=== PATIENT | female | born 1965 | race Caucasian/White ===

== ENCOUNTER 2018-04-03 10:16 | Inpatient (IN) ==
[2018-04-03] MEDS ORDERED: Ketorolac Inj 30 MG/ML (IVP) Vial IV.PUSH ONE (10:38)
[2018-04-03] MEDS ORDERED: Sod Chloride 0.9% Inj 1,000 ML IV.SIG ONE (10:38)
[2018-04-03] MEDS ORDERED: Acetaminophen 500 MG Tablet PO ONE (10:41)
[2018-04-03 11:19] LABS: Bilirubin,Urine Negative (Negative); Clarity,Urine Cloudy (Clear); Color,Urine Yellow (Yellw/Straw); Glucose,Urine (UA) Negative (Negative); Leukocyte Esterase,Urine Moderate (Negative); Nitrite,Urine Positive (Negative)
[2018-04-03 11:21] LABS: Collection Time,Urine 1030 hours
[2018-04-03 11:21] LABS: Baso # (Auto) 0.2 th/mm3 (0.0-0.2); Baso % (Auto) 1.6 % (0.0-2.0); Hematocrit 39.1 % (35.0-46.0); Hemoglobin 13.9 gm/dL (11.6-15.3); Lymph # (Auto) 0.5 th/mm3 (1.0-4.8); Lymph % (Auto) 4.4 % (9.0-44.0); Mean Corpuscular HGB Conc 35.6 % (32.0-36.0); Mean Corpuscular Volume 98.4 fL (80.0-100.0); Mean Platelet Volume 7.3 fL (7.0-11.0); Mono # (Auto) 0.8 th/mm3 (0.0-0.9); Mono % (Auto) 8.1 % (0.0-8.0); Neut # (Auto) 8.9 th/mm3 (1.8-7.7); Neut % (Auto) 85.9 % (16.0-70.0); Platelet Count 168 th/mm3 (150-450); Red Blood Count 3.98 mil/mm3 (4.00-5.30); Red Cell Distribution Width 13.1 % (11.6-17.2); White Blood Count 10.4 th/mm3 (4.0-11.0)
[2018-04-03 11:27] LABS: RBC,Urine 0-3 /hpf (0-3)
[2018-04-03 11:28] LABS: Squamous Epithelial Cell,Urine 0-5 /hpf (0-5); WBC,Urine 21-50 /hpf (0-5)
--- NOTE | 2018-04-03 11:28 | ED ---
HPI General Chief complaint: Urogenital-Female Stated complaint: sent by Dr Justin/Spring UTI Time Seen by Provider: 04/03/18 10:38 History of Present Illness HPI Narrative: This is a 53-year-old female with no past medical history, presents here at the request of her primary care doctor for evaluation and IV antibiotics. Patient presents with 5-day history of dysuria and flank pain. She has had fever and chills. She is also had bilateral flank pain. She was seen and evaluated by her primary care physician who sent her here. Primary care physician noted that she was a little unsteady on her gait. Patient appears to be very tremulous and is having chills when I entered the room. There is nausea with no vomiting diarrhea. Related Data Home Medications Medication Instructions Recorded Confirmed No Known Home Medications 04/03/18 04/03/18 Allergies Allergy/AdvReac Type Severity Reaction Status Date / Time No Known Allergies Allergy Verified 04/03/18 10:22 Review of Systems ROS: all other systems reviewed are negative Constitutional Reports chills and Reports fever(s) Eyes Reports system reviewed and no additional complaints, except as docu ENT Reports system reviewed and no additional complaints, except as docu Cardiovascular Denies chest pain and Reports palpitations Respiratory Denies chest congestion and Denies dyspnea Gastrointestinal Denies abdominal pain, Reports nausea and Denies vomiting Genitourinary Denies hematuria, Reports dysuria and Reports urinary urgency Musculoskeletal Reports back pain, Denies numbness and Denies tingling Integumentary/Breasts Reports system reviewed and no additional complaints, except as docu Neurologic Denies confusion, Reports dizziness, Denies headache(s) and Reports other ( Steady with gait.) PMFSH Social History Social History Substance History: No History of Abuse Smoking Status: Never smoker How Often Do You Have a Drink Containing Alcohol: 4 or more times a week Recent Travel in [facility] within the Last 8 Weeks: No Recent Out of Country Travel within the Last 8 Weeks: No Immunization History Tetanus Immunization: Unsure Exam Narrative Exam Narrative: GENERAL: Well-developed well-nourished female who is in obvious distress with chills. SKIN: Focused skin assessment warm/dry. HEAD: Atraumatic. Normocephalic. EYES: No scleral icterus. No injection or drainage. ENT: No nasal bleeding or discharge. Mucous membranes pink and moist. NECK: Trachea midline. Supple. CARDIOVASCULAR: Tachycardic with a rate in the 120s.. No murmur appreciated. RESPIRATORY: No accessory muscle use. Clear to auscultation. Breath sounds equal bilaterally. GASTROINTESTINAL: Abdomen soft, nondistended. Suprapubic discomfort to deep palpation. No rebound or guarding. MUSCULOSKELETAL: No obvious deformities. No clubbing. No cyanosis. No edema. BACK: Subjective flank pain bilaterally to percussion. NEUROLOGICAL: Awake and alert. No obvious cranial nerve deficits. Motor grossly within normal limits. Normal speech. Course Initial Documented Vital Signs Temperature 100.7 F H 04/03/18 10:22 Pulse Rate 125 H 04/03/18 10:22 Respiratory Rate 16 04/03/18 10:22 Blood Pressure 155/79 H 04/03/18 10:22 Pulse Oximetry 94 L 04/03/18 10:22 Last Documented Vital Signs Temperature 100.7 F H 04/03/18 10:22 Pulse Rate 125 H 04/03/18 10:22 Respiratory Rate 16 04/03/18 10:22 Blood Pressure 155/79 H 04/03/18 10:22 Pulse Oximetry 94 L 04/03/18 10:22 Medical Decision Making [facility] Narrative Medical decision making narrative: 53-year-old female presents today with complaints of fever, dysuria, flank pain, tachycardia. Patient has pyelonephritis and sepsis. She is been started on Rocephin, 1 g IV x1 dose. Patient's sodium was also noted to be 128. She will be given IV hydration overnight. She will be observed in the hospital. Case was discussed with Dr. Dereck Blunt, covering for [facility] admissions, who is come down to see and evaluate the patient. He will write admission orders. At the time of her being interviewed, the nurse came back and stated that she had had a more in-depth talk with her and she gives history that she drinks daily. The patient does appear to be tremulous and there is a possibility that she could be going through early alcohol withdrawal. This information was passed on to the admitting physician who placed her on [facility] protocol. Medical Screen Exam Complete: Yes Emergency Medical Condition: Yes Differential Diagnosis Differential Diagnosis: Pyelonephritis versus sepsis versus UTI Lab Data Result diagrams: 04/03/18 11:05 04/03/18 11:05 Lab Results 04/03/18 04/03/1818 Range/Units 10:30 11:05 11:05 CBC w Diff Auto diff final WBC 10.4 (4.0-11.0) th/mm3 RBC 3.98 L (4.00-5.30) mil/mm3 Hgb 13.9 (11.6-15.3) gm/dL Hct 39.1 (35.0-46.0) % MCV 98.4 (80.0-100.0) fL MCH 35.0 H (27.0-34.0) pg MCHC 35.6 (32.0-36.0) % RDW 13.1 (11.6-17.2) % Plt Count 168 (150-450) th/mm3 MPV 7.3 (7.0-11.0) fL Neut % (Auto) 85.9 H (16.0-70.0) % Lymph % (Auto) 4.4 L (9.0-44.0) % [place] % (Auto) 8.1 H (0.0-8.0) % Eos % (Auto) 0.0 (0.0-4.0) % Baso % (Auto) 1.6 (0.0-2.0) % Neut # (Auto) 8.9 H (1.8-7.7) th/mm3 Lymph # (Auto) 0.5 L (1.0-4.8) th/mm3 [place] # (Auto) 0.8 (0.0-0.9) th/mm3 Eos # (Auto) 0.0 (0.0-0.4) th/mm3 Baso # (Auto) 0.2 (0.0-0.2) th/mm3 WBC Differential . Differential Comment . Sodium 128 L (136-145) meq/L Potassium 4.0 (3.5-5.1) meq/L Chloride 90 L (98-107) meq/L Carbon Dioxide 24.9 (21.0-32.0) meq/L Anion Gap 13 (5-15) meq/L BUN 10 (7-18) mg/dL Creatinine 0.99 (0.50-1.00) mg/dL Estimated GFR 58 L (>89) mL/min Random Glucose 123 H (74-106) mg/dL Calcium 8.5 (8.5-10.1) mg/dL Magnesium 1.4 L (1.5-2.5) mg/dL Total Bilirubin 1.9 H (0.2-1.0) mg/dL AST 74 H (15-37) U/L ALT 62 H (10-53) U/L Alkaline Phosphatase 102 (45-117) U/L Total Protein 8.5 H (6.4-8.2) g/dL Albumin 3.6 (3.4-5.0) g/dL Ur Collection Type Clean catch Urine Color Yellow (Yellw/Straw) Urine Clarity Cloudy H (Clear) Urine pH 6.0 (5.0-8.5) Ur Specific [place] 1.020 (1.002-1.035) Urine Protein 100 H (Neg-Trace) mg/dL Urine Glucose (UA) Negative (Negative) mg/dL Urine Ketones 80 or greater H (Negative) mg/dL Urine Occult Blood Large H (Negative) Urine Nitrate Positive H (Negative) Urine Bilirubin Negative (Negative) Urine Urobilinogen 1.0 (Less than 2) mg/dL Ur Leukocyte Esterase Moderate H (Negative) Urine RBC 0-3 (0-3) /hpf Urine WBC 21-50 H (0-5) /hpf Urine WBC Clumps Moderate H (None) Ur Squamous Epith Cells 0-5 (0-5) /hpf Amorphous Sediment Occasional H (None) /hpf Urine Bacteria Occasional H (None) /hpf Micro UA Comment Culture indicated Ur Microscopic Review Microscopic reviewed Urine Culture Comments Culture indicated Urine Collection Time 1030 hours Discharge Plan Discharge Disposition Patient Disposition: 30 Still Patient Discharge Details Diagnosis: Pyelonephritis, Sepsis, Hyponatremia, Dehydration Physicians Team ED Provider: Julian Cordoba Primary Care Provider: Bertha Justin Attending Provider: Dereck Blunt Status ED Status: Admitted Patient
[2018-04-03 11:29] LABS: Chloride 90 meq/L (98-107); Sodium 128 meq/L (136-145)
[2018-04-03 11:29] LABS: Amorphous Sediment,Urine Occasional /hpf; Bacteria,Urine Occasional /hpf
[2018-04-03 11:33] LABS: Albumin 3.6 g/dL (3.4-5.0); Anion Gap 13 meq/L (5-15); Calcium 8.5 mg/dL (8.5-10.1); Carbon Dioxide 24.9 meq/L (21.0-32.0)
[2018-04-03 11:34] LABS: Blood Urea Nitrogen 10 mg/dL (7-18); Glucose,Random 123 mg/dL (74-106); Magnesium 1.4 mg/dL (1.5-2.5)
[2018-04-03 11:36] LABS: Alanine Aminotransferase 62 U/L (10-53); Aspartate Aminotransferase 74 U/L (15-37)
[2018-04-03 11:37] LABS: Glomerular Filtration Rate 58 mL/min (>89)
[2018-04-03 11:38] LABS: Total Protein 8.5 g/dL (6.4-8.2)
[2018-04-03 11:39] LABS: Alkaline Phosphatase 102 U/L (45-117)
[2018-04-03] MEDS ORDERED: Haloperidol Inj 5 MG/ML Ampul IV.PUSH PRN (12:28)
--- NOTE | 2018-04-03 12:41 | P.HP ---
History of Present Illness [facility] Physician: Bertha Justin MD Chief Complaint: Sent via primary care physician for fever chills abdominal pain dysuria History of Present Illness: This is a 53-year-old female with no past medical history, presents here at the request of her primary care doctor for evaluation and IV antibiotics. Patient presents with 5-day history of dysuria and flank pain abdominal pain. She has had fever and chills. She is also had bilateral flank pain. She was seen and evaluated by her primary care physician who sent her here. Primary care physician noted that she was a little unsteady on her gait. Patient appears to be very tremulous and is having chills some tremors but does claim to drink wine daily. There is nausea with no vomiting diarrhea. In ER was found to have a low sodium here and urine shows infection also had some elevation of liver function test , will start Rocephin IV fluid. Place on CIWA protocol as patient does drink wine daily. - Diagnosis (1) Pyelonephritis (2) Hyponatremia (3) Sepsis (4) Dehydration (5) LFT elevation Inpatient Certification: I certify that the inpatient services were ordered in accordance with Medicare regulations governing the order. This includes certification that hospital inpatient services are reasonable and necessary and in the case of services not specified as inpatient-only under 42 CFR 419.22(n), that they are appropriately provided as inpatient services in accordance to with the 2-midnight benchmark under 43 CFR 412.3(e) Estimated Total Length of Stay (Days): 2 Plans for Post Hospital Care: Home Review of Systems All other systems reviewed negative except as stated in HPI [facility] - History History Provided By: Patient - Medical History Medical History: Medical History (Last Reviewed 04/03/18 @ 12:37 by Dereck Blunt MD) No significant past medical history - Surgical History Surgical History: Surgical History (Last Reviewed 04/03/18 @ 12:37 by Dereck Blunt MD) History of breast augmentation Hx of tonsillectomy - Tobacco History Smoking Status: Never smoker - Alcohol History How Often Do You Have a Drink Containing Alcohol: 4 or more times a week - Substance Use History Substance History: No History of Abuse - Travel History Recent Travel in the [place] Within the Last 8 Weeks: No Recent Travel Out of the Country Within the Last 8 Weeks: No - Immunization History Tetanus Immunization: Unsure Medications and Allergies Active Medications: Active Medications Acetaminophen (Tylenol) 650 mg PO Q4H PRN PRN Reason: Temp > 100.4 Flumazenil (Romazecon Inj) 0.2 mg IV.PUSH Q1M PRN PRN Reason: OVERSEDATION Haloperidol Lactate (Haldol Inj) 1 mg IV.PUSH Q15M PRN PRN Reason: for severe agitation Ceftriaxone Sodium 1,000 mg/ (Sodium Chloride) 100 mls @ 200 mls/hr IV.SIG Q24H MARIE Sodium Chloride (Ns Inj) 1,000 mls @ 84 mls/hr IV.CONT .[id number] MARIE Lorazepam (Ativan) 1 mg PO Q4H PRN PRN Reason: for CIWA 8-10 Lorazepam (Ativan) 2 mg PO Q2H PRN PRN Reason: for CIWA 11-14 Lorazepam (Ativan Inj) 2 mg IV.PUSH Q1H PRN PRN Reason: for CIWA 15-20 Lorazepam (Ativan Inj) 2 mg IV.PUSH Q15M PRN PRN Reason: for CIWA > 20 Lorazepam (Ativan Inj) 1 mg IV.PUSH Q4H PRN PRN Reason: for CIWA 8-10 Lorazepam (Ativan Inj) 2 mg IV.PUSH Q2H PRN PRN Reason: for CIWA 11-14 Ondansetron HCl (Zofran Inj) 4 mg IV.PUSH Q6H PRN PRN Reason: NAUSEA OR VOMITING Senna/Docusate Sodium (Romana-Colace) 1 tab PO BID MARIE Sodium Chloride (Ns Flush) 2 ml IV.FLUSH PRN PRN PRN Reason: FLUSH AFTER USING IV ACCESS Allergies Allergy/AdvReac Type Severity Reaction Status Date / Time No Known Allergies Allergy Verified 04/03/18 10:22 Home Medications Medication Instructions Recorded Confirmed Type No Known Home Medications 04/03/18 04/03/18 History Exam Vital signs: Vital Signs 04/03/18 10:22 Temperature 100.7 F H Pulse Rate 125 H Respiratory Rate 16 Blood Pressure 155/79 H Pulse Oximetry 94 L Intake & Output 04/02/18 04/03/18 04/03/18 18:59 06:59 18:59 Intake Total 100 / 100 Balance 100 / 100 Weight 51.7 kg Intake: IV 100 / 100 Rocephin Inj 1,000 MG In NS Inj 100 / 100 100 ML @ 200 mls/hr IV.SIG ONCE ONE Rx#:[id number] Narrative: GENERAL: SKIN: Warm and dry. HEAD: Normocephalic. EYES: No scleral icterus. No injection or drainage. NECK: Supple, trachea midline. No JVD or lymphadenopathy. CARDIOVASCULAR: Regular rate and rhythm without murmurs, gallops, or rubs. RESPIRATORY: Breath sounds equal bilaterally. No accessory muscle use. GASTROINTESTINAL: Abdomen tender lower abdomen with radiation to flank. MUSCULOSKELETAL: No cyanosis, or edema. BACK: Nontender without obvious deformity. No CVA tenderness. Results - Labs CBC & Chem 7: 04/03/18 11:05 04/03/18 11:05 Labs: Laboratory Results - last 24 hr 04/03/18 04/03/18 04/03/18 10:30 11:05 11:05 CBC w Diff Auto diff final WBC 10.4 RBC 3.98 L Hgb 13.9 Hct 39.1 MCV 98.4 MCH 35.0 H MCHC 35.6 RDW 13.1 Plt Count 168 MPV 7.3 Neut % (Auto) 85.9 H Lymph % (Auto) 4.4 L [place] % (Auto) 8.1 H Eos % (Auto) 0.0 Baso % (Auto) 1.6 Neut # (Auto) 8.9 H Lymph # (Auto) 0.5 L [place] # (Auto) 0.8 Eos # (Auto) 0.0 Baso # (Auto) 0.2 WBC Differential . Differential Comment . Sodium 128 L Potassium 4.0 Chloride 90 L Carbon Dioxide 24.9 Anion Gap 13 BUN 10 Creatinine 0.99 Estimated GFR 58 L Random Glucose 123 H Calcium 8.5 Magnesium 1.4 L Total Bilirubin 1.9 H AST 74 H ALT 62 H Alkaline Phosphatase 102 Total Protein 8.5 H Albumin 3.6 Ur Collection Type Clean catch Urine Color Yellow Urine Clarity Cloudy H Urine pH 6.0 Ur Specific [place] 1.020 Urine Protein 100 H Urine Glucose (UA) Negative Urine Ketones 80 or greater H Urine Occult Blood Large H Urine Nitrate Positive H Urine Bilirubin Negative Urine Urobilinogen 1.0 Ur Leukocyte Esterase Moderate H Urine RBC 0-3 Urine WBC 21-50 H Urine WBC Clumps Moderate H Ur Squamous Epith Cells 0-5 Amorphous Sediment Occasional H Urine Bacteria Occasional H Micro UA Comment Culture indicated Ur Microscopic Review Microscopic reviewed Urine Culture Comments Culture indicated Urine Collection Time 1030 Caprini VTE Risk Assessment Caprini VTE Risk Assessment: No/Low Risk (score <= 1) Caprini Risk Assessment Model: Point Value = 1 Point Value = 2 Point Value = 3 Point Value = 5 Age 41-60 Minor surgery BMI > 25 kg/m2 Swollen legs Varicose veins or History of unexplained or recurrent spontaneous Oral contraceptives or hormone replacement Sepsis (< 1 month) Serious lung disease, including pneumonia (< 1 month) Abnormal pulmonary function Acute myocardial infarction Congestive heart failure (< 1 month) History of inflammatory bowel disease Medical patient at bed rest Age 61-74 Arthroscopic surgery Major open surgery (> 45 min) Laparoscopic surgery (> 45 min) Malignancy Confined to bed (> 72 hours) Immobilizing plaster cast Central venous access Age >= 75 History of VTE Family history of VTE Factor V Leiden Prothrombin [id number] Lupus anticoagulant Anticardiolipin antibodies Elevated serum homocysteine Heparin-induced thrombocytopenia Other congenital or acquired thrombophilia Stroke (< 1 month) Elective arthroplasty Hip, pelvis, or leg fracture Acute spinal cord injury (< 1 month) Prophylaxis Regimen: Total Risk Factor Score Risk Level Prophylaxis Regimen 0-1 Low Early ambulation 2 Moderate Order ONE of the following: *Sequential Compression Device (SCD) *Heparin 5000 units SQ BID 3-4 Higher Order ONE of the following medications: *Heparin 5000 units SQ TID *Enoxaparin/Lovenox 40 mg SQ daily (WT < 150 kg, CrCl > 30 mL/min) *Enoxaparin/Lovenox 30 mg SQ daily (WT < 150 kg, CrCl > 10-29 mL/min) *Enoxaparin/Lovenox 30 mg SQ BID (WT < 150 kg, CrCl > 30 mL/min) AND/OR *Sequential Compression Device (SCD) 5 or more Highest Order ONE of the following medications: *Heparin 5000 units SQ TID (Preferred with Epidurals) *Enoxaparin/Lovenox 40 mg SQ daily (WT < 150 kg, CrCl > 30 mL/min) *Enoxaparin/Lovenox 30 mg SQ daily (WT < 150 kg, CrCl > 10-29 mL/min) *Enoxaparin/Lovenox 30 mg SQ BID (WT < 150 kg, CrCl > 30 mL/min) AND *Sequential Compression Device (SCD) Assessment and Plan - Assessment (1) Pyelonephritis Code(s): N12 - Tubulo-interstitial nephritis, not specified as acute or chronic Status: Acute Plan: IV fluid,rocephin follow up labs (2) Hyponatremia Code(s): E87.1 - Hypo-osmolality and hyponatremia Status: Acute Plan: Follow levels IV fluids will be given (3) Sepsis Code(s): A41.9 - Sepsis, unspecified organism Status: Acute Plan: Fever retractions and follow (4) Dehydration Code(s): E86.0 - Dehydration Status: Acute Plan: Normal saline (5) LFT elevation Code(s): R94.5 - Abnormal results of liver function studies Status: Acute Plan: We will get a noncontrast CT as patient had elevated LFT and abdominal pain - Plan Further plan as case develops Code Status: Full Discussed Condition With: Patient and (3) Sepsis Qualifiers: Sepsis type: sepsis due to unspecified organism Qualified Code(s): A41.9 - Sepsis, unspecified organism
[2018-04-03] MEDS: Sod Chloride 0.9% Inj 1,000 ML IV.CONT SCH (13:46)
[2018-04-03] MEDS: LORazepam 1 MG Tablet PO PRN (17:00)
[2018-04-03] MEDS: Acetaminophen 325 MG Tablet PO PRN (17:36)
[2018-04-03] MEDS: Senna/Docusate Sodium 8.6/50 MG Tablet PO SCH (20:26)
--- NOTE | 2018-04-03 20:46 | CT ---
EXAM DATE: 04/03/2018 8:30 PM EST AGE/SEX: 53 years / Female INDICATIONS: Dysuria and bilateral flank pain. Nausea. CLINICAL DATA: This is the patient's initial encounter. Patient reports that signs and symptoms have been present for 4 - 6 days and indicates a pain score of 7/10. MEDICAL/SURGICAL HISTORY: None. None. RADIATION DOSE: 6.65 CTDI (mGy) COMPARISON: No prior exams available for comparison. TECHNIQUE: Multiple contiguous axial images were obtained through the abdomen. Images were obtained using multiple row detector helical technique. Using automated exposure control and adjustment of the mA and/or kV according to patient size, radiation dose was kept as low as reasonably achievable to o btain optimal diagnostic quality images. DICOM format image data is available electronically for rev iew and comparison. FINDINGS: Lower Lungs: The visualized lower lungs are clear. Liver: The liver has a homogeneous density without space-occupying lesion for noncontrast technique. There is no dilation of the biliary tree. No calcified gallstones. Spleen: Homogeneous density without enlargement. Pancreas: Unremarkable without mass or calcification. Kidneys: Normal in size and shape. No evidence of mass or hydronephrosis. No calcified stones in the collecting system or ureters. There is mild induration of the fat in the perinephric space bilateral ly. Adrenal Glands: Unremarkable. Aorta: The aorta and proximal iliac vessels are grossly unremarkable without aneurysmal dilation. Bowel/Mesentery: No dilated loops of small or large bowel. Abdominal Wall: Intact. Retroperitoneum: No evidence of adenopathy in the retrocrural, para-aortic, or deep pelvic regions. Bladder: Contours are smooth. No calcifications within the lumen. Reproductive Organs: No abnormal masses or calcifications seen. Inguinal: The inguinal region is unremarkable without evidence of adenopathy. Bony Structures: Moderate curvature of the spine convex to the left with associated degenerative lucy nges along the inner side of the curvature. CONCLUSION: 1. No evidence of hydronephrosis or calcified stones. 2. No dilated loops of small or large bowel. Electronically signed by: Luis Humphrey MD 04/03/2018 8:45 PM EST
[2018-04-03] MEDS: Morphine Sulfate Inj 2 MG/ML Vial IV.PUSH PRN (21:04)
[2018-04-04] MEDS: Sod Chloride 0.9% Inj 1,000 ML IV.CONT SCH ×2 (02:30→14:35)
[2018-04-04] MEDS: Acetaminophen 325 MG Tablet PO PRN ×2 (04:27→20:21)
[2018-04-04] MEDS: Morphine Sulfate Inj 2 MG/ML Vial IV.PUSH PRN ×3 (06:18→22:51)
[2018-04-04 07:10] LABS: Baso % (Auto) 0.1 % (0.0-2.0); Eos % (Auto) 0.2 % (0.0-4.0); Hematocrit 32.5 % (35.0-46.0); Hemoglobin 11.7 gm/dL (11.6-15.3); Lymph # (Auto) 0.6 th/mm3 (1.0-4.8); Mean Corpuscular HGB Conc 35.9 % (32.0-36.0); Mean Corpuscular Hemoglobin 35.5 pg (27.0-34.0); Mean Corpuscular Volume 98.7 fL (80.0-100.0); Mean Platelet Volume 8.4 fL (7.0-11.0); Mono # (Auto) 0.7 th/mm3 (0.0-0.9); Mono % (Auto) 8.7 % (0.0-8.0); Neut # (Auto) 6.8 th/mm3 (1.8-7.7); Platelet Count 123 th/mm3 (150-450); Red Blood Count 3.29 mil/mm3 (4.00-5.30); Red Cell Distribution Width 13.1 % (11.6-17.2); White Blood Count 8.1 th/mm3 (4.0-11.0)
[2018-04-04 07:32] LABS: Alanine Aminotransferase 38 U/L (10-53); Albumin 2.7 g/dL (3.4-5.0); Alkaline Phosphatase 67 U/L (45-117); Anion Gap 11 meq/L (5-15); Aspartate Aminotransferase 45 U/L (15-37); Blood Urea Nitrogen 9 mg/dL (7-18); Calcium 7.9 mg/dL (8.5-10.1); Carbon Dioxide 24.5 meq/L (21.0-32.0); Chloride 98 meq/L (98-107); Glomerular Filtration Rate 78 mL/min (>89); Glucose,Random 108 mg/dL (74-106); Sodium 133 meq/L (136-145); Total Protein 6.7 g/dL (6.4-8.2)
[2018-04-04 07:37] LABS: Potassium 2.9 meq/L (3.5-5.1)
[2018-04-04] MEDS: Senna/Docusate Sodium 8.6/50 MG Tablet PO SCH ×2 (09:23→20:22)
--- NOTE | 2018-04-04 10:59 | P.DS ---
Date of admission: 04/03/18 12:12 Primary care physician: Bertha Justin MD Attending physician on discharge: Dereck Blunt Anticipated date of discharge: 04/04/18 Brief History from admission: This is a 53-year-old female with no past medical history, presents here at the request of her primary care doctor for evaluation and IV antibiotics. Patient presents with 5-day history of dysuria and flank pain abdominal pain. She has had fever and chills. She is also had bilateral flank pain. She was seen and evaluated by her primary care physician who sent her here. Primary care physician noted that she was a little unsteady on her gait. Patient appears to be very tremulous and is having chills some tremors but does claim to drink wine daily. There is nausea with no vomiting diarrhea. In ER was found to have a low sodium here and urine shows infection also had some elevation of liver function test , will start Rocephin IV fluid. Place on CIWA protocol as patient does drink wine daily. Patient update on day of discharge: stable for discharge will need cipro 500 bid for 1 week pending U/S,low dose lorazepam for 1 week ,unsteady will get walker to help to bathroom,pyridium and potassium daily DS: Diagnosis - Discharge Diagnosis (1) Pyelonephritis Status: Acute (2) Hyponatremia Status: Acute (3) Sepsis Status: Acute (4) Dehydration Status: Acute (5) LFT elevation Status: Acute DS: Medications - Discharge Medications Prescriptions: lorazepam 1 mg PO DAILY PRN 10 Days #10 tab PRN Reason: Anxiety DS: Summary Hospital Course: 53-year-old white female who was admitted to the emergency room with pyelonephritis, fever, dehydration, slight elevation liver function tests with a history of daily drinking of wine. Patient was admitted started on Rocephin IV given IV fluids and a full liquid diet, did fairly well the only problem she had was some tremors from her being off alcohol and she was put on CIWA protocol. Lorazepam did help her with her tremors and she felt much better with that still had some difficulty ambulating to the bathroom due to little bit of unsteadiness we will arrange for walker for her discharge. Laboratory work CBC CMP was significant for a slight elevation of liver function which did improve on follow-up lab tests and a low potassium she will give be given potassium p.o. supplementation her urine culture is still pending we will follow that up as an outpatient will empirically start her on Cipro 500 twice daily for a week and Pyridium as she said this did help her with burning on urination. I did discuss her alcohol abuse with her and her and they will decide whether they want [facility] to help regarding we will place her on lorazepam very low dose as needed and will arrange follow-up with her primary care. Physician Dr. Justin. Of note she did have a CT of the abdomen which was unremarkable. Patient discharged home in stable condition. - Time Spent with Patient Total time spent providing and/or coordinating discharge services: Greater than 30 minutes - Quality: VTE Deep Vein Thrombosis/Pulmonary Embolism Present on Admission: No Exam Vital signs: Vital Signs 04/03/18 12:25 04/03/18 13:15 04/03/18 14:00 Temperature 99.6 F 98.3 F 97.5 F L Pulse Rate 87 80 Respiratory Rate 16 20 Blood Pressure 141/86 H 143/72 H Pulse Oximetry 96 95 04/03/18 16:00 04/03/18 17:35 04/03/18 18:28 Temperature 98 F 100.3 F H 101.5 F H Pulse Rate 83 118 H Respiratory Rate 20 18 Blood Pressure 138/70 158/92 H Pulse Oximetry 96 95 04/03/18 19:34 04/03/18 20:00 04/04/18 00:00 Temperature 99.7 F H 99.3 F 98 F Pulse Rate 99 H 124 H Respiratory Rate 20 20 Blood Pressure 134/73 161/91 H Pulse Oximetry 95 95 04/04/18 04:00 04/04/18 06:07 04/04/18 08:00 Temperature 101.4 F H 99.2 F 96.3 F L Pulse Rate 108 H 86 Respiratory Rate 20 16 Blood Pressure 131/77 129/84 Pulse Oximetry 93 L Intake & Output 04/03/18 04/04/18 04/04/18 18:59 06:59 18:59 Intake Total 1160 / 1160 1883 Balance 1160 / 1160 1883 Weight 51.7 kg 52.8 kg Intake: IV 1100 / 1100 1284 / 1284 NS Inj 1,000 ML @ 84 mls/hr IV. 1284 / 1284 CONT .[id number] [facility] Rx#: [id number] NS Inj 1,000 ML @ Wide Open IV. 1000 / 1000 SIG BOLUS ONE Rx#:[id number] Rocephin Inj 1,000 MG In NS Inj 100 / 100 100 ML @ 200 mls/hr IV.SIG ONCE ONE Rx#:[id number] Oral 60 / 60 600 / 600 Other: # Voids 2 4 Date of Last Bowel Movement 04/03/18 04/03/18 # Bowel Movements 1 Narrative: GENERAL: mild tremors SKIN: Warm and dry. HEAD: Normocephalic. EYES: No scleral icterus. No injection or drainage. NECK: Supple, trachea midline. No JVD or lymphadenopathy. CARDIOVASCULAR: Regular rate and rhythm without murmurs, gallops, or rubs. RESPIRATORY: Breath sounds equal bilaterally. No accessory muscle use. GASTROINTESTINAL: Abdomen tender lower abdomen with radiation to flank. MUSCULOSKELETAL: No cyanosis, or edema. BACK: Nontender without obvious deformity. No CVA tenderness. Results Procedures completed during hospitalization: CT ABD/PELVIS Pending studies at discharge: u/c/s Labs on day of discharge: Labs from last 24 hours 04/04/18 04/04/18 04/03/18 06:15 06:15 11:05 CBC w Diff Auto diff final WBC 8.1 RBC 3.29 L Hgb 11.7 D Hct 32.5 L MCV 98.7 MCH 35.5 H MCHC 35.9 RDW 13.1 Plt Count 123 L MPV 8.4 Neut % (Auto) 83.0 H Lymph % (Auto) 8.0 L [place] % (Auto) 8.7 H Eos % (Auto) 0.2 Baso % (Auto) 0.1 Neut # (Auto) 6.8 Lymph # (Auto) 0.6 L [place] # (Auto) 0.7 Eos # (Auto) 0.0 Baso # (Auto) 0.0 WBC Differential . Differential Comment . Sodium 133 L 128 L Potassium 2.9 L* D 4.0 Chloride 98 D 90 L Carbon Dioxide 24.5 24.9 Anion Gap 11 13 BUN 9 10 Creatinine 0.77 0.99 Estimated GFR 78 L 58 L Random Glucose 108 H 123 H Calcium 7.9 L 8.5 Magnesium 1.4 L Total Bilirubin 1.3 H 1.9 H AST 45 H 74 H ALT 38 62 H Alkaline Phosphatase 67 102 Total Protein 6.7 D 8.5 H Albumin 2.7 L D 3.6 Ur Collection Type Urine Color Urine Clarity Urine pH Ur Specific [place] Urine Protein Urine Glucose (UA) Urine Ketones Urine Occult Blood Urine Nitrate Urine Bilirubin Urine Urobilinogen Ur Leukocyte Esterase Urine RBC Urine WBC Urine WBC Clumps Ur Squamous Epith Cells Amorphous Sediment Urine Bacteria Micro UA Comment Ur Microscopic Review Urine Culture Comments Urine Collection Time 04/03/18 04/03/18 11:05 10:30 CBC w Diff Auto diff final WBC 10.4 RBC 3.98 L Hgb 13.9 Hct 39.1 MCV 98.4 MCH 35.0 H MCHC 35.6 RDW 13.1 Plt Count 168 MPV 7.3 Neut % (Auto) 85.9 H Lymph % (Auto) 4.4 L [place] % (Auto) 8.1 H Eos % (Auto) 0.0 Baso % (Auto) 1.6 Neut # (Auto) 8.9 H Lymph # (Auto) 0.5 L [place] # (Auto) 0.8 Eos # (Auto) 0.0 Baso # (Auto) 0.2 WBC Differential . Differential Comment . Sodium Potassium Chloride Carbon Dioxide Anion Gap BUN Creatinine Estimated GFR Random Glucose Calcium Magnesium Total Bilirubin AST ALT Alkaline Phosphatase Total Protein Albumin Ur Collection Type Clean catch Urine Color Yellow Urine Clarity Cloudy H Urine pH 6.0 Ur Specific [place] 1.020 Urine Protein 100 H Urine Glucose (UA) Negative Urine Ketones 80 or greater H Urine Occult Blood Large H Urine Nitrate Positive H Urine Bilirubin Negative Urine Urobilinogen 1.0 Ur Leukocyte Esterase Moderate H Urine RBC 0-3 Urine WBC 21-50 H Urine WBC Clumps Moderate H Ur Squamous Epith Cells 0-5 Amorphous Sediment Occasional H Urine Bacteria Occasional H Micro UA Comment Culture indicated Ur Microscopic Review Microscopic reviewed Urine Culture Comments Culture indicated Urine Collection Time 1030 Preliminary micro results at discharge 04/03/18 11:15 Aerobic Blood Culture - Preliminary Blood - Peripheral gram negative rods Anaerobic Blood Culture - Preliminary gram negative rods 04/03/18 11:05 Aerobic Blood Culture - Preliminary Blood - Peripheral gram negative rods Anaerobic Blood Culture - Preliminary gram negative rods - Impressions ITS Impressions Abdomen/Pelvis CT 04/03/18 00:00 CONCLUSION: 1. No evidence of hydronephrosis or calcified stones. 2. No dilated loops of small or large bowel. - Additional Comments Patient has been given prescription for 1 week lorazepqam e forced thru my CP system and called in to [facility] pharmacy Discharge Plan - Discharge Disposition Patient Disposition: 01 Discharge Home - Discharge Condition Condition: Good - Discharge Order Discharge Orders: Discharge Order (Routine); Ordered 04/04/18 Ordered By: Dereck Blunt - Discharge Details Anticipated Discharge Date: 04/04/18 Discharge Comment: patient has tremors possibly from alcohol withdrawal will get walker - Physicians Team Primary Care Provider: Bertha Justin Attending Provider: Dereck Blunt
[2018-04-04] MEDS: LORazepam 1 MG Tablet PO PRN (11:18)
--- NOTE | 2018-04-04 11:55 | P.PN ---
Subjective Interval history: Patient was to be discharged today but received from microbiology she now growing gram negatives in 2 blood cultures will hold discharge continue her medications and have asked ID to evaluate as well . Patient does have tremors which she says happens whenever she is sick,does drink wine and could be alcohol related on [facility] protocol. Physical Exam Vital signs: Vital Signs 04/03/18 12:25 04/03/18 13:15 04/03/18 14:00 Temperature 99.6 F 98.3 F 97.5 F L Pulse Rate 87 80 Respiratory Rate 16 20 Blood Pressure 141/86 H 143/72 H Pulse Oximetry 96 95 04/03/18 16:00 04/03/18 17:35 04/03/18 18:28 Temperature 98 F 100.3 F H 101.5 F H Pulse Rate 83 118 H Respiratory Rate 20 18 Blood Pressure 138/70 158/92 H Pulse Oximetry 96 95 04/03/18 19:34 04/03/18 20:00 04/04/18 00:00 Temperature 99.7 F H 99.3 F 98 F Pulse Rate 99 H 124 H Respiratory Rate 20 20 Blood Pressure 134/73 161/91 H Pulse Oximetry 95 95 04/04/18 04:00 04/04/18 06:07 04/04/18 08:00 Temperature 101.4 F H 99.2 F 96.3 F L Pulse Rate 108 H 86 Respiratory Rate 20 16 Blood Pressure 131/77 129/84 Pulse Oximetry 93 L 04/04/18 11:14 Temperature 99.2 F Pulse Rate 110 H Respiratory Rate 18 Blood Pressure 161/97 H Pulse Oximetry 96 Intake & Output 04/03/18 04/04/18 04/04/18 18:59 06:59 18:59 Intake Total 1160 / 1160 1884 / 1884 Balance 1160 / 1160 1884 / 1884 Weight 51.7 kg 52.8 kg Intake: IV 1100 / 1100 1284 / 1284 NS Inj 1,000 ML @ 84 mls/hr IV. 1284 / 1284 CONT .[id number] [facility] Rx#: [id number] NS Inj 1,000 ML @ Wide Open IV. 1000 / 1000 SIG BOLUS ONE Rx#:[id number] Rocephin Inj 1,000 MG In NS Inj 100 / 100 100 ML @ 200 mls/hr IV.SIG ONCE ONE Rx#:[id number] Oral 60 / 60 600 / 600 Other: # Voids 2 4 Date of Last Bowel Movement 04/03/18 04/03/18 # Bowel Movements 1 Narrative: GENERAL: tremors SKIN: Warm and dry. HEAD: Normocephalic. EYES: No scleral icterus. No injection or drainage. NECK: Supple, trachea midline. No JVD or lymphadenopathy. CARDIOVASCULAR: Regular rate and rhythm without murmurs, gallops, or rubs. RESPIRATORY: Breath sounds equal bilaterally. No accessory muscle use. GASTROINTESTINAL: Abdomen tender lower abdomen with radiation to flank. MUSCULOSKELETAL: No cyanosis, or edema. BACK: Nontender without obvious deformity. No CVA tenderness. Results - Labs CBC & Chem 7: 04/04/18 06:15 04/04/18 06:15 Laboratory Results - last 24 hr 04/04/18 04/04/18 06:15 06:15 CBC w Diff Auto diff final WBC 8.1 RBC 3.29 L Hgb 11.7 D Hct 32.5 L MCV 98.7 MCH 35.5 H MCHC 35.9 RDW 13.1 Plt Count 123 L MPV 8.4 Neut % (Auto) 83.0 H Lymph % (Auto) 8.0 L [place] % (Auto) 8.7 H Eos % (Auto) 0.2 Baso % (Auto) 0.1 Neut # (Auto) 6.8 Lymph # (Auto) 0.6 L [place] # (Auto) 0.7 Eos # (Auto) 0.0 Baso # (Auto) 0.0 WBC Differential . Differential Comment . Sodium 133 L Potassium 2.9 L* D Chloride 98 D Carbon Dioxide 24.5 Anion Gap 11 BUN 9 Creatinine 0.77 Estimated GFR 78 L Random Glucose 108 H Calcium 7.9 L Total Bilirubin 1.3 H AST 45 H ALT 38 Alkaline Phosphatase 67 Total Protein 6.7 D Albumin 2.7 L D Microbiology 04/03/18 11:05 Blood - Peripheral Aerobic Blood Culture - Preliminary Escherichia coli 04/03/18 11:05 Blood - Peripheral Anaerobic Blood Culture - Preliminary gram negative rods 04/03/18 11:15 Blood - Peripheral Aerobic Blood Culture - Preliminary gram negative rods 04/03/18 11:15 Blood - Peripheral Anaerobic Blood Culture - Preliminary gram negative rods - Imaging Impressions Abdomen/Pelvis CT 04/03/18 00:00 CONCLUSION: 1. No evidence of hydronephrosis or calcified stones. 2. No dilated loops of small or large bowel. - Procedures CT ABD/PELVIS Assessment and Plan - Assessment (1) Pyelonephritis Code(s): N12 - Tubulo-interstitial nephritis, not specified as acute or chronic Status: Acute Plan: IV fluid,rocephin follow up labs (2) Hyponatremia Code(s): E87.1 - Hypo-osmolality and hyponatremia Status: Acute Plan: sodium improved follow labs (3) Sepsis Code(s): A41.9 - Sepsis, unspecified organism Status: Acute Plan: patient growing gram negatives in blood cultures,probably e coli continue rocephin for now have consulted ID (4) Dehydration Code(s): E86.0 - Dehydration Status: Acute Plan: Normal saline (5) LFT elevation Code(s): R94.5 - Abnormal results of liver function studies Status: Acute Plan: LFT improved CT unremarkable - Plan Further plan as case develops,patient with hx etoh use discussed possible seeing CP PSY she will think about it (3) Sepsis Qualifiers: Sepsis type: Escherichia coli Qualified Code(s): A41.51 - Sepsis due to Escherichia coli [E. coli]
--- NOTE | 2018-04-04 12:49 | P.CONID ---
History of Present Illness Service: Infectious disease Consult date: 04/04/18 Requesting Physician: Dereck Blunt Reason for Consult: Evaluate patient with gram-negative jax in the blood culture Primary Care Provider: Bertha Justin MD Chief Complaint: Sent via primary care physician for fever chills abdominal pain dysuria History of Present Illness: Patient seen and examined. Records reviewed. Patient is a 53-year-old female, presented to the hospital after she was seen by her primary care physician for further evaluation. She apparently has been having problem with dysuria, flank pain, and abdominal pain for the last 5 days. She has had some chills, but has not really documented her temperature. She complains of bilateral flank pain. She also has had some dysuria. She denies any hematuria, or any history of kidney stone. She has had prior history of UTI but this was 2 years ago. Currently patient is so weak and she is having hard time going to the bathroom so she has been urinating in her bed. She denies any respiratory complaint. Patient when I saw her is very tremulous, and according to her she gets like this when she gets sick. Her WBC on admission is normal. Her urinalysis showed evidence of UTI. Her LFTs are mildly elevated. There is history of drinking wine on a daily basis. CT of the abdomen and pelvis did not show any hydronephrosis or any abnormality in the gallbladder. She denies any diarrhea. She has had some nausea but no vomiting. Patient currently still having fevers. Her blood cultures are now reported as growing gram-negative jax. Verigene testing is showing E. coli, and no resistant markers noted. Urine culture is still pending. Infectious disease consultation has been requested to assist with evaluation and treatment. Review of Systems Constitutional: Reports chills, Reports fever(s), Reports lack of energy, Reports malaise Eyes: Denies discharge, Denies dry eyes Ears, Nose, Mouth, and Throat: Denies difficulty swallowing, Denies facial pain , Denies headache(s), Denies nasal discharge, Denies neck pain, Denies pain with swallowing, Denies sore throat Cardiovascular: Denies chest pain, Denies shortness of breath Respiratory: Denies chest congestion, Denies cough, Denies shortness of breath Gastrointestinal: Reports abdominal pain, Reports nausea, Denies difficulty swallowing, Denies loose stools, Denies pain with swallowing, Denies vomiting Genitourinary: Reports painful urination, Reports urinary incontinence, Denies blood in urine Musculoskeletal: Reports back pain, Denies joint pain, Denies joint swelling, Denies neck pain Skin/Breast: Denies rash, Denies sores Neurologic: Reports tremor(s), Reports unsteadiness PMFSH - History History Provided By: Patient - Medical History Medical History: Medical History (Last Reviewed 04/04/18 @ 12:44 by Orly Cruz MD) No significant past medical history - Surgical History Surgical History: Surgical History (Last Reviewed 04/04/18 @ 12:44 by Orly Cruz MD) History of breast augmentation Hx of tonsillectomy - Tobacco History Second Hand Smoke Exposure: No Smoking Status: Never smoker - Alcohol History How Often Do You Have a Drink Containing Alcohol: 4 or more times a week - Substance Use History Substance History: No History of Abuse - Travel History Recent Travel in the [facility] Within the Last 8 Weeks: No Recent Travel Out of the Country Within the Last 8 Weeks: No - Immunization History Tetanus Immunization: Unsure Hx Influenza Vaccine This Season: No Medications and Allergies Active Medications: Active Medications Acetaminophen (Tylenol) 650 mg PO Q4H PRN PRN Reason: Temp > 100.4 Last Admin: 04/04/18 04:27 Dose: 650 mg Flumazenil (Romazecon Inj) 0.2 mg IV.PUSH Q1M PRN PRN Reason: OVERSEDATION Haloperidol Lactate (Haldol Inj) 1 mg IV.PUSH Q15M PRN PRN Reason: for severe agitation Sodium Chloride (Ns Inj) 1,000 mls @ 84 mls/hr IV.CONT .[id number] MARIE Last Infusion: 04/04/18 06:21 Dose: 84 mls/hr Cefepime HCl 2,000 mg/ Sodium (Chloride) 100 mls @ 200 mls/hr IV.SIG Q12H [facility]IE Lorazepam (Ativan) 1 mg PO Q4H PRN PRN Reason: for CIWA 8-10 Last Admin: 04/04/18 11:18 Dose: 1 mg Lorazepam (Ativan) 2 mg PO Q2H PRN PRN Reason: for CIWA 11-14 Lorazepam (Ativan Inj) 2 mg IV.PUSH Q1H PRN PRN Reason: for CIWA 15-20 Lorazepam (Ativan Inj) 2 mg IV.PUSH Q15M PRN PRN Reason: for CIWA > 20 Lorazepam (Ativan Inj) 1 mg IV.PUSH Q4H PRN PRN Reason: for CIWA 8-10 Last Admin: 04/04/18 00:13 Dose: 1 mg Lorazepam (Ativan Inj) 2 mg IV.PUSH Q2H PRN PRN Reason: for CIWA 11-14 Morphine Sulfate (Morphine Inj) 2 mg IV.PUSH Q8H PRN PRN Reason: PAIN SCALE 6 TO 10 Last Admin: 04/04/18 06:18 Dose: 2 mg Ondansetron HCl (Zofran Inj) 4 mg IV.PUSH Q6H PRN PRN Reason: NAUSEA OR VOMITING Senna/Docusate Sodium (Romana-Colace) 1 tab PO BID MARIE Last Admin: 04/04/18 09:23 Dose: Not Given Sodium Chloride (Ns Flush) 2 ml IV.FLUSH PRN PRN PRN Reason: FLUSH AFTER USING IV ACCESS Allergies Allergy/AdvReac Type Severity Reaction Status Date / Time No Known Allergies Allergy Verified 04/03/18 10:22 Exam Vital signs: Vital Signs 04/03/18 13:15 04/03/18 14:00 04/03/18 16:00 Temperature 98.3 F 97.5 F L 98 F Pulse Rate 87 80 83 Respiratory Rate 16 20 20 Blood Pressure 141/86 H 143/72 H 138/70 Pulse Oximetry 96 95 96 04/03/18 17:35 04/03/18 18:28 04/03/18 19:34 Temperature 100.3 F H 101.5 F H 99.7 F H Pulse Rate 118 H Respiratory Rate 18 Blood Pressure 158/92 H Pulse Oximetry 95 04/03/18 20:00 04/04/18 00:00 04/04/18 04:00 Temperature 99.3 F 98 F 101.4 F H Pulse Rate 99 H 124 H 108 H Respiratory Rate 20 20 20 Blood Pressure 134/73 161/91 H 131/77 Pulse Oximetry 95 95 93 L 04/04/18 06:07 04/04/18 08:00 04/04/18 11:14 Temperature 99.2 F 96.3 F L 99.2 F Pulse Rate 86 110 H Respiratory Rate 16 18 Blood Pressure 129/84 161/97 H Pulse Oximetry 96 Intake & Output 04/03/18 04/04/18 04/04/18 18:59 06:59 18:59 Intake Total 1160 / 1160 1884 / 1884 100 / 100 Balance 1160 / 1160 1884 / 1884 100 / 100 Weight 51.7 kg 52.8 kg Intake: IV 1100 / 1100 1284 / 1284 100 / 100 NS Inj 1,000 ML @ 84 mls/hr IV. 1284 / 1284 CONT .[id number] [facility] Rx#: [id number] NS Inj 1,000 ML @ Wide Open IV. 1000 / 1000 SIG BOLUS ONE Rx#:[id number] Rocephin Inj 1,000 MG In NS Inj 100 / 100 100 / 100 100 ML @ 200 mls/hr IV.SIG Q24H [facility] Rx#:[id number] Oral 60 / 60 600 / 600 Other: # Voids 2 4 Date of Last Bowel Movement 04/03/18 04/03/18 # Bowel Movements 1 Narrative: Physical Examination GENERAL: Patient is a well-nourished, well-developed female, awake and alert , somewhat anxious, tremulous, not in respiratory distress. SKIN: Warm and dry. No generalized rash, no ecchymoses and no evidence of embolic lesions. HEAD: Atraumatic. Normocephalic. No temporal wasting, or tenderness. EYES: [place] conjunctiva. No petechia or hemorrhage. Pupils equal, round and reactive to light. Extraocular movements full and intact. No scleral icterus. No injection or drainage. EARS, NOSE AND THROAT: Nose without bleeding or purulent nasal discharge. No sinus tenderness. Mucous membranes pink and moist. No oral lesions noted. No exudate. No oral thrush. NECK: Trachea midline. Supple and not tender, no meningeal signs CARDIOVASCULAR: Regular rate and rhythm. No murmurs, rubs or gallops heard RESPIRATORY: Clear to auscultation. Breath sounds equal bilaterally. No rales , wheezing or rhonchi ABDOMEN: Soft, nondistended, has mild tenderness diffusely, no guarding, no rebound. Bowel sounds present and normoactiv No organomegaly. EXTREMITIES: No clubbing, cyanosis, or edema. No joint effusion, has good ROM. No calf tenderness. Well perfused and warm. NEUROLOGICAL: Awake and alert. Cranial nerves grossly intact. Motor grossly within normal limits. PSYCHIATRIC: Normal affect, calm and cooperative. LINE: No evidence of infection Results - Labs CBC & Chem 7: 04/04/18 06:15 04/04/18 06:15 Labs: Laboratory Results - last 24 hr 04/04/18 04/04/18 06:15 06:15 CBC w Diff Auto diff final WBC 8.1 RBC 3.29 L Hgb 11.7 D Hct 32.5 L MCV 98.7 MCH 35.5 H MCHC 35.9 RDW 13.1 Plt Count 123 L MPV 8.4 Neut % (Auto) 83.0 H Lymph % (Auto) 8.0 L [place] % (Auto) 8.7 H Eos % (Auto) 0.2 Baso % (Auto) 0.1 Neut # (Auto) 6.8 Lymph # (Auto) 0.6 L [place] # (Auto) 0.7 Eos # (Auto) 0.0 Baso # (Auto) 0.0 WBC Differential . Differential Comment . Sodium 133 L Potassium 2.9 L* D Chloride 98 D Carbon Dioxide 24.5 Anion Gap 11 BUN 9 Creatinine 0.77 Estimated GFR 78 L Random Glucose 108 H Calcium 7.9 L Total Bilirubin 1.3 H AST 45 H ALT 38 Alkaline Phosphatase 67 Total Protein 6.7 D Albumin 2.7 L D - Imaging Impressions Abdomen/Pelvis CT 04/03/18 00:00 CONCLUSION: 1. No evidence of hydronephrosis or calcified stones. 2. No dilated loops of small or large bowel. Assessment and Plan - Plan Impression GNR sepsis, likely source - CT no hydro - has mildly elevated LFT, prob due to ETOH use, no significant PE finding to point to GB/biliary tree - still with fevers UTI ?DT ETOH intake on daily basis Mild thrombocytopenia, likely due to sepsis Recommendation Repeat BC to document clearing IV cefepime Follow C/S Follow temps Monitor progress I will determine course of Abx once work-up completed - hopefully find an oral Abx to complete her Rx on D/C I will follow along with you Thank you for this consultation D/W Dr Blunt
[2018-04-05] MEDS: Sod Chloride 0.9% Inj 1,000 ML IV.CONT SCH (01:42)
[2018-04-05] MEDS: LORazepam 1 MG Tablet PO PRN ×4 (02:59→21:36)
--- NOTE | 2018-04-05 06:34 | P.PN ---
Subjective Interval history: Patient reports she is 60-70% better. Still has a little flank pain as well as pelvic pain. Also notes some urinary urgency. Last alcohol drink was approximately 1 week ago per her report. Her shakes are improving. Physical Exam Vital signs: Vital Signs 04/04/18 08:00 04/04/18 11:14 04/04/18 15:44 Temperature 96.3 F L 99.2 F 99.7 F H Pulse Rate 86 110 H 102 H Respiratory Rate 18 18 Blood Pressure 129/84 161/97 H 139/63 Pulse Oximetry 96 95 04/04/18 20:00 04/04/18 21:56 04/04/18 23:54 Temperature 101.3 F H 99.9 F H 98.3 F Pulse Rate 109 H 92 H 98 H Respiratory Rate 18 Blood Pressure 138/78 132/72 Pulse Oximetry 94 L 96 96 Intake & Output 04/04/18 04/04/18 04/05/18 06:59 18:59 06:59 Intake Total 1884 / 1884 916 / 916 100 / 100 Balance 1884 / 1884 916 / 916 100 / 100 Weight 52.8 kg 54.5 kg Intake: IV 1284 / 1284 916 / 916 100 / 100 NS Inj 1,000 ML @ 84 mls/hr IV. 1284 / 1284 716 / 716 0 / 0 CONT .[id number] MARIE Rx#: [id number] Maxipime Inj 2,000 MG In NS Inj 100 / 100 100 / 100 100 ML @ 200 mls/hr IV.SIG Q12H MARIE Rx#:[id number] Rocephin Inj 1,000 MG In NS Inj 100 / 100 100 ML @ 200 mls/hr IV.SIG Q24H MARIE Rx#:[id number] Oral 600 / 600 Other: # Voids 4 4 5 Date of Last Bowel Movement 04/03/18 # Bowel Movements 1 1 Narrative: Physical Examination GENERAL: Patient is a well-nourished, well-developed female, awake and alert , slight tremor noted. SKIN: Warm and dry. No generalized rash, no ecchymoses and no evidence of embolic lesions. HEAD: Atraumatic. Normocephalic. No temporal wasting, or tenderness. EYES: [place] conjunctiva. No petechia or hemorrhage. Extraocular movements full and intact. No scleral icterus. No injection or drainage. EARS, NOSE AND THROAT: Nose without bleeding or purulent nasal discharge. No sinus tenderness. NECK: Trachea midline. Supple and not tender, no meningeal signs CARDIOVASCULAR: Regular rate and rhythm. Rate a little tachycardic around 100. No murmurs, rubs or gallops heard RESPIRATORY: Clear to auscultation. Breath sounds equal bilaterally. No rales , wheezing or rhonchi ABDOMEN: Soft, nondistended, has mild tenderness in suprapubic region, no guarding, no rebound. Bowel sounds present and normal. No organomegaly. EXTREMITIES: No clubbing, cyanosis, or edema. No joint effusion, has good ROM. No calf tenderness. Well perfused and warm. NEUROLOGICAL: Awake and alert. Cranial nerves grossly intact. Motor grossly within normal limits. PSYCHIATRIC: Normal affect, calm and cooperative. Results - Labs CBC & Chem 7: 04/04/18 06:15 04/04/18 06:15 Laboratory Results - last 24 hr 04/03/18 04/04/18 04/04/18 10:30 06:15 06:15 CBC w Diff Auto diff final WBC 8.1 RBC 3.29 L Hgb 11.7 D Hct 32.5 L MCV 98.7 MCH 35.5 H MCHC 35.9 RDW 13.1 Plt Count 123 L MPV 8.4 Neut % (Auto) 83.0 H Lymph % (Auto) 8.0 L [place] % (Auto) 8.7 H Eos % (Auto) 0.2 Baso % (Auto) 0.1 Neut # (Auto) 6.8 Lymph # (Auto) 0.6 L [place] # (Auto) 0.7 Eos # (Auto) 0.0 Baso # (Auto) 0.0 WBC Differential . Differential Comment . Sodium 133 L Potassium 2.9 L* D Chloride 98 D Carbon Dioxide 24.5 Anion Gap 11 BUN 9 Creatinine 0.77 Estimated GFR 78 L Random Glucose 108 H Calcium 7.9 L Total Bilirubin 1.3 H AST 45 H ALT 38 Alkaline Phosphatase 67 Total Protein 6.7 D Albumin 2.7 L D Ur Collection Type Clean catch Urine Color Yellow Urine Clarity Cloudy H Urine pH 6.0 Ur Specific [place] 1.020 Urine Protein 100 H Urine Glucose (UA) Negative Urine Ketones 80 or greater H Urine Occult Blood Large H Urine Nitrate Positive H Urine Bilirubin Negative Urine Urobilinogen 1.0 Ur Leukocyte Esterase Moderate H Urine RBC 0-3 Urine WBC 21-50 H Urine WBC Clumps Moderate H Ur Squamous Epith Cells 0-5 Amorphous Sediment Occasional H Urine Bacteria Occasional H Micro UA Comment Culture indicated Ur Microscopic Review Microscopic reviewed Urine Culture Comments Culture indicated Urine Collection Time 1030 Microbiology 04/03/18 10:30 Clean Catch Urine Urine Culture - Preliminary gram negative rods 04/03/18 11:05 Blood - Peripheral Aerobic Blood Culture - Preliminary Escherichia coli 04/03/18 11:05 Blood - Peripheral Anaerobic Blood Culture - Preliminary gram negative rods 04/03/18 11:15 Blood - Peripheral Aerobic Blood Culture - Preliminary gram negative rods 04/03/18 11:15 Blood - Peripheral Anaerobic Blood Culture - Preliminary gram negative rods - Procedures CT ABD/PELVIS Assessment and Plan - Assessment (1) Sepsis Code(s): A41.9 - Sepsis, unspecified organism Status: Acute Plan: Gram-negative rods noted in blood cultures and urine; probably e coli continue cefepime. Fever curve slowly improving. Patient reports clinical improvement of about 60-70%. (2) Pyelonephritis Code(s): N12 - Tubulo-interstitial nephritis, not specified as acute or chronic Status: Acute Plan: IV fluid, cefepime. Appears to have gram-negative jax sepsis. Appreciate infectious disease consult. (3) Hyponatremia Code(s): E87.1 - Hypo-osmolality and hyponatremia Status: Acute Plan: sodium improved with IV fluids. Recheck labs. (4) Dehydration Code(s): E86.0 - Dehydration Status: Acute Plan: Continue normal saline (5) LFT elevation Code(s): R94.5 - Abnormal results of liver function studies Status: Acute Plan: LFT improved CT unremarkable. She does consume alcohol regularly as an outpatient. (6) Alcohol use Code(s): Z78.9 - Other specified health status Status: Chronic Plan: Patient reports that she drinks at least one glass of wine a day typically. She has gone periods of time before with no withdrawal per her report. Her last alcoholic beverage was just over a week ago per her report. We will continue to monitor. - Plan Code Status: Full Discussed Condition With: Patient. Dr. Blunt yesterday. Discharge Planning: Hopefully discharge home in 1-2 days. (1) Sepsis Qualifiers: Sepsis type: Escherichia coli Qualified Code(s): A41.51 - Sepsis due to Escherichia coli [E. coli]
[2018-04-05] MEDS: Morphine Sulfate Inj 2 MG/ML Vial IV.PUSH PRN ×2 (06:39→14:32)
[2018-04-05 07:12] LABS: Baso % (Auto) 0.5 % (0.0-2.0); Hematocrit 38.1 % (35.0-46.0); Hemoglobin 12.9 gm/dL (11.6-15.3); Lymph # (Auto) 0.5 th/mm3 (1.0-4.8); Mean Corpuscular HGB Conc 33.8 % (32.0-36.0); Mean Corpuscular Hemoglobin 33.8 pg (27.0-34.0); Mean Corpuscular Volume 99.8 fL (80.0-100.0); Mean Platelet Volume 8.3 fL (7.0-11.0); Mono # (Auto) 0.6 th/mm3 (0.0-0.9); Mono % (Auto) 6.8 % (0.0-8.0); Neut # (Auto) 7.3 th/mm3 (1.8-7.7); Neut % (Auto) 86.7 % (16.0-70.0); Platelet Count 142 th/mm3 (150-450); Red Blood Count 3.82 mil/mm3 (4.00-5.30); Red Cell Distribution Width 12.7 % (11.6-17.2); White Blood Count 8.4 th/mm3 (4.0-11.0)
[2018-04-05 07:31] LABS: Alanine Aminotransferase 36 U/L (10-53); Albumin 2.9 g/dL (3.4-5.0); Alkaline Phosphatase 72 U/L (45-117); Anion Gap 13 meq/L (5-15); Aspartate Aminotransferase 49 U/L (15-37); Blood Urea Nitrogen 6 mg/dL (7-18); Calcium 8.2 mg/dL (8.5-10.1); Carbon Dioxide 24.4 meq/L (21.0-32.0); Chloride 94 meq/L (98-107); Glomerular Filtration Rate 79 mL/min (>89); Glucose,Random 112 mg/dL (74-106); Sodium 131 meq/L (136-145); Total Protein 7.4 g/dL (6.4-8.2)
[2018-04-05 07:36] LABS: Potassium 2.6 meq/L (3.5-5.1)
[2018-04-05] MEDS: Potassium Chloride Inj 10 MEQ in Sod Chloride 0.9% Inj 1,000 ML IV.SIG SCH ×2 (09:36→21:36)
[2018-04-05] MEDS: Senna/Docusate Sodium 8.6/50 MG Tablet PO SCH ×2 (10:05→21:38)
[2018-04-05 12:32] LABS: Bilirubin,Urine Negative (Negative); Clarity,Urine Clear (Clear); Color,Urine Yellow (Yellw/Straw); Glucose,Urine (UA) Negative (Negative); Leukocyte Esterase,Urine Negative (Negative); Nitrite,Urine Negative (Negative); Urobilinogen,Urine 0.2 mg/dL (Less than 2)
[2018-04-05 12:40] LABS: Collection Time,Urine 1110 hours
[2018-04-05] MEDS: Acetaminophen 325 MG Tablet PO PRN (21:36)
[2018-04-06] MEDS: Morphine Sulfate Inj 2 MG/ML Vial IV.PUSH PRN (00:02)
[2018-04-06 04:43] LABS: ABG Base Excess -6.2 mmol/L (-2-2); ABG PCO2 28 mmHg (38-42); ABG PO2 52 mmHg (61-120)
--- NOTE | 2018-04-06 05:16 | XR ---
EXAM DATE: 04/06/2018 4:35 AM EST AGE/SEX: 53 years / Female INDICATIONS: Short of breath. CLINICAL DATA: This is the patient's initial encounter. Patient reports that signs and symptoms have been present for 1 day and indicates a pain score of 0/10. MEDICAL/SURGICAL HISTORY: None. None. COMPARISON: No prior exams available for comparison. FINDINGS: Single view the chest demonstrates dense patchy infiltrates seen in both lung bases. Upper lungs are clear. No visible pneumothorax. Heart and mediastinum are unremarkable. CONCLUSION: Bilateral lower lobe consolidation . 2. Rightward thoracic scoliosis Electronically signed by: Farshad Navas MD 04/06/2018 5:15 AM EST
--- NOTE | 2018-04-06 05:46 | P.PN ---
Subjective Interval history: I was paged regarding patient's status approximately 1 hour ago. She had more anxiety and tremors and desaturating with oxygen levels into the upper 70s. I transferred her to the intensive care unit, had chest x-ray and ABG done as well. She is on nonrebreather now satting in the low 90. She appears anxious but is alert and oriented and cooperative with exam. She denies any chest pain. Physical Exam Vital signs: Vital Signs 04/05/18 08:00 04/05/18 12:00 04/05/18 16:00 Temperature 98.0 F 100.0 F H 98.4 F Pulse Rate 111 H 132 H 122 H Respiratory Rate 19 20 16 Blood Pressure 133/77 156/95 H 158/86 H Pulse Oximetry 90 L 92 L 90 L 04/05/18 20:00 04/05/18 21:00 04/06/18 00:00 Temperature 100.9 F H 97.6 F Pulse Rate 121 H 124 H Respiratory Rate 18 18 Blood Pressure 136/90 132/87 Pulse Oximetry 93 L 85 L 91 L 04/06/18 00:30 04/06/18 00:45 04/06/18 04:00 Temperature 99.0 F Pulse Rate 136 H Respiratory Rate 22 Blood Pressure 165/94 H Pulse Oximetry 88 L 91 L 75 L 04/06/18 04:58 Temperature Pulse Rate Respiratory Rate Blood Pressure Pulse Oximetry 94 L Intake & Output 04/05/18 04/05/18 04/06/18 06:59 18:59 06:59 Intake Total 100 / 100 1225 / 1225 1005 / 1005 Output Total 285 / 285 Balance 100 / 100 940 / 940 1005 / 1005 Weight 54.5 kg Intake: IV 100 / 100 800 / 800 1005 / 1005 NS Inj 1,000 ML @ 84 mls/hr IV. 0 / 0 700 / 700 CONT .[id number] MARIE Rx#: [id number] Maxipime Inj 2,000 MG In NS Inj 100 / 100 100 / 100 100 / 100 100 ML @ 200 mls/hr IV.SIG Q12H MARIE Rx#:[id number] KCl Inj 10 MEQ In NS Inj 1,000 905 / 905 ML @ 84 mls/hr IV.SIG .[id number] MARIE Rx#:[id number] Oral 425 / 425 Output: Urine 285 / 285 Other: # Voids 5 1 Date of Last Bowel Movement 04/05/18 Narrative: Physical Examination GENERAL: Patient is a well-nourished, well-developed female, awake and alert , mild to moderate tremor noted in upper extremities. No apparent rigors. Anxious. SKIN: Warm and dry. No generalized rash, no ecchymoses and no evidence of embolic lesions. She appears to have some skin mottling in extremities. HEAD: Atraumatic. Normocephalic. No temporal wasting, or tenderness. EYES: [place] conjunctiva. No petechia or hemorrhage. Extraocular movements full and intact. No scleral icterus. No injection or drainage. EARS, NOSE AND THROAT: Nose without bleeding or purulent nasal discharge. No sinus tenderness. NECK: Trachea midline. Supple and not tender, no meningeal signs CARDIOVASCULAR: Regular rate and rhythm. Tachycardic in the 130s. No murmurs, rubs or gallops heard RESPIRATORY: Few crackles with diminished lung sounds in the bases. Breath sounds equal bilaterally. No wheeze. ABDOMEN: Soft, nondistended, has mild tenderness in suprapubic region and left lower quadrant, no guarding, no rebound. Bowel sounds present and normal. No organomegaly. EXTREMITIES: No clubbing or edema. No joint effusion, has good ROM. No calf tenderness. Palpable pulses x4 extremities NEUROLOGICAL: Awake and alert. Cranial nerves grossly intact. Motor grossly within normal limits. PSYCHIATRIC: Anxious. Cooperative. Alert and oriented. Results - Labs CBC & Chem 7: 04/05/18 06:30 04/05/18 14:20 Laboratory Results - last 24 hr 04/05/18 04/05/18 04/05/18 06:30 06:30 11:10 CBC w Diff Auto diff final WBC 8.4 RBC 3.82 L Hgb 12.9 Hct 38.1 MCV 99.8 MCH 33.8 MCHC 33.8 RDW 12.7 Plt Count 142 L MPV 8.3 Neut % (Auto) 86.7 H Lymph % (Auto) 6.0 L [place] % (Auto) 6.8 Eos % (Auto) 0.0 Baso % (Auto) 0.5 Neut # (Auto) 7.3 Lymph # (Auto) 0.5 L [place] # (Auto) 0.6 Eos # (Auto) 0.0 Baso # (Auto) 0.0 WBC Differential . Differential Comment . Puncture Site Patient Temperature O2 Saturation ABG pH ABG pCO2 ABG pO2 ABG HCO3 ABG O2 Content ABG Base Excess ABG Methemoglobin Reginaldo Test Hemoglobin Carboxyhemoglobin O2 Delivery Device Liter Flow Critical Value Sodium 131 L Potassium 2.6 L* Chloride 94 L Carbon Dioxide 24.4 Anion Gap 13 BUN 6 L Creatinine 0.76 Estimated GFR 79 L Random Glucose 112 H Calcium 8.2 L Total Bilirubin 1.3 H AST 49 H ALT 36 Alkaline Phosphatase 72 Total Protein 7.4 D Albumin 2.9 L Ur Collection Type Clean catch Urine Color Yellow Urine Clarity Clear Urine pH 7.0 Ur Specific [place] 1.010 Urine Protein Trace Urine Glucose (UA) Negative Urine Ketones 40 H Urine Occult Blood Small H Urine Nitrate Negative Urine Bilirubin Negative Urine Urobilinogen 0.2 Ur Leukocyte Esterase Negative Urine RBC 15-50 H Urine WBC 9-20 H Urine WBC Clumps Few H Ur Squamous Epith Cells 6-10 H Micro UA Comment Culture indicated Ur Microscopic Review Microscopic reviewed Urine Culture Comments Culture indicated Urine Collection Time 1110 04/05/18 04/06/18 14:20 04:34 CBC w Diff WBC RBC Hgb Hct MCV MCH MCHC RDW Plt Count MPV Neut % (Auto) Lymph % (Auto) [place] % (Auto) Eos % (Auto) Baso % (Auto) Neut # (Auto) Lymph # (Auto) [place] # (Auto) Eos # (Auto) Baso # (Auto) WBC Differential Differential Comment Puncture Site Left radial Patient Temperature 98.6 O2 Saturation 84 L* ABG pH 7.42 ABG pCO2 28 L ABG pO2 52 L* ABG HCO3 18 L ABG O2 Content 17.0 ABG Base Excess -6.2 L ABG Methemoglobin 0.6 Reginaldo Test Present Hemoglobin 14.4 Carboxyhemoglobin 1.1 O2 Delivery Device Nasal cannula Liter Flow 6.00 Critical Value Yes Sodium Potassium 3.1 L Chloride Carbon Dioxide Anion Gap BUN Creatinine Estimated GFR Random Glucose Calcium Total Bilirubin AST ALT Alkaline Phosphatase Total Protein Albumin Ur Collection Type Urine Color Urine Clarity Urine pH Ur Specific [place] Urine Protein Urine Glucose (UA) Urine Ketones Urine Occult Blood Urine Nitrate Urine Bilirubin Urine Urobilinogen Ur Leukocyte Esterase Urine RBC Urine WBC Urine WBC Clumps Ur Squamous Epith Cells Micro UA Comment Ur Microscopic Review Urine Culture Comments Urine Collection Time Microbiology 04/04/18 13:22 Blood - Peripheral Aerobic Blood Culture - Preliminary No growth in 1 day 04/04/18 13:22 Blood - Peripheral Anaerobic Blood Culture - Preliminary No growth in 1 day 04/04/18 13:29 Blood - Peripheral Aerobic Blood Culture - Preliminary No growth in 1 day 04/04/18 13:29 Blood - Peripheral Anaerobic Blood Culture - Preliminary No growth in 1 day 04/03/18 10:30 Clean Catch Urine Urine Culture - Final Escherichia coli 04/03/18 11:15 Blood - Peripheral Aerobic Blood Culture - Preliminary Escherichia coli 04/03/18 11:15 Blood - Peripheral Anaerobic Blood Culture - Preliminary Escherichia coli 04/03/18 11:05 Blood - Peripheral Aerobic Blood Culture - Preliminary Escherichia coli 04/03/18 11:05 Blood - Peripheral Anaerobic Blood Culture - Preliminary Escherichia coli - Imaging Impressions Chest X-Ray 04/06/18 00:00 CONCLUSION: Bilateral lower lobe consolidation . 2. Rightward thoracic scoliosis - Procedures CT ABD/PELVIS Assessment and Plan - Assessment (1) Respiratory failure Code(s): J96.90 - Respiratory failure, unspecified, unspecified whether with hypoxia or hypercapnia Status: Acute Plan: Possibly associated with her hyperventilation as she has noted respiratory alkalosis on ABG. Underlying PE is considered however patient has had SCD prophylaxis and had been walking in her room to use the restroom several times yesterday. No appreciated calf edema or upper extremity edema on exam. Will continue current supplemental oxygen support. Chest x-ray noted. Will give one -time dose of furosemide given that she has been on IV fluids since admission. Patient denies chest pain. (2) Sepsis Code(s): A41.9 - Sepsis, unspecified organism Status: Acute Plan: Gram-negative rods noted in blood cultures and urine; pansensitive E. coli noted. Continue cefepime. Add one-time dose of vancomycin given infiltrates on x-ray although this may be from IV fluid. Fever curve improving. (3) Pyelonephritis Code(s): N12 - Tubulo-interstitial nephritis, not specified as acute or chronic Status: Acute Plan: IV fluid, cefepime. Appears to have gram-negative jax sepsis. Appreciate infectious disease consult. (4) Hyponatremia Code(s): E87.1 - Hypo-osmolality and hyponatremia Status: Acute Plan: sodium improved with IV fluids. Monitor labs. (5) Dehydration Code(s): E86.0 - Dehydration Status: Acute Plan: Continue normal saline (6) LFT elevation Code(s): R94.5 - Abnormal results of liver function studies Status: Acute Plan: LFT improved CT unremarkable. She does consume alcohol regularly as an outpatient. I spoke with her this morning regarding her change in status. He reports that she drinks at least 6 glasses of wine daily per (7) Alcohol use Code(s): Z78.9 - Other specified health status Status: Chronic Plan: Patient reports that she drinks at least one glass of wine a day typically. She has gone periods of time before with no withdrawal per her report. Patient reported that her last alcoholic drink was approximately 1 week ago when I asked her yesterday. However this morning she said it may have been a couple of days prior. I spoke with her and he who states that she definitely drank alcohol 2 days prior to arrival and that she drinks at least 6 glasses of wine daily. He reports that he does become tremulous at times if she does not have an alcoholic drink by noon. Continue [place] protocol. Likely source of current symptoms associated with alcohol withdrawal. I will have pharmacist aide see the patient as well given her respiratory status. Ativan administered. - Plan Discussed Condition With: Patient's nurse and her . Also with pharmacist aide Dr. Petersen. Discharge Planning: Hopefully discharge home in 2 days depending on her clinical progress. (1) Respiratory failure Qualifiers: Chronicity: acute Respiratory failure complication: hypoxia Qualified Code(s ): J96.01 - Acute respiratory failure with hypoxia (2) Sepsis Qualifiers: Sepsis type: Escherichia coli Qualified Code(s): A41.51 - Sepsis due to Escherichia coli [E. coli]
[2018-04-06] MEDS ORDERED: Vancomycin Inj 1,000 MG in Sodium Chlor 0.9% Inj 250 ML IV.SIG ONE (05:47)
[2018-04-06 06:20] LABS: Baso # (Auto) 0.1 th/mm3 (0.0-0.2); Baso % (Auto) 0.7 % (0.0-2.0); Eos % (Auto) 0.1 % (0.0-4.0); Hematocrit 44.7 % (35.0-46.0); Lymph # (Auto) 0.7 th/mm3 (1.0-4.8); Lymph % (Auto) 5.1 % (9.0-44.0); Mean Corpuscular HGB Conc 34.1 % (32.0-36.0); Mean Corpuscular Hemoglobin 34.1 pg (27.0-34.0); Mean Corpuscular Volume 100.1 fL (80.0-100.0); Mean Platelet Volume 8.5 fL (7.0-11.0); Mono # (Auto) 0.9 th/mm3 (0.0-0.9); Mono % (Auto) 6.8 % (0.0-8.0); Neut # (Auto) 11.2 th/mm3 (1.8-7.7); Neut % (Auto) 87.3 % (16.0-70.0); Platelet Count 175 th/mm3 (150-450); Red Blood Count 4.46 mil/mm3 (4.00-5.30); Red Cell Distribution Width 12.5 % (11.6-17.2); White Blood Count 12.9 th/mm3 (4.0-11.0)
[2018-04-06 06:23] LABS: Hemoglobin 15.2 gm/dL (11.6-15.3)
[2018-04-06] MEDS ORDERED: Midazolam Inj 5 MG/ML 1 ML Vial ONE (06:42)
[2018-04-06] MEDS ORDERED: fentaNYL 10 mcg/mL Premix Drip 2,500 MCG/250 ML BAG IV.SIG PRN (06:44)
[2018-04-06 06:45] LABS: Alanine Aminotransferase 35 U/L (10-53); Albumin 3.2 g/dL (3.4-5.0); Alkaline Phosphatase 94 U/L (45-117); Anion Gap 17 meq/L (5-15); Aspartate Aminotransferase 53 U/L (15-37); Blood Urea Nitrogen 8 mg/dL (7-18); Calcium 8.8 mg/dL (8.5-10.1); Carbon Dioxide 20.1 meq/L (21.0-32.0); Chloride 92 meq/L (98-107); Glomerular Filtration Rate 79 mL/min (>89); Glucose,Random 137 mg/dL (74-106); Sodium 129 meq/L (136-145); Total Protein 8.8 g/dL (6.4-8.2)
[2018-04-06 06:47] LABS: Potassium 2.9 meq/L (3.5-5.1)
[2018-04-06] MEDS ORDERED: Propofol 1000 mg/100 ml Inj 1,000 MG/100 ML BOTTLE IV.CONT PRN (06:47)
[2018-04-06] MEDS ORDERED: Sodium Phosphate Inj 30 MMOL in Sodium Chlor 0.9% Inj 250 ML IV.SIG PRN (06:48)
[2018-04-06] MEDS ORDERED: Potassium Chlor 40 mEq Premix 40 MEQ/100 ML PIGGYBACK IV.SIG PRN (06:48)
[2018-04-06] MEDS ORDERED: Magnesium Oxide 400 MG Tablet PO PRN (06:48)
[2018-04-06] MEDS ORDERED: Potassium Chloride 25 MEQ Effervescent Tablet PO PRN (06:48)
[2018-04-06] MEDS ORDERED: Magnesium Sulfate Inj 4 GM in Sodium Chlor 0.9% Inj 92 ML IV.SIG PRN (06:48)
[2018-04-06] MEDS ORDERED: Potassium Phosphate 500 MG Soluble Tablet PO PRN ×2 (06:48)
[2018-04-06] MEDS ORDERED: Etomidate Inj 40 MG/20 ML Vial IV.PUSH ONE (06:49)
[2018-04-06] MEDS ORDERED: Dextrose 50% in Water 50 ML Vial IV.PUSH PRN (06:49)
[2018-04-06] MEDS ORDERED: Phenylephrine Inj 160 MG in Sodium Chlor 0.9% Inj 484 ML IV.CONT PRN (07:30)
--- NOTE | 2018-04-06 07:48 | P.PCN ---
Date of procedure: 04/06/18 Pre-op diagnosis: Acute respiratory failure Post-op diagnosis: same Procedure: DATE: 04/06/2018 PROCEDURE: Orotracheal intubation INDICATION: Acute respiratory failure DETAILS OF PROCEDURE The patient was placed in optimal position and preoxygenated with 100% FiO2 via bag valve mask. At the start oxygen saturation was 95%. The patient was administered 40 mg etomidate IV and 50 mg rocuronium IV. I entered the oropharynx with a size D laryngoscope blade and obtained a grade 2 view of the airway. On single attempt a size 7.5 cuffed endotracheal tube was passed through the vocal cords. Correct tube location was confirmed with end tidal CO2 detector and by auscultating over bilateral lung hammer. The endotracheal tube was secured with adhesive tape at a depth of 23 cm at the lips. The patient was connected to the ventilator. The patient tolerated the procedure well without any apparent complications. Oxygen saturations were maintained greater than 95% all times. STAT chest x-ray pending at time of dictation.
--- NOTE | 2018-04-06 07:50 | P.PCN ---
Date of procedure: 04/06/18 Pre-op diagnosis: Acute respiratory failure Post-op diagnosis: same Procedure: DATE: 04/06/2018 PROCEDURE: Left femoral arterial catheter placement INDICATION: Acute respiratory failure DETAILS OF PROCEDURE The patient was placed in supine position. The skin was cleansed with Chloraprep. Additional barrier precautions included large sterile drape, sterile gloves, sterile gown, face mask, and hat. 1% lidocaine was used for local anesthesia. Under direct ultrasound guidance and on the initial attempt, the artery was accessed with an introducer needle. The guide wire was advanced. Using Seldinger technique 20 gauge arterial catheter was placed. The guide wire was removed. The catheter was connected to a transducer line and flushed with saline. The video monitor displayed normal arterial wave forms. The catheter was secured with 2-0 silk. A sterile dressing with antibiotic disc was applied. ESTIMATED BLOOD LOSS: minimal COMPLICATIONS: None
--- NOTE | 2018-04-06 07:50 | P.PCN ---
Date of procedure: 04/06/18 Pre-op diagnosis: Acute respiratory failure/hemodynamic instability Post-op diagnosis: same Procedure: DATE: 04/06/2018 CENTRAL LINE PLACEMENT: Right internal jugular vein. Ultrasound-guided INDICATION: Central venous access CONSENT Informed consent for procedure was obtained from . DESCRIPTION OF THE PROCEDURE The patient was placed in supine position. The skin was cleansed with Chloraprep. Additional barrier precautions included large sterile drape, sterile gloves, sterile gown, face mask, and hat. 1 % lidocaine was used for local anesthesia. Under direct ultrasound guidance and on initial attempt, the vein was accessed with an introducer needle. The guide wire was advanced and the tract was dilated. Using Seldinger technique a 7 [place] 20 cm antimicrobial coated triple-lumen catheter was advanced to a depth of 16 centimeters. The guide wire was removed. All ports had good return of dark venous blood and flushed easily with saline. The central line was secured with 2.0 silk. A sterile dressing with antibiotic disc was applied. StatLock was attempted to be applied/do not adhere to skin ESTIMATED BLOOD LOSS: Minimal COMPLICATIONS: No apparent complications. STAT chest x-ray pending at time of dictation
[2018-04-06 07:51] LABS: ABG Base Excess -7.5 mmol/L (-2-2); ABG PCO2 29 mmHg (38-42); ABG PO2 94 mmHg (61-120)
--- NOTE | 2018-04-06 07:52 | P.CONCC ---
History of Present Illness Service: Critical care medicine Consult date: 04/06/18 Requesting Physician: Russ Kan Reason for Consult: Acute respiratory failure/hemodynamic instability EtOH Primary Care Provider: Bertha Justin MD Chief Complaint: Sent via primary care physician for fever chills abdominal pain dysuria History of Present Illness: This is a 53-year-old female. Admission 04/03/2018.. Consultation . Past medical history of's of alcohol use. Patient presents to [facility] 04/03 as a direct admit from her physician's office with clinically of bilateral flank/abdominal pain, chills, dysuria for 5 days duration per medical records. She was so weak she was urinating in the bed. CT abdomen/pelvis with pelvis revealed no acute abdominal findings. Specifically no signs of stone or obstructive process. No gallstones were identified. Patient eventually did grow E. coli out of her urine and blood. She is currently on cefepime along with vancomycin. Infectious disease has been consulted and are currently following actively. This morning 04/06, patient became acutely short of breath and hypoxic. She received 4 mg IV furosemide per hospitalist. Was transported and placed on a nonrebreather mask. She is currently breathing in the 40s with retractions and is on a nonrebreather mask satting at 90%. She was emergently intubated with central line and arterial line placed. Review of Systems unobtainable due to endotracheal tube PMFSH - History History Provided By: Patient - Medical History Medical History: Medical History (Last Reviewed 04/06/18 @ 07:51 by Robbin Reddy MD) No significant past medical history - Surgical History Surgical History: Surgical History (Last Reviewed 04/06/18 @ 07:51 by Robbin Reddy MD) History of breast augmentation Hx of tonsillectomy - Family History Family History: Family History (Last Updated 04/06/18 @ 07:51 by Robbin Reddy MD) Other No pertinent family history - Social History I have reviewed the patient's Social History: Yes - Tobacco History Second Hand Smoke Exposure: No Smoking Status: Never smoker - Alcohol History How Often Do You Have a Drink Containing Alcohol: 4 or more times a week - Substance Use History Substance History: No History of Abuse - Travel History Recent Travel in the [facility] Within the Last 8 Weeks: No Recent Travel Out of the Country Within the Last 8 Weeks: No - Immunization History Tetanus Immunization: Unsure Hx Influenza Vaccine This Season: No Medications and Allergies Active Medications: Active Medications Acetaminophen (Tylenol Liq) 650 mg PO Q6H PRN PRN Reason: FEVER Albuterol (Duoneb Neb (Onelia)) 1 ampul NEB Q4HR NEB ONELIA Albuterol (Albuterol Neb (Prn)) 2.5 mg NEB Q2HR NEB PRN PRN Reason: DYSPNEA Artificial Tears (Tears Naturale Opth Drops) 1 drop EACH EYE Q8HR [facility] Chlordiazepoxide (Librium) 10 mg PO Q8H [facility] Chlorhexidine Gluconate (Peridex 0.12% Oral Kit) 15 ml OROPHARYNG BID@0800, 2000 [facility] Dextrose (D50w Vial) 50 ml IV.PUSH UNSCH PRN PRN Reason: PER HYPOGLYCEMIA PROTOCOL Flumazenil (Romazecon Inj) 0.2 mg IV.PUSH Q1M PRN PRN Reason: OVERSEDATION Glucagon (Glucagon Inj) 1 mg OTHER PRN PRN PRN Reason: for Hypoglycemia Protocol Cefepime HCl 2,000 mg/ Sodium (Chloride) 100 mls @ 200 mls/hr IV.SIG Q12H [facility] Last Infusion: 04/06/18 00:48 Dose: Infused Potassium Chloride 10 meq/ (Sodium Chloride) 1,005 mls @ 84 mls/hr IV.SIG .[id number] [facility] Last Admin: 04/05/18 21:36 Dose: 84 mls/hr Fentanyl (Fentanyl 10 Mcg/Ml Premix Drip) 2,500 mcg in 250 mls @ 5 mls/hr IV.SIG TITRATE PRN; Protocol PRN Reason: Per Protocol Midazolam HCl (Versed Inj) 50 mg in 50 mls @ 2 mls/hr IV.CONT TITRATE PRN; Protocol PRN Reason: Per Protocol Multivitamins 10 ml/ Thiamine HCl 100 mg/ Folic Acid 1 mg/Sodium Chloride 511.2 mls @ 125 mls/hr IV.SIG Q24H [facility] Stop: 04/08/18 12:06 Phenylephrine HCl 160 mg/ (Sodium Chloride) 500 mls @ 7.5 mls/hr IV.CONT TITRATE PRN; Protocol PRN Reason: See protol Propofol (Diprivan 1000 Mg/100 Ml Inj) 1,000 mg in 100 mls @ 1.635 mls/hr IV.CONT TITRATE PRN; Protocol PRN Reason: Per Protocol Potassium Chloride (Kcl 40 Meq Premix Inj) 40 meq in 100 mls @ 25 mls/hr IV.SIG Q2H PRN PRN Reason: For Potassium 2.8 - 3.2 mEq/L Potassium Chloride (Kcl 20 Meq Premix Inj) 20 meq in 100 mls @ 50 mls/hr IV.SIG Q2H PRN PRN Reason: For Potassium 3.3 - 3.5 mEq/L Potassium Chloride (Kcl 40 Meq Premix Inj) 40 meq in 100 mls @ 25 mls/hr IV.SIG UNSCH PRN PRN Reason: For Potassium 3.3 - 3.5 mEq/L Potassium Phosphate 30 mmol/ (Sodium Chloride) 260 mls @ 42 mls/hr IV.SIG UNSCH PRN PRN Reason: SEE LABEL COMMENTS Sodium Phosphate 30 mmol/ (Sodium Chloride) 260 mls @ 42 mls/hr IV.SIG UNSCH PRN PRN Reason: For Phosphorus < 2.5 mg/dL Potassium Chloride (Kcl 20 Meq Premix Inj) 20 meq in 100 mls @ 50 mls/hr IV.SIG Q2H PRN PRN Reason: For Potassium 2.8 - 3.2 mEq/L Magnesium Sulfate 4 gm/ Sodium (Chloride) 100 mls @ 50 mls/hr IV.SIG UNSCH PRN PRN Reason: For Magnesium 0.9 - 1.1 mg/dL Magnesium Sulfate 2 gm/ Sodium (Chloride) 100 mls @ 50 mls/hr IV.SIG UNSCH PRN PRN Reason: For Magnesium 1.2 - 1.6 mg/dL Insulin Aspart (Novolog Insulin Correctional Sugar Inj) 0 unit SQ Q6HR ONELIA; Protocol Magnesium Oxide (Mag-Ox) 800 mg PO UNSCH PRN PRN Reason: For Magnesium 1.2 - 1.6 mg/dL Miscellaneous Medication () 1 each OROPHARYNG 0000,0400,1200,1600 ON[facility] Ondansetron HCl (Zofran Inj) 4 mg IV.PUSH Q6H PRN PRN Reason: NAUSEA OR VOMITING Pantoprazole Sodium (Protonix Inj) 40 mg IV.PUSH Q24H ONEL[facility] Potassium Bicarb/Potassium Chloride (K-Lyte Cl Eff) 50 meq PO UNSCH PRN PRN Reason: For Potassium 3.3 - 3.5 mEq/L Potassium Phosphate (K-Phos Original) 2,000 mg PO Q4H PRN PRN Reason: Phosphorus Less Than 2.5 mg/dL Potassium Phosphate (K-Phos Original) 2,000 mg PO UNSCH PRN PRN Reason: SEE LABEL COMMENTS Senna/Docusate Sodium (Romana-Colace) 1 tab PO BID [facility] Last Admin: 04/05/18 21:38 Dose: Not Given Sodium Chloride (Ns Flush) 2 ml IV.FLUSH PRN PRN PRN Reason: FLUSH AFTER USING IV ACCESS Sodium Chloride (Ns Flush) 2 ml IV.FLUSH BID [facility] Last Admin: 04/05/18 21:39 Dose: 2 ml Sodium Chloride (Ns Flush) 0 ml IV.FLUSH DAILY [facility] Sterile Water (Free Water) 100 ml G-TUBE Q8HR [facility] Terbutaline Sulfate (Brethine Inj) 1 mg SQ UNSCH PRN PRN Reason: For Extravasation Allergies Allergy/AdvReac Type Severity Reaction Status Date / Time No Known Allergies Allergy Verified 04/03/18 10:22 Physical Exam Vital signs: Vital Signs 04/05/18 08:00 04/05/18 12:00 04/05/18 16:00 Temperature 98.0 F 100.0 F H 98.4 F Pulse Rate 111 H 132 H 122 H Respiratory Rate 19 20 16 Blood Pressure 133/77 156/95 H 158/86 H Pulse Oximetry 90 L 92 L 90 L 04/05/18 20:00 04/05/18 21:00 04/06/18 00:00 Temperature 100.9 F H 97.6 F Pulse Rate 121 H 124 H Respiratory Rate 18 18 Blood Pressure 136/90 132/87 Pulse Oximetry 93 L 85 L 91 L 04/06/18 00:30 04/06/18 00:45 04/06/18 04:00 Temperature 99.0 F Pulse Rate 136 H Respiratory Rate 22 Blood Pressure 165/94 H Pulse Oximetry 88 L 91 L 75 L 04/06/18 04:58 Temperature Pulse Rate Respiratory Rate Blood Pressure Pulse Oximetry 94 L Intake & Output 04/05/18 04/06/18 04/06/18 18:59 06:59 18:59 Intake Total 1225 / 1225 1005 / 1005 Output Total 285 / 285 Balance 940 / 940 1005 / 1005 Weight 53.1 kg Intake: IV 800 / 800 1005 / 1005 NS Inj 1,000 ML @ 84 mls/hr IV. 700 / 700 CONT .[id number] ONELIA Rx#: [id number] Maxipime Inj 2,000 MG In NS Inj 100 / 100 100 / 100 100 ML @ 200 mls/hr IV.SIG Q12H ONELIA Rx#:[id number] KCl Inj 10 MEQ In NS Inj 1,000 905 / 905 ML @ 84 mls/hr IV.SIG .[id number] ONELIA Rx#:[id number] Oral 425 / 425 Output: Urine 285 / 285 Other: # Voids 1 Date of Last Bowel Movement 04/05/18 - Constitutional moderate distress - Routine HEENT Exam Head: Present: normocephalic, atraumatic Eye: Present: EOMI, PERRL ENT: Present: mucous membranes moist - Routine Neck Exam Present: supple, full ROM. Absent: JVD - Routine Respiratory Exam Present: accessory muscle use, respiratory distress, crackles, distant breath sounds. Absent: wheezes - Routine Cardiovascular Exam Present: S1, S2, tachycardia. Absent: murmur - Routine Abdominal Exam Present: soft, normoactive bowel sounds - Routine Exam Patient deferred: external exam, groin exam, perineal exam - Routine Extremities Exam Absent: cyanosis, clubbing, edema - Routine Skin Exam Present: intact. Absent: cyanosis - Routine Neurological Exam Present: alert, oriented X3, CN II-XII intact. Absent: sensory deficit - Detailed Neurological Exam: Coma Scale Eye Opening: Spontaneous Verbal Response: Confused Motor Response: Obey commands Anel Coma Scale Total: 14 - Routine Psychiatric Exam Present: unable to assess Septic Shock Reassessment Septic shock perfusion: reassessment completed Assessment and Plan - Assessment and Plan Plan: Neuro/Psych: Acute toxic metabolic encephalopathy History of EtOH abuse Currently on propofol/fentanyl/midazolam drips as needed for sedation/analgesia while intubated Goal of RA SS -2 Daily sedation vacation Start on chlordiazepoxide 10 mg 3 times daily Monitor for DTs Vitamin bag daily times 3 days then switch to thiamine daily CV: Sinus tachycardia Received 1 L normal saline bolus. Check echocardiogram/troponin We will start on normal saline 84 cc an hour. As needed phenylephrine drip to maintain mean artery pressure critical 65 Resp: Acute hypoxemic hypercapnic respiratory failure PRVC ventilation 18/ 80/1.2/7/100% Head of bed at 30 degrees Ventilator bundle Albuterol/ipratropium aerosols every 4 hours with albuterol aerosols every 2 hours as needed dyspnea Spontaneous breathing trials and clinically GI: Elevated total bilirubin Elevated AST Hypoalbuminemia Will start tube feedings with Jevity 1.5 goal 40 cc an hour Pantoprazole for GI prophylaxis Docusate sodium/senna 1 tablet twice daily for bowel regimen CT abdomen/pelvis this admission revealed no acute abdominal findings. Specifically no signs of gallstones/liver enlargement or renal stones : Rdz catheter has been placed for accurate I's and O's in a critically ill patient Endo: Sliding scale insulin Accu-Cheks to maintain euglycemia aspart insulin every 6 hours medium protocol\ Check TSH Renal: Creatinine currently within normal limits Monitor urine output Accurate I's and O's Heme: Macrocytosis Leukocytosis Monitor CBC daily. Follow trends No indication for transfusion of blood products at this time. ID: E. coli bacteremia/sepsis Blood cultures x204/03 and UA did reveal E. coli. Repeat blood cultures 04/04-. 04/05 UA results pending Currently on cefepime/vancomycin. Infectious disease following. MSK: PT evaluate and treat bedrest FEN: Acute hypopotassemia Hyponatremia Currently on normal saline at 84 cc an hour. Cortisol, uric acid, TSH, urine sodium, urine and serum Jordin pending Recheck potassium 1800 hrs. Replace electrolytes as clinically indicated per ICU electrolyte protocol 2 g mag sulfate IV x1 now. Access -Utilize right IJ CVL day #1 -Utilize left femoral arterial line day #1 Prophylaxis -GI -pantoprazole -DVT -SCD/heparin subcu Critical care time 35 minutes Code Status: Full code Discussed Condition With: . Care plan discussed and all questions answered.
[2018-04-06] MEDS: Potassium Chlor 40 mEq Premix 40 MEQ/100 ML PIGGYBACK IV.SIG PRN ×2 (08:00→11:45)
[2018-04-06] MEDS ORDERED: Magnesium Sulfate Inj 2 GM in Sodium Chlor 0.9% Inj 96 ML IV.SIG ONE (08:03)
--- NOTE | 2018-04-06 08:16 | XR ---
EXAM DATE: 04/06/2018 8:10 AM EST AGE/SEX: 53 years / Female INDICATIONS: Central line placement CLINICAL DATA: This is the patient's subsequent encounter. Patient reports that signs and symptoms h ave been present for 3 days and indicates a pain score of Nonresponsive. MEDICAL/SURGICAL HISTORY: Non-responsive. Non-responsive. COMPARISON: HPO, CHEST 1V SINGLE AP, 04/06/2018. . FINDINGS: AP semiupright view of the chest demonstrates interval intubation with the endotracheal tube directed into the right main bronchus. Recommend retraction approximately 4 cm. There is persistent bilateral basilar airspace consolidation. Heart size appears normal. Pulmonary va sculature appears grossly normal in caliber. CONCLUSION: Interval placement of an endotracheal tube is positioned within the right main bronchus. Recommend re traction 4 cm. Otherwise stable airspace exam with by basilar airspace consolidation. Electronically signed by: Erin Davis MD 04/06/2018 8:15 AM EST
[2018-04-06] MEDS ORDERED: Dexmedetomidine Inj 200 MCG in Sodium Chlor 0.9% Inj 48 ML IV.CONT PRN (08:28)
[2018-04-06 08:55] LABS: Baso # (Auto) 0.1 th/mm3 (0.0-0.2); Baso % (Auto) 0.4 % (0.0-2.0); Eos % (Auto) 0.1 % (0.0-4.0); Hematocrit 37.9 % (35.0-46.0); Hemoglobin 13.1 gm/dL (11.6-15.3); Lymph # (Auto) 0.5 th/mm3 (1.0-4.8); Lymph % (Auto) 3.4 % (9.0-44.0); Mean Corpuscular HGB Conc 34.7 % (32.0-36.0); Mean Corpuscular Hemoglobin 35.2 pg (27.0-34.0); Mean Corpuscular Volume 101.3 fL (80.0-100.0); Mean Platelet Volume 8.6 fL (7.0-11.0); Mono # (Auto) 0.6 th/mm3 (0.0-0.9); Mono % (Auto) 4.7 % (0.0-8.0); Neut # (Auto) 12.2 th/mm3 (1.8-7.7); Neut % (Auto) 91.4 % (16.0-70.0); Platelet Count 139 th/mm3 (150-450); Red Blood Count 3.74 mil/mm3 (4.00-5.30); Red Cell Distribution Width 12.8 % (11.6-17.2); White Blood Count 13.4 th/mm3 (4.0-11.0)
[2018-04-06 09:16] LABS: Albumin 2.4 g/dL (3.4-5.0); Calcium 7.1 mg/dL (8.5-10.1); Carbon Dioxide 17.5 meq/L (21.0-32.0); Magnesium 1.2 mg/dL (1.5-2.5); Phosphorus 3.3 mg/dL (2.5-4.9); Total Protein 6.6 g/dL (6.4-8.2)
[2018-04-06 09:18] LABS: Potassium 2.7 meq/L (3.5-5.1)
[2018-04-06 09:19] LABS: Activated Partial Thrombo Time 22.8 sec (23.4-31.7); INR 1.2 Ratio; Prothrombin Time 11.8 sec (9.8-11.6); Thyroid Stimulating Hormone 1.3 uIU/mL (0.358-3.740); Troponin I 1.46 ng/mL (0.02-0.05)
[2018-04-06] MEDS: Midazolam 50 MG/50 ML Inj 50 MG/50 ML BAG IV.CONT PRN ×3 (09:19→15:52)
[2018-04-06] MEDS ORDERED: Calcium Chloride Inj 1 GM in Sodium Chlor 0.9% Inj 100 ML IV.SIG ONE (10:03)
[2018-04-06 10:05] LABS: ABG PCO2 27 mmHg (38-42); ABG PO2 89 mmHg (61-120)
[2018-04-06] MEDS: Senna/Docusate Sodium 8.6/50 MG Tablet PO SCH ×2 (10:54→20:54)
[2018-04-06] MEDS: Chlorhexidine 0.12% Oral Kit 15 ML UDC OROPHARYNG SCH ×2 (10:59→19:43)
[2018-04-06] MEDS: Multivitamin Inj 10 ML, Thiamine Inj 100 MG, Folic Acid Inj 1 MG in Sodium Chlor 0.9% I... IV.SIG SCH (11:45)
[2018-04-06] MEDS: Magnesium Sulfate Inj 2 GM in Sodium Chlor 0.9% Inj 96 ML IV.SIG PRN (11:45)
[2018-04-06] MEDS: Insulin NovoLOG Aspart Correctional Sugar Inj SQ SCH ×2 (12:03→19:25)
--- NOTE | 2018-04-06 12:24 | P.DIET ---
Nutritional Evaluation Type of nutrition evaluation: initial Nutrition consult regarding: Tube Feeding Screening comments: TF review Objective - Diagnosis pyelonephritis, dehydration, hyponatremia - Objective Body Mass Index: 21.4 % IBW: 106 (IBW = 110lb) Body Weight Used for Calculations: Actual Energy Needs - Lower Range (kCal/kg): 25 Energy Needs - Upper Range (kCal/kg): 30 Lower Limit kCal/kg (kCals): 1,328 Upper Limit kCal/kg (kCals): 1,593 Lower Limit Protein Factor (Grams per Kg): 1.2 Upper Limit Protein Factor (Grams per Kg): 1.5 Lower Protein Needs (Protein): 64 Upper Protein Needs (Protein): 80 Dietitian Reviewed in Medical Record: Current diet, Curent medications, Intake & Output, Labs, Medical history, Tube feeding Diet Order: TF Objective Comments: Labs: K+ 2.7, POc glucose 133, Ca+ 7.1, Mg 1.2 Assessment Assessment: Pt currently intubated and sedated on fentanyl, versed. Pt receiving Jevity 1.5 @ 40mL/hr per MD. RD to recommend Jevity 1.5 @ 45mL/hr to provide 1620 kcal, 69 g of protein, and 821mL of free water to best meet pts nutritional needs. Per MD note, pt to d/c hopefully in two days depending on clinical progress. Monitor for TF tolerance. Labs reviewed, dietitian following. Recommendations: 1. RD to recommend Jevity 1.5 @ 45mL/hr to best meet pts nutritional needs 2. Monitor for TF tolerance 3. Dietitian following Dietitian to Monitor: Lab values, Intake & Output, Tube feeding tolerance, Medical course
[2018-04-06] MEDS: Pantoprazole Inj 40 MG Vial IV.PUSH SCH (12:26)
[2018-04-06] MEDS: Artificial Tears Opth Drops 15 ML Bottle EACH EYE SCH ×3 (13:07→23:19)
[2018-04-06] MEDS: Oral Hygiene Kit OROPHARYNG SCH ×2 (13:13→17:27)
--- NOTE | 2018-04-06 15:34 | ECG ---
Date Performed: 04/06/2018 Time Performed: 05:35:44 PTAGE: 53 years EKG: SINUS TACHYCARDIA WITH SHORT [place] INTERVAL Vertical QRS POOR INITIAL ANTERIOR FORCES, CANNOT EXCLUDE ANTEROSEPTAL mYOCARDIAL INFARCTION, undetermined age NONSPECIFIC ST WAVE CHANGE NO PREVIOUS TRACING DOCTOR: Daniele Hill Interpretating Date/Time 04/06/2018 15:33:44
[2018-04-06] MEDS ORDERED: Norepinephrine Inj 16 MG in Sodium Chlor 0.9% Inj 234 ML IV.CONT PRN (16:00)
--- NOTE | 2018-04-06 17:26 | P.PNID ---
Subjective Remarks: Patient is a 53-year-old female, presented to the hospital after she was seen by her primary care physician for further evaluation. She apparently has been having problem with dysuria, flank pain, and abdominal pain for the last 5 days. She has had some chills, but has not really documented her temperature. She complains of bilateral flank pain. She also has had some dysuria. She denies any hematuria, or any history of kidney stone. She has had prior history of UTI but this was 2 years ago. Currently patient is so weak and she is having hard time going to the bathroom so she has been urinating in her bed. She denies any respiratory complaint. Patient when I saw her is very tremulous, and according to her she gets like this when she gets sick. Her WBC on admission is normal. Her urinalysis showed evidence of UTI. Her LFTs are mildly elevated. There is history of drinking wine on a daily basis. CT of the abdomen and pelvis did not show any hydronephrosis or any abnormality in the gallbladder. She denies any diarrhea. She has had some nausea but no vomiting. Patient currently still having fevers. Her blood cultures are now reported as growing gram-negative jax. Verigene testing is showing E. coli, and no resistant markers noted. Urine culture is still pending. Infectious disease consultation has been requested to assist with evaluation and treatment. Notes reviewed Required intubation this morning On the vent On levophed Low grade temps On fentanyl and versed - but still awake CXR with regine infiltrates BC with E coli UC with E coli WBC up to 13.4 Antibiotics: Cefepime Lines: [facility] TLC A line Past Medical History: Breast augmentation Tonsillectomy Drinks ETOH regularly Allergies/Adverse Reactions: Allergies No Known Allergies Allergy (Verified 04/03/18 10:22) Objective Vital Signs 04/05/18 20:00 04/05/18 21:00 04/06/18 00:00 Temperature 100.9 F H 97.6 F Pulse Rate 121 H 124 H Respiratory Rate 18 18 Blood Pressure 136/90 132/87 Pulse Oximetry 93 L 85 L 91 L 04/06/18 00:30 04/06/18 00:45 04/06/18 04:00 Temperature 99.0 F Pulse Rate 136 H Respiratory Rate 22 Blood Pressure 165/94 H Pulse Oximetry 88 L 91 L 75 L 04/06/18 04:58 04/06/18 06:45 04/06/18 07:00 Temperature Pulse Rate Respiratory Rate 16 Blood Pressure Pulse Oximetry 94 L 87 L 99 04/06/18 07:11 04/06/18 07:13 04/06/18 07:17 Temperature Pulse Rate 134 H 132 H Respiratory Rate 18 16 Blood Pressure 112/65 108/72 Pulse Oximetry 95 96 04/06/18 07:19 04/06/18 07:21 04/06/18 07:23 Temperature Pulse Rate Respiratory Rate Blood Pressure 111/68 166/96 H 183/108 H Pulse Oximetry 04/06/18 07:27 04/06/18 07:29 04/06/18 07:43 Temperature Pulse Rate Respiratory Rate Blood Pressure 177/88 H 169/102 H 128/70 Pulse Oximetry 04/06/18 07:45 04/06/18 07:47 04/06/18 07:49 Temperature Pulse Rate 132 H 130 H Respiratory Rate 35 H 35 H Blood Pressure 119/82 135/81 133/73 Pulse Oximetry 95 97 04/06/18 07:51 04/06/18 07:59 04/06/18 08:00 Temperature Pulse Rate 136 H 136 H Respiratory Rate 24 25 H Blood Pressure 119/73 123/93 H Pulse Oximetry 96 97 04/06/18 09:05 04/06/18 09:11 04/06/18 09:15 Temperature Pulse Rate 124 H 123 H 128 H Respiratory Rate 21 21 20 Blood Pressure Pulse Oximetry 98 97 04/06/18 09:31 04/06/18 09:35 04/06/18 11:00 Temperature Pulse Rate 132 H 102 H Respiratory Rate 24 26 H 16 Blood Pressure 119/69 96/72 L Pulse Oximetry 97 97 04/06/18 11:26 04/06/18 11:45 04/06/18 12:00 Temperature Pulse Rate 103 H 104 H 106 H Respiratory Rate 16 16 15 Blood Pressure 102/75 Pulse Oximetry 98 99 99 04/06/18 13:00 04/06/18 14:00 04/06/18 14:13 Temperature Pulse Rate 98 H 92 H Respiratory Rate 16 16 16 Blood Pressure 98/66 L 111/70 Pulse Oximetry 99 99 98 04/06/18 14:15 04/06/18 14:59 04/06/18 15:14 Temperature Pulse Rate 92 H 86 84 Respiratory Rate 16 16 16 Blood Pressure 112/61 110/69 108/71 Pulse Oximetry 99 98 98 04/06/18 15:29 04/06/18 15:44 04/06/18 15:47 Temperature Pulse Rate 82 88 104 H Respiratory Rate 16 16 16 Blood Pressure 111/66 60/47 L 90/53 L Pulse Oximetry 98 97 99 04/06/18 15:50 04/06/18 15:55 04/06/18 16:00 Temperature Pulse Rate 100 H 94 H 94 H Respiratory Rate 16 16 16 Blood Pressure 93/65 L 78/56 L 81/54 L Pulse Oximetry 99 98 98 04/06/18 16:15 04/06/18 16:24 04/06/18 16:30 Temperature Pulse Rate 110 H 95 H 96 H Respiratory Rate 26 H 16 16 Blood Pressure 99/67 L 99/66 L Pulse Oximetry 95 96 04/06/18 16:45 Temperature Pulse Rate 92 H Respiratory Rate 16 Blood Pressure 89/59 L Pulse Oximetry 97 Intake & Output 04/05/18 04/06/18 04/06/18 18:59 06:59 18:59 Intake Total 1225 / 1225 1005 / 1005 1205 / 1205 Output Total 285 / 285 Balance 940 / 940 1005 / 1005 1205 / 1205 Weight 53.1 kg 51.7 kg Intake: IV 800 / 800 1005 / 1005 1205 / 1205 Versed Inj 50 mg In 50 ml @ 2 100 / 100 MG/HR 2 mls/hr IV.CONT TITRATE PRN Rx#:[id number] NS Inj 1,000 ML @ 84 mls/hr IV. 700 / 700 CONT .[id number] MARIE Rx#: [id number] Maxipime Inj 2,000 MG In NS Inj 100 / 100 100 / 100 100 ML @ 200 mls/hr IV.SIG Q12H MARIE Rx#:[id number] KCl 40 mEq Premix Inj 40 meq In 100 / 100 100 ml @ 25 mls/hr IV.SIG Q2H PRN Rx#:[id number] KCl Inj 10 MEQ In NS Inj 1,000 905 / 905 1005 / 1005 ML @ 84 mls/hr IV.SIG .[id number] MARIE Rx#:[id number] Oral 425 / 425 Output: Urine 285 / 285 Other: # Voids 1 Date of Last Bowel Movement 04/05/18 Weight On Admission 53.1 kg 04/05/18 11:10 Clean Catch Urine Urine Culture - Preliminary Group D Enterococcus 04/05/18 06:30 Blood - Peripheral Aerobic Blood Culture - Preliminary No growth in 1 day 04/05/18 06:30 Blood - Peripheral Anaerobic Blood Culture - Preliminary No growth in 1 day 04/04/18 13:22 Blood - Peripheral Aerobic Blood Culture - Preliminary No growth in 2 days 04/04/18 13:22 Blood - Peripheral Anaerobic Blood Culture - Preliminary No growth in 2 days 04/04/18 13:29 Blood - Peripheral Aerobic Blood Culture - Preliminary No growth in 2 days 04/04/18 13:29 Blood - Peripheral Anaerobic Blood Culture - Preliminary No growth in 2 days 04/06/18 08:00 Sputum - Endotracheal Gram Stain - Pending 04/06/18 08:00 Sputum - Endotracheal Sputum Culture - Pending 04/03/18 11:15 Blood - Peripheral Aerobic Blood Culture - Final Escherichia coli 04/03/18 11:15 Blood - Peripheral Anaerobic Blood Culture - Final Escherichia coli 04/03/18 11:05 Blood - Peripheral Aerobic Blood Culture - Final Escherichia coli 04/03/18 11:05 Blood - Peripheral Anaerobic Blood Culture - Final Escherichia coli 04/03/18 10:30 Clean Catch Urine Urine Culture - Final Escherichia coli Lab - Hematology Results 04/05/18 04/06/18 04/06/18 06:30 05:35 08:35 CBC w Diff Auto diff final Auto diff final Auto diff final WBC 8.4 12.9 H D 13.4 H RBC 3.82 L 4.46 3.74 L Hgb 12.9 15.2 D 13.1 D Hct 38.1 44.7 37.9 MCV 99.8 100.1 H 101.3 H MCH 33.8 34.1 H 35.2 H MCHC 33.8 34.1 34.7 RDW 12.7 12.5 12.8 Plt Count 142 L 175 139 L MPV 8.3 8.5 8.6 Neut % (Auto) 86.7 H 87.3 H 91.4 H Lymph % (Auto) 6.0 L 5.1 L 3.4 L [place] % (Auto) 6.8 6.8 4.7 Eos % (Auto) 0.0 0.1 0.1 Baso % (Auto) 0.5 0.7 0.4 Neut # (Auto) 7.3 11.2 H 12.2 H Lymph # (Auto) 0.5 L 0.7 L 0.5 L [place] # (Auto) 0.6 0.9 0.6 Eos # (Auto) 0.0 0.0 0.0 Baso # (Auto) 0.0 0.1 0.1 WBC Differential . . . Differential Comment . . . Lab - Chemistry Results 04/05/18 04/05/18 04/06/18 06:30 14:20 05:35 Sodium 131 L 129 L Potassium 2.6 L* 3.1 L 2.9 L* Chloride 94 L 92 L Carbon Dioxide 24.4 20.1 L Anion Gap 13 17 H BUN 6 L 8 Creatinine 0.76 0.76 Estimated GFR 79 L 79 L POC Glucose Random Glucose 112 H 137 H Lactic Acid Calcium 8.2 L 8.8 Prot Corrected Calcium Phosphorus Magnesium Total Bilirubin 1.3 H 1.6 H AST 49 H 53 H ALT 36 35 Alkaline Phosphatase 72 94 Ammonia Total Creatine Kinase Troponin I Total Protein 7.4 D 8.8 H D Albumin 2.9 L 3.2 L TSH Cortisol 04/06/18 04/06/18 04/06/18 05:35 08:35 08:35 Sodium 133 L Potassium 2.7 L* Chloride 97 L Carbon Dioxide 17.5 L Anion Gap 19 H BUN 9 Creatinine 0.74 Estimated GFR 81 L POC Glucose Random Glucose 157 H Lactic Acid 2.1 H Calcium 7.1 L* D Prot Corrected Calcium 7.4 L* Phosphorus 3.3 Magnesium 1.7 1.2 L Total Bilirubin 1.7 H AST 45 H ALT 28 Alkaline Phosphatase 66 Ammonia Total Creatine Kinase 136 Troponin I 1.46 H* Total Protein 6.6 D Albumin 2.4 L D TSH 1.300 Cortisol 04/06/18 04/06/18 04/06/18 08:35 08:35 11:09 Sodium Potassium Chloride Carbon Dioxide Anion Gap BUN Creatinine Estimated GFR POC Glucose 133 H Random Glucose Lactic Acid Calcium Prot Corrected Calcium Phosphorus Magnesium Total Bilirubin AST ALT Alkaline Phosphatase Ammonia 58 H Total Creatine Kinase Troponin I Total Protein Albumin TSH Cortisol 46.1 Imaging: ITS Impressions Abdomen/Pelvis CT 04/03/18 00:00 CONCLUSION: 1. No evidence of hydronephrosis or calcified stones. 2. No dilated loops of small or large bowel. Chest X-Ray 04/06/18 07:41 CONCLUSION: Interval placement of an endotracheal tube is positioned within the right main bronchus. Recommend retraction 4 cm. Otherwise stable airspace exam with by basilar airspace consolidation. Physical Exam: GENERAL: awake, on the vent, looks comfortable SKIN: Warm and dry. No generalized rash HEAD: Atraumatic. Normocephalic. No temporal wasting, or tenderness. EYES: [place] conjunctiva. No petechia or hemorrhage. Pupils equal, round and reactive to light. Extraocular movements full and intact. No scleral icterus. No injection or drainage. EARS, NOSE AND THROAT: Orally intubated. NECK: Trachea midline. Supple and not tender, no meningeal signs CARDIOVASCULAR: Regular rate and rhythm. No murmurs, rubs or gallops heard RESPIRATORY: Coarse breath sounds bilaterally ABDOMEN: Soft, nondistended, not tender. Bowel sounds present and normoactive. No organomegaly. EXTREMITIES: No clubbing, cyanosis, or edema. No calf tenderness. Well perfused and warm. NEUROLOGICAL: Awake, responding PSYCHIATRIC: calm LINE: No evidence of infection : Rdz in place Assessment and Plan - Plan Impression E coli sepsis, likely source - CT no hydro - has mildly elevated LFT, prob due to ETOH use, no significant PE finding to point to GB/biliary tree - still with fevers UTI Acute respiratory failure, with development of bilateral infiltrates, ?ARDS, fluid ?DT ETOH intake on daily basis Mild thrombocytopenia, likely due to sepsis Recommendation Follow C/S AGree with checking sputum Continue IV cefepime Follow temps Monitor progress
[2018-04-06] MEDS: Potassium Chloride Inj 10 MEQ in Sod Chloride 0.9% Inj 1,000 ML IV.SIG SCH ×3 (17:27→23:18)
[2018-04-06 18:34] LABS: Magnesium 2.3 mg/dL (1.5-2.5); Potassium 4.1 meq/L (3.5-5.1)
[2018-04-06 18:36] LABS: Troponin I 1.02 ng/mL (0.02-0.05)
[2018-04-06] MEDS: Heparin - SQ 10,000 UNITS/ML Vial SQ SCH (20:54)
[2018-04-06 21:24] LABS: Uric Acid 3.6 mg/dl (2.6-6.0)
[2018-04-06 23:48] LABS: Baso % (Auto) 0.5 % (0.0-2.0); Eos % (Auto) 0.1 % (0.0-4.0); Hematocrit 33.5 % (35.0-46.0); Hemoglobin 11.6 gm/dL (11.6-15.3); Lymph # (Auto) 1.5 th/mm3 (1.0-4.8); Lymph % (Auto) 16.2 % (9.0-44.0); Mean Corpuscular HGB Conc 34.6 % (32.0-36.0); Mean Corpuscular Hemoglobin 34.8 pg (27.0-34.0); Mean Corpuscular Volume 100.5 fL (80.0-100.0); Mean Platelet Volume 8.4 fL (7.0-11.0); Mono % (Auto) 10.8 % (0.0-8.0); Neut # (Auto) 6.5 th/mm3 (1.8-7.7); Neut % (Auto) 72.4 % (16.0-70.0); Platelet Count 159 th/mm3 (150-450); Red Blood Count 3.33 mil/mm3 (4.00-5.30); Red Cell Distribution Width 12.9 % (11.6-17.2)
[2018-04-07 00:03] LABS: Alanine Aminotransferase 24 U/L (10-53); Albumin 2.2 g/dL (3.4-5.0); Anion Gap 10 meq/L (5-15); Aspartate Aminotransferase 34 U/L (15-37); Blood Urea Nitrogen 14 mg/dL (7-18); Calcium 8.2 mg/dL (8.5-10.1); Carbon Dioxide 21.7 meq/L (21.0-32.0); Chloride 108 meq/L (98-107); Glomerular Filtration Rate 59 mL/min (>89); Glucose,Random 143 mg/dL (74-106); Phosphorus 1.8 mg/dL (2.5-4.9); Potassium 3.6 meq/L (3.5-5.1); Sodium 140 meq/L (136-145)
[2018-04-07 00:06] LABS: Alkaline Phosphatase 62 U/L (45-117); Total Protein 6.2 g/dL (6.4-8.2)
[2018-04-07 00:15] LABS: Troponin I 0.67 ng/mL (0.02-0.05)
[2018-04-07] MEDS: Insulin NovoLOG Aspart Correctional Sugar Inj SQ SCH ×4 (01:19→18:14)
[2018-04-07] MEDS: Oral Hygiene Kit OROPHARYNG SCH ×4 (01:23→16:22)
[2018-04-07] MEDS: Chlorhexidine Gluconate 2% 1 Pack (2 Cloths) TOPICAL SCH (04:00)
[2018-04-07] MEDS ORDERED: Chlorhexidine Gluconate 2% 1 Pack (2 Cloths) TOPICAL PRN (04:00)
[2018-04-07 04:37] LABS: Hemoglobin 11.5 gm/dL (11.6-15.3); Mean Corpuscular HGB Conc 33.7 % (32.0-36.0); Mean Corpuscular Hemoglobin 34.2 pg (27.0-34.0); Mean Corpuscular Volume 101.3 fL (80.0-100.0); Mean Platelet Volume 8.3 fL (7.0-11.0); Platelet Count 164 th/mm3 (150-450); Red Blood Count 3.36 mil/mm3 (4.00-5.30); Red Cell Distribution Width 12.9 % (11.6-17.2); White Blood Count 8.9 th/mm3 (4.0-11.0)
[2018-04-07 04:38] LABS: Baso % (Auto) 1.5 % (0.0-2.0); Eos % (Auto) 0.1 % (0.0-4.0); Lymph % (Auto) 13.5 % (9.0-44.0); Mono % (Auto) 8.3 % (0.0-8.0); Neut # (Auto) 6.9 th/mm3 (1.8-7.7); Neut % (Auto) 76.6 % (16.0-70.0)
[2018-04-07 04:39] LABS: Baso # (Auto) 0.1 th/mm3 (0.0-0.2); Lymph # (Auto) 1.2 th/mm3 (1.0-4.8); Mono # (Auto) 0.7 th/mm3 (0.0-0.9)
[2018-04-07 04:53] LABS: Lymphocytes 9 % (9-44); Metamyelocytes 1 % (0-1); Monocytes 6 % (0-8); Platelet Estimate Normal (Normal); Platelet Morphology Normal (Normal)
[2018-04-07] MEDS: Artificial Tears Opth Drops 15 ML Bottle EACH EYE SCH ×3 (05:27→23:13)
[2018-04-07 05:45] LABS: ABG Base Excess -4.4 mmol/L (-2-2); ABG PCO2 30 mmHg (38-42); ABG PO2 91 mmHg (61-120)
[2018-04-07 05:54] LABS: Chloride 110 meq/L (98-107); Potassium 3.5 meq/L (3.5-5.1); Sodium 141 meq/L (136-145)
[2018-04-07 05:57] LABS: Calcium 8.1 mg/dL (8.5-10.1)
[2018-04-07 05:58] LABS: Albumin 2.2 g/dL (3.4-5.0); Anion Gap 10 meq/L (5-15); Blood Urea Nitrogen 14 mg/dL (7-18); Carbon Dioxide 21.3 meq/L (21.0-32.0); Glucose,Random 137 mg/dL (74-106)
[2018-04-07 06:01] LABS: Alanine Aminotransferase 21 U/L (10-53); Aspartate Aminotransferase 35 U/L (15-37); Glomerular Filtration Rate 60 mL/min (>89)
[2018-04-07 06:02] LABS: Total Protein 6.1 g/dL (6.4-8.2)
[2018-04-07 06:04] LABS: Alkaline Phosphatase 62 U/L (45-117)
--- NOTE | 2018-04-07 06:12 | XR ---
EXAM DATE: 04/07/2018 6:03 AM EST AGE/SEX: 53 years / Female INDICATIONS: Shortness of breath. CLINICAL DATA: This is the patient's subsequent encounter. Patient reports that signs and symptoms h ave been present for 4 - 6 days and indicates a pain score of Nonresponsive. MEDICAL/SURGICAL HISTORY: Non-responsive. Non-responsive. COMPARISON: [facility], CHEST 1V SINGLE AP, 04/06/2018. . FINDINGS: Single AP view the chest. Endotracheal tube, nasogastric tube, right IJ central venous catheter remai n in place. Endotracheal tube tip is now 7 mm above the albert. This could be retracted several centi meters. Persistent bilateral lower lung zone predominant pulmonary opacity. No evidence of pneumothor ax. Cardiomediastinal silhouette unchanged. CONCLUSION: 1. No significant interval change with persistent bilateral lower lung zone predominant pulmonary op acity likely representing pulmonary edema. 2. Endotracheal tube tip 7 mm above the albert. Could be retracted several centimeters. Electronically signed by: Jean-Pierre Leslie MD 04/07/2018 6:11 AM EST
--- NOTE | 2018-04-07 07:49 | P.CONCA ---
History of Present Illness Primary Care Provider: Bertha Justin MD Chief Complaint: Sent via primary care physician for fever chills abdominal pain dysuria History of Present Illness: 53-year-old female with a past medical history of anxiety and daily alcohol use who was initially sent from PCPs office on 04/03 for fever, chills, flank pain. The patient was found to have gram-negative bacteremia secondary to suspected pyelonephritis. ID on board and she has been on IV antibiotics. The patient had septic shock/respiratory failure on 04/06 and has been intubated, sedated, mechanically ventilated since yesterday morning. She has required pressor support with norepinephrine. During episode of respiratory distress she had regular narrow complex tachycardia, rate around 150; telemetry currently sinus mechanism with rate around 100. Her EKG from 04/06 shows sinus tachycardia with anterolateral ST depression, no prior EKG available for comparison. Troponin x3 drawn 04/06, 1.4->0.6. Chest x-rays 04/06 and 04/07 showed some bibasilar edema. She had been receiving IVF her first 3 days of admission, received IV Lasix 40 mg 04/06, reported ~2000ml and out since then. Echocardiogram 04/06 showed EF 25-30% with global hypokinesis. Review of Systems unobtainable due to endotracheal tube PMFSH - History History Provided By: Medical Record - Medical History Medical History: Medical History (Last Reviewed 04/06/18 @ 09:07 by Jermain Love) No significant past medical history - Surgical History Surgical History: Surgical History (Last Reviewed 04/06/18 @ 09:07 by Jermain Love) History of breast augmentation Hx of tonsillectomy - Family History Family History: Family History (Last Updated 04/06/18 @ 07:51 by Robbin Reddy MD) Other No pertinent family history - Tobacco History Second Hand Smoke Exposure: No Smoking Status: Never smoker - Alcohol History How Often Do You Have a Drink Containing Alcohol: 4 or more times a week - Substance Use History Substance History: No History of Abuse - Travel History Recent Travel in the [facility] Within the Last 8 Weeks: No Recent Travel Out of the Country Within the Last 8 Weeks: No - Immunization History Tetanus Immunization: Unsure Hx Influenza Vaccine This Season: No Medications and Allergies Allergies Allergy/AdvReac Type Severity Reaction Status Date / Time No Known Allergies Allergy Verified 04/03/18 10:22 Active Medications: Active Medications Acetaminophen (Tylenol Liq) 650 mg PO Q6H PRN PRN Reason: FEVER Albuterol (Duoneb Neb (Onelia)) 1 ampul NEB Q4HR NEB [facility] Last Admin: 04/07/18 07:33 Dose: 1 ampul Albuterol (Albuterol Neb (Prn)) 2.5 mg NEB Q2HR NEB PRN PRN Reason: DYSPNEA Artificial Tears (Tears Naturale Opth Drops) 1 drop EACH EYE Q8HR [facility] Last Admin: 04/07/18 05:27 Dose: 1 drop Chlordiazepoxide (Librium) 10 mg PO Q8H [facility] Last Admin: 04/06/18 23:22 Dose: 10 mg Chlorhexidine Gluconate (Peridex 0.12% Oral Kit) 15 ml OROPHARYNG BID@0800, 2000 [facility] Last Admin: 04/06/18 19:43 Dose: 15 ml Chlorhexidine Gluconate (Chlorhexidine 2% Cloth) 3 pack TOPICAL DAILY@0400 [facility] Stop: 04/12/18 03:59 Last Admin: 04/07/18 04:00 Dose: 3 pack Chlorhexidine Gluconate (Chlorhexidine 2% Cloth) 3 pack TOPICAL DAILY@0400 PRN PRN Reason: Extra cloth needed Stop: 04/12/18 03:59 Dextrose (D50w Vial) 50 ml IV.PUSH UNSCH PRN PRN Reason: PER HYPOGLYCEMIA PROTOCOL Flumazenil (Romazecon Inj) 0.2 mg IV.PUSH Q1M PRN PRN Reason: OVERSEDATION Glucagon (Glucagon Inj) 1 mg OTHER PRN PRN PRN Reason: for Hypoglycemia Protocol Heparin Sodium (Porcine) (Heparin Inj) 5,000 units SQ Q12HR [facility] Last Admin: 04/06/18 20:54 Dose: 5,000 units Cefepime HCl 2,000 mg/ Sodium (Chloride) 100 mls @ 200 mls/hr IV.SIG Q12H [facility] Last Admin: 04/07/18 01:23 Dose: 200 mls/hr Potassium Chloride 10 meq/ (Sodium Chloride) 1,005 mls @ 84 mls/hr IV.SIG .[id number] [facility] Last Admin: 04/06/18 23:18 Dose: 84 mls/hr Fentanyl (Fentanyl 10 Mcg/Ml Premix Drip) 2,500 mcg in 250 mls @ 5 mls/hr IV.SIG TITRATE PRN; Protocol PRN Reason: Per Protocol Last Titration: 04/07/18 03:35 Dose: 100 mcg/hr, 10 mls/hr Midazolam HCl (Versed Inj) 50 mg in 50 mls @ 2 mls/hr IV.CONT TITRATE PRN; Protocol PRN Reason: Per Protocol Last Admin: 04/06/18 15:52 Dose: 3 mg/hr, 3 mls/hr Multivitamins 10 ml/ Thiamine HCl 100 mg/ Folic Acid 1 mg/Sodium Chloride 511.2 mls @ 125 mls/hr IV.SIG Q24H ONELIA Stop: 04/08/18 12:06 Last Infusion: 04/06/18 18:20 Dose: Infused Potassium Chloride (Kcl 40 Meq Premix Inj) 40 meq in 100 mls @ 25 mls/hr IV.SIG Q2H PRN PRN Reason: For Potassium 2.8 - 3.2 mEq/L Last Infusion: 04/06/18 16:00 Dose: Infused Potassium Chloride (Kcl 20 Meq Premix Inj) 20 meq in 100 mls @ 50 mls/hr IV.SIG Q2H PRN PRN Reason: For Potassium 3.3 - 3.5 mEq/L Potassium Chloride (Kcl 40 Meq Premix Inj) 40 meq in 100 mls @ 25 mls/hr IV.SIG UNSCH PRN PRN Reason: For Potassium 3.3 - 3.5 mEq/L Potassium Phosphate 30 mmol/ (Sodium Chloride) 260 mls @ 42 mls/hr IV.SIG UNSCH PRN PRN Reason: SEE LABEL COMMENTS Sodium Phosphate 30 mmol/ (Sodium Chloride) 260 mls @ 42 mls/hr IV.SIG UNSCH PRN PRN Reason: For Phosphorus < 2.5 mg/dL Potassium Chloride (Kcl 20 Meq Premix Inj) 20 meq in 100 mls @ 50 mls/hr IV.SIG Q2H PRN PRN Reason: For Potassium 2.8 - 3.2 mEq/L Magnesium Sulfate 4 gm/ Sodium (Chloride) 100 mls @ 50 mls/hr IV.SIG UNSCH PRN PRN Reason: For Magnesium 0.9 - 1.1 mg/dL Magnesium Sulfate 2 gm/ Sodium (Chloride) 100 mls @ 50 mls/hr IV.SIG UNSCH PRN PRN Reason: For Magnesium 1.2 - 1.6 mg/dL Last Infusion: 04/06/18 13:45 Dose: Infused Dexmedetomidine HCl 200 mcg/ (Sodium Chloride) 50 mls @ 2.65 mls/hr IV.CONT TITRATE PRN; Protocol PRN Reason: Per Protocol Norepinephrine Bitartrate 16 (mg/ Sodium Chloride) 250 mls @ 1.87 mls/hr IV.CONT TITRATE PRN; Protocol PRN Reason: See Protocol Last Titration: 04/06/18 17:18 Dose: 7 mcg/min, 6.56 mls/hr Insulin Aspart (Novolog Insulin Correctional Sugar Inj) 0 unit SQ Q6HR [facility]; Protocol Last Admin: 04/07/18 06:27 Dose: Not Given Lactulose (Lactulose Liq) 30 ml PO BID [facility] Last Admin: 04/06/18 20:54 Dose: 30 ml Magnesium Oxide (Mag-Ox) 800 mg PO UNSCH PRN PRN Reason: For Magnesium 1.2 - 1.6 mg/dL Miscellaneous Medication () 1 each OROPHARYNG 0000,0400,1200,1600 [facility] Last Admin: 04/07/18 05:27 Dose: 1 each Ondansetron HCl (Zofran Inj) 4 mg IV.PUSH Q6H PRN PRN Reason: NAUSEA OR VOMITING Pantoprazole Sodium (Protonix Inj) 40 mg IV.PUSH Q24H [facility] Last Admin: 04/06/18 12:26 Dose: 40 mg Potassium Bicarb/Potassium Chloride (K-Lyte Cl Eff) 50 meq PO UNSCH PRN PRN Reason: For Potassium 3.3 - 3.5 mEq/L Potassium Phosphate (K-Phos Original) 2,000 mg PO Q4H PRN PRN Reason: Phosphorus Less Than 2.5 mg/dL Potassium Phosphate (K-Phos Original) 2,000 mg PO UNSCH PRN PRN Reason: SEE LABEL COMMENTS Senna/Docusate Sodium (Romana-Colace) 1 tab PO BID [facility] Last Admin: 04/06/18 20:54 Dose: 1 tab Sodium Chloride (Ns Flush) 2 ml IV.FLUSH PRN PRN PRN Reason: FLUSH AFTER USING IV ACCESS Sodium Chloride (Ns Flush) 2 ml IV.FLUSH BID [facility] Last Admin: 04/06/18 23:19 Dose: 2 ml Sodium Chloride (Ns Flush) 0 ml IV.FLUSH DAILY [facility] Last Admin: 04/06/18 13:08 Dose: 10 ml Sterile Water (Free Water) 100 ml G-TUBE Q8HR [facility] Last Admin: 04/07/18 05:36 Dose: 100 ml Terbutaline Sulfate (Brethine Inj) 1 mg SQ UNSCH PRN PRN Reason: For Extravasation Exam Vital signs: Vital Signs 04/06/18 07:45 04/06/18 07:47 04/06/18 07:49 Temperature Pulse Rate 132 H 130 H Respiratory Rate 35 H 35 H Blood Pressure 119/82 135/81 133/73 Pulse Oximetry 95 97 04/06/18 07:51 04/06/18 07:59 04/06/18 08:00 Temperature Pulse Rate 136 H 136 H Respiratory Rate 24 25 H Blood Pressure 119/73 123/93 H Pulse Oximetry 96 97 04/06/18 09:05 04/06/18 09:11 04/06/18 09:15 Temperature Pulse Rate 124 H 123 H 128 H Respiratory Rate 21 21 20 Blood Pressure Pulse Oximetry 98 97 04/06/18 09:31 04/06/18 09:35 04/06/18 11:00 Temperature Pulse Rate 132 H 102 H Respiratory Rate 24 26 H 16 Blood Pressure 119/69 96/72 L Pulse Oximetry 97 97 04/06/18 11:26 04/06/18 11:45 04/06/18 12:00 Temperature Pulse Rate 103 H 104 H 106 H Respiratory Rate 16 16 15 Blood Pressure 102/75 Pulse Oximetry 98 99 99 04/06/18 13:00 04/06/18 14:00 04/06/18 14:13 Temperature Pulse Rate 98 H 92 H Respiratory Rate 16 16 16 Blood Pressure 98/66 L 111/70 Pulse Oximetry 99 99 98 04/06/18 14:15 04/06/18 14:59 04/06/18 15:14 Temperature Pulse Rate 92 H 86 84 Respiratory Rate 16 16 16 Blood Pressure 112/61 110/69 108/71 Pulse Oximetry 99 98 98 04/06/18 15:29 04/06/18 15:44 04/06/18 15:47 Temperature Pulse Rate 82 88 104 H Respiratory Rate 16 16 16 Blood Pressure 111/66 60/47 L 90/53 L Pulse Oximetry 98 97 99 04/06/18 15:50 04/06/18 15:55 04/06/18 16:00 Temperature Pulse Rate 100 H 94 H 94 H Respiratory Rate 16 16 16 Blood Pressure 93/65 L 78/56 L 81/54 L Pulse Oximetry 99 98 98 04/06/18 16:15 04/06/18 16:24 04/06/18 16:30 Temperature Pulse Rate 110 H 95 H 96 H Respiratory Rate 26 H 16 16 Blood Pressure 99/67 L 99/66 L Pulse Oximetry 95 96 04/06/18 16:45 04/06/18 17:00 04/06/18 17:15 Temperature Pulse Rate 92 H 90 92 H Respiratory Rate 16 16 16 Blood Pressure 89/59 L 89/60 L 82/57 L Pulse Oximetry 97 98 98 04/06/18 17:24 04/06/18 17:30 04/06/18 17:45 Temperature Pulse Rate 90 88 Respiratory Rate 16 15 16 Blood Pressure 97/62 L 85/58 L Pulse Oximetry 98 98 98 04/06/18 18:00 04/06/18 18:15 04/06/18 18:30 Temperature Pulse Rate 90 84 84 Respiratory Rate 16 16 16 Blood Pressure 89/61 L 92/66 L 92/64 L Pulse Oximetry 98 98 98 04/06/18 18:45 04/06/18 19:00 04/06/18 19:15 Temperature 99.9 F H Pulse Rate 82 82 82 Respiratory Rate 16 15 16 Blood Pressure 90/64 L 91/61 L Pulse Oximetry 98 94 L 04/06/18 19:16 04/06/18 20:00 04/06/18 21:00 Temperature Pulse Rate 95 H 93 H Respiratory Rate 16 16 16 Blood Pressure 92/68 L 89/62 L Pulse Oximetry 98 94 L 92 L 04/06/18 21:38 04/06/18 22:00 04/06/18 23:00 Temperature Pulse Rate 93 H 95 H Respiratory Rate 16 16 16 Blood Pressure 106/79 95/59 L Pulse Oximetry 99 92 L 04/06/18 23:32 04/07/18 00:00 04/07/18 01:00 Temperature 101.9 F H 100.1 F H Pulse Rate 97 H 94 H 96 H Respiratory Rate 16 16 16 Blood Pressure 95/59 L 92/63 L Pulse Oximetry 94 L 97 04/07/18 01:17 04/07/18 02:00 04/07/18 03:00 Temperature Pulse Rate 90 90 Respiratory Rate 16 16 15 Blood Pressure 100/63 99/58 L Pulse Oximetry 97 96 98 04/07/18 04:00 04/07/18 04:54 04/07/18 05:00 Temperature 99.6 F Pulse Rate 110 H 96 H Respiratory Rate 16 16 16 Blood Pressure 109/72 106/62 Pulse Oximetry 98 95 04/07/18 06:00 04/07/18 07:00 Temperature Pulse Rate 98 H 96 H Respiratory Rate 16 16 Blood Pressure 104/58 L 113/63 Pulse Oximetry 95 96 Intake & Output 04/06/18 04/07/18 04/07/18 18:59 06:59 18:59 Intake Total 2618.81 / 2618.81 1458 / 1458 Output Total 1450 / 1450 500 / 500 Balance 1168.81 / 1168.81 958 / 958 Weight 113 lb 15.664 oz 117 lb 15.157 oz Intake: IV 2296.81 / 2296.81 1100 / 1100 Versed Inj 50 mg In 50 ml @ 2 100 / 100 MG/HR 2 mls/hr IV.CONT TITRATE PRN Rx#:[id number] Neosynephrine Inj 160 MG In NS 20.61 / 20.61 Inj 484 ML @ 40 MCG/MIN 7.5 mls /hr IV.CONT TITRATE PRN Rx#: [id number] Diprivan 1000 mg/100 ml Inj 1, 50 / 50 000 mg In 100 ml @ 5 MCG/KG/MIN 1.635 mls/hr IV.CONT TITRATE PRN Rx#:[id number] Calcium Chloride Inj 1 GM In NS 110 / 110 Inj 100 ML @ 110 mls/hr IV.SIG ONCE ONE Rx#:[id number] Maxipime Inj 2,000 MG In NS Inj 100 / 100 100 ML @ 200 mls/hr IV.SIG Q12H ONELIA Rx#:[id number] Magnesium Sulfate Inj 2 GM In 200 / 200 NS Inj 96 ML @ 50 mls/hr IV.SIG UNSCH PRN Rx#:[id number] MVI-12 Inj 10 ML Thiamine Inj 511.2 / 511.2 100 MG Folvite Inj 1 MG In NS Inj 500 ML @ 125 mls/hr IV.SIG Q24H ONELIA Rx#:[id number] KCl 40 mEq Premix Inj 40 meq In 200 / 200 100 ml @ 25 mls/hr IV.SIG Q2H PRN Rx#:[id number] KCl Inj 10 MEQ In NS Inj 1,000 1005 / 1005 1000 / 1000 ML @ 84 mls/hr IV.SIG .[id number] ONELIA Rx#:[id number] fentaNYL 10 mcg/mL Premix Drip 100 / 100 2,500 mcg In 250 ml @ 50 MCG/HR 5 mls/hr IV.SIG TITRATE PRN Rx #:[id number] Oral 0 / 0 Tube Feeding 92 / 92 158 / 158 Tube Irrigant 30 / 30 Water Bolus Amount 200 / 200 200 / 200 Output: Urine Amount (Catheter) 1450 / 1450 500 / 500 Indwelling Urethral Catheter 1450 / 1450 500 / 500 Other: # Bowel Movements 0 Weight On Admission 117 lb 1.047 oz Narrative: GENERAL: Well-developed well-nourished. Currently stable. NECK: No carotid bruits. No JVD. CARDIOVASCULAR: Regular rate and rhythm. No murmur appreciated. RESPIRATORY: Intubated, mechanically ventilated. Bibasilar crackles. MUSCULOSKELETAL: No clubbing or cyanosis. No edema. NEUROLOGICAL: Awake and alert. Normal speech. Results 04/07/18 04:15 04/07/18 05:40 Cardiac Enzymes 04/06/18 04/06/18 04/06/18 Range/Units 05:35 08:35 17:52 AST 53 H 45 H (15-37) U/L Troponin I 1.46 H* 1.02 H* D (0.02-0.05) ng/mL 04/06/18 04/07/18 Range/Units 23:35 05:40 AST 34 35 (15-37) U/L Troponin I 0.67 H* D (0.02-0.05) ng/mL Coagulation 04/06/18 Range/Units 08:35 PT 11.8 H (9.8-11.6) sec APTT 22.8 L (23.4-31.7) sec CBC 04/06/18 04/06/18 04/06/18 Range/Units 05:35 08:35 23:35 WBC 12.9 H D 13.4 H 9.0 (4.0-11.0) th/mm3 RBC 4.46 3.74 L 3.33 L (4.00-5.30) mil/mm3 Hgb 15.2 D 13.1 D 11.6 (11.6-15.3) gm/dL Hct 44.7 37.9 33.5 L (35.0-46.0) % Plt Count 175 139 L 159 (150-450) th/mm3 Neut # (Auto) 11.2 H 12.2 H 6.5 (1.8-7.7) th/mm3 Lymph # (Auto) 0.7 L 0.5 L 1.5 (1.0-4.8) th/mm3 [place] # (Auto) 0.9 0.6 1.0 H (0.0-0.9) th/mm3 Eos # (Auto) 0.0 0.0 0.0 (0.0-0.4) th/mm3 Baso # (Auto) 0.1 0.1 0.0 (0.0-0.2) th/mm3 04/07/18 Range/Units 04:15 WBC 8.9 (4.0-11.0) th/mm3 RBC 3.36 L (4.00-5.30) mil/mm3 Hgb 11.5 L (11.6-15.3) gm/dL Hct 34.0 L (35.0-46.0) % Plt Count 164 (150-450) th/mm3 Neut # (Auto) 6.9 (1.8-7.7) th/mm3 Lymph # (Auto) 1.2 (1.0-4.8) th/mm3 [place] # (Auto) 0.7 (0.0-0.9) th/mm3 Eos # (Auto) 0.0 (0.0-0.4) th/mm3 Baso # (Auto) 0.1 (0.0-0.2) th/mm3 Comprehensive Metabolic Panel 04/05/18 04/06/18 04/06/18 Range/Units 14:20 05:35 08:35 Sodium 129 L 133 L (136-145) meq/L Potassium 3.1 L 2.9 L* 2.7 L* (3.5-5.1) meq/L Chloride 92 L 97 L (98-107) meq/L Carbon Dioxide 20.1 L 17.5 L (21.0-32.0) meq/L BUN 8 9 (7-18) mg/dL Creatinine 0.76 0.74 (0.50-1.00) mg/dL Calcium 8.8 7.1 L* D (8.5-10.1) mg/dL AST 53 H 45 H (15-37) U/L ALT 35 28 (10-53) U/L Alkaline Phosphatase 94 66 (45-117) U/L Total Protein 8.8 H D 6.6 D (6.4-8.2) g/dL Albumin 3.2 L 2.4 L D (3.4-5.0) g/dL 04/06/18 04/06/18 04/07/18 Range/Units 17:52 23:35 05:40 Sodium 140 141 (136-145) meq/L Potassium 4.1 D 3.6 3.5 (3.5-5.1) meq/L Chloride 108 H D 110 H (98-107) meq/L Carbon Dioxide 21.7 21.3 (21.0-32.0) meq/L BUN 14 14 (7-18) mg/dL Creatinine 0.98 0.97 (0.50-1.00) mg/dL Calcium 8.2 L D 8.1 L (8.5-10.1) mg/dL AST 34 35 (15-37) U/L ALT 24 21 (10-53) U/L Alkaline Phosphatase 62 62 (45-117) U/L Total Protein 6.2 L 6.1 L (6.4-8.2) g/dL Albumin 2.2 L 2.2 L (3.4-5.0) g/dL Intake and Output 04/06/18 04/07/18 04/07/18 22:59 06:59 14:59 Intake Total 1003.81 / 1003.81 1458 / 1458 Output Total 1450 / 1450 500 / 500 Balance -446.19 / -446.19 958 / 958 Intake: IV 681.81 / 681.81 1100 / 1100 Versed Inj 50 mg In 50 ml @ 2 50 / 50 MG/HR 2 mls/hr IV.CONT TITRATE PRN Rx#:[id number] Neosynephrine Inj 160 MG In NS 20.61 / 20.61 Inj 484 ML @ 40 MCG/MIN 7.5 mls /hr IV.CONT TITRATE PRN Rx#: [id number] MVI-12 Inj 10 ML Thiamine Inj 511.2 / 511.2 100 MG Folvite Inj 1 MG In NS Inj 500 ML @ 125 mls/hr IV.SIG Q24H ONELIA Rx#:[id number] KCl 40 mEq Premix Inj 40 meq In 100 / 100 100 ml @ 25 mls/hr IV.SIG Q2H PRN Rx#:[id number] KCl Inj 10 MEQ In NS Inj 1,000 1000 / 1000 ML @ 84 mls/hr IV.SIG .[id number] ONELIA Rx#:[id number] 10 mcg/mL Premix Drip 100 / 100 2,500 mcg In 250 ml @ 50 MCG/HR 5 mls/hr IV.SIG TITRATE PRN Rx #:[id number] Oral 0 / 0 0 / 0 Tube Feeding 92 / 92 158 / 158 Tube Irrigant 30 / 30 Water Bolus Amount 200 / 200 200 / 200 Output: Urine Amount (Catheter) 1450 / 1450 500 / 500 Indwelling Urethral Catheter 1450 / 1450 500 / 500 Other: # Bowel Movements 0 Weight 117 lb 15.157 oz - Imaging and Cardiology Imaging: Impressions Chest X-Ray 04/06/18 00:00 CONCLUSION: Bilateral lower lobe consolidation . 2. Rightward thoracic scoliosis Chest X-Ray 04/06/18 07:41 CONCLUSION: Interval placement of an endotracheal tube is positioned within the right main bronchus. Recommend retraction 4 cm. Otherwise stable airspace exam with by basilar airspace consolidation. Chest X-Ray 04/07/18 06:00 CONCLUSION: 1. No significant interval change with persistent bilateral lower lung zone predominant pulmonary opacity likely representing pulmonary edema. 2. Endotracheal tube tip 7 mm above the albert. Could be retracted several centimeters. Assessment and Plan - Plan 53-year-old female with a past medical history of anxiety and daily alcohol use who presented with pyelonephritis, found to have gram-negative bacteremia, subsequent septic shock on 04/06. Assessment: Non-STEMI, type I versus type II - demand mediated due to gram-negative bacteremia and septic shock-troponin downtrending Septic shock Gram-negative bacteremia - This is typically associated with lower risk of endocarditis. Abnormal EKG - in the setting of hypokalemia Sinus tachycardia Cardiomyopathy-EF 25-30% Pulmonary edema Plan: Will need to evaluate for obstructive coronary artery disease, would benefit from undergoing LHC vs nuclear stress test prior to discharge. Septic shock with pressor support precludes use of beta-blockers or REGAN inhibitors. Start aspirin 81 mg daily Check lipid profile and start atorvastatin 40 mg nightly IV Lasix 40 mg x1 Discussed Condition With: RN, Dr. Marie - Attending Attestation Agree with above.
--- NOTE | 2018-04-07 07:51 | ECHRPT ---
Indication: SHORT OF BREATH CONCLUSIONS Normal left ventricular size. Wall thickness is normal. The left ventricular systolic function is severely reduced with an estimated ejection fraction in th e range of 25-30%. [id number] mitral valve regurgitation. The estimated pulmonary arterial pressure is 27there is mild tricuspid valve regurgitation. mmHg. There is a small pericardial effusion present. A moderate left sided pleural effusion is noted. BP: / HR: Rhythm: MEASUREMENTS (Male / Female) Normal Values Technical Quality:Very technically difficult study 2D ECHO LV Diastolic Diameter PLAX 4.1 cm 4.2 - 5.9 / 3.9 - 5.3 cm LV Systolic Diameter PLAX 3.7 cm IVS Diastolic Thickness 0.9 cm 0.6 - 1.0 / 0.6 - 0.9 cm LVPW Diastolic Thickness 0.9 cm 0.6 - 1.0 / 0.6 - 0.9 cm LV Relative Wall Thickness 0.5 RV Internal Dim ED PLAX 2.1 cm LVOT Diameter 1.4 cm Aortic Root Diameter 2.0 cm LA Systolic Diameter LX 2.8 cm 3.0 - 4.0 / 2.7 - 3.8 cm LV Ejection Fraction MOD 4C 33.3 % LV Ejection Fraction 4C AL 37.1 % M-MODE Aortic Root Diameter MM 2.8 cm LA Systolic Diameter MM 2.7 cm LA Ao Ratio MM 1.0 AV Cusp Separation MM 1.2 cm DOPPLER AV Peak Velocity 63.1 cm/s AV Peak Gradient 1.6 mmHg LVOT Peak Velocity 56.8 cm/s LVOT Peak Gradient 1.3 mmHg AV Area Cont Eq pk 1.4 cm Mitral E Point Velocity 40.5 cm/s Mitral A Point Velocity 42.4 cm/s Mitral E to A Ratio 1.0 LV E' Lateral Velocity 4.1 cm/s Mitral E to LV E' Lateral Ratio 9.9 LV E' Septal Velocity 3.9 cm/s Mitral E to LV E' Septal Ratio 10.4 TR Peak Velocity 205.0 cm/s TR Peak Gradient 16.8 mmHg Right Atrial Pressure 10.0 mmHg Pulmonary Artery Systolic Pressu 26.8 mmHg Right Ventricular Systolic Press 26.8 mmHg PV Peak Velocity 55.9 cm/s PV Peak Gradient 1.2 mmHg FINDINGS LEFT VENTRICLE Normal left ventricular size. Wall thickness is normal. The left ventricular systolic function is severely reduced with an estimated ejection fraction in th e range of 25-30%. There was limited left ventricular wall motion assessment due to poor endocardial visualization. RIGHT VENTRICLE Normal right ventricular size and systolic function. LEFT ATRIUM The left atrial size is normal. RIGHT ATRIUM The right atrial size is normal. ATRIAL SEPTUM Normal atrial septal thickness without atrial level shunting by limited color doppler interrogation. AORTA The aortic root and proximal ascending aorta are normal in size on limited imaging. MITRAL VALVE [id number]-[id number] mitral valve regurgitation. AORTIC VALVE Trileaflet aortic valve. No aortic valve stenosis or regurgitation. TRICUSPID VALVE The estimated pulmonary arterial pressure is 27there is mild tricuspid valve regurgitation. mmHg. PULMONARY VALVE The pulmonary valve is not well visualized. VESSELS The inferior vena cava is normal in size. PERICARDIUM There is a small pericardial effusion present. A moderate left sided pleural effusion is noted. Chance Whiting MD (Electronically Signed) Final Date:07 April 2018 07:50
[2018-04-07] MEDS: Heparin - SQ 10,000 UNITS/ML Vial SQ SCH ×2 (08:53→21:50)
[2018-04-07] MEDS: Pantoprazole Inj 40 MG Vial IV.PUSH SCH (08:53)
[2018-04-07] MEDS: Senna/Docusate Sodium 8.6/50 MG Tablet PO SCH ×2 (08:54→21:50)
[2018-04-07] MEDS: Chlorhexidine 0.12% Oral Kit 15 ML UDC OROPHARYNG SCH ×2 (08:56→21:49)
[2018-04-07] MEDS: Multivitamin Inj 10 ML, Thiamine Inj 100 MG, Folic Acid Inj 1 MG in Sodium Chlor 0.9% I... IV.SIG SCH (09:01)
[2018-04-07] MEDS: Midazolam 50 MG/50 ML Inj 50 MG/50 ML BAG IV.CONT PRN (10:20)
[2018-04-07 10:28] LABS: Chol/HDL Ratio 7.34 Ratio; HDL Cholesterol 16.2 mg/dL (40.0-60.0)
[2018-04-07] MEDS: Potassium Chloride Inj 10 MEQ in Sod Chloride 0.9% Inj 1,000 ML IV.SIG SCH ×2 (12:22→23:27)
--- NOTE | 2018-04-07 13:34 | P.PN ---
Subjective Interval history: required emergent intubation and pressure support in the early hours of yesterday morning due to septic shock. Currently in ICU managed by intensivists Physical Exam Vital signs: Vital Signs 04/06/18 14:00 04/06/18 14:13 04/06/18 14:15 Temperature Pulse Rate 92 H 92 H Respiratory Rate 16 16 16 Blood Pressure 111/70 112/61 Pulse Oximetry 99 98 99 04/06/18 14:59 04/06/18 15:14 04/06/18 15:29 Temperature Pulse Rate 86 84 82 Respiratory Rate 16 16 16 Blood Pressure 110/69 108/71 111/66 Pulse Oximetry 98 98 98 04/06/18 15:44 04/06/18 15:47 04/06/18 15:50 Temperature Pulse Rate 88 104 H 100 H Respiratory Rate 16 16 16 Blood Pressure 60/47 L 90/53 L 93/65 L Pulse Oximetry 97 99 99 04/06/18 15:55 04/06/18 16:00 04/06/18 16:15 Temperature Pulse Rate 94 H 94 H 110 H Respiratory Rate 16 16 26 H Blood Pressure 78/56 L 81/54 L 99/67 L Pulse Oximetry 98 98 95 04/06/18 16:24 04/06/18 16:30 04/06/18 16:45 Temperature Pulse Rate 95 H 96 H 92 H Respiratory Rate 16 16 16 Blood Pressure 99/66 L 89/59 L Pulse Oximetry 96 97 04/06/18 17:00 04/06/18 17:15 04/06/18 17:24 Temperature Pulse Rate 90 92 H Respiratory Rate 16 16 16 Blood Pressure 89/60 L 82/57 L Pulse Oximetry 98 98 98 04/06/18 17:30 04/06/18 17:45 04/06/18 18:00 Temperature Pulse Rate 90 88 90 Respiratory Rate 15 16 16 Blood Pressure 97/62 L 85/58 L 89/61 L Pulse Oximetry 98 98 98 04/06/18 18:15 04/06/18 18:30 04/06/18 18:45 Temperature Pulse Rate 84 84 82 Respiratory Rate 16 16 16 Blood Pressure 92/66 L 92/64 L 90/64 L Pulse Oximetry 98 98 98 04/06/18 19:00 04/06/18 19:15 04/06/18 19:16 Temperature 99.9 F H Pulse Rate 82 82 Respiratory Rate 15 16 16 Blood Pressure 91/61 L Pulse Oximetry 94 L 98 04/06/18 20:00 04/06/18 21:00 04/06/18 21:38 Temperature Pulse Rate 95 H 93 H Respiratory Rate 16 16 16 Blood Pressure 92/68 L 89/62 L Pulse Oximetry 94 L 92 L 99 04/06/18 22:00 04/06/18 23:00 04/06/18 23:32 Temperature Pulse Rate 93 H 95 H 97 H Respiratory Rate 16 16 16 Blood Pressure 106/79 95/59 L Pulse Oximetry 92 L 04/07/18 00:00 04/07/18 01:00 04/07/18 01:17 Temperature 101.9 F H 100.1 F H Pulse Rate 94 H 96 H Respiratory Rate 16 16 16 Blood Pressure 95/59 L 92/63 L Pulse Oximetry 94 L 97 97 04/07/18 02:00 04/07/18 03:00 04/07/18 04:00 Temperature 99.6 F Pulse Rate 90 90 110 H Respiratory Rate 16 15 16 Blood Pressure 100/63 99/58 L 109/72 Pulse Oximetry 96 98 04/07/18 04:54 04/07/18 05:00 04/07/18 06:00 Temperature Pulse Rate 96 H 98 H Respiratory Rate 16 16 16 Blood Pressure 106/62 104/58 L Pulse Oximetry 98 95 95 04/07/18 07:00 04/07/18 08:00 04/07/18 09:00 Temperature 100.7 F H Pulse Rate 96 H 106 H 102 H Respiratory Rate 16 16 16 Blood Pressure 113/63 104/62 106/60 Pulse Oximetry 96 96 97 04/07/18 10:00 04/07/18 10:45 04/07/18 11:13 Temperature Pulse Rate 98 H 96 H Respiratory Rate 16 12 12 Blood Pressure 84/59 L Pulse Oximetry 97 96 04/07/18 12:35 Temperature Pulse Rate Respiratory Rate 19 Blood Pressure Pulse Oximetry 96 Intake & Output 04/06/18 04/07/18 04/07/18 18:59 06:59 18:59 Intake Total 2618.81 / 2618.81 1558 / 1558 50 / 50 Output Total 1450 / 1450 500 / 500 Balance 1168.81 / 1168.81 1058 / 1058 50 / 50 Weight 51.7 kg 53.5 kg Intake: IV 2296.81 / 2296.81 1200 / 1200 50 / 50 Versed Inj 50 mg In 50 ml @ 2 100 / 100 50 / 50 MG/HR 2 mls/hr IV.CONT TITRATE PRN Rx#:[id number] Neosynephrine Inj 160 MG In NS 20.61 / 20.61 Inj 484 ML @ 40 MCG/MIN 7.5 mls /hr IV.CONT TITRATE PRN Rx#: [id number] Diprivan 1000 mg/100 ml Inj 1, 50 / 50 000 mg In 100 ml @ 5 MCG/KG/MIN 1.635 mls/hr IV.CONT TITRATE PRN Rx#:[id number] Calcium Chloride Inj 1 GM In NS 110 / 110 Inj 100 ML @ 110 mls/hr IV.SIG ONCE ONE Rx#:[id number] Maxipime Inj 2,000 MG In NS Inj 100 / 100 100 / 100 100 ML @ 200 mls/hr IV.SIG Q12H MARIE Rx#:[id number] Magnesium Sulfate Inj 2 GM In 200 / 200 NS Inj 96 ML @ 50 mls/hr IV.SIG UNSCH PRN Rx#:[id number] MVI-12 Inj 10 ML Thiamine Inj 511.2 / 511.2 100 MG Folvite Inj 1 MG In NS Inj 500 ML @ 125 mls/hr IV.SIG Q24H MARIE Rx#:[id number] KCl 40 mEq Premix Inj 40 meq In 200 / 200 100 ml @ 25 mls/hr IV.SIG Q2H PRN Rx#:[id number] KCl Inj 10 MEQ In NS Inj 1,000 1005 / 1005 1000 / 1000 ML @ 84 mls/hr IV.SIG .[id number] MARIE Rx#:[id number] 10 mcg/mL Premix Drip 100 / 100 2,500 mcg In 250 ml @ 50 MCG/HR 5 mls/hr IV.SIG TITRATE PRN Rx #:[id number] Oral 0 / 0 Tube Feeding 92 / 92 158 / 158 Tube Irrigant 30 / 30 Water Bolus Amount 200 / 200 200 / 200 Output: Urine Amount (Catheter) 1450 / 1450 500 / 500 Indwelling Urethral Catheter 1450 / 1450 500 / 500 Other: Date of Last Bowel Movement 04/05/18 # Bowel Movements 0 Weight On Admission 53.1 kg - Constitutional no acute distress - Routine HEENT Exam Head: Present: normocephalic, atraumatic Eye: Present: EOMI, conjunctivae pink Comments: intubated - Routine Neck Exam Comments: Rt IJ - Routine Respiratory Exam Present: patient mechanically ventilated Comments: cta anteriorly - Routine Cardiovascular Exam Present: tachycardia - Routine Abdominal Exam Present: normoactive bowel sounds, distended - Routine Extremities Exam Comments: bilateral scds - Routine Skin Exam Present: intact, dry, warm - Routine Neurological Exam Present: alert - Detailed Neurological Exam: Coma Scale Eye Opening: To sound - Urinary Catheter Management Indwelling Urethral Catheter Cath placed during this visit: no Reason for continuing: Hourly intake/output Results - Labs CBC & Chem 7: 04/07/18 04:15 04/07/18 05:40 Laboratory Results - last 24 hr 04/06/18 04/06/18 04/06/18 08:35 14:30 14:30 CBC w Diff WBC Corrected WBC RBC Hgb Hct MCV MCH MCHC RDW Plt Count MPV Prelim Diff (Auto) Neut % (Auto) Lymph % (Auto) Ross % (Auto) Eos % (Auto) Baso % (Auto) Neut # (Auto) Lymph # (Auto) Ross # (Auto) Eos # (Auto) Baso # (Auto) WBC Differential Diff Scan Seg Neuts % (Manual) Band Neuts % (Manual) Lymphocytes % (Manual) Atypical Lymphs % (Man) Monocytes % (Manual) Eosinophils % (Manual) Basophils % (Manual) Metamyelocytes % (Man) Myelocytes % (Man) Promyelocytes % (Man) Blast Cells % (Manual) Plasma Cell % (Manual) Other Cells % Abs Neuts (Manual) Nucleated RBCs/100 WBC Differential Comment Hypersegmented Neuts Smudge Cells Toxic Granulation Toxic Vacuolation Dohle Bodies Platelet Estimate Platelet Morphology RBC Morphology Dimorphic RBCs Polychromasia Basophilic Stippling Spherocytes Pappenheimer Bodies Sickle Cells Target Cells Tear Drop Cells Ovalocytes Stomatocytes Helmet Cells [place] Bodies Margaret Cells Acanthocytes (Spur) Rouleaux Keratocytes Puncture Site Patient Temperature O2 Saturation ABG pH ABG pCO2 ABG pO2 ABG HCO3 ABG O2 Content ABG Base Excess ABG Methemoglobin Hemoglobin Carboxyhemoglobin O2 Delivery Device Inspired O2 Critical Value Sodium Potassium Chloride Carbon Dioxide Anion Gap BUN Creatinine Estimated GFR POC Glucose Random Glucose Osmolality Lactic Acid Uric Acid Calcium Phosphorus Magnesium Total Bilirubin AST ALT Alkaline Phosphatase Ammonia Troponin I Total Protein Albumin Triglycerides Cholesterol LDL Cholesterol, Calc HDL Cholesterol Cholesterol/HDL Ratio Beta HCG, Quant Cortisol 46.1 Urine Osmolality 404 Ur Random Sodium 59 Nasal Screen MRSA (PCR) 04/06/18 04/06/18 04/06/18 17:33 17:52 23:35 CBC w Diff WBC Corrected WBC RBC Hgb Hct MCV MCH MCHC RDW Plt Count MPV Prelim Diff (Auto) Neut % (Auto) Lymph % (Auto) Ross % (Auto) Eos % (Auto) Baso % (Auto) Neut # (Auto) Lymph # (Auto) Ross # (Auto) Eos # (Auto) Baso # (Auto) WBC Differential Diff Scan Seg Neuts % (Manual) Band Neuts % (Manual) Lymphocytes % (Manual) Atypical Lymphs % (Man) Monocytes % (Manual) Eosinophils % (Manual) Basophils % (Manual) Metamyelocytes % (Man) Myelocytes % (Man) Promyelocytes % (Man) Blast Cells % (Manual) Plasma Cell % (Manual) Other Cells % Abs Neuts (Manual) Nucleated RBCs/100 WBC Differential Comment Hypersegmented Neuts Smudge Cells Toxic Granulation Toxic Vacuolation Dohle Bodies Platelet Estimate Platelet Morphology RBC Morphology Dimorphic RBCs Polychromasia Basophilic Stippling Spherocytes Pappenheimer Bodies Sickle Cells Target Cells Tear Drop Cells Ovalocytes Stomatocytes Helmet Cells [place] Bodies Margaret Cells Acanthocytes (Spur) Rouleaux Keratocytes Puncture Site Patient Temperature O2 Saturation ABG pH ABG pCO2 ABG pO2 ABG HCO3 ABG O2 Content ABG Base Excess ABG Methemoglobin Hemoglobin Carboxyhemoglobin O2 Delivery Device Inspired O2 Critical Value Sodium 140 Potassium 4.1 D 3.6 Chloride 108 H D Carbon Dioxide 21.7 Anion Gap 10 BUN 14 Creatinine 0.98 Estimated GFR 59 L POC Glucose 134 H Random Glucose 143 H Osmolality 292 Lactic Acid Uric Acid 3.6 Calcium 8.2 L D Phosphorus 1.8 L D Magnesium 2.3 D 2.0 Total Bilirubin 1.6 H AST 34 ALT 24 Alkaline Phosphatase 62 Ammonia Troponin I 1.02 H* D 0.67 H* D Total Protein 6.2 L Albumin 2.2 L Triglycerides Cholesterol LDL Cholesterol, Calc HDL Cholesterol Cholesterol/HDL Ratio Beta HCG, Quant Less than 1 Cortisol Urine Osmolality Ur Random Sodium Nasal Screen MRSA (PCR) 04/06/18 04/06/18 04/06/18 23:35 23:35 23:35 CBC w Diff Auto diff final WBC 9.0 Corrected WBC RBC 3.33 L Hgb 11.6 Hct 33.5 L MCV 100.5 H MCH 34.8 H MCHC 34.6 RDW 12.9 Plt Count 159 MPV 8.4 Prelim Diff (Auto) Neut % (Auto) 72.4 H Lymph % (Auto) 16.2 Ross % (Auto) 10.8 H Eos % (Auto) 0.1 Baso % (Auto) 0.5 Neut # (Auto) 6.5 Lymph # (Auto) 1.5 Ross # (Auto) 1.0 H Eos # (Auto) 0.0 Baso # (Auto) 0.0 WBC Differential . Diff Scan Seg Neuts % (Manual) Band Neuts % (Manual) Lymphocytes % (Manual) Atypical Lymphs % (Man) Monocytes % (Manual) Eosinophils % (Manual) Basophils % (Manual) Metamyelocytes % (Man) Myelocytes % (Man) Promyelocytes % (Man) Blast Cells % (Manual) Plasma Cell % (Manual) Other Cells % Abs Neuts (Manual) Nucleated RBCs/100 WBC Differential Comment . Hypersegmented Neuts Smudge Cells Toxic Granulation Toxic Vacuolation Dohle Bodies Platelet Estimate Platelet Morphology RBC Morphology Dimorphic RBCs Polychromasia Basophilic Stippling Spherocytes Pappenheimer Bodies Sickle Cells Target Cells Tear Drop Cells Ovalocytes Stomatocytes Helmet Cells [place] Bodies Pioneer Cells Acanthocytes (Spur) Rouleaux Keratocytes Puncture Site Patient Temperature O2 Saturation ABG pH ABG pCO2 ABG pO2 ABG HCO3 ABG O2 Content ABG Base Excess ABG Methemoglobin Hemoglobin Carboxyhemoglobin O2 Delivery Device Inspired O2 Critical Value Sodium Potassium Chloride Carbon Dioxide Anion Gap BUN Creatinine Estimated GFR POC Glucose Random Glucose Osmolality Lactic Acid 1.6 Uric Acid Calcium Phosphorus Magnesium Total Bilirubin AST ALT Alkaline Phosphatase Ammonia 32 Troponin I Total Protein Albumin Triglycerides Cholesterol LDL Cholesterol, Calc HDL Cholesterol Cholesterol/HDL Ratio Beta HCG, Quant Cortisol Urine Osmolality Ur Random Sodium Nasal Screen MRSA (PCR) 04/07/18 04/07/18 04/07/18 00:03 00:50 04:15 CBC w Diff WBC 8.9 Corrected WBC RBC 3.36 L Hgb 11.5 L Hct 34.0 L MCV 101.3 H MCH 34.2 H MCHC 33.7 RDW 12.9 Plt Count 164 MPV 8.3 Prelim Diff (Auto) Slide review pending Neut % (Auto) 76.6 H Lymph % (Auto) 13.5 Ross % (Auto) 8.3 H Eos % (Auto) 0.1 Baso % (Auto) 1.5 Neut # (Auto) 6.9 Lymph # (Auto) 1.2 Ross # (Auto) 0.7 Eos # (Auto) 0.0 Baso # (Auto) 0.1 WBC Differential Manual diff final Diff Scan Seg Neuts % (Manual) 70 Band Neuts % (Manual) 14 H Lymphocytes % (Manual) 9 Atypical Lymphs % (Man) Monocytes % (Manual) 6 Eosinophils % (Manual) Basophils % (Manual) Metamyelocytes % (Man) 1 Myelocytes % (Man) Promyelocytes % (Man) Blast Cells % (Manual) Plasma Cell % (Manual) Other Cells % Abs Neuts (Manual) 7.6 Nucleated RBCs/100 WBC Differential Comment . Hypersegmented Neuts Smudge Cells Toxic Granulation Toxic Vacuolation Dohle Bodies Platelet Estimate Normal Platelet Morphology Normal RBC Morphology Dimorphic RBCs Polychromasia Basophilic Stippling Spherocytes Pappenheimer Bodies Sickle Cells Target Cells Tear Drop Cells Ovalocytes Stomatocytes Helmet Cells [place] Bodies Pioneer Cells Acanthocytes (Spur) Rouleaux Keratocytes Puncture Site Patient Temperature O2 Saturation ABG pH ABG pCO2 ABG pO2 ABG HCO3 ABG O2 Content ABG Base Excess ABG Methemoglobin Hemoglobin Carboxyhemoglobin O2 Delivery Device Inspired O2 Critical Value Sodium Potassium Chloride Carbon Dioxide Anion Gap BUN Creatinine Estimated GFR POC Glucose 137 H Random Glucose Osmolality Lactic Acid Uric Acid Calcium Phosphorus Magnesium Total Bilirubin AST ALT Alkaline Phosphatase Ammonia Troponin I Total Protein Albumin Triglycerides Cholesterol LDL Cholesterol, Calc HDL Cholesterol Cholesterol/HDL Ratio Beta HCG, Quant Cortisol Urine Osmolality Ur Random Sodium Nasal Screen MRSA (PCR) Not detected 04/07/18 04/07/18 04/07/18 04:15 05:35 05:38 CBC w Diff WBC Corrected WBC Cancelled RBC Hgb Hct MCV MCH MCHC RDW Plt Count MPV Prelim Diff (Auto) Neut % (Auto) Lymph % (Auto) Ross % (Auto) Eos % (Auto) Baso % (Auto) Neut # (Auto) Lymph # (Auto) Ross # (Auto) Eos # (Auto) Baso # (Auto) WBC Differential Cancelled Diff Scan Cancelled Seg Neuts % (Manual) Cancelled Band Neuts % (Manual) Cancelled Lymphocytes % (Manual) Cancelled Atypical Lymphs % (Man) Cancelled Monocytes % (Manual) Cancelled Eosinophils % (Manual) Cancelled Basophils % (Manual) Cancelled Metamyelocytes % (Man) Cancelled Myelocytes % (Man) Cancelled Promyelocytes % (Man) Cancelled Blast Cells % (Manual) Cancelled Plasma Cell % (Manual) Cancelled Other Cells % Cancelled Abs Neuts (Manual) Cancelled Nucleated RBCs/100 WBC Cancelled Differential Comment Hypersegmented Neuts Cancelled Smudge Cells Cancelled Toxic Granulation Cancelled Toxic Vacuolation Cancelled Dohle Bodies Cancelled Platelet Estimate Cancelled Platelet Morphology Cancelled RBC Morphology Cancelled Dimorphic RBCs Cancelled Polychromasia Cancelled Basophilic Stippling Cancelled Spherocytes Cancelled Pappenheimer Bodies Cancelled Sickle Cells Cancelled Target Cells Cancelled Tear Drop Cells Cancelled Ovalocytes Cancelled Stomatocytes Cancelled Helmet Cells Cancelled [place] Bodies Cancelled Margaret Cells Cancelled Acanthocytes (Spur) Cancelled Rouleaux Cancelled Keratocytes Cancelled Puncture Site Art line Patient Temperature 98.6 O2 Saturation 96 ABG pH 7.42 ABG pCO2 30 L ABG pO2 91 ABG HCO3 19 L ABG O2 Content 15.6 ABG Base Excess -4.4 L ABG Methemoglobin 0.5 Hemoglobin 11.5 L Carboxyhemoglobin 1.2 O2 Delivery Device Ventilator Inspired O2 40 Critical Value No Sodium Potassium Chloride Carbon Dioxide Anion Gap BUN Creatinine Estimated GFR POC Glucose 130 H Random Glucose Osmolality Lactic Acid Uric Acid Calcium Phosphorus Magnesium Total Bilirubin AST ALT Alkaline Phosphatase Ammonia Troponin I Total Protein Albumin Triglycerides Cholesterol LDL Cholesterol, Calc HDL Cholesterol Cholesterol/HDL Ratio Beta HCG, Quant Cortisol Urine Osmolality Ur Random Sodium Nasal Screen MRSA (PCR) 04/07/18 04/07/18 04/07/18 05:40 05:40 05:40 CBC w Diff WBC Corrected WBC RBC Hgb Hct MCV MCH MCHC RDW Plt Count MPV Prelim Diff (Auto) Neut % (Auto) Lymph % (Auto) Ross % (Auto) Eos % (Auto) Baso % (Auto) Neut # (Auto) Lymph # (Auto) Ross # (Auto) Eos # (Auto) Baso # (Auto) WBC Differential Diff Scan Seg Neuts % (Manual) Band Neuts % (Manual) Lymphocytes % (Manual) Atypical Lymphs % (Man) Monocytes % (Manual) Eosinophils % (Manual) Basophils % (Manual) Metamyelocytes % (Man) Myelocytes % (Man) Promyelocytes % (Man) Blast Cells % (Manual) Plasma Cell % (Manual) Other Cells % Abs Neuts (Manual) Nucleated RBCs/100 WBC Differential Comment Hypersegmented Neuts Smudge Cells Toxic Granulation Toxic Vacuolation Dohle Bodies Platelet Estimate Platelet Morphology RBC Morphology Dimorphic RBCs Polychromasia Basophilic Stippling Spherocytes Pappenheimer Bodies Sickle Cells Target Cells Tear Drop Cells Ovalocytes Stomatocytes Helmet Cells [place] Bodies Pioneer Cells Acanthocytes (Spur) Rouleaux Keratocytes Puncture Site Patient Temperature O2 Saturation ABG pH ABG pCO2 ABG pO2 ABG HCO3 ABG O2 Content ABG Base Excess ABG Methemoglobin Hemoglobin Carboxyhemoglobin O2 Delivery Device Inspired O2 Critical Value Sodium 141 Potassium 3.5 Chloride 110 H Carbon Dioxide 21.3 Anion Gap 10 BUN 14 Creatinine 0.97 Estimated GFR 60 L POC Glucose Random Glucose 137 H Osmolality Lactic Acid Uric Acid Calcium 8.1 L Phosphorus Magnesium Total Bilirubin 1.6 H AST 35 ALT 21 Alkaline Phosphatase 62 Ammonia 28 Troponin I Total Protein 6.1 L Albumin 2.2 L Triglycerides 200 H Cholesterol 119 L LDL Cholesterol, Calc 63 HDL Cholesterol 16.2 L Cholesterol/HDL Ratio 7.34 Beta HCG, Quant Cortisol Urine Osmolality Ur Random Sodium Nasal Screen MRSA (PCR) 04/07/18 12:16 CBC w Diff WBC Corrected WBC RBC Hgb Hct MCV MCH MCHC RDW Plt Count MPV Prelim Diff (Auto) Neut % (Auto) Lymph % (Auto) Ross % (Auto) Eos % (Auto) Baso % (Auto) Neut # (Auto) Lymph # (Auto) Ross # (Auto) Eos # (Auto) Baso # (Auto) WBC Differential Diff Scan Seg Neuts % (Manual) Band Neuts % (Manual) Lymphocytes % (Manual) Atypical Lymphs % (Man) Monocytes % (Manual) Eosinophils % (Manual) Basophils % (Manual) Metamyelocytes % (Man) Myelocytes % (Man) Promyelocytes % (Man) Blast Cells % (Manual) Plasma Cell % (Manual) Other Cells % Abs Neuts (Manual) Nucleated RBCs/100 WBC Differential Comment Hypersegmented Neuts Smudge Cells Toxic Granulation Toxic Vacuolation Dohle Bodies Platelet Estimate Platelet Morphology RBC Morphology Dimorphic RBCs Polychromasia Basophilic Stippling Spherocytes Pappenheimer Bodies Sickle Cells Target Cells Tear Drop Cells Ovalocytes Stomatocytes Helmet Cells [place] Bodies Pioneer Cells Acanthocytes (Spur) Rouleaux Keratocytes Puncture Site Patient Temperature O2 Saturation ABG pH ABG pCO2 ABG pO2 ABG HCO3 ABG O2 Content ABG Base Excess ABG Methemoglobin Hemoglobin Carboxyhemoglobin O2 Delivery Device Inspired O2 Critical Value Sodium Potassium Chloride Carbon Dioxide Anion Gap BUN Creatinine Estimated GFR POC Glucose 177 H Random Glucose Osmolality Lactic Acid Uric Acid Calcium Phosphorus Magnesium Total Bilirubin AST ALT Alkaline Phosphatase Ammonia Troponin I Total Protein Albumin Triglycerides Cholesterol LDL Cholesterol, Calc HDL Cholesterol Cholesterol/HDL Ratio Beta HCG, Quant Cortisol Urine Osmolality Ur Random Sodium Nasal Screen MRSA (PCR) Microbiology 04/05/18 06:30 Blood - Peripheral Aerobic Blood Culture - Preliminary No growth in 2 days 04/05/18 06:30 Blood - Peripheral Anaerobic Blood Culture - Preliminary No growth in 2 days 04/04/18 13:22 Blood - Peripheral Aerobic Blood Culture - Preliminary No growth in 3 days 04/04/18 13:22 Blood - Peripheral Anaerobic Blood Culture - Preliminary No growth in 3 days 04/04/18 13:29 Blood - Peripheral Aerobic Blood Culture - Preliminary No growth in 3 days 04/04/18 13:29 Blood - Peripheral Anaerobic Blood Culture - Preliminary No growth in 3 days 04/05/18 11:10 Clean Catch Urine Urine Culture - Final Enterococcus faecalis 04/06/18 08:00 Sputum - Endotracheal Gram Stain - Final - Imaging Impressions Chest X-Ray 04/07/18 06:00 CONCLUSION: 1. No significant interval change with persistent bilateral lower lung zone predominant pulmonary opacity likely representing pulmonary edema. 2. Endotracheal tube tip 7 mm above the albert. Could be retracted several centimeters. - Procedures CT ABD/PELVIS Assessment and Plan - Assessment (1) Respiratory failure Code(s): J96.90 - Respiratory failure, unspecified, unspecified whether with hypoxia or hypercapnia Status: Acute Plan: Continue vent support, chest xray showed left sided pleural effusion received furosemide this am (2) Sepsis Code(s): A41.9 - Sepsis, unspecified organism Status: Acute Plan: Gram-negative rods noted in blood cultures and urine; pansensitive E. coli noted. Continue cefepime. Added one-time dose of vancomycin given infiltrates on x-ray.. Fever curve improving. ID following (3) Pyelonephritis Code(s): N12 - Tubulo-interstitial nephritis, not specified as acute or chronic Status: Acute Plan: IV fluid, cefepime. Appears to have gram-negative jax sepsis. Appreciate infectious disease consult. (4) Hyponatremia Code(s): E87.1 - Hypo-osmolality and hyponatremia Status: Acute Plan: sodium improved with IV fluids. Monitor labs. (5) Dehydration Code(s): E86.0 - Dehydration Status: Acute Plan: echo showed decreased EF, monitor fluid balance (6) LFT elevation Code(s): R94.5 - Abnormal results of liver function studies Status: Acute Plan: LFT improved CT unremarkable. She does consume alcohol regularly as an outpatient. (7) Alcohol use Code(s): Z78.9 - Other specified health status Status: Chronic Plan: Per report she drinks at least 6 glasses of wine daily the last time 2 days prior. Continue treatment for alcohol withdrawal, thiamine, librium. supportive care (8) NSTEMI (non-ST elevated myocardial infarction) Code(s): I21.4 - Non-ST elevation (NSTEMI) myocardial infarction Status: Acute Plan: elevation of troponins yesterday. Echo showed severely reduced EF 25-30 %. Seen by cardiology, started on asa 81. Will need further cardiace w/u prior to discharge. (1) Respiratory failure Qualifiers: Chronicity: acute Respiratory failure complication: hypoxia Qualified Code(s ): J96.01 - Acute respiratory failure with hypoxia (2) Sepsis Qualifiers: Sepsis type: Escherichia coli Qualified Code(s): A41.51 - Sepsis due to Escherichia coli [E. coli]
--- NOTE | 2018-04-07 14:06 | P.PNID ---
Subjective Remarks: Patient is a 53-year-old female, presented to the hospital after she was seen by her primary care physician for further evaluation. She apparently has been having problem with dysuria, flank pain, and abdominal pain for the last 5 days. She has had some chills, but has not really documented her temperature. She complains of bilateral flank pain. She also has had some dysuria. She denies any hematuria, or any history of kidney stone. She has had prior history of UTI but this was 2 years ago. Currently patient is so weak and she is having hard time going to the bathroom so she has been urinating in her bed. She denies any respiratory complaint. Patient when I saw her is very tremulous, and according to her she gets like this when she gets sick. Her WBC on admission is normal. Her urinalysis showed evidence of UTI. Her LFTs are mildly elevated. There is history of drinking wine on a daily basis. CT of the abdomen and pelvis did not show any hydronephrosis or any abnormality in the gallbladder. She denies any diarrhea. She has had some nausea but no vomiting. Patient currently still having fevers. Her blood cultures are now reported as growing gram-negative jax. Verigene testing is showing E. coli, and no resistant markers noted. Urine culture is still pending. Infectious disease consultation has been requested to assist with evaluation and treatment. Notes reviewed Febrile overnight On the vent On levophed Did not tolerate CPAP - got very anxious On fentanyl and versed - but still awake CXR with regine infiltrates BC with E coli UC with E coli WBC up to 13.4 Echo mild to mod MR, EF 25-30% CXR stable infiltrates Sputum C/S NF Repeat UC with Enterococcus Antibiotics: Cefepime Lines: RIJ TLC A line Past Medical History: Breast augmentation Tonsillectomy Drinks ETOH regularly Allergies/Adverse Reactions: Allergies No Known Allergies Allergy (Verified 04/03/18 10:22) Objective Vital Signs 04/06/18 14:13 04/06/18 14:15 04/06/18 14:59 Temperature Pulse Rate 92 H 86 Respiratory Rate 16 16 16 Blood Pressure 112/61 110/69 Pulse Oximetry 98 99 98 04/06/18 15:14 04/06/18 15:29 04/06/18 15:44 Temperature Pulse Rate 84 82 88 Respiratory Rate 16 16 16 Blood Pressure 108/71 111/66 60/47 L Pulse Oximetry 98 98 97 04/06/18 15:47 04/06/18 15:50 04/06/18 15:55 Temperature Pulse Rate 104 H 100 H 94 H Respiratory Rate 16 16 16 Blood Pressure 90/53 L 93/65 L 78/56 L Pulse Oximetry 99 99 98 04/06/18 16:00 04/06/18 16:15 04/06/18 16:24 Temperature Pulse Rate 94 H 110 H 95 H Respiratory Rate 16 26 H 16 Blood Pressure 81/54 L 99/67 L Pulse Oximetry 98 95 04/06/18 16:30 04/06/18 16:45 04/06/18 17:00 Temperature Pulse Rate 96 H 92 H 90 Respiratory Rate 16 16 16 Blood Pressure 99/66 L 89/59 L 89/60 L Pulse Oximetry 96 97 98 04/06/18 17:15 04/06/18 17:24 04/06/18 17:30 Temperature Pulse Rate 92 H 90 Respiratory Rate 16 16 15 Blood Pressure 82/57 L 97/62 L Pulse Oximetry 98 98 98 04/06/18 17:45 04/06/18 18:00 04/06/18 18:15 Temperature Pulse Rate 88 90 84 Respiratory Rate 16 16 16 Blood Pressure 85/58 L 89/61 L 92/66 L Pulse Oximetry 98 98 98 04/06/18 18:30 04/06/18 18:45 04/06/18 19:00 Temperature 99.9 F H Pulse Rate 84 82 82 Respiratory Rate 16 16 15 Blood Pressure 92/64 L 90/64 L 91/61 L Pulse Oximetry 98 98 94 L 04/06/18 19:15 04/06/18 19:16 04/06/18 20:00 Temperature Pulse Rate 82 95 H Respiratory Rate 16 16 16 Blood Pressure 92/68 L Pulse Oximetry 98 94 L 04/06/18 21:00 04/06/18 21:38 04/06/18 22:00 Temperature Pulse Rate 93 H 93 H Respiratory Rate 16 16 16 Blood Pressure 89/62 L 106/79 Pulse Oximetry 92 L 99 92 L 04/06/18 23:00 04/06/18 23:32 04/07/18 00:00 Temperature 101.9 F H Pulse Rate 95 H 97 H 94 H Respiratory Rate 16 16 16 Blood Pressure 95/59 L 95/59 L Pulse Oximetry 94 L 11/19/18 01:00 04/07/18 01:17 04/07/18 02:00 Temperature 100.1 F H Pulse Rate 96 H 90 Respiratory Rate 16 16 16 Blood Pressure 92/63 L 100/63 Pulse Oximetry 97 97 96 04/07/18 03:00 04/07/18 04:00 04/07/18 04:54 Temperature 99.6 F Pulse Rate 90 110 H Respiratory Rate 15 16 16 Blood Pressure 99/58 L 109/72 Pulse Oximetry 98 98 04/07/18 05:00 04/07/18 06:00 04/07/18 07:00 Temperature Pulse Rate 96 H 98 H 96 H Respiratory Rate 16 16 16 Blood Pressure 106/62 104/58 L 113/63 Pulse Oximetry 95 95 96 04/07/18 08:00 04/07/18 09:00 04/07/18 10:00 Temperature 100.7 F H Pulse Rate 106 H 102 H 98 H Respiratory Rate 16 16 16 Blood Pressure 104/62 106/60 84/59 L Pulse Oximetry 96 97 97 04/07/18 10:45 04/07/18 11:13 04/07/18 12:35 Temperature Pulse Rate 96 H Respiratory Rate 12 12 19 Blood Pressure Pulse Oximetry 96 96 Intake & Output 04/06/18 04/07/18 04/07/18 18:59 06:59 18:59 Intake Total 2618.81 / 2618.81 1558 / 1558 50 / 50 Output Total 1450 / 1450 500 / 500 Balance 1168.81 / 1168.81 1058 / 1058 50 / 50 Weight 51.7 kg 53.5 kg Intake: IV 2296.81 / 2296.81 1200 / 1200 50 / 50 Versed Inj 50 mg In 50 ml @ 2 100 / 100 50 / 50 MG/HR 2 mls/hr IV.CONT TITRATE PRN Rx#:[id number] Neosynephrine Inj 160 MG In NS 20.61 / 20.61 Inj 484 ML @ 40 MCG/MIN 7.5 mls /hr IV.CONT TITRATE PRN Rx#: [id number] Diprivan 1000 mg/100 ml Inj 1, 50 / 50 000 mg In 100 ml @ 5 MCG/KG/MIN 1.635 mls/hr IV.CONT TITRATE PRN Rx#:[id number] Calcium Chloride Inj 1 GM In NS 110 / 110 Inj 100 ML @ 110 mls/hr IV.SIG ONCE ONE Rx#:[id number] Maxipime Inj 2,000 MG In NS Inj 100 / 100 100 / 100 100 ML @ 200 mls/hr IV.SIG Q12H MARIE Rx#:[id number] Magnesium Sulfate Inj 2 GM In 200 / 200 NS Inj 96 ML @ 50 mls/hr IV.SIG UNSCH PRN Rx#:[id number] MVI-12 Inj 10 ML Thiamine Inj 511.2 / 511.2 100 MG Folvite Inj 1 MG In NS Inj 500 ML @ 125 mls/hr IV.SIG Q24H MARIE Rx#:[id number] KCl 40 mEq Premix Inj 40 meq In 200 / 200 100 ml @ 25 mls/hr IV.SIG Q2H PRN Rx#:[id number] KCl Inj 10 MEQ In NS Inj 1,000 1005 / 1005 1000 / 1000 ML @ 84 mls/hr IV.SIG .[id number] [facility] Rx#:[id number] 10 mcg/mL Premix Drip 100 / 100 2,500 mcg In 250 ml @ 50 MCG/HR 5 mls/hr IV.SIG TITRATE PRN Rx #:[id number] Oral 0 / 0 Tube Feeding 92 / 92 158 / 158 Tube Irrigant 30 / 30 Water Bolus Amount 200 / 200 200 / 200 Output: Urine Amount (Catheter) 1450 / 1450 500 / 500 Indwelling Urethral Catheter 1450 / 1450 500 / 500 Other: Date of Last Bowel Movement 04/05/18 # Bowel Movements 0 Weight On Admission 53.1 kg 04/06/18 08:00 Sputum - Endotracheal Gram Stain - Final 04/06/18 08:00 Sputum - Endotracheal Sputum Culture - Preliminary No growth in 24 hours 04/05/18 06:30 Blood - Peripheral Aerobic Blood Culture - Preliminary No growth in 2 days 04/05/18 06:30 Blood - Peripheral Anaerobic Blood Culture - Preliminary No growth in 2 days 04/04/18 13:22 Blood - Peripheral Aerobic Blood Culture - Preliminary No growth in 3 days 04/04/18 13:22 Blood - Peripheral Anaerobic Blood Culture - Preliminary No growth in 3 days 04/04/18 13:29 Blood - Peripheral Aerobic Blood Culture - Preliminary No growth in 3 days 04/04/18 13:29 Blood - Peripheral Anaerobic Blood Culture - Preliminary No growth in 3 days 04/05/18 11:10 Clean Catch Urine Urine Culture - Final Enterococcus faecalis 04/03/18 11:15 Blood - Peripheral Aerobic Blood Culture - Final Escherichia coli 04/03/18 11:15 Blood - Peripheral Anaerobic Blood Culture - Final Escherichia coli 04/03/18 11:05 Blood - Peripheral Aerobic Blood Culture - Final Escherichia coli 04/03/18 11:05 Blood - Peripheral Anaerobic Blood Culture - Final Escherichia coli 04/03/18 10:30 Clean Catch Urine Urine Culture - Final Escherichia coli Lab - Hematology Results 04/06/18 04/06/18 04/06/18 05:35 08:35 23:35 CBC w Diff Auto diff final Auto diff final Auto diff final WBC 12.9 H D 13.4 H 9.0 Corrected WBC RBC 4.46 3.74 L 3.33 L Hgb 15.2 D 13.1 D 11.6 Hct 44.7 37.9 33.5 L MCV 100.1 H 101.3 H 100.5 H MCH 34.1 H 35.2 H 34.8 H MCHC 34.1 34.7 34.6 RDW 12.5 12.8 12.9 Plt Count 175 139 L 159 MPV 8.5 8.6 8.4 Prelim Diff (Auto) Neut % (Auto) 87.3 H 91.4 H 72.4 H Lymph % (Auto) 5.1 L 3.4 L 16.2 Towner % (Auto) 6.8 4.7 10.8 H Eos % (Auto) 0.1 0.1 0.1 Baso % (Auto) 0.7 0.4 0.5 Neut # (Auto) 11.2 H 12.2 H 6.5 Lymph # (Auto) 0.7 L 0.5 L 1.5 Towner # (Auto) 0.9 0.6 1.0 H Eos # (Auto) 0.0 0.0 0.0 Baso # (Auto) 0.1 0.1 0.0 WBC Differential . . . Diff Scan Seg Neuts % (Manual) Band Neuts % (Manual) Lymphocytes % (Manual) Atypical Lymphs % (Man) Monocytes % (Manual) Eosinophils % (Manual) Basophils % (Manual) Metamyelocytes % (Man) Myelocytes % (Man) Promyelocytes % (Man) Blast Cells % (Manual) Plasma Cell % (Manual) Other Cells % Abs Neuts (Manual) Nucleated RBCs/100 WBC Differential Comment . . . Hypersegmented Neuts Smudge Cells Toxic Granulation Toxic Vacuolation Dohle Bodies Platelet Estimate Platelet Morphology RBC Morphology Dimorphic RBCs Polychromasia Basophilic Stippling Spherocytes Pappenheimer Bodies Sickle Cells Target Cells Tear Drop Cells Ovalocytes Stomatocytes Helmet Cells Whitmore-Rodey Bodies Butler Cells Acanthocytes (Spur) Rouleaux Keratocytes 04/07/18 04/07/18 04:15 04:15 CBC w Diff WBC 8.9 Corrected WBC Cancelled RBC 3.36 L Hgb 11.5 L Hct 34.0 L MCV 101.3 H MCH 34.2 H MCHC 33.7 RDW 12.9 Plt Count 164 MPV 8.3 Prelim Diff (Auto) Slide review pending Neut % (Auto) 76.6 H Lymph % (Auto) 13.5 Towner % (Auto) 8.3 H Eos % (Auto) 0.1 Baso % (Auto) 1.5 Neut # (Auto) 6.9 Lymph # (Auto) 1.2 Towner # (Auto) 0.7 Eos # (Auto) 0.0 Baso # (Auto) 0.1 WBC Differential Manual diff final Cancelled Diff Scan Cancelled Seg Neuts % (Manual) 70 Cancelled Band Neuts % (Manual) 14 H Cancelled Lymphocytes % (Manual) 9 Cancelled Atypical Lymphs % (Man) Cancelled Monocytes % (Manual) 6 Cancelled Eosinophils % (Manual) Cancelled Basophils % (Manual) Cancelled Metamyelocytes % (Man) 1 Cancelled Myelocytes % (Man) Cancelled Promyelocytes % (Man) Cancelled Blast Cells % (Manual) Cancelled Plasma Cell % (Manual) Cancelled Other Cells % Cancelled Abs Neuts (Manual) 7.6 Cancelled Nucleated RBCs/100 WBC Cancelled Differential Comment . Hypersegmented Neuts Cancelled Smudge Cells Cancelled Toxic Granulation Cancelled Toxic Vacuolation Cancelled Dohle Bodies Cancelled Platelet Estimate Normal Cancelled Platelet Morphology Normal Cancelled RBC Morphology Cancelled Dimorphic RBCs Cancelled Polychromasia Cancelled Basophilic Stippling Cancelled Spherocytes Cancelled Pappenheimer Bodies Cancelled Sickle Cells Cancelled Target Cells Cancelled Tear Drop Cells Cancelled Ovalocytes Cancelled Stomatocytes Cancelled Helmet Cells Cancelled Whitmore-Rodey Bodies Cancelled Margaret Cells Cancelled Acanthocytes (Spur) Cancelled Rouleaux Cancelled Keratocytes Cancelled Lab - Chemistry Results 04/05/18 04/06/18 04/06/18 14:20 05:35 05:35 Sodium 129 L Potassium 3.1 L 2.9 L* Chloride 92 L Carbon Dioxide 20.1 L Anion Gap 17 H BUN 8 Creatinine 0.76 Estimated GFR 79 L POC Glucose Random Glucose 137 H Osmolality Lactic Acid Uric Acid Calcium 8.8 Prot Corrected Calcium Phosphorus Magnesium 1.7 Total Bilirubin 1.6 H AST 53 H ALT 35 Alkaline Phosphatase 94 Ammonia Total Creatine Kinase Troponin I Total Protein 8.8 H D Albumin 3.2 L Triglycerides Cholesterol LDL Cholesterol, Calc HDL Cholesterol Cholesterol/HDL Ratio TSH Beta HCG, Quant Cortisol 04/06/18 04/06/18 04/06/18 08:35 08:35 08:35 Sodium 133 L Potassium 2.7 L* Chloride 97 L Carbon Dioxide 17.5 L Anion Gap 19 H BUN 9 Creatinine 0.74 Estimated GFR 81 L POC Glucose Random Glucose 157 H Osmolality Lactic Acid 2.1 H Uric Acid Calcium 7.1 L* D Prot Corrected Calcium 7.4 L* Phosphorus 3.3 Magnesium 1.2 L Total Bilirubin 1.7 H AST 45 H ALT 28 Alkaline Phosphatase 66 Ammonia 58 H Total Creatine Kinase 136 Troponin I 1.46 H* Total Protein 6.6 D Albumin 2.4 L D Triglycerides Cholesterol LDL Cholesterol, Calc HDL Cholesterol Cholesterol/HDL Ratio TSH 1.300 Beta HCG, Quant Cortisol 04/06/18 04/06/18 04/06/18 08:35 11:09 17:33 Sodium Potassium Chloride Carbon Dioxide Anion Gap BUN Creatinine Estimated GFR POC Glucose 133 H 134 H Random Glucose Osmolality Lactic Acid Uric Acid Calcium Prot Corrected Calcium Phosphorus Magnesium Total Bilirubin AST ALT Alkaline Phosphatase Ammonia Total Creatine Kinase Troponin I Total Protein Albumin Triglycerides Cholesterol LDL Cholesterol, Calc HDL Cholesterol Cholesterol/HDL Ratio TSH Beta HCG, Quant Cortisol 46.1 04/06/18 04/06/18 04/06/18 17:52 23:35 23:35 Sodium 140 Potassium 4.1 D 3.6 Chloride 108 H D Carbon Dioxide 21.7 Anion Gap 10 BUN 14 Creatinine 0.98 Estimated GFR 59 L POC Glucose Random Glucose 143 H Osmolality 292 Lactic Acid 1.6 Uric Acid 3.6 Calcium 8.2 L D Prot Corrected Calcium Phosphorus 1.8 L D Magnesium 2.3 D 2.0 Total Bilirubin 1.6 H AST 34 ALT 24 Alkaline Phosphatase 62 Ammonia Total Creatine Kinase Troponin I 1.02 H* D 0.67 H* D Total Protein 6.2 L Albumin 2.2 L Triglycerides Cholesterol LDL Cholesterol, Calc HDL Cholesterol Cholesterol/HDL Ratio TSH Beta HCG, Quant Less than 1 Cortisol 04/06/18 04/07/18 04/07/18 23:35 00:03 05:38 Sodium Potassium Chloride Carbon Dioxide Anion Gap BUN Creatinine Estimated GFR POC Glucose 137 H 130 H Random Glucose Osmolality Lactic Acid Uric Acid Calcium Prot Corrected Calcium Phosphorus Magnesium Total Bilirubin AST ALT Alkaline Phosphatase Ammonia 32 Total Creatine Kinase Troponin I Total Protein Albumin Triglycerides Cholesterol LDL Cholesterol, Calc HDL Cholesterol Cholesterol/HDL Ratio TSH Beta HCG, Quant Cortisol 04/07/18 04/07/18 04/07/18 05:40 05:40 05:40 Sodium 141 Potassium 3.5 Chloride 110 H Carbon Dioxide 21.3 Anion Gap 10 BUN 14 Creatinine 0.97 Estimated GFR 60 L POC Glucose Random Glucose 137 H Osmolality Lactic Acid Uric Acid Calcium 8.1 L Prot Corrected Calcium Phosphorus Magnesium Total Bilirubin 1.6 H AST 35 ALT 21 Alkaline Phosphatase 62 Ammonia 28 Total Creatine Kinase Troponin I Total Protein 6.1 L Albumin 2.2 L Triglycerides 200 H Cholesterol 119 L LDL Cholesterol, Calc 63 HDL Cholesterol 16.2 L Cholesterol/HDL Ratio 7.34 TSH Beta HCG, Quant Cortisol 04/07/18 12:16 Sodium Potassium Chloride Carbon Dioxide Anion Gap BUN Creatinine Estimated GFR POC Glucose 177 H Random Glucose Osmolality Lactic Acid Uric Acid Calcium Prot Corrected Calcium Phosphorus Magnesium Total Bilirubin AST ALT Alkaline Phosphatase Ammonia Total Creatine Kinase Troponin I Total Protein Albumin Triglycerides Cholesterol LDL Cholesterol, Calc HDL Cholesterol Cholesterol/HDL Ratio TSH Beta HCG, Quant Cortisol Imaging: ITS Impressions Abdomen/Pelvis CT 04/03/18 00:00 CONCLUSION: 1. No evidence of hydronephrosis or calcified stones. 2. No dilated loops of small or large bowel. Chest X-Ray 04/07/18 06:00 CONCLUSION: 1. No significant interval change with persistent bilateral lower lung zone predominant pulmonary opacity likely representing pulmonary edema. 2. Endotracheal tube tip 7 mm above the albert. Could be retracted several centimeters. Physical Exam: GENERAL: awake, on the vent, looks comfortable SKIN: Warm and dry. No generalized rash HEAD: Atraumatic. Normocephalic. No temporal wasting, or tenderness. EYES: [place] conjunctiva. No petechia or hemorrhage. Pupils equal, round and reactive to light. Extraocular movements full and intact. No scleral icterus. No injection or drainage. EARS, NOSE AND THROAT: Orally intubated. NECK: Trachea midline. Supple and not tender, no meningeal signs CARDIOVASCULAR: Regular rate and rhythm. No murmurs, rubs or gallops heard RESPIRATORY: Coarse breath sounds bilaterally ABDOMEN: Soft, mildly distended, not tender. Bowel sounds present and normoactive. No organomegaly. EXTREMITIES: No clubbing, cyanosis, or edema. No calf tenderness. Well perfused and warm. NEUROLOGICAL: Awake, responding PSYCHIATRIC: calm LINE: No evidence of infection : Rdz in place Assessment and Plan - Plan Impression E coli sepsis, likely source - CT no hydro - has mildly elevated LFT, prob due to ETOH use, no significant PE finding to point to GB/biliary tree - still with fevers - repeat UC with Enterococcus Cardiomyopathy Shock UTI Acute respiratory failure, with development of bilateral infiltrates, ?ARDS, fluid ?DT ETOH intake on daily basis Mild thrombocytopenia, likely due to sepsis Recommendation Follow C/S Repeat 2 BC today Add IV Vancomycin Continue IV cefepime Follow temps Monitor progress Dr Isabella Menendez will follow starting tomorrow D/W [id number]
[2018-04-07] MEDS ORDERED: Vancomycin Consult Pharmacy OTHER PRN (14:07)
[2018-04-07] MEDS: Vancomycin Inj 750 MG in Sodium Chlor 0.9% Inj 250 ML IV.SIG SCH (16:18)
[2018-04-07] MEDS ORDERED: Cathflo Activase Inj 2 MG Vial IV.PUSH ONE (17:00)
--- NOTE | 2018-04-07 20:42 | P.PNCC ---
Subjective Subjective Remarks/Hospital Course: This is a 53-year-old female. Admission 04/03/2018.. Consultation . Past medical history of's of alcohol use. Patient presents to [facility] 04/03 as a direct admit from her physician's office with clinically of bilateral flank/abdominal pain, chills, dysuria for 5 days duration per medical records. She was so weak she was urinating in the bed. CT abdomen/pelvis with pelvis revealed no acute abdominal findings. Specifically no signs of stone or obstructive process. No gallstones were identified. Patient eventually did grow E. coli out of her urine and blood. She is currently on cefepime along with vancomycin. Infectious disease has been consulted and are currently following actively. This morning 04/06, patient became acutely short of breath and hypoxic. She received 40 mg IV furosemide per hospitalist. Was transported and placed on a nonrebreather mask. She is currently breathing in the 40s with retractions and is on a nonrebreather mask satting at 90%. She was emergently intubated with central line and arterial line placed. SUBJECTIVE: 04/07: Lasted 2 hours on CPAP trial. Agitated. Currently on midazolam and fentanyl drips. Requires norepinephrine drip at 6 mcg/min likely due to sedation. Tolerating tube feeds. Objective Vital Signs / I&O: Vital Signs 04/06/18 21:00 04/06/18 21:38 04/06/18 22:00 Temperature Pulse Rate 93 H 93 H Respiratory Rate 16 16 16 Blood Pressure 89/62 L 106/79 Pulse Oximetry 92 L 99 92 L 04/06/18 23:00 04/06/18 23:32 04/07/18 00:00 Temperature 101.9 F H Pulse Rate 95 H 97 H 94 H Respiratory Rate 16 16 16 Blood Pressure 95/59 L 95/59 L Pulse Oximetry 94 L 04/07/18 01:00 04/07/18 01:17 04/07/18 02:00 Temperature 100.1 F H Pulse Rate 96 H 90 Respiratory Rate 16 16 16 Blood Pressure 92/63 L 100/63 Pulse Oximetry 97 97 96 04/07/18 03:00 04/07/18 04:00 04/07/18 04:54 Temperature 99.6 F Pulse Rate 90 110 H Respiratory Rate 15 16 16 Blood Pressure 99/58 L 109/72 Pulse Oximetry 98 98 04/07/18 05:00 04/07/18 06:00 04/07/18 07:00 Temperature Pulse Rate 96 H 98 H 96 H Respiratory Rate 16 16 16 Blood Pressure 106/62 104/58 L 113/63 Pulse Oximetry 95 95 96 04/07/18 08:00 04/07/18 09:00 04/07/18 10:00 Temperature 100.7 F H Pulse Rate 106 H 102 H 98 H Respiratory Rate 16 16 16 Blood Pressure 104/62 106/60 84/59 L Pulse Oximetry 96 97 97 04/07/18 10:45 04/07/18 11:13 04/07/18 12:00 Temperature Pulse Rate 96 H 116 H Respiratory Rate 12 12 Blood Pressure 122/76 Pulse Oximetry 96 04/07/18 12:35 04/07/18 14:00 04/07/18 15:16 Temperature Pulse Rate 92 H Respiratory Rate 19 16 Blood Pressure Pulse Oximetry 96 98 04/07/18 16:00 04/07/18 16:15 04/07/18 16:30 Temperature Pulse Rate 82 92 H 88 Respiratory Rate 16 16 16 Blood Pressure 94/52 L 112/57 L 92/62 L Pulse Oximetry 98 98 98 04/07/18 16:45 04/07/18 17:00 04/07/18 17:15 Temperature Pulse Rate 86 80 78 Respiratory Rate 15 16 16 Blood Pressure 100/63 104/59 L 106/58 L Pulse Oximetry 98 98 97 04/07/18 17:30 04/07/18 17:40 04/07/18 17:45 Temperature Pulse Rate 86 74 Respiratory Rate 17 16 16 Blood Pressure 108/59 L 105/55 L Pulse Oximetry 99 98 99 04/07/18 18:00 04/07/18 19:30 Temperature Pulse Rate 86 102 H Respiratory Rate 15 17 Blood Pressure 115/62 Pulse Oximetry 100 97 Intake & Output 04/07/18 04/07/18 04/08/18 06:59 18:59 06:59 Intake Total 1558 / 1558 918.7 / 918.7 757 / 757 Output Total 500 / 500 950 / 950 Balance 1058 / 1058 918.7 / 918.7 -193 / -193 Weight 53.5 kg Intake: IV 1200 / 1200 918.7 / 918.7 Versed Inj 50 mg In 50 ml @ 2 50 / 50 MG/HR 2 mls/hr IV.CONT TITRATE PRN Rx#:[id number] Maxipime Inj 2,000 MG In NS Inj 100 / 100 100 / 100 100 ML @ 200 mls/hr IV.SIG Q12H [facility] Rx#:[id number] MVI-12 Inj 10 ML Thiamine Inj 511.2 / 511.2 100 MG Folvite Inj 1 MG In NS Inj 500 ML @ 125 mls/hr IV.SIG Q24H [facility] Rx#:[id number] KCl Inj 10 MEQ In NS Inj 1,000 1000 / 1000 ML @ 84 mls/hr IV.SIG .[id number] [facility] Rx#:[id number] Vancomycin Inj 750 MG In NS Inj 257.5 / 257.5 250 ML @ 250 mls/hr IV.SIG Q18H [facility] Rx#:[id number] fentaNYL 10 mcg/mL Premix Drip 100 / 100 2,500 mcg In 250 ml @ 50 MCG/HR 5 mls/hr IV.SIG TITRATE PRN Rx #:[id number] Oral 0 / 0 Tube Feeding 158 / 158 507 / 507 Tube Irrigant 50 / 50 Water Bolus Amount 200 / 200 200 / 200 Output: Urine Amount (Catheter) 500 / 500 950 / 950 Indwelling Urethral Catheter 500 / 500 950 / 950 Other: Date of Last Bowel Movement 04/05/18 # Bowel Movements 0 Result Diagrams: 04/07/18 04:15 04/07/18 05:40 Other Results: Microbiology 04/06/18 08:00 Sputum - Endotracheal Gram Stain - Final 04/06/18 08:00 Sputum - Endotracheal Sputum Culture - Preliminary No growth in 24 hours 04/05/18 06:30 Blood - Peripheral Aerobic Blood Culture - Preliminary No growth in 2 days 04/05/18 06:30 Blood - Peripheral Anaerobic Blood Culture - Preliminary No growth in 2 days 04/04/18 13:22 Blood - Peripheral Aerobic Blood Culture - Preliminary No growth in 3 days 04/04/18 13:22 Blood - Peripheral Anaerobic Blood Culture - Preliminary No growth in 3 days 04/04/18 13:29 Blood - Peripheral Aerobic Blood Culture - Preliminary No growth in 3 days 04/04/18 13:29 Blood - Peripheral Anaerobic Blood Culture - Preliminary No growth in 3 days 04/05/18 11:10 Clean Catch Urine Urine Culture - Final Enterococcus faecalis 04/03/18 11:15 Blood - Peripheral Aerobic Blood Culture - Final Escherichia coli 04/03/18 11:15 Blood - Peripheral Anaerobic Blood Culture - Final Escherichia coli 04/03/18 11:05 Blood - Peripheral Aerobic Blood Culture - Final Escherichia coli 04/03/18 11:05 Blood - Peripheral Anaerobic Blood Culture - Final Escherichia coli 04/03/18 10:30 Clean Catch Urine Urine Culture - Final Escherichia coli Imaging: Abdomen/Pelvis CT 04/03/18 00:00 CONCLUSION: 1. No evidence of hydronephrosis or calcified stones. 2. No dilated loops of small or large bowel. Chest X-Ray 04/06/18 00:00 CONCLUSION: Bilateral lower lobe consolidation . 2. Rightward thoracic scoliosis Chest X-Ray 04/06/18 07:41 CONCLUSION: Interval placement of an endotracheal tube is positioned within the right main bronchus. Recommend retraction 4 cm. Otherwise stable airspace exam with by basilar airspace consolidation. Chest X-Ray 04/07/18 06:00 CONCLUSION: 1. No significant interval change with persistent bilateral lower lung zone predominant pulmonary opacity likely representing pulmonary edema. 2. Endotracheal tube tip 7 mm above the albert. Could be retracted several centimeters. Objective Remarks: GENERAL: 53-year-old female currently orotracheally intubated SKIN: Warm and dry. HEAD: Atraumatic. Normocephalic. EYES: Pupils equal and round. No scleral icterus. No injection or drainage. ENT: No nasal bleeding or discharge. Mucous membranes pink and moist. NECK: Trachea midline. No JVD. CARDIOVASCULAR: Regular rate and rhythm. S1, S2. No S4. RESPIRATORY: Few fine crackles appreciated bases bilaterally. No end expiratory wheeze. GASTROINTESTINAL: Abdomen soft, non-tender, nondistended. Hepatic and splenic margins not palpable. MUSCULOSKELETAL: Extremities trace bilateral lower extremity edema. No obvious deformities. NEUROLOGICAL: Alert. Not following commands currently. Withdraws all 4 extremities. Positive cough and gag. Assessment and Plan - Assessment and Plan Plan: Neuro/Psych: Acute toxic metabolic encephalopathy History of EtOH abuse Currently on fentanyl/midazolam drips as needed for sedation/analgesia while intubated Attempt to wean to dexmedetomidine drip Goal of RA SS -2 Daily sedation vacation Start on chlordiazepoxide 10 mg 3 times daily Monitor for DTs Vitamin bag daily times 3 days then switch to thiamine daily CV: Elevated troponin Acute systolic heart failure ejection fraction 20% Elevated triglycerides Received 1 L normal saline bolus. Check echocardiogram -decreased LV systolic function ejection fraction in the range of 25-30%. [id number] mitral valve regurgitation. The estimated pulmonary arterial pressure is 27 millimeters Hg. there is mild tricuspid valve regurgitation. There is a small pericardial effusion present. A moderate left sided pleural effusion is noted/troponin downward trending We will discontinue IV fluids today As needed norepinephrine drip to maintain mean artery pressure equal to 65. Currently on 16 mcg/min Appreciate cardiology consultation. Continue aspirin 81 mg daily and atorvastatin 40 mg daily. Resp: Acute hypoxemic hypercapnic respiratory failure PRVC ventilation 18/480/1.2/7/40% Head of bed at 30 degrees Ventilator bundle Albuterol/ipratropium aerosols every 4 hours with albuterol aerosols every 2 hours as needed dyspnea Spontaneous breathing trials and clinically Chest x-ray/ABG in a.m. 04/08 GI: Elevated total bilirubin Elevated AST Hypoalbuminemia Will start tube feedings with Jevity 1.5 goal 40 cc an hour Pantoprazole for GI prophylaxis Docusate sodium/senna 1 tablet twice daily for bowel regimen CT abdomen/pelvis this admission revealed no acute abdominal findings. Specifically no signs of gallstones/liver enlargement or renal stones : Rdz catheter has been placed for accurate I's and O's in a critically ill patient Endo: Sliding scale insulin Accu-Cheks to maintain euglycemia aspart insulin every 6 hours medium protocol\ Renal: Creatinine currently within normal limits Monitor urine output Accurate I's and O's Heme: Macrocytosis anemia Leukocytosis Monitor CBC daily. Follow trends No indication for transfusion of blood products at this time. ID: E. coli bacteremia/sepsis Enterococcus faecalis urinary tract infection Blood cultures x211/15 and UA did reveal E. coli. Repeat blood cultures 04/04-. No growth 04/05 UA results enterococcus Currently on cefepime/vancomycin. Infectious disease following. MSK: PT evaluate and treat bedrest FEN: Acute hypopotassemia Hyponatremia Currently on normal saline at 84 cc an hour. Replace electrolytes as clinically indicated per ICU electrolyte protocol 2 g mag sulfate IV x1 now. Access -Utilize right IJ CVL day #2 -Utilize left femoral arterial line day # Prophylaxis -GI -pantoprazole -DVT -SCD/heparin subcu Critical care time 35 minutes
[2018-04-08 00:38] LABS: ABG Base Excess -2.1 mmol/L (-2-2); ABG PCO2 29 mmHg (38-42); ABG PO2 114 mmHg (61-120)
[2018-04-08] MEDS: Insulin NovoLOG Aspart Correctional Sugar Inj SQ SCH ×4 (00:44→18:00)
[2018-04-08] MEDS: Oral Hygiene Kit OROPHARYNG SCH ×3 (00:44→19:28)
[2018-04-08 01:48] LABS: Baso # (Auto) 0.3 th/mm3 (0.0-0.2); Baso % (Auto) 3.5 % (0.0-2.0); Eos % (Auto) 0.3 % (0.0-4.0); Hematocrit 33.9 % (35.0-46.0); Hemoglobin 11.4 gm/dL (11.6-15.3); Lymph # (Auto) 0.7 th/mm3 (1.0-4.8); Lymph % (Auto) 7.4 % (9.0-44.0); Mean Corpuscular HGB Conc 33.5 % (32.0-36.0); Mean Corpuscular Hemoglobin 33.9 pg (27.0-34.0); Mean Corpuscular Volume 101.1 fL (80.0-100.0); Mean Platelet Volume 8.9 fL (7.0-11.0); Mono # (Auto) 0.6 th/mm3 (0.0-0.9); Mono % (Auto) 5.6 % (0.0-8.0); Neut # (Auto) 8.2 th/mm3 (1.8-7.7); Neut % (Auto) 83.2 % (16.0-70.0); Platelet Count 211 th/mm3 (150-450); Red Blood Count 3.35 mil/mm3 (4.00-5.30); White Blood Count 9.8 th/mm3 (4.0-11.0)
[2018-04-08 01:56] LABS: Chloride 112 meq/L (98-107); Potassium 3.3 meq/L (3.5-5.1); Sodium 144 meq/L (136-145)
[2018-04-08 01:59] LABS: Albumin 2.1 g/dL (3.4-5.0); Anion Gap 10 meq/L (5-15); Calcium 8.1 mg/dL (8.5-10.1); Carbon Dioxide 21.8 meq/L (21.0-32.0); Glucose,Random 136 mg/dL (74-106); Magnesium 1.5 mg/dL (1.5-2.5)
[2018-04-08 02:00] LABS: Blood Urea Nitrogen 13 mg/dL (7-18)
[2018-04-08 02:02] LABS: Alanine Aminotransferase 24 U/L (10-53); Aspartate Aminotransferase 40 U/L (15-37); Glomerular Filtration Rate 68 mL/min (>89)
[2018-04-08 02:03] LABS: Phosphorus 1.6 mg/dL (2.5-4.9)
[2018-04-08 02:04] LABS: Total Protein 6.1 g/dL (6.4-8.2)
[2018-04-08 02:05] LABS: Alkaline Phosphatase 68 U/L (45-117)
[2018-04-08 02:10] LABS: Lymphocytes 8 % (9-44); Monocytes 6 % (0-8); Platelet Estimate Normal (Normal); Platelet Morphology Normal (Normal)
[2018-04-08] MEDS: Potassium Phosphate Inj 30 MMOL in Sodium Chlor 0.9% Inj 250 ML IV.SIG PRN (03:32)
[2018-04-08] MEDS: Chlorhexidine Gluconate 2% 1 Pack (2 Cloths) TOPICAL SCH (03:33)
[2018-04-08 05:38] LABS: Baso % (Auto) 0.2 % (0.0-2.0); Eos % (Auto) 0.2 % (0.0-4.0); Hematocrit 32.9 % (35.0-46.0); Hemoglobin 11.1 gm/dL (11.6-15.3); Lymph # (Auto) 1.5 th/mm3 (1.0-4.8); Mean Corpuscular HGB Conc 33.8 % (32.0-36.0); Mean Corpuscular Volume 100.9 fL (80.0-100.0); Mono # (Auto) 0.7 th/mm3 (0.0-0.9); Mono % (Auto) 7.3 % (0.0-8.0); Neut # (Auto) 7.3 th/mm3 (1.8-7.7); Neut % (Auto) 76.3 % (16.0-70.0); Platelet Count 216 th/mm3 (150-450); Red Blood Count 3.26 mil/mm3 (4.00-5.30); Red Cell Distribution Width 13.1 % (11.6-17.2); White Blood Count 9.5 th/mm3 (4.0-11.0)
[2018-04-08 05:46] LABS: Chloride 113 meq/L (98-107); Potassium 3.8 meq/L (3.5-5.1); Sodium 146 meq/L (136-145)
[2018-04-08 05:51] LABS: Albumin 2.1 g/dL (3.4-5.0); Anion Gap 10 meq/L (5-15); Blood Urea Nitrogen 14 mg/dL (7-18); Calcium 8.1 mg/dL (8.5-10.1); Carbon Dioxide 22.7 meq/L (21.0-32.0); Glucose,Random 128 mg/dL (74-106)
[2018-04-08 05:54] LABS: Alanine Aminotransferase 22 U/L (10-53); Aspartate Aminotransferase 36 U/L (15-37)
[2018-04-08 05:55] LABS: Glomerular Filtration Rate 74 mL/min (>89)
[2018-04-08 05:56] LABS: Total Protein 5.8 g/dL (6.4-8.2)
[2018-04-08 05:57] LABS: Alkaline Phosphatase 60 U/L (45-117)
--- NOTE | 2018-04-08 06:05 | XR ---
EXAM DATE: 04/08/2018 5:46 AM EST AGE/SEX: 53 years / Female INDICATIONS: Shortness of breath. CLINICAL DATA: This is the patient's subsequent encounter. Patient reports that signs and symptoms h ave been present for 4 - 6 days and indicates a pain score of Nonresponsive. MEDICAL/SURGICAL HISTORY: Non-responsive. Non-responsive. COMPARISON: [facility], CHEST 1V SINGLE AP, 04/07/2018. . FINDINGS: Single AP view the chest. Endotracheal tube and nasogastric tube remain in place. Right IJ central ve nous catheter also remains in place. Endotracheal tube tip is 1 cm above the albert. Persistent confl uent opacity at the lung bases right greater than left. Likely small bilateral pleural effusions. No significant interval change. CONCLUSION: No significant interval change with persistent right greater than left lung base opacity and likely s mall bilateral pleural effusions. Electronically signed by: Jean-Pierre Leslie MD 04/08/2018 6:04 AM EST
[2018-04-08] MEDS: Artificial Tears Opth Drops 15 ML Bottle EACH EYE SCH ×3 (06:40→21:00)
--- NOTE | 2018-04-08 07:46 | P.PNCA ---
Subjective Interval history: Patient seen and examined. She is awake and responsive. still intubated and remains on Neosynephrine gtt @3mcg/min. tele - NSR currently. few very short runs of atrial tachycardia versus atrial fibrillation 2:1, HR approx 150bpm. PVCs, PACs, ventricular couplet. CXR - bilateral lower lobe opacities with small bl pleural effusions, unchanged. I/O - 3000/1000, net +2000 On IVF 84cc/hr Medications and Allergies Active Medications: Active Medications Acetaminophen (Tylenol Liq) 650 mg PO Q6H PRN PRN Reason: FEVER Last Admin: 04/07/18 08:54 Dose: 650 mg Albuterol (Duoneb Neb (Onelia)) 1 ampul NEB Q4HR NEB [facility] Last Admin: 04/08/18 03:51 Dose: 1 ampul Albuterol (Albuterol Neb (Prn)) 2.5 mg NEB Q2HR NEB PRN PRN Reason: DYSPNEA Artificial Tears (Tears Naturale Opth Drops) 1 drop EACH EYE Q8HR [facility] Last Admin: 04/08/18 06:40 Dose: 1 drop Aspirin (Aspirin Chew) 81 mg PO DAILY [facility] Last Admin: 04/07/18 08:54 Dose: 81 mg Atorvastatin Calcium (Lipitor) 40 mg PO HS [facility] Last Admin: 04/07/18 21:50 Dose: 40 mg Chlordiazepoxide (Librium) 10 mg PO Q8H [facility] Last Admin: 04/08/18 00:40 Dose: 10 mg Chlorhexidine Gluconate (Peridex 0.12% Oral Kit) 15 ml OROPHARYNG BID@0800, 2000 [facility] Last Admin: 04/07/18 21:49 Dose: 15 ml Chlorhexidine Gluconate (Chlorhexidine 2% Cloth) 3 pack TOPICAL DAILY@0400 [facility] Stop: 04/12/18 03:59 Last Admin: 04/08/18 03:33 Dose: 3 pack Chlorhexidine Gluconate (Chlorhexidine 2% Cloth) 3 pack TOPICAL DAILY@0400 PRN PRN Reason: Extra cloth needed Stop: 04/12/18 03:59 Dextrose (D50w Vial) 50 ml IV.PUSH UNSCH PRN PRN Reason: PER HYPOGLYCEMIA PROTOCOL Flumazenil (Romazecon Inj) 0.2 mg IV.PUSH Q1M PRN PRN Reason: OVERSEDATION Glucagon (Glucagon Inj) 1 mg OTHER PRN PRN PRN Reason: for Hypoglycemia Protocol Heparin Sodium (Porcine) (Heparin Inj) 5,000 units SQ Q12HR [facility] Last Admin: 04/07/18 21:50 Dose: 5,000 units Cefepime HCl 2,000 mg/ Sodium (Chloride) 100 mls @ 200 mls/hr IV.SIG Q12H [facility] Last Infusion: 04/08/18 02:10 Dose: Infused Potassium Chloride 10 meq/ (Sodium Chloride) 1,005 mls @ 84 mls/hr IV.SIG .[id number] [facility] Last Admin: 04/07/18 23:27 Dose: 84 mls/hr Fentanyl (Fentanyl 10 Mcg/Ml Premix Drip) 2,500 mcg in 250 mls @ 5 mls/hr IV.SIG TITRATE PRN; Protocol PRN Reason: Per Protocol Last Titration: 04/08/18 02:12 Dose: Infused Midazolam HCl (Versed Inj) 50 mg in 50 mls @ 2 mls/hr IV.CONT TITRATE PRN; Protocol PRN Reason: Per Protocol Last Titration: 04/08/18 01:01 Dose: Infused Multivitamins 10 ml/ Thiamine HCl 100 mg/ Folic Acid 1 mg/Sodium Chloride 511.2 mls @ 125 mls/hr IV.SIG Q24H [facility] Stop: 04/08/18 12:06 Last Infusion: 04/07/18 13:35 Dose: Infused Potassium Chloride (Kcl 40 Meq Premix Inj) 40 meq in 100 mls @ 25 mls/hr IV.SIG Q2H PRN PRN Reason: For Potassium 2.8 - 3.2 mEq/L Last Infusion: 04/06/18 16:00 Dose: Infused Potassium Chloride (Kcl 20 Meq Premix Inj) 20 meq in 100 mls @ 50 mls/hr IV.SIG Q2H PRN PRN Reason: For Potassium 3.3 - 3.5 mEq/L Potassium Chloride (Kcl 40 Meq Premix Inj) 40 meq in 100 mls @ 25 mls/hr IV.SIG UNSCH PRN PRN Reason: For Potassium 3.3 - 3.5 mEq/L Potassium Phosphate 30 mmol/ (Sodium Chloride) 260 mls @ 42 mls/hr IV.SIG UNSCH PRN PRN Reason: SEE LABEL COMMENTS Last Admin: 04/08/18 03:32 Dose: 42 mls/hr Sodium Phosphate 30 mmol/ (Sodium Chloride) 260 mls @ 42 mls/hr IV.SIG UNSCH PRN PRN Reason: For Phosphorus < 2.5 mg/dL Potassium Chloride (Kcl 20 Meq Premix Inj) 20 meq in 100 mls @ 50 mls/hr IV.SIG Q2H PRN PRN Reason: For Potassium 2.8 - 3.2 mEq/L Magnesium Sulfate 4 gm/ Sodium (Chloride) 100 mls @ 50 mls/hr IV.SIG UNSCH PRN PRN Reason: For Magnesium 0.9 - 1.1 mg/dL Magnesium Sulfate 2 gm/ Sodium (Chloride) 100 mls @ 50 mls/hr IV.SIG UNSCH PRN PRN Reason: For Magnesium 1.2 - 1.6 mg/dL Last Infusion: 04/06/18 13:45 Dose: Infused Dexmedetomidine HCl 200 mcg/ (Sodium Chloride) 50 mls @ 2.65 mls/hr IV.CONT TITRATE PRN; Protocol PRN Reason: Per Protocol Norepinephrine Bitartrate 16 (mg/ Sodium Chloride) 250 mls @ 1.87 mls/hr IV.CONT TITRATE PRN; Protocol PRN Reason: See Protocol Last Titration: 04/08/18 02:52 Dose: 2 mcg/min, 1.87 mls/hr Vancomycin HCl 750 mg/ Sodium (Chloride) 257.5 mls @ 250 mls/hr IV.SIG Q18H ONELIA Last Infusion: 04/07/18 17:30 Dose: Infused Insulin Aspart (Novolog Insulin Correctional Sugar Inj) 0 unit SQ Q6HR ONELIA; Protocol Last Admin: 04/08/18 06:37 Dose: Not Given Lactulose (Lactulose Liq) 30 ml PO BID ONELIA Last Admin: 04/07/18 21:50 Dose: 30 ml Magnesium Oxide (Mag-Ox) 800 mg PO UNSCH PRN PRN Reason: For Magnesium 1.2 - 1.6 mg/dL Miscellaneous Information ([facility] Ordered Lab Info) 0 each OTHER ONCE ONE Stop: 04/09/18 21:46 Miscellaneous Medication () 1 each OROPHARYNG 0000,0400,1200,1600 ONELIA Last Admin: 04/08/18 03:33 Dose: 1 each Ondansetron HCl (Zofran Inj) 4 mg IV.PUSH Q6H PRN PRN Reason: NAUSEA OR VOMITING Pantoprazole Sodium (Protonix Inj) 40 mg IV.PUSH Q24H [facility] Last Admin: 04/07/18 08:53 Dose: 40 mg Pharmacy Profile Note (Vancomycin Consult Pharmacy) 1 each OTHER UNSCH PRN PRN Reason: Pharmacy to dose Potassium Bicarb/Potassium Chloride (K-Lyte Cl Eff) 50 meq PO UNSCH PRN PRN Reason: For Potassium 3.3 - 3.5 mEq/L Potassium Phosphate (K-Phos Original) 2,000 mg PO Q4H PRN PRN Reason: Phosphorus Less Than 2.5 mg/dL Potassium Phosphate (K-Phos Original) 2,000 mg PO UNSCH PRN PRN Reason: SEE LABEL COMMENTS Senna/Docusate Sodium (Romana-Colace) 1 tab PO BID [facility] Last Admin: 04/07/18 21:50 Dose: 1 tab Sodium Chloride (Ns Flush) 2 ml IV.FLUSH PRN PRN PRN Reason: FLUSH AFTER USING IV ACCESS Sodium Chloride (Ns Flush) 2 ml IV.FLUSH BID [facility] Last Admin: 04/07/18 21:53 Dose: Not Given Sodium Chloride (Ns Flush) 0 ml IV.FLUSH DAILY [facility] Last Admin: 04/07/18 09:29 Dose: 10 ml Sterile Water (Free Water) 100 ml G-TUBE Q8HR [facility] Last Admin: 04/08/18 06:25 Dose: Not Given Terbutaline Sulfate (Brethine Inj) 1 mg SQ UNSCH PRN PRN Reason: For Extravasation Allergies Allergy/AdvReac Type Severity Reaction Status Date / Time No Known Allergies Allergy Verified 04/03/18 10:22 Physical Exam Vital signs: Vital Signs 04/07/18 08:00 04/07/18 09:00 04/07/18 10:00 Temperature 100.7 F H Pulse Rate 106 H 102 H 98 H Respiratory Rate 16 16 16 Blood Pressure 104/62 106/60 84/59 L Pulse Oximetry 96 97 97 04/07/18 10:45 04/07/18 11:13 04/07/18 12:00 Temperature Pulse Rate 96 H 116 H Respiratory Rate 12 12 Blood Pressure 122/76 Pulse Oximetry 96 04/07/18 12:35 04/07/18 14:00 04/07/18 15:16 Temperature Pulse Rate 92 H Respiratory Rate 19 16 Blood Pressure Pulse Oximetry 96 98 04/07/18 16:00 04/07/18 16:15 04/07/18 16:30 Temperature Pulse Rate 82 92 H 88 Respiratory Rate 16 16 16 Blood Pressure 94/52 L 112/57 L 92/62 L Pulse Oximetry 98 98 98 04/07/18 16:45 04/07/18 17:00 04/07/18 17:15 Temperature Pulse Rate 86 80 78 Respiratory Rate 15 16 16 Blood Pressure 100/63 104/59 L 106/58 L Pulse Oximetry 98 98 97 04/07/18 17:30 04/07/18 17:40 04/07/18 17:45 Temperature Pulse Rate 86 74 Respiratory Rate 17 16 16 Blood Pressure 108/59 L 105/55 L Pulse Oximetry 99 98 99 04/07/18 18:00 04/07/18 19:00 04/07/18 19:10 Temperature Pulse Rate 86 76 Respiratory Rate 15 15 Blood Pressure 115/62 100/59 L 102/60 Pulse Oximetry 100 98 04/07/18 19:30 04/07/18 19:40 04/07/18 19:45 Temperature Pulse Rate 102 H 86 88 Respiratory Rate 17 15 16 Blood Pressure 101/55 L 97/59 L Pulse Oximetry 97 98 97 04/07/18 20:00 04/07/18 20:30 04/07/18 20:45 Temperature 98.9 F Pulse Rate 92 H 94 H 92 H Respiratory Rate 16 16 16 Blood Pressure 105/92 H 107/60 113/57 L Pulse Oximetry 96 98 97 04/07/18 21:00 04/07/18 21:16 04/07/18 21:26 Temperature Pulse Rate 96 H 92 H 90 Respiratory Rate 15 16 16 Blood Pressure 111/58 L 111/62 107/58 L Pulse Oximetry 97 98 98 04/07/18 22:00 04/07/18 22:01 04/07/18 22:16 Temperature Pulse Rate 98 H 94 H 90 Respiratory Rate 16 16 Blood Pressure 118/58 L 121/65 Pulse Oximetry 98 97 04/07/18 22:31 04/07/18 22:40 04/07/18 23:00 Temperature Pulse Rate 92 H 92 H Respiratory Rate 16 16 15 Blood Pressure 134/66 137/64 Pulse Oximetry 98 97 97 04/07/18 23:03 04/07/18 23:16 04/07/18 23:31 Temperature Pulse Rate 96 H 96 H 96 H Respiratory Rate 16 15 16 Blood Pressure 135/58 L 123/58 L Pulse Oximetry 98 97 04/07/18 23:46 04/08/18 00:00 04/08/18 00:01 Temperature Pulse Rate 94 H 90 92 H Respiratory Rate 16 16 Blood Pressure 119/66 103/57 L 118/64 Pulse Oximetry 97 97 04/08/18 01:00 04/08/18 01:40 04/08/18 02:00 Temperature Pulse Rate 90 85 Respiratory Rate 16 16 Blood Pressure 103/58 L Pulse Oximetry 97 98 04/08/18 02:01 04/08/18 02:28 04/08/18 03:28 Temperature Pulse Rate 90 86 82 Respiratory Rate 16 16 16 Blood Pressure 100/65 95/59 L 93/62 L Pulse Oximetry 98 98 98 04/08/18 03:43 04/08/18 03:50 04/08/18 04:00 Temperature 97.9 F Pulse Rate 84 83 91 H Respiratory Rate 16 16 15 Blood Pressure 99/55 L 112/70 Pulse Oximetry 97 99 04/08/18 04:20 04/08/18 05:13 04/08/18 06:00 Temperature Pulse Rate 96 H 86 Respiratory Rate 16 16 16 Blood Pressure 91/52 L 89/55 L Pulse Oximetry 98 97 98 Intake & Output 04/07/18 04/08/18 04/08/18 18:59 06:59 18:59 Intake Total 918.7 / 918.7 2062 / 2062 0 / 0 Output Total 950 / 950 Balance 918.7 / 918.7 1112 / 1112 0 / 0 Weight 54.4 kg Intake: IV 918.7 / 918.7 1305 / 1305 Versed Inj 50 mg In 50 ml @ 2 50 / 50 50 / 50 MG/HR 2 mls/hr IV.CONT TITRATE PRN Rx#:[id number] Maxipime Inj 2,000 MG In NS Inj 100 / 100 100 / 100 100 ML @ 200 mls/hr IV.SIG Q12H ONELIA Rx#:[id number] MVI-12 Inj 10 ML Thiamine Inj 511.2 / 511.2 100 MG Folvite Inj 1 MG In NS Inj 500 ML @ 125 mls/hr IV.SIG Q24H ONELIA Rx#:[id number] KCl Inj 10 MEQ In NS Inj 1,000 1005 / 1005 ML @ 84 mls/hr IV.SIG .[id number] ONELIA Rx#:[id number] Vancomycin Inj 750 MG In NS Inj 257.5 / 257.5 250 ML @ 250 mls/hr IV.SIG Q18H [facility] Rx#:[id number] fentaNYL 10 mcg/mL Premix Drip 150 / 150 2,500 mcg In 250 ml @ 50 MCG/HR 5 mls/hr IV.SIG TITRATE PRN Rx #:[id number] Oral 0 / 0 Tube Feeding 507 / 507 Tube Irrigant 50 / 50 Water Bolus Amount 200 / 200 Output: Urine Amount (Catheter) 950 / 950 Indwelling Urethral Catheter 950 / 950 Other: Date of Last Bowel Movement 04/05/18 04/04/18 Narrative: GENERAL: Well-developed well-nourished. Currently stable. NECK: No carotid bruits. No JVD. CARDIOVASCULAR: Regular rate and rhythm. No murmur appreciated. RESPIRATORY: Intubated, mechanically ventilated. Bibasilar crackles. MUSCULOSKELETAL: No clubbing or cyanosis. No edema. NEUROLOGICAL: Awake and alert. Normal speech. - Urinary Catheter Management Indwelling Urethral Catheter Cath placed during this visit: yes Reason for continuing: Hourly intake/output Insertion date: 04/06/18 Results 04/08/18 05:00 04/08/18 05:00 Cardiac Enzymes 04/06/18 04/06/18 04/06/18 Range/Units 08:35 17:52 23:35 AST 45 H 34 (15-37) U/L Troponin I 1.46 H* 1.02 H* D 0.67 H* D (0.02-0.05) ng/mL 04/07/18 04/08/18 04/08/18 Range/Units 05:40 01:00 05:00 AST 35 40 H 36 (15-37) U/L Troponin I (0.02-0.05) ng/mL Coagulation 04/06/18 Range/Units 08:35 PT 11.8 H (9.8-11.6) sec APTT 22.8 L (23.4-31.7) sec Lipids 04/07/18 Range/Units 05:40 Triglycerides 200 H (42-150) mg/dL Cholesterol 119 L (120-200) mg/dL HDL Cholesterol 16.2 L (40.0-60.0) mg/dL Cholesterol/HDL Ratio 7.34 Ratio CBC 04/06/18 04/06/18 04/07/18 Range/Units 08:35 23:35 04:15 WBC 13.4 H 9.0 8.9 (4.0-11.0) th/mm3 RBC 3.74 L 3.33 L 3.36 L (4.00-5.30) mil/mm3 Hgb 13.1 D 11.6 11.5 L (11.6-15.3) gm/dL Hct 37.9 33.5 L 34.0 L (35.0-46.0) % Plt Count 139 L 159 164 (150-450) th/mm3 Neut # (Auto) 12.2 H 6.5 6.9 (1.8-7.7) th/mm3 Lymph # (Auto) 0.5 L 1.5 1.2 (1.0-4.8) th/mm3 [place] # (Auto) 0.6 1.0 H 0.7 (0.0-0.9) th/mm3 Eos # (Auto) 0.0 0.0 0.0 (0.0-0.4) th/mm3 Baso # (Auto) 0.1 0.0 0.1 (0.0-0.2) th/mm3 04/08/18 04/08/18 Range/Units 01:00 05:00 WBC 9.8 9.5 (4.0-11.0) th/mm3 RBC 3.35 L 3.26 L (4.00-5.30) mil/mm3 Hgb 11.4 L 11.1 L (11.6-15.3) gm/dL Hct 33.9 L 32.9 L (35.0-46.0) % Plt Count 211 216 (150-450) th/mm3 Neut # (Auto) 8.2 H 7.3 (1.8-7.7) th/mm3 Lymph # (Auto) 0.7 L 1.5 (1.0-4.8) th/mm3 [place] # (Auto) 0.6 0.7 (0.0-0.9) th/mm3 Eos # (Auto) 0.0 0.0 (0.0-0.4) th/mm3 Baso # (Auto) 0.3 H 0.0 (0.0-0.2) th/mm3 Comprehensive Metabolic Panel 04/06/18 04/06/18 04/06/18 Range/Units 08:35 17:52 23:35 Sodium 133 L 140 (136-145) meq/L Potassium 2.7 L* 4.1 D 3.6 (3.5-5.1) meq/L Chloride 97 L 108 H D (98-107) meq/L Carbon Dioxide 17.5 L 21.7 (21.0-32.0) meq/L BUN 9 14 (7-18) mg/dL Creatinine 0.74 0.98 (0.50-1.00) mg/dL Calcium 7.1 L* D 8.2 L D (8.5-10.1) mg/dL AST 45 H 34 (15-37) U/L ALT 28 24 (10-53) U/L Alkaline Phosphatase 66 62 (45-117) U/L Total Protein 6.6 D 6.2 L (6.4-8.2) g/dL Albumin 2.4 L D 2.2 L (3.4-5.0) g/dL 04/07/18 04/08/18 04/08/18 Range/Units 05:40 01:00 05:00 Sodium 141 144 146 H (136-145) meq/L Potassium 3.5 3.3 L 3.8 (3.5-5.1) meq/L Chloride 110 H 112 H 113 H (98-107) meq/L Carbon Dioxide 21.3 21.8 22.7 (21.0-32.0) meq/L BUN 14 13 14 (7-18) mg/dL Creatinine 0.97 0.87 0.80 (0.50-1.00) mg/dL Calcium 8.1 L 8.1 L 8.1 L (8.5-10.1) mg/dL AST 35 40 H 36 (15-37) U/L ALT 21 24 22 (10-53) U/L Alkaline Phosphatase 62 68 60 (45-117) U/L Total Protein 6.1 L 6.1 L 5.8 L (6.4-8.2) g/dL Albumin 2.2 L 2.1 L 2.1 L (3.4-5.0) g/dL Intake and Output 04/07/18 04/08/18 04/08/18 22:59 06:59 14:59 Intake Total 1014.5 / 1014.5 1305 / 1305 0 / 0 Output Total 950 / 950 Balance 64.5 / 64.5 1305 / 1305 0 / 0 Intake: IV 257.5 / 257.5 1305 / 1305 Versed Inj 50 mg In 50 ml @ 2 50 / 50 MG/HR 2 mls/hr IV.CONT TITRATE PRN Rx#:[id number] Maxipime Inj 2,000 MG In NS Inj 100 / 100 100 ML @ 200 mls/hr IV.SIG Q12H ONELIA Rx#:[id number] KCl Inj 10 MEQ In NS Inj 1,000 1005 / 1005 ML @ 84 mls/hr IV.SIG .[id number] ONELIA Rx#:[id number] Vancomycin Inj 750 MG In NS Inj 257.5 / 257.5 250 ML @ 250 mls/hr IV.SIG Q18H ONELIA Rx#:[id number] fentaNYL 10 mcg/mL Premix Drip 150 / 150 2,500 mcg In 250 ml @ 50 MCG/HR 5 mls/hr IV.SIG TITRATE PRN Rx #:[id number] Oral 0 / 0 Tube Feeding 507 / 507 Tube Irrigant 50 / 50 Water Bolus Amount 200 / 200 Output: Urine Amount (Catheter) 950 / 950 Indwelling Urethral Catheter 950 / 950 Other: Date of Last Bowel Movement 04/04/18 04/04/18 Weight 54.4 kg - Imaging and Cardiology Imaging: Impressions Chest X-Ray 04/06/18 07:41 CONCLUSION: Interval placement of an endotracheal tube is positioned within the right main bronchus. Recommend retraction 4 cm. Otherwise stable airspace exam with by basilar airspace consolidation. Chest X-Ray 04/07/18 06:00 CONCLUSION: 1. No significant interval change with persistent bilateral lower lung zone predominant pulmonary opacity likely representing pulmonary edema. 2. Endotracheal tube tip 7 mm above the albert. Could be retracted several centimeters. Chest X-Ray 04/08/18 06:00 CONCLUSION: No significant interval change with persistent right greater than left lung base opacity and likely small bilateral pleural effusions. Assessment and Plan - Plan 53-year-old female with a past medical history of anxiety and daily alcohol use who presented with pyelonephritis, found to have gram-negative bacteremia, subsequent septic shock on 04/06. Assessment: No interval change from cardiac perspective. No need for further diuresis at this time. Try to maintain euvolemic state once extubated - ?today. Non-STEMI, type I versus type II - demand mediated due to gram-negative bacteremia and septic shock-troponin downtrending Septic shock Gram-negative bacteremia - This is typically associated with lower risk of endocarditis. Abnormal EKG - in the setting of hypokalemia Sinus tachycardia Cardiomyopathy-EF 25-30% Pulmonary edema Plan: Will need to evaluate for obstructive coronary artery disease, would benefit from undergoing LHC vs nuclear stress test prior to discharge. Septic shock with pressor support precludes use of beta-blockers or REGAN inhibitors. continue aspirin 81 mg daily Check lipid profile and continue atorvastatin 40 mg nightly.
[2018-04-08] MEDS: Pantoprazole Inj 40 MG Vial IV.PUSH SCH (08:40)
[2018-04-08] MEDS: Chlorhexidine 0.12% Oral Kit 15 ML UDC OROPHARYNG SCH (08:40)
[2018-04-08] MEDS: Senna/Docusate Sodium 8.6/50 MG Tablet PO SCH ×2 (08:41→21:01)
[2018-04-08] MEDS: Heparin - SQ 10,000 UNITS/ML Vial SQ SCH ×2 (08:41→21:00)
[2018-04-08] MEDS: Multivitamin Inj 10 ML, Thiamine Inj 100 MG, Folic Acid Inj 1 MG in Sodium Chlor 0.9% I... IV.SIG SCH (08:44)
[2018-04-08] MEDS: Potassium Chloride Inj 10 MEQ in Sod Chloride 0.9% Inj 1,000 ML IV.SIG SCH (09:00)
[2018-04-08] MEDS ORDERED: Midazolam 100 MG/100 ML Inj 100 MG/100 ML BAG IV.CONT PRN (09:00)
[2018-04-08] MEDS: Vancomycin Inj 750 MG in Sodium Chlor 0.9% Inj 250 ML IV.SIG SCH (10:10)
--- NOTE | 2018-04-08 12:46 | P.PNCC ---
Subjective Subjective Remarks/Hospital Course: This is a 53-year-old female. Admission 04/03/2018. Consultation . Past medical history of's of alcohol use. Patient presents to [facility] 04/03 as a direct admit from her physician's office with clinically of bilateral flank/abdominal pain, chills, dysuria for 5 days duration per medical records. She was so weak she was urinating in the bed. CT abdomen/pelvis with pelvis revealed no acute abdominal findings. Specifically no signs of stone or obstructive process. No gallstones were identified. Patient eventually did grow E. coli out of her urine and blood. She is currently on cefepime along with vancomycin. Infectious disease has been consulted and are currently following actively. This morning 04/06, patient became acutely short of breath and hypoxic. She received 40 mg IV furosemide per hospitalist. Was transported and placed on a nonrebreather mask. She is currently breathing in the 40s with retractions and is on a nonrebreather mask satting at 90%. She was emergently intubated with central line and arterial line placed. 04/07: Lasted 2 hours on CPAP trial. Agitated. Currently on midazolam and fentanyl drips. Requires norepinephrine drip at 6 mcg/min likely due to sedation. Tolerating tube feeds. 04/08: Extubated this morning, levophed discontinued, patient complains of diffuse abdominal pain and has not had a normal BM for several days. Found to have a mild ileus on KUB. Objective Vital Signs / I&O: Vital Signs 04/07/18 12:35 04/07/18 14:00 04/07/18 15:16 Temperature Pulse Rate 92 H Respiratory Rate 19 16 Blood Pressure Pulse Oximetry 96 98 04/07/18 16:00 04/07/18 16:15 04/07/18 16:30 Temperature Pulse Rate 82 92 H 88 Respiratory Rate 16 16 16 Blood Pressure 94/52 L 112/57 L 92/62 L Pulse Oximetry 98 98 98 04/07/18 16:45 04/07/18 17:00 04/07/18 17:15 Temperature Pulse Rate 86 80 78 Respiratory Rate 15 16 16 Blood Pressure 100/63 104/59 L 106/58 L Pulse Oximetry 98 98 97 04/07/18 17:30 04/07/18 17:40 04/07/18 17:45 Temperature Pulse Rate 86 74 Respiratory Rate 17 16 16 Blood Pressure 108/59 L 105/55 L Pulse Oximetry 99 98 99 04/07/18 18:00 04/07/18 19:00 04/07/18 19:10 Temperature Pulse Rate 86 76 Respiratory Rate 15 15 Blood Pressure 115/62 100/59 L 102/60 Pulse Oximetry 100 98 04/07/18 19:30 04/07/18 19:40 04/07/18 19:45 Temperature Pulse Rate 102 H 86 88 Respiratory Rate 17 15 16 Blood Pressure 101/55 L 97/59 L Pulse Oximetry 97 98 97 04/07/18 20:00 04/07/18 20:30 04/07/18 20:45 Temperature 98.9 F Pulse Rate 92 H 94 H 92 H Respiratory Rate 16 16 16 Blood Pressure 105/92 H 107/60 113/57 L Pulse Oximetry 96 98 97 04/07/18 21:00 04/07/18 21:16 04/07/18 21:26 Temperature Pulse Rate 96 H 92 H 90 Respiratory Rate 15 16 16 Blood Pressure 111/58 L 111/62 107/58 L Pulse Oximetry 97 98 98 04/07/18 22:00 04/07/18 22:01 04/07/18 22:16 Temperature Pulse Rate 98 H 94 H 90 Respiratory Rate 16 16 Blood Pressure 118/58 L 121/65 Pulse Oximetry 98 97 04/07/18 22:31 04/07/18 22:40 04/07/18 23:00 Temperature Pulse Rate 92 H 92 H Respiratory Rate 16 16 15 Blood Pressure 134/66 137/64 Pulse Oximetry 98 97 97 04/07/18 23:03 04/07/18 23:16 04/07/18 23:31 Temperature Pulse Rate 96 H 96 H 96 H Respiratory Rate 16 15 16 Blood Pressure 135/58 L 123/58 L Pulse Oximetry 98 97 04/07/18 23:46 04/08/18 00:00 04/08/18 00:01 Temperature Pulse Rate 94 H 90 92 H Respiratory Rate 16 16 Blood Pressure 119/66 103/57 L 118/64 Pulse Oximetry 97 97 04/08/18 01:00 04/08/18 01:40 04/08/18 02:00 Temperature Pulse Rate 90 85 Respiratory Rate 16 16 Blood Pressure 103/58 L Pulse Oximetry 97 98 04/08/18 02:01 04/08/18 02:28 04/08/18 03:28 Temperature Pulse Rate 90 86 82 Respiratory Rate 16 16 16 Blood Pressure 100/65 95/59 L 93/62 L Pulse Oximetry 98 98 98 04/08/18 03:43 04/08/18 03:50 04/08/18 04:00 Temperature 97.9 F Pulse Rate 84 83 91 H Respiratory Rate 16 16 15 Blood Pressure 99/55 L 112/70 Pulse Oximetry 97 99 04/08/18 04:20 04/08/18 05:13 04/08/18 06:00 Temperature Pulse Rate 96 H 86 Respiratory Rate 16 16 16 Blood Pressure 91/52 L 89/55 L Pulse Oximetry 98 97 98 04/08/18 07:47 04/08/18 07:50 04/08/18 08:00 Temperature 98.6 F Pulse Rate 84 86 Respiratory Rate 16 16 Blood Pressure Pulse Oximetry 98 04/08/18 08:45 04/08/18 09:40 04/08/18 10:00 Temperature Pulse Rate 108 H Respiratory Rate 13 22 Blood Pressure Pulse Oximetry 98 97 04/08/18 11:21 04/08/18 11:38 04/08/18 11:40 Temperature 98.6 F Pulse Rate 108 H Respiratory Rate 26 H Blood Pressure Pulse Oximetry 94 L Intake & Output 04/07/18 04/08/18 04/08/18 18:59 06:59 18:59 Intake Total 918.7 / 918.7 2062 / 2062 0 / 0 Output Total 950 / 950 Balance 918.7 / 918.7 1112 / 1112 0 / 0 Weight 54.4 kg Intake: IV 918.7 / 918.7 1305 / 1305 Versed Inj 50 mg In 50 ml @ 2 50 / 50 50 / 50 MG/HR 2 mls/hr IV.CONT TITRATE PRN Rx#:[id number] Maxipime Inj 2,000 MG In NS Inj 100 / 100 100 / 100 100 ML @ 200 mls/hr IV.SIG Q12H [facility] Rx#:[id number] MVI-12 Inj 10 ML Thiamine Inj 511.2 / 511.2 100 MG Folvite Inj 1 MG In NS Inj 500 ML @ 125 mls/hr IV.SIG Q24H [facility] Rx#:[id number] KCl Inj 10 MEQ In NS Inj 1,000 1005 / 1005 ML @ 84 mls/hr IV.SIG .[id number] [facility] Rx#:[id number] Vancomycin Inj 750 MG In NS Inj 257.5 / 257.5 250 ML @ 250 mls/hr IV.SIG Q18H [facility] Rx#:[id number] fentaNYL 10 mcg/mL Premix Drip 150 / 150 2,500 mcg In 250 ml @ 50 MCG/HR 5 mls/hr IV.SIG TITRATE PRN Rx #:[id number] Oral 0 / 0 Tube Feeding 507 / 507 Tube Irrigant 50 / 50 Water Bolus Amount 200 / 200 Output: Urine Amount (Catheter) 950 / 950 Indwelling Urethral Catheter 950 / 950 Other: Date of Last Bowel Movement 04/05/18 04/04/18 Result Diagrams: 04/08/18 05:00 04/08/18 05:00 Objective Remarks: GENERAL: Non-toxic appearing, slightly tremulous SKIN: Warm and dry. HEAD: Atraumatic. Normocephalic. EYES: Pupils equal and round. No scleral icterus. No injection or drainage. ENT: No nasal bleeding or discharge. Mucous membranes pink and moist. NECK: Trachea midline. CARDIOVASCULAR: Tachy to 100s, regular RESPIRATORY: Clear to auscultation bilaterally, minimally tachypneic but speaking in complete sentences, does not appear anxious or distressed GASTROINTESTINAL: Abdomen firm but not tense, moderately distended, minimal diffuse tenderness MUSCULOSKELETAL: No peripheral edema NEUROLOGICAL: Alert and oriented x 3, mild tremor, speech clear and fluent, moving all extremities PSYCH: No current agitation, does not appear to be delirious or hallucinating Assessment and Plan - Assessment and Plan Plan: Neuro/Psych: Acute toxic metabolic encephalopathy History of EtOH abuse Continue chlordiazepoxide 10 mg 3 times daily, PRN ativan for breakthrough symptoms Monitor for DTs PO thiamine supplementation CV: Elevated troponin Acute systolic heart failure ejection fraction 20% Elevated triglycerides Echo-decreased LV systolic function ejection fraction in the range of 25-30%. Uojn-of-ffybuzzu mitral valve regurgitation. The estimated pulmonary arterial pressure is 27 millimeters Hg. there is mild tricuspid valve regurgitation. There is a small pericardial effusion present. A moderate left sided pleural effusion is noted/troponin downward trending Off levophed LR at maintenance Appreciate cardiology consultation. Continue aspirin 81 mg daily and atorvastatin 40 mg daily. Resp: Acute hypoxemic hypercapnic respiratory failure Extubated today Chest PT/ incentive spirometry/ Acapella Albuterol/ipratropium aerosols every 4 hours with albuterol aerosols every 2 hours as needed dyspnea GI: Elevated total bilirubin Elevated AST Hypoalbuminemia Ileus seen on KUB, NPO except for meds/ ice chips, scheduled reglan ATC Pantoprazole for GI prophylaxis Docusate sodium/senna 1 tablet twice daily for bowel regimen CT abdomen/pelvis this admission revealed no acute abdominal findings. Specifically no signs of gallstones/liver enlargement or renal stones Ammonia 37, slightly up, continue lactulose : D/C Baker Endo: Sliding scale insulin Accu-Cheks to maintain euglycemia aspart insulin every 6 hours, well-controlled on medium protocol Renal: Creatinine currently within normal limits Monitor urine output Accurate I's and O's Heme: Macrocytosis anemia Leukocytosis Monitor CBC daily. Follow trends No indication for transfusion of blood products at this time. ID: E. coli bacteremia/sepsis Enterococcus faecalis urinary tract infection Blood cultures x2 04/03 and UA did reveal E. coli. Repeat blood cultures on 04/04, 04/05, and 04/07 have no growth to date 04/05 UA results E faecalis Currently on cefepime/vancomycin. Infectious disease following. MSK: PT evaluate and treat OOB FEN: Acute hypopotassemia Hyponatremia LR @ 84 mL/hr Replace electrolytes as clinically indicated per ICU electrolyte protocol Access D/C baker, TLC, and art line Prophylaxis -GI - PPI -DVT -SCDs/SQH Level 2 follow up To help prompt me to consider important information that might be impacting today's encounter and assessment, information from prior notes written by myself or my colleagues may have been "brought forward" into today's note. My signature on this note, however, is an attestation that I personally performed the exam, history, and/or decision-making noted today, and, unless otherwise indicated, the interactions with patient, family, and staff as well as the review of records all occurred today. I also attest that the listed assessment and stated plan reflect my best clinical judgment today based on the combination of historical information, prior notes, and today's exam/ interactions. Code Status: Full
--- NOTE | 2018-04-08 12:59 | P.PN ---
Subjective Interval history: Just extubated with in the hour. No complaints, some cough. Physical Exam Vital signs: Vital Signs 04/07/18 14:00 04/07/18 15:16 04/07/18 16:00 Temperature Pulse Rate 92 H 82 Respiratory Rate 16 16 Blood Pressure 94/52 L Pulse Oximetry 98 98 04/07/18 16:15 04/07/18 16:30 04/07/18 16:45 Temperature Pulse Rate 92 H 88 86 Respiratory Rate 16 16 15 Blood Pressure 112/57 L 92/62 L 100/63 Pulse Oximetry 98 98 98 04/07/18 17:00 04/07/18 17:15 04/07/18 17:30 Temperature Pulse Rate 80 78 86 Respiratory Rate 16 16 17 Blood Pressure 104/59 L 106/58 L 108/59 L Pulse Oximetry 98 97 99 04/07/18 17:40 04/07/18 17:45 04/07/18 18:00 Temperature Pulse Rate 74 86 Respiratory Rate 16 16 15 Blood Pressure 105/55 L 115/62 Pulse Oximetry 98 99 100 04/07/18 19:00 04/07/18 19:10 04/07/18 19:30 Temperature Pulse Rate 76 102 H Respiratory Rate 15 17 Blood Pressure 100/59 L 102/60 Pulse Oximetry 98 97 04/07/18 19:40 04/07/18 19:45 04/07/18 20:00 Temperature 98.9 F Pulse Rate 86 88 92 H Respiratory Rate 15 16 16 Blood Pressure 101/55 L 97/59 L 105/92 H Pulse Oximetry 98 97 96 04/07/18 20:30 04/07/18 20:45 04/07/18 21:00 Temperature Pulse Rate 94 H 92 H 96 H Respiratory Rate 16 16 15 Blood Pressure 107/60 113/57 L 111/58 L Pulse Oximetry 98 97 97 04/07/18 21:16 04/07/18 21:26 04/07/18 22:00 Temperature Pulse Rate 92 H 90 98 H Respiratory Rate 16 16 Blood Pressure 111/62 107/58 L Pulse Oximetry 98 98 04/07/18 22:01 04/07/18 22:16 04/07/18 22:31 Temperature Pulse Rate 94 H 90 92 H Respiratory Rate 16 16 16 Blood Pressure 118/58 L 121/65 134/66 Pulse Oximetry 98 97 98 04/07/18 22:40 04/07/18 23:00 04/07/18 23:03 Temperature Pulse Rate 92 H 96 H Respiratory Rate 16 15 16 Blood Pressure 137/64 Pulse Oximetry 97 97 04/07/18 23:16 04/07/18 23:31 04/07/18 23:46 Temperature Pulse Rate 96 H 96 H 94 H Respiratory Rate 15 16 16 Blood Pressure 135/58 L 123/58 L 119/66 Pulse Oximetry 98 97 97 04/08/18 00:00 04/08/18 00:01 04/08/18 01:00 Temperature Pulse Rate 90 92 H 90 Respiratory Rate 16 16 Blood Pressure 103/57 L 118/64 103/58 L Pulse Oximetry 97 97 04/08/18 01:40 04/08/18 02:00 04/08/18 02:01 Temperature Pulse Rate 85 90 Respiratory Rate 16 16 Blood Pressure 100/65 Pulse Oximetry 98 98 04/08/18 02:28 04/08/18 03:28 04/08/18 03:43 Temperature Pulse Rate 86 82 84 Respiratory Rate 16 16 16 Blood Pressure 95/59 L 93/62 L 99/55 L Pulse Oximetry 98 98 97 04/08/18 03:50 04/08/18 04:00 04/08/18 04:20 Temperature 97.9 F Pulse Rate 83 91 H Respiratory Rate 16 15 16 Blood Pressure 112/70 Pulse Oximetry 99 98 04/08/18 05:13 04/08/18 06:00 04/08/18 07:47 Temperature Pulse Rate 96 H 86 84 Respiratory Rate 16 16 16 Blood Pressure 91/52 L 89/55 L Pulse Oximetry 97 98 04/08/18 07:50 04/08/18 08:00 04/08/18 08:45 Temperature 98.6 F Pulse Rate 86 Respiratory Rate 16 13 Blood Pressure Pulse Oximetry 98 98 04/08/18 09:40 04/08/18 10:00 04/08/18 11:21 Temperature 98.6 F Pulse Rate 108 H Respiratory Rate 22 Blood Pressure Pulse Oximetry 97 04/08/18 11:38 04/08/18 11:40 Temperature Pulse Rate 108 H Respiratory Rate 26 H Blood Pressure Pulse Oximetry 94 L Intake & Output 04/07/18 04/08/18 04/08/18 18:59 06:59 18:59 Intake Total 918.7 / 918.7 2061 / 2061 0 / 0 Output Total 950 / 950 Balance 918.7 / 918.7 1112 / 1112 0 / 0 Weight 54.4 kg Intake: IV 918.7 / 918.7 1305 / 1305 Versed Inj 50 mg In 50 ml @ 2 50 / 50 50 / 50 MG/HR 2 mls/hr IV.CONT TITRATE PRN Rx#:[id number] Maxipime Inj 2,000 MG In NS Inj 100 / 100 100 / 100 100 ML @ 200 mls/hr IV.SIG Q12H [facility] Rx#:[id number] MVI-12 Inj 10 ML Thiamine Inj 511.2 / 511.2 100 MG Folvite Inj 1 MG In NS Inj 500 ML @ 125 mls/hr IV.SIG Q24H [facility] Rx#:[id number] KCl Inj 10 MEQ In NS Inj 1,000 1005 / 1005 ML @ 84 mls/hr IV.SIG .[id number] [facility] Rx#:[id number] Vancomycin Inj 750 MG In NS Inj 257.5 / 257.5 250 ML @ 250 mls/hr IV.SIG Q18H [facility] Rx#:[id number] fentaNYL 10 mcg/mL Premix Drip 150 / 150 2,500 mcg In 250 ml @ 50 MCG/HR 5 mls/hr IV.SIG TITRATE PRN Rx #:[id number] Oral 0 / 0 Tube Feeding 507 / 507 Tube Irrigant 50 / 50 Water Bolus Amount 200 / 200 Output: Urine Amount (Catheter) 950 / 950 Indwelling Urethral Catheter 950 / 950 Other: Date of Last Bowel Movement 04/05/18 04/04/18 - Constitutional no acute distress - Routine HEENT Exam Head: Present: normocephalic Eye: Present: EOMI Comments: nasal cannula - Routine Neck Exam Comments: rt IJ - Routine Respiratory Exam Comments: occ fine crackles at the base - Routine Cardiovascular Exam Present: tachycardia - Routine Abdominal Exam Present: soft, distended Comments: decreased bowel sounds - Routine Extremities Exam Present: full ROM Comments: scds - Routine Neurological Exam Present: alert, normal speech follows commands - Urinary Catheter Management Indwelling Urethral Catheter Cath placed during this visit: yes Reason for continuing: Hourly intake/output Insertion date: 04/06/18 Results - Labs CBC & Chem 7: 04/08/18 05:00 04/08/18 05:00 Laboratory Results - last 24 hr 04/07/18 04/08/18 04/08/18 17:38 00:28 00:43 CBC w Diff WBC RBC Hgb Hct MCV MCH MCHC RDW Plt Count MPV Neut % (Auto) Lymph % (Auto) [place] % (Auto) Eos % (Auto) Baso % (Auto) Neut # (Auto) Lymph # (Auto) [place] # (Auto) Eos # (Auto) Baso # (Auto) WBC Differential Seg Neuts % (Manual) Band Neuts % (Manual) Lymphocytes % (Manual) Monocytes % (Manual) Abs Neuts (Manual) Differential Comment Platelet Estimate Platelet Morphology Puncture Site L fem john Patient Temperature 98.6 O2 Saturation 98 ABG pH 7.47 H ABG pCO2 29 L ABG pO2 114 ABG HCO3 21 L ABG O2 Content 15.5 ABG Base Excess -2.1 L ABG Methemoglobin 0.4 Hemoglobin 11.2 L Carboxyhemoglobin 1.2 O2 Delivery Device Ventilator Vent Setting Prvc Inspired O2 35 Critical Value No Sodium Potassium Chloride Carbon Dioxide Anion Gap BUN Creatinine Estimated GFR POC Glucose 121 H 124 H Random Glucose Calcium Phosphorus Magnesium Total Bilirubin AST ALT Alkaline Phosphatase Ammonia Total Protein Albumin 04/08/18 04/08/18 04/08/18 01:00 01:00 01:00 CBC w Diff Slide review pending WBC 9.8 RBC 3.35 L Hgb 11.4 L Hct 33.9 L MCV 101.1 H MCH 33.9 MCHC 33.5 RDW 13.0 Plt Count 211 MPV 8.9 Neut % (Auto) 83.2 H Lymph % (Auto) 7.4 L [place] % (Auto) 5.6 Eos % (Auto) 0.3 Baso % (Auto) 3.5 H Neut # (Auto) 8.2 H Lymph # (Auto) 0.7 L [place] # (Auto) 0.6 Eos # (Auto) 0.0 Baso # (Auto) 0.3 H WBC Differential Manual diff final Seg Neuts % (Manual) 82 H Band Neuts % (Manual) 4 Lymphocytes % (Manual) 8 L Monocytes % (Manual) 6 Abs Neuts (Manual) 8.4 H Differential Comment . Platelet Estimate Normal Platelet Morphology Normal Puncture Site Patient Temperature O2 Saturation ABG pH ABG pCO2 ABG pO2 ABG HCO3 ABG O2 Content ABG Base Excess ABG Methemoglobin Hemoglobin Carboxyhemoglobin O2 Delivery Device Vent Setting Inspired O2 Critical Value Sodium 144 Potassium 3.3 L Chloride 112 H Carbon Dioxide 21.8 Anion Gap 10 BUN 13 Creatinine 0.87 Estimated GFR 68 L POC Glucose Random Glucose 136 H Calcium 8.1 L Phosphorus 1.6 L Magnesium 1.5 Total Bilirubin 1.6 H AST 40 H ALT 24 Alkaline Phosphatase 68 Ammonia 37 H Total Protein 6.1 L Albumin 2.1 L 04/08/18 04/08/18 04/08/18 05:00 05:00 06:28 CBC w Diff Auto diff final WBC 9.5 RBC 3.26 L Hgb 11.1 L Hct 32.9 L MCV 100.9 H MCH 34.0 MCHC 33.8 RDW 13.1 Plt Count 216 MPV 9.0 Neut % (Auto) 76.3 H Lymph % (Auto) 16.0 [place] % (Auto) 7.3 Eos % (Auto) 0.2 Baso % (Auto) 0.2 Neut # (Auto) 7.3 Lymph # (Auto) 1.5 [place] # (Auto) 0.7 Eos # (Auto) 0.0 Baso # (Auto) 0.0 WBC Differential . Seg Neuts % (Manual) Band Neuts % (Manual) Lymphocytes % (Manual) Monocytes % (Manual) Abs Neuts (Manual) Differential Comment . Platelet Estimate Platelet Morphology Puncture Site Patient Temperature O2 Saturation ABG pH ABG pCO2 ABG pO2 ABG HCO3 ABG O2 Content ABG Base Excess ABG Methemoglobin Hemoglobin Carboxyhemoglobin O2 Delivery Device Vent Setting Inspired O2 Critical Value Sodium 146 H Potassium 3.8 Chloride 113 H Carbon Dioxide 22.7 Anion Gap 10 BUN 14 Creatinine 0.80 Estimated GFR 74 L POC Glucose 113 H Random Glucose 128 H Calcium 8.1 L Phosphorus Magnesium Total Bilirubin 1.5 H AST 36 ALT 22 Alkaline Phosphatase 60 Ammonia Total Protein 5.8 L Albumin 2.1 L 04/08/18 04/08/18 07:05 10:55 CBC w Diff WBC RBC Hgb Hct MCV MCH MCHC RDW Plt Count MPV Neut % (Auto) Lymph % (Auto) [place] % (Auto) Eos % (Auto) Baso % (Auto) Neut # (Auto) Lymph # (Auto) [place] # (Auto) Eos # (Auto) Baso # (Auto) WBC Differential Seg Neuts % (Manual) Band Neuts % (Manual) Lymphocytes % (Manual) Monocytes % (Manual) Abs Neuts (Manual) Differential Comment Platelet Estimate Platelet Morphology Puncture Site Patient Temperature O2 Saturation ABG pH ABG pCO2 ABG pO2 ABG HCO3 ABG O2 Content ABG Base Excess ABG Methemoglobin Hemoglobin Carboxyhemoglobin O2 Delivery Device Vent Setting Inspired O2 Critical Value Sodium Potassium Chloride Carbon Dioxide Anion Gap BUN Creatinine Estimated GFR POC Glucose 116 H 107 Random Glucose Calcium Phosphorus Magnesium Total Bilirubin AST ALT Alkaline Phosphatase Ammonia Total Protein Albumin Microbiology 04/07/18 16:40 Blood - Peripheral Aerobic Blood Culture - Preliminary No growth in 1 day 04/07/18 16:40 Blood - Peripheral Anaerobic Blood Culture - Preliminary No growth in 1 day 04/07/18 16:35 Blood - Peripheral Aerobic Blood Culture - Preliminary No growth in 1 day 04/07/18 16:35 Blood - Peripheral Anaerobic Blood Culture - Preliminary No growth in 1 day 04/05/18 06:30 Blood - Peripheral Aerobic Blood Culture - Preliminary No growth in 3 days 04/05/18 06:30 Blood - Peripheral Anaerobic Blood Culture - Preliminary No growth in 3 days 04/04/18 13:22 Blood - Peripheral Aerobic Blood Culture - Preliminary No growth in 4 days 04/04/18 13:22 Blood - Peripheral Anaerobic Blood Culture - Preliminary No growth in 4 days 04/04/18 13:29 Blood - Peripheral Aerobic Blood Culture - Preliminary No growth in 4 days 04/04/18 13:29 Blood - Peripheral Anaerobic Blood Culture - Preliminary No growth in 4 days 04/06/18 08:00 Sputum - Endotracheal Gram Stain - Final 04/06/18 08:00 Sputum - Endotracheal Sputum Culture - Preliminary No growth in 24 hours 04/05/18 11:10 Clean Catch Urine Urine Culture - Final Enterococcus faecalis - Imaging Impressions Chest X-Ray 04/08/18 06:00 CONCLUSION: No significant interval change with persistent right greater than left lung base opacity and likely small bilateral pleural effusions. - Procedures CT ABD/PELVIS Assessment and Plan - Assessment (1) Respiratory failure Code(s): J96.90 - Respiratory failure, unspecified, unspecified whether with hypoxia or hypercapnia Status: Acute Plan: just extubated, continue pulmonaryb toilet, IS (2) Sepsis Code(s): A41.9 - Sepsis, unspecified organism Status: Acute Plan: Enterococcus in urine ecoli in blood.Continue cefepime, vanco added again yesterday. Afebrile for 24 hrs. ID following (3) Pyelonephritis Code(s): N12 - Tubulo-interstitial nephritis, not specified as acute or chronic Status: Acute Plan: On cefepime and vanco (4) Hyponatremia Plan: resolved (5) Dehydration Code(s): E86.0 - Dehydration Status: Acute Plan: echo showed decreased EF, monitor fluid balance, extubated should be able to tolerate free water was getting through tube feedings (6) LFT elevation Code(s): R94.5 - Abnormal results of liver function studies Status: Acute Plan: LFT improved CT unremarkable. She does consume alcohol regularly as an outpatient. (7) Alcohol use Code(s): Z78.9 - Other specified health status Status: Chronic Plan: Per report she drinks at least 6 glasses of wine daily the last time 2 days prior. Continue treatment for alcohol withdrawal, thiamine, librium. supportive care (8) NSTEMI (non-ST elevated myocardial infarction) Code(s): I21.4 - Non-ST elevation (NSTEMI) myocardial infarction Status: Acute Plan: elevation of troponins . Echo showed severely reduced EF 25-30 %. Seen by cardiology, started on asa 81 ans atorvastatin. Will need further cardiac w/u prior to discharge. (1) Respiratory failure Qualifiers: Qualified Code(s): J96.01 - Acute respiratory failure with hypoxia (2) Sepsis Qualifiers: Qualified Code(s): A41.51 - Sepsis due to Escherichia coli [E. coli]
[2018-04-08] MEDS ORDERED: Methylnaltrexone Inj 12 MG/0.6 ML Vial SQ ONE (14:00)
[2018-04-08] MEDS ORDERED: LORazepam 0.5 MG Tablet PO PRN (15:00)
--- NOTE | 2018-04-08 16:30 | XR ---
EXAM DATE: 04/08/2018 4:21 PM EST AGE/SEX: 53 years / Female INDICATIONS: Abdominal distention. CLINICAL DATA: This is the patient's initial encounter. Patient reports that signs and symptoms have been present for 3 days and indicates a pain score of 2/10. MEDICAL/SURGICAL HISTORY: None. None. COMPARISON: No prior exams available for comparison. FINDINGS: Air is identified throughout the GI tract. There is mild small bowel distention. There is no evidenc e of mass effect or free air. CONCLUSION: Mild ileus Electronically signed by: Alexy Morfin MD 04/08/2018 4:29 PM EST
[2018-04-09] MEDS: Insulin NovoLOG Aspart Correctional Sugar Inj SQ SCH ×4 (00:10→18:19)
[2018-04-09] MEDS: Vancomycin Inj 750 MG in Sodium Chlor 0.9% Inj 250 ML IV.SIG SCH (04:00)
[2018-04-09 04:25] LABS: Baso % (Auto) 0.1 % (0.0-2.0); Eos % (Auto) 0.4 % (0.0-4.0); Hematocrit 33.3 % (35.0-46.0); Hemoglobin 11.1 gm/dL (11.6-15.3); Lymph % (Auto) 10.6 % (9.0-44.0); Mean Corpuscular HGB Conc 33.2 % (32.0-36.0); Mean Corpuscular Hemoglobin 33.5 pg (27.0-34.0); Mean Corpuscular Volume 101.1 fL (80.0-100.0); Mean Platelet Volume 8.8 fL (7.0-11.0); Mono # (Auto) 0.7 th/mm3 (0.0-0.9); Mono % (Auto) 7.7 % (0.0-8.0); Neut # (Auto) 7.3 th/mm3 (1.8-7.7); Neut % (Auto) 81.2 % (16.0-70.0); Platelet Count 292 th/mm3 (150-450); Red Cell Distribution Width 13.4 % (11.6-17.2)
[2018-04-09 04:35] LABS: Chloride 108 meq/L (98-107); Potassium 3.1 meq/L (3.5-5.1); Sodium 141 meq/L (136-145)
[2018-04-09 04:38] LABS: Calcium 8.1 mg/dL (8.5-10.1)
[2018-04-09 04:39] LABS: Albumin 2.3 g/dL (3.4-5.0); Anion Gap 10 meq/L (5-15); Blood Urea Nitrogen 14 mg/dL (7-18); Carbon Dioxide 22.7 meq/L (21.0-32.0); Glucose,Random 109 mg/dL (74-106)
[2018-04-09 04:42] LABS: Alanine Aminotransferase 20 U/L (10-53); Aspartate Aminotransferase 33 U/L (15-37); Glomerular Filtration Rate 85 mL/min (>89)
[2018-04-09 04:44] LABS: Total Protein 6.1 g/dL (6.4-8.2)
[2018-04-09 04:45] LABS: Alkaline Phosphatase 69 U/L (45-117)
[2018-04-09] MEDS: Chlorhexidine Gluconate 2% 1 Pack (2 Cloths) TOPICAL SCH (05:21)
[2018-04-09] MEDS: Potassium Chlor 20 mEq Premix 20 MEQ/100 ML PIGGYBACK IV.SIG PRN ×4 (05:31→17:35)
[2018-04-09] MEDS: LORazepam 0.5 MG Tablet PO PRN ×3 (05:57→22:47)
[2018-04-09] MEDS: Senna/Docusate Sodium 8.6/50 MG Tablet PO SCH ×2 (08:05→20:06)
[2018-04-09] MEDS: Heparin - SQ 10,000 UNITS/ML Vial SQ SCH ×2 (08:07→20:06)
[2018-04-09] MEDS: Artificial Tears Opth Drops 15 ML Bottle EACH EYE SCH ×3 (08:08→23:25)
--- NOTE | 2018-04-09 13:21 | P.PN ---
Subjective Interval history: some soft stools, abdomen still distended, burning when she urinates, no sob Physical Exam Vital signs: Vital Signs 04/08/18 13:00 04/08/18 14:00 04/08/18 15:00 Temperature Pulse Rate 106 H 108 H 108 H Respiratory Rate 43 H 36 H 40 H Blood Pressure 117/66 122/67 127/71 Pulse Oximetry 94 L 94 L 93 L 04/08/18 15:20 04/08/18 16:00 04/08/18 17:00 Temperature 98.2 F Pulse Rate 106 H 92 H 108 H Respiratory Rate 20 34 H 40 H Blood Pressure 122/69 137/76 Pulse Oximetry 91 L 93 L 04/08/18 18:00 04/08/18 19:00 04/08/18 19:24 Temperature Pulse Rate 110 H 104 H 104 H Respiratory Rate 36 H 36 H 20 Blood Pressure 137/76 134/74 Pulse Oximetry 95 93 L 95 04/08/18 20:00 04/08/18 21:00 04/08/18 22:00 Temperature 99 F Pulse Rate 112 H 120 H 107 H Respiratory Rate 36 H 40 H 28 H Blood Pressure 149/82 H 138/79 139/77 Pulse Oximetry 95 04/08/18 23:00 04/08/18 23:39 04/09/18 00:00 Temperature 98.2 F Pulse Rate 120 H 112 H 120 H Respiratory Rate 25 H 20 36 H Blood Pressure 134/79 138/81 Pulse Oximetry 91 L 91 L 04/09/18 01:00 04/09/18 02:00 04/09/18 03:00 Temperature Pulse Rate 118 H 120 H 108 H Respiratory Rate 37 H Blood Pressure 134/65 140/75 Pulse Oximetry 92 L 97 04/09/18 04:00 04/09/18 04:44 04/09/18 05:00 Temperature 98.6 F Pulse Rate 108 H 106 H 110 H Respiratory Rate 35 H 20 37 H Blood Pressure 144/83 H 141/74 H Pulse Oximetry 90 L 94 L 04/09/18 06:00 04/09/18 07:30 Temperature Pulse Rate 110 H Respiratory Rate 32 H Blood Pressure 145/80 H Pulse Oximetry 94 L 93 L Intake & Output 04/08/18 04/09/18 04/09/18 18:59 06:59 18:59 Intake Total 2248.7 / 2248.7 1357.5 / 1357.5 320 / 320 Output Total 300 / 300 Balance 2248.7 / 2248.7 1357.5 / 1357.5 20 Weight 55.5 kg Intake: IV 2148.7 / 2148.7 1357.5 / 1357.5 200 / 200 LR 1000 mL Inj 1,000 ML @ 84 1000 / 1000 mls/hr IV.CONT .[id number] MARIE Rx# :[id number] Levophed Inj 16 MG In NS Inj 220 / 220 234 ML @ 2 MCG/MIN 1.87 mls/hr IV.CONT TITRATE PRN Rx#: [id number] Maxipime Inj 2,000 MG In NS Inj 100 / 100 100 / 100 100 ML @ 200 mls/hr IV.SIG Q12H MARIE Rx#:[id number] MVI-12 Inj 10 ML Thiamine Inj 511.2 / 511.2 100 MG Folvite Inj 1 MG In NS Inj 500 ML @ 125 mls/hr IV.SIG Q24H MARIE Rx#:[id number] KCl 20 mEq Premix Inj 20 meq In 200 / 200 100 ml @ 50 mls/hr IV.SIG Q2H PRN Rx#:[id number] KCl Inj 10 MEQ In NS Inj 1,000 800 / 800 ML @ 84 mls/hr IV.SIG .[id number] MARIE Rx#:[id number] Potassium Phosphate Inj 30 MMOL 260 / 260 In NS Inj 250 ML @ 42 mls/hr IV.SIG UNSCH PRN Rx#:[id number] Vancomycin Inj 750 MG In NS Inj 257.5 / 257.5 257.5 / 257.5 250 ML @ 250 mls/hr IV.SIG Q18H MARIE Rx#:[id number] Oral 100 / 100 0 / 0 120 / 120 Output: Urine 300 / 300 Other: # Voids 5 Date of Last Bowel Movement 04/08/18 04/09/18 # Bowel Movements 5 - Constitutional mild distress, chronically ill appearing - Routine HEENT Exam Head: Present: normocephalic Eye: Present: EOMI - Routine Neck Exam Present: supple - Routine Respiratory Exam Present: CTA bilaterally - Routine Cardiovascular Exam Present: tachycardia - Routine Abdominal Exam Present: distended Comments: abdomen still distended but softer then yesterday,decreased bowel sounds - Routine Extremities Exam Present: full ROM - Routine Neurological Exam Present: alert a little tremulous - Detailed Neurological Exam: Coma Scale Eye Opening: Spontaneous - Routine Psychiatric Exam Present: cooperative, anxious - Urinary Catheter Management Indwelling Urethral Catheter Cath placed during this visit: yes, but has since been removed by the nurse Reason for continuing: Hourly intake/output Insertion date: 04/06/18 Removal date: 04/08/18 Results - Labs CBC & Chem 7: 04/09/18 04:10 04/09/18 04:10 Laboratory Results - last 24 hr 04/08/18 04/09/18 04/09/18 23:17 04:10 04:10 CBC w Diff Auto diff final WBC 9.0 RBC 3.30 L Hgb 11.1 L Hct 33.3 L MCV 101.1 H MCH 33.5 MCHC 33.2 RDW 13.4 Plt Count 292 D MPV 8.8 Neut % (Auto) 81.2 H Lymph % (Auto) 10.6 [place] % (Auto) 7.7 Eos % (Auto) 0.4 Baso % (Auto) 0.1 Neut # (Auto) 7.3 Lymph # (Auto) 1.0 [place] # (Auto) 0.7 Eos # (Auto) 0.0 Baso # (Auto) 0.0 WBC Differential . Differential Comment . Sodium 141 Potassium 3.1 L Chloride 108 H Carbon Dioxide 22.7 Anion Gap 10 BUN 14 Creatinine 0.71 Estimated GFR 85 L POC Glucose 96 Random Glucose 109 H Calcium 8.1 L Total Bilirubin 1.6 H AST 33 ALT 20 Alkaline Phosphatase 69 Total Protein 6.1 L Albumin 2.3 L 04/09/18 11:34 CBC w Diff WBC RBC Hgb Hct MCV MCH MCHC RDW Plt Count MPV Neut % (Auto) Lymph % (Auto) [place] % (Auto) Eos % (Auto) Baso % (Auto) Neut # (Auto) Lymph # (Auto) [place] # (Auto) Eos # (Auto) Baso # (Auto) WBC Differential Differential Comment Sodium Potassium Chloride Carbon Dioxide Anion Gap BUN Creatinine Estimated GFR POC Glucose 105 Random Glucose Calcium Total Bilirubin AST ALT Alkaline Phosphatase Total Protein Albumin Microbiology 04/07/18 16:40 Blood - Peripheral Aerobic Blood Culture - Preliminary No growth in 2 days 04/07/18 16:40 Blood - Peripheral Anaerobic Blood Culture - Preliminary No growth in 2 days 04/07/18 16:35 Blood - Peripheral Aerobic Blood Culture - Preliminary No growth in 2 days 04/07/18 16:35 Blood - Peripheral Anaerobic Blood Culture - Preliminary No growth in 2 days 04/05/18 06:30 Blood - Peripheral Aerobic Blood Culture - Preliminary No growth in 4 days 04/05/18 06:30 Blood - Peripheral Anaerobic Blood Culture - Preliminary No growth in 4 days 04/04/18 13:22 Blood - Peripheral Aerobic Blood Culture - Final No growth in 5 days 04/04/18 13:22 Blood - Peripheral Anaerobic Blood Culture - Final No growth in 5 days 04/04/18 13:29 Blood - Peripheral Aerobic Blood Culture - Final No growth in 5 days 04/04/18 13:29 Blood - Peripheral Anaerobic Blood Culture - Final No growth in 5 days 04/06/18 08:00 Sputum - Endotracheal Gram Stain - Final 04/06/18 08:00 Sputum - Endotracheal Sputum Culture - Final No growth in 48 hours - Imaging Impressions Abdomen X-Ray 04/08/18 00:00 CONCLUSION: Mild ileus Assessment and Plan - Assessment (1) Respiratory failure Code(s): J96.90 - Respiratory failure, unspecified, unspecified whether with hypoxia or hypercapnia Status: Acute Plan: stable on nasal cannula, cont IS, breathing treatments, oob into upright position later today (2) Sepsis Code(s): A41.9 - Sepsis, unspecified organism Status: Acute Plan: Enterococcus in urine ecoli in blood.Continue cefepime, vanco Afebrile . ID following (3) Pyelonephritis Code(s): N12 - Tubulo-interstitial nephritis, not specified as acute or chronic Status: Acute Plan: On cefepime and vanco (4) Hyponatremia Plan: resolved (5) Dehydration Code(s): E86.0 - Dehydration Status: Resolved Plan: echo showed decreased EF, monitor fluid balance,resolved (6) LFT elevation Code(s): R94.5 - Abnormal results of liver function studies Status: Acute Plan: LFT improved CT unremarkable. She does consume alcohol regularly as an outpatient. (7) Alcohol use Code(s): Z78.9 - Other specified health status Status: Chronic Plan: Per report she drinks at least 6 glasses of wine daily the last time 2 days prior. Continue treatment for alcohol withdrawal, thiamine, librium. supportive care (8) NSTEMI (non-ST elevated myocardial infarction) Code(s): I21.4 - Non-ST elevation (NSTEMI) myocardial infarction Status: Acute Plan: elevation of troponins . Echo showed severely reduced EF 25-30 %. Seen by cardiology, started on asa 81 ans atorvastatin. Will need further cardiac w/u prior to discharge.plan to start cathy , coreg in the next day or so (9) Ileus Code(s): K56.7 - Ileus, unspecified Status: Acute Plan: has has some abdominal distention and decreased bowel sounds, xray mild ileus, on reglan, abdomen softer today, small bms. (1) Respiratory failure Qualifiers: Chronicity: acute Respiratory failure complication: hypoxia Qualified Code(s ): J96.01 - Acute respiratory failure with hypoxia (2) Sepsis Qualifiers: Sepsis type: Escherichia coli Qualified Code(s): A41.51 - Sepsis due to Escherichia coli [E. coli]
[2018-04-09] MEDS: Multivitamin/Minerals Therapeutic Tablet PO SCH (16:22)
[2018-04-09] MEDS: Folic Acid 1 MG Tablet PO SCH (16:22)
--- NOTE | 2018-04-09 19:09 | P.PNCC ---
Subjective Subjective Remarks/Hospital Course: This is a 53-year-old female. Admission 04/03/2018. Consultation . Past medical history of's of alcohol use. Patient presents to [facility] 04/03 as a direct admit from her physician's office with clinically of bilateral flank/abdominal pain, chills, dysuria for 5 days duration per medical records. She was so weak she was urinating in the bed. CT abdomen/pelvis with pelvis revealed no acute abdominal findings. Specifically no signs of stone or obstructive process. No gallstones were identified. Patient eventually did grow E. coli out of her urine and blood. She is currently on cefepime along with vancomycin. Infectious disease has been consulted and are currently following actively. This morning 04/06, patient became acutely short of breath and hypoxic. She received 40 mg IV furosemide per hospitalist. Was transported and placed on a nonrebreather mask. She is currently breathing in the 40s with retractions and is on a nonrebreather mask satting at 90%. She was emergently intubated with central line and arterial line placed. 04/07: Lasted 2 hours on CPAP trial. Agitated. Currently on midazolam and fentanyl drips. Requires norepinephrine drip at 6 mcg/min likely due to sedation. Tolerating tube feeds. 04/08: Extubated this morning, levophed discontinued, patient complains of diffuse abdominal pain and has not had a normal BM for several days. Found to have a mild ileus on KUB. 04/09: Having bowel movements/ passing flatus today, ileus appears to be resolving, will start clears. Objective Vital Signs / I&O: Vital Signs 04/08/18 19:24 04/08/18 20:00 04/08/18 21:00 Temperature 99 F Pulse Rate 104 H 112 H 120 H Respiratory Rate 20 36 H 40 H Blood Pressure 149/82 H 138/79 Pulse Oximetry 95 95 04/08/18 22:00 04/08/18 23:00 04/08/18 23:39 Temperature Pulse Rate 107 H 120 H 112 H Respiratory Rate 28 H 25 H 20 Blood Pressure 139/77 134/79 Pulse Oximetry 91 L 04/09/18 00:00 04/09/18 01:00 04/09/18 02:00 Temperature 98.2 F Pulse Rate 120 H 118 H 120 H Respiratory Rate 36 H 37 H Blood Pressure 138/81 134/65 Pulse Oximetry 91 L 92 L 04/09/18 03:00 04/09/18 04:00 04/09/18 04:44 Temperature 98.6 F Pulse Rate 108 H 108 H 106 H Respiratory Rate 35 H 20 Blood Pressure 140/75 144/83 H Pulse Oximetry 97 90 L 04/09/18 05:00 04/09/18 06:00 04/09/18 07:00 Temperature Pulse Rate 110 H 110 H 112 H Respiratory Rate 37 H 32 H 37 H Blood Pressure 141/74 H 145/80 H 145/79 H Pulse Oximetry 94 L 94 L 93 L 04/09/18 07:30 04/09/18 08:00 04/09/18 09:00 Temperature Pulse Rate 102 H 100 H Respiratory Rate 35 H 33 H Blood Pressure 126/65 132/76 Pulse Oximetry 93 L 97 95 04/09/18 10:00 04/09/18 11:00 04/09/18 11:15 Temperature Pulse Rate 110 H 96 H 104 H Respiratory Rate 39 H 25 H 26 H Blood Pressure 136/74 Pulse Oximetry 93 L 96 04/09/18 12:00 04/09/18 13:00 04/09/18 14:00 Temperature Pulse Rate 106 H 106 H 106 H Respiratory Rate 36 H 38 H Blood Pressure Pulse Oximetry 95 95 04/09/18 14:18 04/09/18 15:00 04/09/18 15:30 Temperature Pulse Rate 102 H 102 H 95 H Respiratory Rate 41 H 34 H 28 H Blood Pressure 128/73 145/80 H Pulse Oximetry 95 91 L 04/09/18 16:00 04/09/18 16:10 04/09/18 17:14 Temperature 97.6 F Pulse Rate 104 H 104 H 104 H Respiratory Rate 42 H 37 H Blood Pressure 130/80 141/78 H Pulse Oximetry 94 L 97 04/09/18 18:00 Temperature Pulse Rate 108 H Respiratory Rate 37 H Blood Pressure 90/60 L Pulse Oximetry Intake & Output 04/09/18 04/09/18 04/10/18 06:59 18:59 06:59 Intake Total 1357.5 / 1357.5 760 / 760 Output Total 900 / 900 Balance 1357.5 / 1357.5 -140 / -140 Weight 55.5 kg Intake: IV 1357.5 / 1357.5 400 / 400 LR 1000 mL Inj 1,000 ML @ 84 1000 / 1000 mls/hr IV.CONT .[id number] MARIE Rx# :[id number] Maxipime Inj 2,000 MG In NS Inj 100 / 100 100 / 100 100 ML @ 200 mls/hr IV.SIG Q12H MARIE Rx#:[id number] KCl 20 mEq Premix Inj 20 meq In 300 / 300 100 ml @ 50 mls/hr IV.SIG Q2H PRN Rx#:[id number] Vancomycin Inj 750 MG In NS Inj 257.5 / 257.5 250 ML @ 250 mls/hr IV.SIG Q18H MARIE Rx#:[id number] Oral 0 / 0 360 / 360 Output: Urine 800 / 800 Stool 100 / 100 Other: # Voids 5 Date of Last Bowel Movement 04/09/18 # Bowel Movements 2 Result Diagrams: 04/09/18 04:10 04/09/18 04:10 Objective Remarks: GENERAL: Well-appearing, comfortable SKIN: Warm and dry. HEAD: Atraumatic. Normocephalic. EYES: Pupils equal and round. No scleral icterus. No injection or drainage. ENT: Mucous membranes pink and moist. NECK: Trachea midline. CARDIOVASCULAR: Regular rate and rhythm RESPIRATORY: Clear to auscultation bilaterally, no respiratory distress GASTROINTESTINAL: Abdomen still distended but softer than yesterday, non-tender MUSCULOSKELETAL: No peripheral edema NEUROLOGICAL: Alert and oriented x 3, no tremor, speech clear and fluent, moving all extremities PSYCH: No agitation Assessment and Plan - Assessment and Plan Plan: Neuro/Psych: Acute toxic metabolic encephalopathy History of EtOH abuse Continue chlordiazepoxide 10 mg 3 times daily, PRN ativan for breakthrough symptoms, can start to space out PRN doses of ativan as patient recovers Monitor for DTs PO thiamine supplementation CV: Elevated troponin Acute systolic heart failure ejection fraction 20% Elevated triglycerides Echo-decreased LV systolic function ejection fraction in the range of 25-30%. [id number] mitral valve regurgitation. The estimated pulmonary arterial pressure is 27 millimeters Hg. there is mild tricuspid valve regurgitation. There is a small pericardial effusion present. A moderate left sided pleural effusion is noted/troponin downward trending D/C IV fluids Appreciate cardiology consultation. Continue aspirin 81 mg daily and atorvastatin 40 mg daily. Resp: Acute hypoxemic hypercapnic respiratory failure Extubated yesterday Chest PT/ incentive spirometry/ Acapella Albuterol/ipratropium aerosols every 4 hours with albuterol aerosols every 2 hours as needed dyspnea GI: Elevated total bilirubin Elevated AST Hypoalbuminemia Ileus appears to be resolving, continue scheduled reglan for now, start clears Pantoprazole for GI prophylaxis Docusate sodium/senna 1 tablet twice daily for bowel regimen CT abdomen/pelvis this admission revealed no acute abdominal findings. Specifically no signs of gallstones/liver enlargement or renal stones Ammonia 13, continue lactulose Endo: Sliding scale insulin Accu-Cheks to maintain euglycemia aspart insulin every 6 hours, well-controlled on medium protocol Renal: Creatinine currently within normal limits Monitor urine output Accurate I's and O's Heme: Macrocytosis anemia Leukocytosis Monitor CBC daily. Follow trends ID: E. coli bacteremia/sepsis Enterococcus faecalis urinary tract infection Blood cultures x2 04/03 and UA showed toscano-sensitive E coli Repeat blood cultures on 04/04, 04/05, and 04/07 have no growth to date 04/05 UA results E faecalis sensitive to penicillins Infectious disease following but have not seen for several days. Based on culture reports, will narrow antibiotics to rocephin and treat for total of 10 days for pyelonephritis. Appreciate any additional input from ID. MSK: PT evaluate and treat OOB FEN: Acute hypopotassemia Hyponatremia D/C maintenance fluids Replace electrolytes as clinically indicated per ICU electrolyte protocol Access D/C baker, TLC, and art line Prophylaxis -GI - PPI -DVT -SCDs/SQH OVERALL: Patient is stable/ improving. Will sign off. Please don't hesitate to call with any questions or concerns. Thank you for this interesting consult. Level 2 follow up To help prompt me to consider important information that might be impacting today's encounter and assessment, information from prior notes written by myself or my colleagues may have been "brought forward" into today's note. My signature on this note, however, is an attestation that I personally performed the exam, history, and/or decision-making noted today, and, unless otherwise indicated, the interactions with patient, family, and staff as well as the review of records all occurred today. I also attest that the listed assessment and stated plan reflect my best clinical judgment today based on the combination of historical information, prior notes, and today's exam/ interactions. Code Status: Full
[2018-04-09] MEDS ORDERED: Pharmacy Ordered Lab Info OTHER ONE (21:45)
[2018-04-10] MEDS: Insulin NovoLOG Aspart Correctional Sugar Inj SQ SCH ×4 (01:19→19:30)
[2018-04-10] MEDS: Chlorhexidine Gluconate 2% 1 Pack (2 Cloths) TOPICAL SCH (05:36)
[2018-04-10 06:01] LABS: Baso % (Auto) 0.5 % (0.0-2.0); Eos # (Auto) 0.2 th/mm3 (0.0-0.4); Eos % (Auto) 2.5 % (0.0-4.0); Hematocrit 32.7 % (35.0-46.0); Lymph # (Auto) 0.8 th/mm3 (1.0-4.8); Lymph % (Auto) 10.2 % (9.0-44.0); Mean Corpuscular HGB Conc 33.6 % (32.0-36.0); Mean Corpuscular Hemoglobin 33.4 pg (27.0-34.0); Mean Corpuscular Volume 99.5 fL (80.0-100.0); Mean Platelet Volume 8.9 fL (7.0-11.0); Mono # (Auto) 0.5 th/mm3 (0.0-0.9); Mono % (Auto) 6.8 % (0.0-8.0); Platelet Count 400 th/mm3 (150-450); Red Blood Count 3.28 mil/mm3 (4.00-5.30); Red Cell Distribution Width 13.6 % (11.6-17.2); White Blood Count 7.5 th/mm3 (4.0-11.0)
[2018-04-10] MEDS: Artificial Tears Opth Drops 15 ML Bottle EACH EYE SCH ×3 (06:25→21:08)
[2018-04-10 07:34] LABS: Alanine Aminotransferase 24 U/L (10-53); Albumin 2.6 g/dL (3.4-5.0); Alkaline Phosphatase 79 U/L (45-117); Anion Gap 10 meq/L (5-15); Aspartate Aminotransferase 36 U/L (15-37); Blood Urea Nitrogen 8 mg/dL (7-18); Calcium 8.5 mg/dL (8.5-10.1); Carbon Dioxide 25.1 meq/L (21.0-32.0); Chloride 105 meq/L (98-107); Glomerular Filtration Rate Greater Than 89 mL/min (>89); Glucose,Random 94 mg/dL (74-106); Magnesium 1.5 mg/dL (1.5-2.5); Sodium 140 meq/L (136-145); Total Protein 6.7 g/dL (6.4-8.2)
[2018-04-10 08:12] LABS: Potassium 2.7 meq/L (3.5-5.1)
[2018-04-10] MEDS: Folic Acid 1 MG Tablet PO SCH (08:33)
[2018-04-10] MEDS: Multivitamin/Minerals Therapeutic Tablet PO SCH (08:33)
[2018-04-10] MEDS: Heparin - SQ 10,000 UNITS/ML Vial SQ SCH ×2 (08:34→21:05)
[2018-04-10] MEDS: Senna/Docusate Sodium 8.6/50 MG Tablet PO SCH ×2 (08:35→22:26)
[2018-04-10] MEDS: Magnesium Sulfate Inj 2 GM in Sodium Chlor 0.9% Inj 96 ML IV.SIG PRN (09:09)
[2018-04-10] MEDS: LORazepam 0.5 MG Tablet PO PRN ×3 (09:27→23:58)
--- NOTE | 2018-04-10 09:54 | P.PNID ---
Subjective Remarks: No fevers Feels very weak and tired Has NG tube - abdominal distension with ileus Antibiotics: Ceftriaxone 2 g IV daily Lines: RIJ Past Medical History: Breast augmentation Tonsillectomy Drinks ETOH regularly Allergies/Adverse Reactions: Allergies No Known Allergies Allergy (Verified 04/03/18 10:22) Objective Vital Signs 04/09/18 10:00 04/09/18 11:00 04/09/18 11:15 Temperature Pulse Rate 110 H 96 H 104 H Respiratory Rate 39 H 25 H 26 H Blood Pressure 136/74 Pulse Oximetry 93 L 96 04/09/18 12:00 04/09/18 13:00 04/09/18 14:00 Temperature Pulse Rate 106 H 106 H 106 H Respiratory Rate 36 H 38 H Blood Pressure Pulse Oximetry 95 95 04/09/18 14:18 04/09/18 15:00 04/09/18 15:30 Temperature Pulse Rate 102 H 102 H 95 H Respiratory Rate 41 H 34 H 28 H Blood Pressure 128/73 145/80 H Pulse Oximetry 95 91 L 04/09/18 16:00 04/09/18 16:10 04/09/18 17:14 Temperature 97.6 F Pulse Rate 104 H 104 H 104 H Respiratory Rate 42 H 37 H Blood Pressure 130/80 141/78 H Pulse Oximetry 94 L 97 04/09/18 18:00 04/09/18 19:07 04/09/18 20:00 Temperature 99.0 F Pulse Rate 108 H 116 H 108 H Respiratory Rate 37 H 25 H 36 H Blood Pressure 90/60 L 151/90 H 145/82 H Pulse Oximetry 96 99 04/09/18 20:01 04/09/18 21:00 04/09/18 22:00 Temperature Pulse Rate 110 H 110 H 110 H Respiratory Rate 28 H 35 H 36 H Blood Pressure 138/71 167/98 H Pulse Oximetry 99 97 96 04/09/18 23:00 04/09/18 23:08 04/10/18 00:00 Temperature Pulse Rate 108 H 103 H 108 H Respiratory Rate 35 H 30 H 30 H Blood Pressure 146/85 H 140/68 Pulse Oximetry 98 97 04/10/18 01:00 04/10/18 02:00 04/10/18 03:00 Temperature Pulse Rate 106 H 104 H 104 H Respiratory Rate 38 H 32 H 35 H Blood Pressure 151/72 H 134/78 148/85 H Pulse Oximetry 97 97 96 04/10/18 03:20 04/10/18 04:00 04/10/18 05:00 Temperature 98.9 F Pulse Rate 101 H 110 H 112 H Respiratory Rate 24 34 H 32 H Blood Pressure 149/63 H 153/87 H Pulse Oximetry 97 94 L 04/10/18 06:00 04/10/18 07:35 Temperature Pulse Rate 104 H 100 H Respiratory Rate 36 H 22 Blood Pressure 145/79 H Pulse Oximetry 96 96 Intake & Output 04/09/18 04/10/18 04/10/18 18:59 06:59 18:59 Intake Total 760 / 760 1200 / 1200 Output Total 900 / 900 1300 / 1300 Balance -140 / -140 -100 / -100 Weight 54.8 kg Intake: IV 400 / 400 1200 / 1200 LR 1000 mL Inj 1,000 ML @ 84 1000 / 1000 mls/hr IV.CONT .[id number] MARIE Rx# :[id number] Maxipime Inj 2,000 MG In NS Inj 100 / 100 100 ML @ 200 mls/hr IV.SIG Q12H MARIE Rx#:[id number] KCl 20 mEq Premix Inj 20 meq In 300 / 300 100 / 100 100 ml @ 50 mls/hr IV.SIG Q2H PRN Rx#:[id number] Rocephin Inj 2,000 MG In NS Inj 100 / 100 100 ML @ 200 mls/hr IV.SIG Q12H MARIE Rx#:[id number] Oral 360 / 360 Output: Urine 800 / 800 Stool 100 / 100 Gastric Drainage 1300 / 1300 Left Nare 1300 / 1300 Other: Post Void Residual 900 # Voids 5 Date of Last Bowel Movement 04/09/18 04/10/18 # Bowel Movements 2 1 04/07/18 16:40 Blood - Peripheral Aerobic Blood Culture - Preliminary No growth in 2 days 04/07/18 16:40 Blood - Peripheral Anaerobic Blood Culture - Preliminary No growth in 2 days 04/07/18 16:35 Blood - Peripheral Aerobic Blood Culture - Preliminary No growth in 2 days 04/07/18 16:35 Blood - Peripheral Anaerobic Blood Culture - Preliminary No growth in 2 days 04/05/18 06:30 Blood - Peripheral Aerobic Blood Culture - Preliminary No growth in 4 days 04/05/18 06:30 Blood - Peripheral Anaerobic Blood Culture - Preliminary No growth in 4 days 04/04/18 13:22 Blood - Peripheral Aerobic Blood Culture - Final No growth in 5 days 04/04/18 13:22 Blood - Peripheral Anaerobic Blood Culture - Final No growth in 5 days 04/04/18 13:29 Blood - Peripheral Aerobic Blood Culture - Final No growth in 5 days 04/04/18 13:29 Blood - Peripheral Anaerobic Blood Culture - Final No growth in 5 days 04/06/18 08:00 Sputum - Endotracheal Gram Stain - Final 04/06/18 08:00 Sputum - Endotracheal Sputum Culture - Final No growth in 48 hours 04/05/18 11:10 Clean Catch Urine Urine Culture - Final Enterococcus faecalis Lab - Hematology Results 04/09/18 04/10/18 04:10 05:40 CBC w Diff Auto diff final Auto diff final WBC 9.0 7.5 RBC 3.30 L 3.28 L Hgb 11.1 L 11.0 L Hct 33.3 L 32.7 L MCV 101.1 H 99.5 MCH 33.5 33.4 MCHC 33.2 33.6 RDW 13.4 13.6 Plt Count 292 D 400 D MPV 8.8 8.9 Neut % (Auto) 81.2 H 80.0 H Lymph % (Auto) 10.6 10.2 [place] % (Auto) 7.7 6.8 Eos % (Auto) 0.4 2.5 Baso % (Auto) 0.1 0.5 Neut # (Auto) 7.3 6.0 Lymph # (Auto) 1.0 0.8 L [place] # (Auto) 0.7 0.5 Eos # (Auto) 0.0 0.2 Baso # (Auto) 0.0 0.0 WBC Differential . . Differential Comment . . Lab - Chemistry Results 04/08/18 04/08/18 04/09/18 10:55 23:17 04:10 Sodium 141 Potassium 3.1 L Chloride 108 H Carbon Dioxide 22.7 Anion Gap 10 BUN 14 Creatinine 0.71 Estimated GFR 85 L POC Glucose 107 96 Random Glucose 109 H Calcium 8.1 L Magnesium Total Bilirubin 1.6 H AST 33 ALT 20 Alkaline Phosphatase 69 Ammonia Total Protein 6.1 L Albumin 2.3 L 04/09/18 04/09/18 04/09/18 11:34 16:10 18:18 Sodium Potassium Chloride Carbon Dioxide Anion Gap BUN Creatinine Estimated GFR POC Glucose 105 106 Random Glucose Calcium Magnesium Total Bilirubin AST ALT Alkaline Phosphatase Ammonia 13 Total Protein Albumin 04/09/18 04/10/18 04/10/18 23:20 00:06 05:35 Sodium Potassium 3.2 L Chloride Carbon Dioxide Anion Gap BUN Creatinine Estimated GFR POC Glucose 90 92 Random Glucose Calcium Magnesium Total Bilirubin AST ALT Alkaline Phosphatase Ammonia Total Protein Albumin 04/10/18 04/10/18 04/10/18 05:40 05:40 08:17 Sodium 140 Potassium 2.7 L* Chloride 105 Carbon Dioxide 25.1 Anion Gap 10 BUN 8 Creatinine 0.65 Estimated GFR Greater than 89 POC Glucose 96 Random Glucose 94 Calcium 8.5 Magnesium 1.5 Total Bilirubin 1.5 H AST 36 ALT 24 Alkaline Phosphatase 79 Ammonia 19 Total Protein 6.7 D Albumin 2.6 L Imaging: ITS Impressions Abdomen/Pelvis CT 04/03/18 00:00 CONCLUSION: 1. No evidence of hydronephrosis or calcified stones. 2. No dilated loops of small or large bowel. Abdomen X-Ray 04/08/18 00:00 CONCLUSION: Mild ileus Chest X-Ray 04/08/18 06:00 CONCLUSION: No significant interval change with persistent right greater than left lung base opacity and likely small bilateral pleural effusions. Physical Exam: GENERAL: aAlert, oriented x 3 SKIN: Warm and dry. No generalized rash HEAD: Atraumatic. Normocephalic. No temporal wasting, or tenderness. EYES: [place] conjunctiva. No petechia or hemorrhage. Pupils equal, round and reactive to light. Extraocular movements full and intact. No scleral icterus. No injection or drainage. EARS, NOSE AND THROAT: Has a NG tube. NECK: Trachea midline. Supple and not tender, no meningeal signs CARDIOVASCULAR: Regular rate and rhythm. No murmurs, rubs or gallops heard RESPIRATORY: breath sounds bilaterally decreases ABDOMEN: Soft, distended, not tender. Bowel sounds hypoactive No organomegaly. EXTREMITIES: No clubbing, cyanosis, or edema. No calf tenderness. Well perfused and warm. NEUROLOGICAL: Awake, No focal deficit Assessment and Plan (1) E. coli septicemia Status: Acute Code(s): A41.51 - Sepsis due to Escherichia coli [E. coli] (2) Ileus Status: Acute Code(s): K56.7 - Ileus, unspecified (3) Pyelonephritis Status: Acute Code(s): N12 - Tubulo-interstitial nephritis, not specified as acute or chronic (4) Sepsis Status: Acute Code(s): A41.9 - Sepsis, unspecified organism - Plan 1. Continue IV Ceftriaxone 2. Follow repeat cultures 3. When ileus resolved - can be changed to PO (4) Sepsis Qualifiers: Sepsis type: Escherichia coli Qualified Code(s): A41.51 - Sepsis due to Escherichia coli [E. coli]
[2018-04-10] MEDS: Potassium Chlor 20 mEq Premix 20 MEQ/100 ML PIGGYBACK IV.SIG PRN ×4 (11:20→18:08)
--- NOTE | 2018-04-10 12:56 | P.PN ---
Subjective Interval history: ng placed last night with 1200 cc output per nursing. Vanco and cefepime stopped and now only on ceftriaxone. Physical Exam Vital signs: Vital Signs 04/09/18 13:00 04/09/18 14:00 04/09/18 14:18 Temperature Pulse Rate 106 H 106 H 102 H Respiratory Rate 38 H 41 H Blood Pressure 128/73 Pulse Oximetry 95 95 04/09/18 15:00 04/09/18 15:30 04/09/18 16:00 Temperature Pulse Rate 102 H 95 H 104 H Respiratory Rate 34 H 28 H Blood Pressure 145/80 H Pulse Oximetry 91 L 04/09/18 16:10 04/09/18 17:14 04/09/18 18:00 Temperature 97.6 F Pulse Rate 104 H 104 H 108 H Respiratory Rate 42 H 37 H 37 H Blood Pressure 130/80 141/78 H 90/60 L Pulse Oximetry 94 L 97 04/09/18 19:07 04/09/18 20:00 04/09/18 20:01 Temperature 99.0 F Pulse Rate 116 H 108 H 110 H Respiratory Rate 25 H 36 H 28 H Blood Pressure 151/90 H 145/82 H Pulse Oximetry 96 99 99 04/09/18 21:00 04/09/18 22:00 04/09/18 23:00 Temperature Pulse Rate 110 H 110 H 108 H Respiratory Rate 35 H 36 H 35 H Blood Pressure 138/71 167/98 H 146/85 H Pulse Oximetry 97 96 98 04/09/18 23:08 04/10/18 00:00 04/10/18 01:00 Temperature Pulse Rate 103 H 108 H 106 H Respiratory Rate 30 H 30 H 38 H Blood Pressure 140/68 151/72 H Pulse Oximetry 97 97 04/10/18 02:00 04/10/18 03:00 04/10/18 03:20 Temperature Pulse Rate 104 H 104 H 101 H Respiratory Rate 32 H 35 H 24 Blood Pressure 134/78 148/85 H Pulse Oximetry 97 96 04/10/18 04:00 04/10/18 05:00 04/10/18 06:00 Temperature 98.9 F Pulse Rate 110 H 112 H 104 H Respiratory Rate 34 H 32 H 36 H Blood Pressure 149/63 H 153/87 H 145/79 H Pulse Oximetry 97 94 L 96 04/10/18 07:35 04/10/18 11:43 Temperature Pulse Rate 100 H 99 H Respiratory Rate 22 24 Blood Pressure Pulse Oximetry 96 96 Intake & Output 04/09/18 04/10/18 04/10/18 18:59 06:59 18:59 Intake Total 760 / 760 1200 / 1200 200 / 200 Output Total 900 / 900 1300 / 1300 Balance -140 / -140 -100 / -100 200 / 200 Weight 54.8 kg Intake: IV 400 / 400 1200 / 1200 200 / 200 LR 1000 mL Inj 1,000 ML @ 84 1000 / 1000 mls/hr IV.CONT .[id number] MARIE Rx# :[id number] Maxipime Inj 2,000 MG In NS Inj 100 / 100 100 ML @ 200 mls/hr IV.SIG Q12H MARIE Rx#:[id number] Magnesium Sulfate Inj 2 GM In 100 / 100 NS Inj 96 ML @ 50 mls/hr IV.SIG UNSCH PRN Rx#:[id number] KCl 20 mEq Premix Inj 20 meq In 300 / 300 100 / 100 100 ml @ 50 mls/hr IV.SIG Q2H PRN Rx#:[id number] Rocephin Inj 2,000 MG In NS Inj 100 / 100 100 / 100 100 ML @ 200 mls/hr IV.SIG Q12H MARIE Rx#:[id number] Oral 360 / 360 Output: Urine 800 / 800 Stool 100 / 100 Gastric Drainage 1300 / 1300 Left Nare 1300 / 1300 Other: Post Void Residual 900 # Voids 5 Date of Last Bowel Movement 04/09/18 04/10/18 # Bowel Movements 2 1 - Constitutional no acute distress - Routine HEENT Exam Head: Present: normocephalic Eye: Present: EOMI - Routine Respiratory Exam Present: CTA bilaterally - Routine Cardiovascular Exam Present: tachycardia - Routine Abdominal Exam Present: distended Comments: decreased bowel sounds - Routine Extremities Exam Present: full ROM - Routine Skin Exam Present: cyanosis - Routine Neurological Exam Present: alert, oriented X3 - Detailed Neurological Exam: Coma Scale Eye Opening: Spontaneous - Routine Psychiatric Exam Present: normal affect - Urinary Catheter Management Indwelling Urethral Catheter Cath placed during this visit: yes, but has since been removed by the nurse Reason for continuing: Hourly intake/output Insertion date: 04/06/18 Removal date: 04/08/18 Female External Cath placed during this visit: no Results - Labs CBC & Chem 7: 04/10/18 05:40 04/11/18 05:35 Laboratory Results - last 24 hr 04/09/18 04/09/18 04/09/18 16:10 18:18 23:20 CBC w Diff WBC RBC Hgb Hct MCV MCH MCHC RDW Plt Count MPV Neut % (Auto) Lymph % (Auto) Tyler % (Auto) Eos % (Auto) Baso % (Auto) Neut # (Auto) Lymph # (Auto) Tyler # (Auto) Eos # (Auto) Baso # (Auto) WBC Differential Differential Comment Sodium Potassium Chloride Carbon Dioxide Anion Gap BUN Creatinine Estimated GFR POC Glucose 106 Random Glucose Calcium Magnesium Total Bilirubin AST ALT Alkaline Phosphatase Ammonia 13 Total Protein Albumin Vancomycin Trough 12.8 H 04/09/18 04/10/18 04/10/18 23:20 00:06 05:35 CBC w Diff WBC RBC Hgb Hct MCV MCH MCHC RDW Plt Count MPV Neut % (Auto) Lymph % (Auto) Tyler % (Auto) Eos % (Auto) Baso % (Auto) Neut # (Auto) Lymph # (Auto) Tyler # (Auto) Eos # (Auto) Baso # (Auto) WBC Differential Differential Comment Sodium Potassium 3.2 L Chloride Carbon Dioxide Anion Gap BUN Creatinine Estimated GFR POC Glucose 90 92 Random Glucose Calcium Magnesium Total Bilirubin AST ALT Alkaline Phosphatase Ammonia Total Protein Albumin Vancomycin Trough 04/10/18 04/10/18 04/10/18 05:40 05:40 05:40 CBC w Diff Auto diff final WBC 7.5 RBC 3.28 L Hgb 11.0 L Hct 32.7 L MCV 99.5 MCH 33.4 MCHC 33.6 RDW 13.6 Plt Count 400 D MPV 8.9 Neut % (Auto) 80.0 H Lymph % (Auto) 10.2 Tyler % (Auto) 6.8 Eos % (Auto) 2.5 Baso % (Auto) 0.5 Neut # (Auto) 6.0 Lymph # (Auto) 0.8 L Tyler # (Auto) 0.5 Eos # (Auto) 0.2 Baso # (Auto) 0.0 WBC Differential . Differential Comment . Sodium 140 Potassium 2.7 L* Chloride 105 Carbon Dioxide 25.1 Anion Gap 10 BUN 8 Creatinine 0.65 Estimated GFR Greater than 89 POC Glucose Random Glucose 94 Calcium 8.5 Magnesium 1.5 Total Bilirubin 1.5 H AST 36 ALT 24 Alkaline Phosphatase 79 Ammonia 19 Total Protein 6.7 D Albumin 2.6 L Vancomycin Trough 04/10/18 04/10/18 08:17 11:39 CBC w Diff WBC RBC Hgb Hct MCV MCH MCHC RDW Plt Count MPV Neut % (Auto) Lymph % (Auto) Tyler % (Auto) Eos % (Auto) Baso % (Auto) Neut # (Auto) Lymph # (Auto) Tyler # (Auto) Eos # (Auto) Baso # (Auto) WBC Differential Differential Comment Sodium Potassium Chloride Carbon Dioxide Anion Gap BUN Creatinine Estimated GFR POC Glucose 96 104 Random Glucose Calcium Magnesium Total Bilirubin AST ALT Alkaline Phosphatase Ammonia Total Protein Albumin Vancomycin Trough Microbiology 04/07/18 16:40 Blood - Peripheral Aerobic Blood Culture - Preliminary No growth in 3 days 04/07/18 16:40 Blood - Peripheral Anaerobic Blood Culture - Preliminary No growth in 3 days 04/07/18 16:35 Blood - Peripheral Aerobic Blood Culture - Preliminary No growth in 3 days 04/07/18 16:35 Blood - Peripheral Anaerobic Blood Culture - Preliminary No growth in 3 days 04/05/18 06:30 Blood - Peripheral Aerobic Blood Culture - Final No growth in 5 days 04/05/18 06:30 Blood - Peripheral Anaerobic Blood Culture - Final No growth in 5 days 04/04/18 13:22 Blood - Peripheral Aerobic Blood Culture - Final No growth in 5 days 04/04/18 13:22 Blood - Peripheral Anaerobic Blood Culture - Final No growth in 5 days 04/04/18 13:29 Blood - Peripheral Aerobic Blood Culture - Final No growth in 5 days 04/04/18 13:29 Blood - Peripheral Anaerobic Blood Culture - Final No growth in 5 days - Procedures Intubation, Rt IJ, femoral artline by summer law associate subsequently all removed Assessment and Plan - Assessment (1) Respiratory failure Code(s): J96.90 - Respiratory failure, unspecified, unspecified whether with hypoxia or hypercapnia Status: Resolved Plan: stable on nasal cannula, cont IS, breathing treatments, has been oob into chair 98-99 % on 2 liters (2) Sepsis Code(s): A41.9 - Sepsis, unspecified organism Status: Acute Plan: Enterococcus in urine ecoli in blood.remains afebrile changed to only ceftriaxone last pm, ID following (3) Pyelonephritis Code(s): N12 - Tubulo-interstitial nephritis, not specified as acute or chronic Status: Acute Plan: on ceftriaxone now (4) Hyponatremia Plan: resolved (5) Dehydration Code(s): E86.0 - Dehydration Status: Resolved Plan: echo showed decreased EF, monitor fluid balance,resolved (6) LFT elevation Code(s): R94.5 - Abnormal results of liver function studies Status: Resolved Plan: LFT normalized CT unremarkable. She does consume alcohol regularly as an outpatient. (7) Alcohol use Code(s): Z78.9 - Other specified health status Status: Chronic Plan: Per report she drinks at least 6 glasses of wine daily the last time 2 days prior. Continue treatment for alcohol withdrawal, thiamine, librium. supportive care (8) NSTEMI (non-ST elevated myocardial infarction) Code(s): I21.4 - Non-ST elevation (NSTEMI) myocardial infarction Status: Acute Plan: elevation of troponins . Echo showed severely reduced EF 25-30 %. Seen by cardiology, started on asa 81 ans atorvastatin. Will need further cardiac w/u prior to discharge will start coreg today, cathy (9) Ileus Code(s): K56.7 - Ileus, unspecified Status: Acute Plan: NG placed last night. - Plan Discussed Condition With: patient (1) Respiratory failure Qualifiers: Chronicity: acute Respiratory failure complication: hypoxia Qualified Code(s ): J96.01 - Acute respiratory failure with hypoxia (2) Sepsis Qualifiers: Sepsis type: Escherichia coli Qualified Code(s): A41.51 - Sepsis due to Escherichia coli [E. coli]
[2018-04-11] MEDS: Insulin NovoLOG Aspart Correctional Sugar Inj SQ SCH ×4 (00:01→19:34)
[2018-04-11] MEDS: Chlorhexidine Gluconate 2% 1 Pack (2 Cloths) TOPICAL SCH (05:50)
[2018-04-11] MEDS: Artificial Tears Opth Drops 15 ML Bottle EACH EYE SCH ×3 (05:50→22:19)
[2018-04-11 06:04] LABS: Chloride 104 meq/L (98-107); Potassium 3.2 meq/L (3.5-5.1); Sodium 139 meq/L (136-145)
[2018-04-11 06:08] LABS: Albumin 2.4 g/dL (3.4-5.0); Anion Gap 11 meq/L (5-15); Blood Urea Nitrogen 6 mg/dL (7-18); Carbon Dioxide 24.4 meq/L (21.0-32.0); Glucose,Random 87 mg/dL (74-106); Magnesium 1.7 mg/dL (1.5-2.5)
[2018-04-11 06:11] LABS: Alanine Aminotransferase 26 U/L (10-53); Aspartate Aminotransferase 44 U/L (15-37); Glomerular Filtration Rate Greater Than 89 mL/min (>89)
[2018-04-11 06:12] LABS: Phosphorus 2.2 mg/dL (2.5-4.9)
[2018-04-11 06:14] LABS: Alkaline Phosphatase 71 U/L (45-117)
[2018-04-11] MEDS: Senna/Docusate Sodium 8.6/50 MG Tablet PO SCH ×2 (09:27→21:42)
[2018-04-11] MEDS: Folic Acid 1 MG Tablet PO SCH (09:27)
[2018-04-11] MEDS: Heparin - SQ 10,000 UNITS/ML Vial SQ SCH ×2 (09:27→21:44)
[2018-04-11] MEDS: Multivitamin/Minerals Therapeutic Tablet PO SCH (09:28)
[2018-04-11] MEDS: Potassium Phosphate Inj 30 MMOL in Sodium Chlor 0.9% Inj 250 ML IV.SIG PRN (11:18)
[2018-04-11] MEDS: LORazepam 0.5 MG Tablet PO PRN ×2 (11:53→19:53)
--- NOTE | 2018-04-11 13:42 | P.PN ---
Subjective Interval history: per nursing hallucinating and more confused, still no bms Physical Exam Vital signs: Vital Signs 04/10/18 14:00 04/10/18 15:00 04/10/18 16:00 Temperature Pulse Rate 106 H 106 H 102 H Respiratory Rate 35 H 32 H 29 H Blood Pressure 137/74 148/75 H 129/68 Pulse Oximetry 96 97 04/10/18 17:00 04/10/18 18:00 04/10/18 19:00 Temperature Pulse Rate 100 H 100 H 102 H Respiratory Rate 39 H 37 H 35 H Blood Pressure 123/73 121/77 134/76 Pulse Oximetry 93 L 93 L 92 L 04/10/18 19:22 04/10/18 20:00 04/10/18 21:00 Temperature 98 F Pulse Rate 99 H 104 H 102 H Respiratory Rate 28 H 24 28 H Blood Pressure 140/77 138/72 Pulse Oximetry 98 98 99 04/10/18 22:00 04/10/18 23:00 04/10/18 23:34 Temperature Pulse Rate 100 H 100 H 96 H Respiratory Rate 29 H 35 H 26 H Blood Pressure 139/92 H 128/69 Pulse Oximetry 98 97 04/11/18 00:00 04/11/18 01:00 04/11/18 02:00 Temperature 98.9 F Pulse Rate 110 H 98 H 100 H Respiratory Rate 32 H 30 H 28 H Blood Pressure 142/80 H 150/81 H 143/81 H Pulse Oximetry 95 99 97 04/11/18 03:00 04/11/18 03:27 04/11/18 04:00 Temperature 97.5 F L Pulse Rate 106 H 93 H 96 H Respiratory Rate 26 H 24 26 H Blood Pressure 140/85 Pulse Oximetry 92 L 100 04/11/18 05:00 04/11/18 06:00 04/11/18 07:15 Temperature Pulse Rate 100 H 98 H Respiratory Rate 26 H 28 H Blood Pressure 140/72 153/81 H Pulse Oximetry 98 100 96 04/11/18 08:00 04/11/18 09:00 04/11/18 10:00 Temperature 97.5 F L Pulse Rate 104 H 100 H Respiratory Rate 35 H 31 H Blood Pressure 137/79 134/64 Pulse Oximetry 97 96 04/11/18 11:00 04/11/18 11:53 04/11/18 12:00 Temperature Pulse Rate 96 H 94 H Respiratory Rate 38 H 32 H Blood Pressure 116/58 L 110/69 Pulse Oximetry 93 L 94 L 95 04/11/18 13:00 Temperature Pulse Rate 96 H Respiratory Rate 39 H Blood Pressure 102/71 Pulse Oximetry 94 L Intake & Output 04/10/18 04/11/18 04/11/18 18:59 06:59 18:59 Intake Total 500 / 500 300 / 300 580 / 580 Output Total 600 / 600 1400 / 1400 Balance -100 / -100 -1100 / -1100 580 / 580 Weight 55.5 kg Intake: IV 500 / 500 200 / 200 100 / 100 Magnesium Sulfate Inj 2 GM In 100 / 100 NS Inj 96 ML @ 50 mls/hr IV.SIG UNSCH PRN Rx#:[id number] KCl 20 mEq Premix Inj 20 meq In 300 / 300 100 / 100 100 ml @ 50 mls/hr IV.SIG Q2H PRN Rx#:[id number] Rocephin Inj 2,000 MG In NS Inj 100 / 100 100 / 100 100 / 100 100 ML @ 200 mls/hr IV.SIG Q12H MARIE Rx#:[id number] Oral 100 / 100 480 / 480 Output: Urine Amount (Catheter) 600 / 600 700 / 700 Female External 600 / 600 700 / 700 Gastric Drainage 700 / 700 Left Nare 700 / 700 Other: Date of Last Bowel Movement 04/09/18 04/09/18 04/09/18 # Bowel Movements 0 - Constitutional no acute distress, thin Comments: up in chair - Routine HEENT Exam Head: Present: normocephalic Eye: Present: EOMI Comments: ng in place - Routine Neck Exam Present: supple - Routine Respiratory Exam Present: decreased breath sounds, CTA bilaterally - Routine Cardiovascular Exam Present: tachycardia - Routine Abdominal Exam Present: distended Comments: decreased bowel sounds no rebound - Routine Extremities Exam Present: full ROM - Routine Neurological Exam Present: alert - Routine Psychiatric Exam Present: visual hallucinations, cooperative Comments: per nursing seeing snakes and people at the window, more confused today, knows she is in the hospital but refers to events in [place] - Urinary Catheter Management Indwelling Urethral Catheter Cath placed during this visit: yes, but has since been removed by the nurse Reason for continuing: Hourly intake/output Insertion date: 04/06/18 Removal date: 04/08/18 Female External Cath placed during this visit: no Results - Labs CBC & Chem 7: 04/10/18 05:40 04/11/18 05:35 Laboratory Results - last 24 hr 04/10/18 04/10/18 04/11/18 16:31 23:10 05:35 Sodium 139 Potassium 3.2 L Chloride 104 Carbon Dioxide 24.4 Anion Gap 11 BUN 6 L Creatinine 0.59 Estimated GFR Greater than 89 POC Glucose 94 86 Random Glucose 87 Calcium 8.0 L Phosphorus 2.2 L Magnesium 1.7 Total Bilirubin 1.0 AST 44 H ALT 26 Alkaline Phosphatase 71 Total Protein 6.0 L D Albumin 2.4 L 04/11/18 04/11/18 04/11/18 05:53 08:11 11:57 Sodium Potassium Chloride Carbon Dioxide Anion Gap BUN Creatinine Estimated GFR POC Glucose 82 88 95 Random Glucose Calcium Phosphorus Magnesium Total Bilirubin AST ALT Alkaline Phosphatase Total Protein Albumin Microbiology 04/07/18 16:40 Blood - Peripheral Aerobic Blood Culture - Preliminary No growth in 4 days 04/07/18 16:40 Blood - Peripheral Anaerobic Blood Culture - Preliminary No growth in 4 days 04/07/18 16:35 Blood - Peripheral Aerobic Blood Culture - Preliminary No growth in 4 days 04/07/18 16:35 Blood - Peripheral Anaerobic Blood Culture - Preliminary No growth in 4 days 04/05/18 06:30 Blood - Peripheral Aerobic Blood Culture - Final No growth in 5 days 04/05/18 06:30 Blood - Peripheral Anaerobic Blood Culture - Final No growth in 5 days - Procedures Intubation, Rt IJ, femoral artline by director of patient safety subsequently all removed Assessment and Plan - Assessment (1) Respiratory failure Code(s): J96.90 - Respiratory failure, unspecified, unspecified whether with hypoxia or hypercapnia Status: Resolved Plan: stable on nasal cannula, cont IS, breathing treatments, has been oob into chair 98-99 % on 2 liters (2) Sepsis Code(s): A41.9 - Sepsis, unspecified organism Status: Acute Plan: Enterococcus in urine ecoli in blood.remains afebrile on ceftrioxone repeat cultures so far are negative (3) Pyelonephritis Code(s): N12 - Tubulo-interstitial nephritis, not specified as acute or chronic Status: Acute Plan: on ceftriaxone now (4) Hyponatremia Plan: resolved (5) Dehydration Code(s): E86.0 - Dehydration Status: Resolved Plan: echo showed decreased EF, monitor fluid balance,resolved (6) LFT elevation Code(s): R94.5 - Abnormal results of liver function studies Status: Resolved Plan: LFT normalized CT unremarkable. She does consume alcohol regularly as an outpatient. (7) Alcohol use Code(s): Z78.9 - Other specified health status Status: Chronic Plan: Per report she drinks at least 6 glasses of wine daily the last time 2 days prior. Continue treatment for alcohol withdrawal, thiamine, librium. supportive care, today seems more confused may be due to withdrawal or side effects of reglan for ileus, will d/c reglan (8) NSTEMI (non-ST elevated myocardial infarction) Code(s): I21.4 - Non-ST elevation (NSTEMI) myocardial infarction Status: Acute Plan: elevation of troponins . Echo showed severely reduced EF 25-30 %. Seen by cardiology, started on asa 81 ans atorvastatin. Will need further cardiac w/u prior to discharge coreg started (9) Ileus Code(s): K56.7 - Ileus, unspecified Status: Acute Plan: still with ileus, will check ct scan (1) Respiratory failure Qualifiers: Chronicity: acute Respiratory failure complication: hypoxia Qualified Code(s ): J96.01 - Acute respiratory failure with hypoxia (2) Sepsis Qualifiers: Sepsis type: Escherichia coli Qualified Code(s): A41.51 - Sepsis due to Escherichia coli [E. coli]
[2018-04-11] MEDS ORDERED: Diatrizoate Meglum/Diatrizoate Sod Liq 9 ML UDC PO ONE (13:55)
--- NOTE | 2018-04-11 17:32 | CT ---
EXAM DATE: 04/11/2018 5:18 PM EST AGE/SEX: 53 years / Female INDICATIONS: Abdominal distention. CLINICAL DATA: This is the patient's initial encounter. Patient reports that signs and symptoms have been present for 1 day and indicates a pain score of 4/10. MEDICAL/SURGICAL HISTORY: None. None. RADIATION DOSE: 8.39 CTDI (mGy) COMPARISON: [facility], CT ABDOMEN & PELVIS W/O CONTRAST, 04/03/2018. . TECHNIQUE: Multiple contiguous axial images were obtained through the abdomen. Images were obtained using multiple row detector helical technique. Using automated exposure control and adjustment of the mA and/or kV according to patient size, radiation dose was kept as low as reasonably achievable to o btain optimal diagnostic quality images. DICOM format image data is available electronically for rev iew and comparison. FINDINGS: Lower Lungs: Small bilateral effusions with consolidating airspace disease is identified in both lowe r lobes. Liver: The liver has a homogeneous density without space-occupying lesion. There is no dilation of th e biliary tree. Spleen: Homogeneous density without enlargement. Pancreas: Unremarkable without mass or calcification. Kidneys: Normal in size and shape. No evidence of mass or hydronephrosis. Adrenal Glands: Unremarkable. Aorta: The aorta and proximal iliac vessels are grossly unremarkable without aneurysmal dilation. Bowel/Mesentery: Generalized small bowel distention has developed since the prior study. There are a ir-filled loops of small bowel ranging in size up to 4 cm in diameter. Fibrotic bands characteristic of adhesions are seen in the mesentery. A discrete transition zone to delineate an obstructing lesion is not clearly defined. There is air and fecal debris identified in the distal small bowel. The colo n is relatively collapsed. Abdominal Wall: Intact. Retroperitoneum: No evidence of adenopathy in the retrocrural, para-aortic, or deep pelvic regions. Bladder: Contours are smooth. Reproductive Organs: No abnormal masses or calcifications seen.Free fluid is identified in the pelvi s. Inguinal: The inguinal region is unremarkable without evidence of adenopathy. Bony Structures: Unremarkable. CONCLUSION: 1. Small bowel ileus with air and fecal debris identified in the distal small bowel. A discrete mcpherson sition to indicate the presence of an obstructing process is not clearly evident. 2. Peritoneal bands characteristic of adhesions. 3. Collapsed colon 4. Bilateral pleural effusions and bibasilar airspace disease. Electronically signed by: Alexy Morfin MD 04/11/2018 5:30 PM EST
[2018-04-11 23:34] LABS: Chloride 102 meq/L (98-107); Potassium 3.3 meq/L (3.5-5.1); Sodium 139 meq/L (136-145)
[2018-04-11 23:38] LABS: Albumin 2.7 g/dL (3.4-5.0); Calcium 8.4 mg/dL (8.5-10.1)
[2018-04-11 23:39] LABS: Anion Gap 11 meq/L (5-15); Blood Urea Nitrogen 7 mg/dL (7-18); Carbon Dioxide 25.7 meq/L (21.0-32.0); Glucose,Random 78 mg/dL (74-106); Magnesium 1.7 mg/dL (1.5-2.5)
[2018-04-11 23:41] LABS: Alanine Aminotransferase 35 U/L (10-53)
[2018-04-11 23:42] LABS: Aspartate Aminotransferase 60 U/L (15-37); Glomerular Filtration Rate Greater Than 89 mL/min (>89)
[2018-04-11 23:45] LABS: Alkaline Phosphatase 84 U/L (45-117); Phosphorus 3.6 mg/dL (2.5-4.9); Total Protein 6.7 g/dL (6.4-8.2)
[2018-04-12] MEDS: Potassium Chlor 20 mEq Premix 20 MEQ/100 ML PIGGYBACK IV.SIG PRN ×4 (00:10→16:23)
[2018-04-12] MEDS: LORazepam 0.5 MG Tablet PO PRN (00:11)
[2018-04-12] MEDS: Insulin NovoLOG Aspart Correctional Sugar Inj SQ SCH ×4 (00:36→19:29)
[2018-04-12] MEDS ORDERED: Haloperidol Inj 5 MG/ML Ampul IV.PUSH PRN (06:00)
[2018-04-12] MEDS: Artificial Tears Opth Drops 15 ML Bottle EACH EYE SCH ×3 (06:06→23:25)
[2018-04-12 06:31] LABS: Baso % (Auto) 0.3 % (0.0-2.0); Eos # (Auto) 0.1 th/mm3 (0.0-0.4); Eos % (Auto) 1.6 % (0.0-4.0); Hematocrit 30.5 % (35.0-46.0); Hemoglobin 10.2 gm/dL (11.6-15.3); Lymph % (Auto) 11.3 % (9.0-44.0); Mean Corpuscular HGB Conc 33.4 % (32.0-36.0); Mean Corpuscular Hemoglobin 33.2 pg (27.0-34.0); Mean Corpuscular Volume 99.5 fL (80.0-100.0); Mean Platelet Volume 9.2 fL (7.0-11.0); Mono # (Auto) 0.4 th/mm3 (0.0-0.9); Mono % (Auto) 4.4 % (0.0-8.0); Neut # (Auto) 7.7 th/mm3 (1.8-7.7); Neut % (Auto) 82.4 % (16.0-70.0); Platelet Count 463 th/mm3 (150-450); Red Blood Count 3.07 mil/mm3 (4.00-5.30); Red Cell Distribution Width 12.8 % (11.6-17.2); White Blood Count 9.2 th/mm3 (4.0-11.0)
[2018-04-12 12:18] LABS: Chloride 104 meq/L (98-107); Potassium 3.5 meq/L (3.5-5.1); Sodium 139 meq/L (136-145)
[2018-04-12 12:21] LABS: Calcium 8.1 mg/dL (8.5-10.1)
[2018-04-12 12:22] LABS: Albumin 2.5 g/dL (3.4-5.0); Anion Gap 13 meq/L (5-15); Blood Urea Nitrogen 7 mg/dL (7-18); Carbon Dioxide 22.2 meq/L (21.0-32.0); Glucose,Random 79 mg/dL (74-106)
[2018-04-12 12:25] LABS: Alanine Aminotransferase 34 U/L (10-53); Aspartate Aminotransferase 67 U/L (15-37); Glomerular Filtration Rate Greater Than 89 mL/min (>89)
[2018-04-12 12:26] LABS: Total Protein 6.1 g/dL (6.4-8.2)
[2018-04-12 12:28] LABS: Alkaline Phosphatase 73 U/L (45-117)
--- NOTE | 2018-04-12 13:45 | P.PN ---
Subjective Interval history: Had bad night, agitation much worse , hallucinating, did not improve with ativan , haldol 2 mg iv given this early am. Sleeping comfortably now. Being evaluated by surgery for ileus vs obstruction. getting sbft this am Physical Exam Vital signs: Vital Signs 04/11/18 14:00 04/11/18 15:00 04/11/18 16:00 Temperature 97.5 F L Pulse Rate 96 H 102 H 90 Respiratory Rate 34 H 38 H Blood Pressure 95/65 L 98/67 L Pulse Oximetry 96 04/11/18 16:42 04/11/18 18:00 04/11/18 18:01 Temperature 97.5 F L Pulse Rate 95 H 90 94 H Respiratory Rate 23 29 H Blood Pressure 126/73 Pulse Oximetry 93 L 96 04/11/18 19:01 04/11/18 20:00 04/11/18 21:00 Temperature 97.9 F Pulse Rate 96 H 106 H Respiratory Rate 31 H 33 H Blood Pressure 142/71 H 141/71 H 145/80 H Pulse Oximetry 96 91 L 04/11/18 22:00 04/11/18 23:00 04/11/18 23:10 Temperature Pulse Rate 100 H 98 H 100 H Respiratory Rate 29 H 33 H 24 Blood Pressure 148/77 H Pulse Oximetry 97 95 04/12/18 00:00 04/12/18 01:00 04/12/18 02:00 Temperature 97.5 F L Pulse Rate 100 H 106 H 98 H Respiratory Rate 30 H 37 H 28 H Blood Pressure 134/93 H 147/76 H 142/88 H Pulse Oximetry 96 100 98 04/12/18 03:00 04/12/18 03:20 04/12/18 04:00 Temperature 97.5 F L Pulse Rate 100 H 98 H 104 H Respiratory Rate 29 H 28 H 36 H Blood Pressure 146/79 H 140/71 Pulse Oximetry 98 95 04/12/18 05:00 04/12/18 06:00 04/12/18 07:35 Temperature Pulse Rate 102 H 100 H 96 H Respiratory Rate 32 H 37 H 22 Blood Pressure 133/67 140/79 Pulse Oximetry 97 97 99 04/12/18 08:00 04/12/18 09:01 04/12/18 10:00 Temperature 98.4 F Pulse Rate 105 H 102 H 100 H Respiratory Rate 32 H 25 H Blood Pressure 140/75 Pulse Oximetry 95 96 04/12/18 10:01 04/12/18 11:00 04/12/18 11:01 Temperature Pulse Rate 98 H 98 H 100 H Respiratory Rate 30 H 27 H 31 H Blood Pressure 137/71 131/72 Pulse Oximetry 93 L 97 97 04/12/18 11:36 04/12/18 12:00 04/12/18 12:01 Temperature Pulse Rate 95 H 104 H 104 H Respiratory Rate 20 26 H 35 H Blood Pressure 128/67 Pulse Oximetry 92 L Intake & Output 04/11/18 04/12/18 04/12/18 18:59 06:59 18:59 Intake Total 580 / 580 560 / 560 0 / 0 Output Total 100 / 100 550 / 550 250 / 250 Balance 480 / 480 10 -250 / -250 Weight 53.6 kg Intake: IV 100 / 100 560 / 560 KCl 20 mEq Premix Inj 20 meq In 200 / 200 100 ml @ 50 mls/hr IV.SIG Q2H PRN Rx#:[id number] Potassium Phosphate Inj 30 MMOL 260 / 260 In NS Inj 250 ML @ 42 mls/hr IV.SIG UNSCH PRN Rx#:[id number] Rocephin Inj 2,000 MG In NS Inj 100 / 100 100 / 100 100 ML @ 200 mls/hr IV.SIG Q12H MARIE Rx#:[id number] Oral 480 / 480 0 / 0 Output: Urine 100 / 100 200 / 200 Urine Amount (Catheter) 550 / 550 Female External 550 / 550 Gastric Drainage 50 / 50 Left Nare 50 / 50 Other: # Urine Diapers 1 Date of Last Bowel Movement 04/09/18 04/09/18 - Constitutional no acute distress, thin Comments: sleeping but arousable - Routine HEENT Exam Head: Present: normocephalic Comments: ng in place - Routine Respiratory Exam Present: CTA bilaterally Comments: cta anteriorlly - Routine Cardiovascular Exam Present: tachycardia - Routine Abdominal Exam Present: soft, distended - Routine Extremities Exam Present: pulses intact - Routine Skin Exam Present: dry, warm - Routine Neurological Exam sleeping but arousable - Urinary Catheter Management Indwelling Urethral Catheter Cath placed during this visit: yes, but has since been removed by the nurse Reason for continuing: Hourly intake/output Insertion date: 04/06/18 Removal date: 04/08/18 Female External Cath placed during this visit: no Results - Labs CBC & Chem 7: 04/12/18 05:45 04/12/18 05:45 Laboratory Results - last 24 hr 04/11/18 04/11/18 04/11/18 14:04 18:40 23:05 CBC w Diff WBC RBC Hgb Hct MCV MCH MCHC RDW Plt Count MPV Neut % (Auto) Lymph % (Auto) [place] % (Auto) Eos % (Auto) Baso % (Auto) Neut # (Auto) Lymph # (Auto) [place] # (Auto) Eos # (Auto) Baso # (Auto) WBC Differential Differential Comment Sodium 139 Potassium 3.3 L Chloride 102 Carbon Dioxide 25.7 Anion Gap 11 BUN 7 Creatinine 0.63 Estimated GFR Greater than 89 POC Glucose 75 Random Glucose 78 Calcium 8.4 L Phosphorus 3.6 D Magnesium 1.7 Total Bilirubin 0.8 AST 60 H ALT 35 Alkaline Phosphatase 84 Ammonia 35 H Total Protein 6.7 D Albumin 2.7 L 04/11/18 04/12/18 04/12/18 23:05 05:45 05:45 CBC w Diff Auto diff final WBC 9.2 RBC 3.07 L Hgb 10.2 L Hct 30.5 L MCV 99.5 MCH 33.2 MCHC 33.4 RDW 12.8 Plt Count 463 H MPV 9.2 Neut % (Auto) 82.4 H Lymph % (Auto) 11.3 [place] % (Auto) 4.4 Eos % (Auto) 1.6 Baso % (Auto) 0.3 Neut # (Auto) 7.7 Lymph # (Auto) 1.0 [place] # (Auto) 0.4 Eos # (Auto) 0.1 Baso # (Auto) 0.0 WBC Differential . Differential Comment . Sodium Potassium Chloride Carbon Dioxide Anion Gap BUN Creatinine Estimated GFR POC Glucose 74 Random Glucose Calcium Phosphorus 3.2 Magnesium Total Bilirubin AST ALT Alkaline Phosphatase Ammonia Total Protein Albumin 04/12/18 04/12/18 04/12/18 05:45 06:19 08:10 CBC w Diff WBC RBC Hgb Hct MCV MCH MCHC RDW Plt Count MPV Neut % (Auto) Lymph % (Auto) [place] % (Auto) Eos % (Auto) Baso % (Auto) Neut # (Auto) Lymph # (Auto) [place] # (Auto) Eos # (Auto) Baso # (Auto) WBC Differential Differential Comment Sodium 139 Potassium 3.5 Chloride 104 Carbon Dioxide 22.2 Anion Gap 13 BUN 7 Creatinine 0.53 Estimated GFR Greater than 89 POC Glucose 82 79 Random Glucose 79 Calcium 8.1 L Phosphorus Magnesium Total Bilirubin 0.9 AST 67 H ALT 34 Alkaline Phosphatase 73 Ammonia Total Protein 6.1 L D Albumin 2.5 L 04/12/18 11:32 CBC w Diff WBC RBC Hgb Hct MCV MCH MCHC RDW Plt Count MPV Neut % (Auto) Lymph % (Auto) [place] % (Auto) Eos % (Auto) Baso % (Auto) Neut # (Auto) Lymph # (Auto) [place] # (Auto) Eos # (Auto) Baso # (Auto) WBC Differential Differential Comment Sodium Potassium Chloride Carbon Dioxide Anion Gap BUN Creatinine Estimated GFR POC Glucose 80 Random Glucose Calcium Phosphorus Magnesium Total Bilirubin AST ALT Alkaline Phosphatase Ammonia Total Protein Albumin Microbiology 04/07/18 16:40 Blood - Peripheral Aerobic Blood Culture - Final No growth in 5 days 04/07/18 16:40 Blood - Peripheral Anaerobic Blood Culture - Final No growth in 5 days 04/07/18 16:35 Blood - Peripheral Aerobic Blood Culture - Final No growth in 5 days 04/07/18 16:35 Blood - Peripheral Anaerobic Blood Culture - Final No growth in 5 days - Imaging Impressions Abdomen/Pelvis CT 04/11/18 00:00 CONCLUSION: 1. Small bowel ileus with air and fecal debris identified in the distal small bowel. A discrete transition to indicate the presence of an obstructing process is not clearly evident. 2. Peritoneal bands characteristic of adhesions. 3. Collapsed colon 4. Bilateral pleural effusions and bibasilar airspace disease. - Procedures Intubation, Rt IJ, femoral artline by charge coordinator subsequently all removed Assessment and Plan - Assessment (1) Respiratory failure Code(s): J96.90 - Respiratory failure, unspecified, unspecified whether with hypoxia or hypercapnia Status: Resolved Plan: stable on nasal cannula, cont IS, breathing treatments, has been oob into chair 98-99 % on 2 liters (2) Sepsis Code(s): A41.9 - Sepsis, unspecified organism Status: Acute Plan: Enterococcus in urine ,ecoli in blood.remains afebrile changed to only ceftriaxone last pm, ID following (3) Pyelonephritis Code(s): N12 - Tubulo-interstitial nephritis, not specified as acute or chronic Status: Acute Plan: on ceftriaxone now (4) Hyponatremia Plan: resolved (5) Dehydration Code(s): E86.0 - Dehydration Status: Resolved Plan: echo showed decreased EF, monitor fluid balance,resolved (6) LFT elevation Code(s): R94.5 - Abnormal results of liver function studies Status: Resolved Plan: LFT trending up again CT unremarkable in regard to liver and gallbladder. She does consume alcohol regularly as an outpatient. (7) Alcohol use Code(s): Z78.9 - Other specified health status Status: Chronic Plan: Per report she drinks at least 6 glasses of wine daily the last time 2 days prior. Continue treatment for alcohol withdrawal, thiamine, librium. , supportive care, Has become more confused over last 2 days, hallucinating, became agitated did not respond to ativan, had to place in soft restraints for her safety and one dose of haldol given. Sleeping now, the first time in 2 days. Monitor for over sedation. (8) NSTEMI (non-ST elevated myocardial infarction) Code(s): I21.4 - Non-ST elevation (NSTEMI) myocardial infarction Status: Acute Plan: elevation of troponins . Echo showed severely reduced EF 25-30 %. Seen by cardiology, started on asa 81 ans atorvastatin. Will need further cardiac w/u prior to discharge coreg started. (9) Ileus Code(s): K56.7 - Ileus, unspecified Status: Acute Plan: NG placed, had ct scan done showed collapse of colon distention of small bowel. General surgery consulted, SBFT ordered and being done today. (1) Respiratory failure Qualifiers: Chronicity: acute Respiratory failure complication: hypoxia Qualified Code(s ): J96.01 - Acute respiratory failure with hypoxia (2) Sepsis Qualifiers: Sepsis type: Escherichia coli Qualified Code(s): A41.51 - Sepsis due to Escherichia coli [E. coli]
[2018-04-12] MEDS: Heparin - SQ 10,000 UNITS/ML Vial SQ SCH ×2 (14:07→20:45)
[2018-04-12] MEDS ORDERED: Diatrizoate Meglum/Diatrizoate Sod Liq 120 ML Bottle (for RAD diag) NG/OG ONE (15:03)
[2018-04-12] MEDS: Senna/Docusate Sodium 8.6/50 MG Tablet PO SCH ×2 (16:04→22:25)
[2018-04-12] MEDS: Folic Acid 1 MG Tablet PO SCH (16:04)
[2018-04-12] MEDS: Multivitamin/Minerals Therapeutic Tablet PO SCH (16:07)
--- NOTE | 2018-04-12 17:21 | FL ---
EXAM DATE: 04/12/2018 3:39 PM EST AGE/SEX: 53 years / Female INDICATIONS: Abdominal distention. CLINICAL DATA: This is the patient's initial encounter. Patient reports that signs and symptoms have been present for 1 week and indicates a pain score of 5/10. MEDICAL/SURGICAL HISTORY: None. None. COMPARISON: [facility], CT ABDOMEN & PELVIS W/O CONTRAST, 04/11/2018. . FLUORO TIME: 0 IMAGE COUNT: 10 FINDINGS: Enteric contrast was administered by the patient's nasogastric tube. Stomach is nondistended. Markedl y delayed small bowel transit time. Contrast is finally seen in the right side of the colon at 5 hour s. The small bowel is diffusely distended to the terminal ileum. Colon is decompressed. CONCLUSION: High-grade distal small bowel obstruction. Electronically signed by: Kennedy Brown MD 04/12/2018 5:20 PM EST
[2018-04-12] MEDS: Metoprolol Inj 5 MG/5 ML Vial IV.PUSH SCH (20:44)
[2018-04-13] MEDS: Metoprolol Inj 5 MG/5 ML Vial IV.PUSH SCH ×4 (01:30→21:18)
[2018-04-13 05:43] LABS: Baso % (Auto) 0.3 % (0.0-2.0); Eos # (Auto) 0.1 th/mm3 (0.0-0.4); Eos % (Auto) 1.5 % (0.0-4.0); Hematocrit 30.3 % (35.0-46.0); Hemoglobin 10.4 gm/dL (11.6-15.3); Lymph % (Auto) 12.9 % (9.0-44.0); Mean Corpuscular HGB Conc 34.2 % (32.0-36.0); Mean Corpuscular Hemoglobin 35.2 pg (27.0-34.0); Mean Corpuscular Volume 102.9 fL (80.0-100.0); Mean Platelet Volume 8.7 fL (7.0-11.0); Mono # (Auto) 0.5 th/mm3 (0.0-0.9); Mono % (Auto) 5.9 % (0.0-8.0); Neut # (Auto) 6.1 th/mm3 (1.8-7.7); Neut % (Auto) 79.4 % (16.0-70.0); Platelet Count 419 th/mm3 (150-450); Red Blood Count 2.95 mil/mm3 (4.00-5.30); Red Cell Distribution Width 13.6 % (11.6-17.2); White Blood Count 7.7 th/mm3 (4.0-11.0)
[2018-04-13 06:14] LABS: Albumin 2.5 g/dL (3.4-5.0); Anion Gap 10 meq/L (5-15); Aspartate Aminotransferase 60 U/L (15-37); Blood Urea Nitrogen 6 mg/dL (7-18); Carbon Dioxide 25.7 meq/L (21.0-32.0); Chloride 105 meq/L (98-107); Glomerular Filtration Rate Greater Than 89 mL/min (>89); Glucose,Random 78 mg/dL (74-106); Magnesium 1.5 mg/dL (1.5-2.5); Potassium 3.1 meq/L (3.5-5.1); Sodium 141 meq/L (136-145)
[2018-04-13 06:18] LABS: Alanine Aminotransferase 35 U/L (10-53); Alkaline Phosphatase 71 U/L (45-117); Phosphorus 2.9 mg/dL (2.5-4.9); Total Protein 6.1 g/dL (6.4-8.2)
[2018-04-13] MEDS: Artificial Tears Opth Drops 15 ML Bottle EACH EYE SCH ×3 (06:34→21:19)
[2018-04-13] MEDS: Insulin NovoLOG Aspart Correctional Sugar Inj SQ SCH ×4 (06:34→17:03)
[2018-04-13] MEDS: Potassium Chlor 20 mEq Premix 20 MEQ/100 ML PIGGYBACK IV.SIG PRN ×3 (06:44→20:13)
[2018-04-13] MEDS ORDERED: Thiamine Inj 100 MG in Sodium Chlor 0.9% Inj 100 ML IV.SIG SCH (09:00)
--- NOTE | 2018-04-13 09:06 | P.PNGS ---
Subjective Patient reports: flatus, no bowel movement (abd pain better) Physical Exam Vital signs: Vital Signs 04/12/18 10:00 04/12/18 10:01 04/12/18 11:00 Temperature Pulse Rate 100 H 98 H 98 H Respiratory Rate 25 H 30 H 27 H Blood Pressure 137/71 Pulse Oximetry 96 93 L 97 04/12/18 11:01 04/12/18 11:36 04/12/18 12:00 Temperature 99.2 F Pulse Rate 100 H 95 H 104 H Respiratory Rate 31 H 20 26 H Blood Pressure 131/72 Pulse Oximetry 97 04/12/18 12:01 04/12/18 13:01 04/12/18 14:00 Temperature Pulse Rate 104 H 96 H 102 H Respiratory Rate 35 H 26 H Blood Pressure 128/67 116/63 Pulse Oximetry 92 L 97 04/12/18 14:01 04/12/18 15:01 04/12/18 16:00 Temperature 97.7 F Pulse Rate 98 H 98 H 98 H Respiratory Rate 28 H 24 Blood Pressure 135/71 140/84 Pulse Oximetry 96 98 04/12/18 16:01 04/12/18 16:55 04/12/18 17:00 Temperature Pulse Rate 96 H 114 H 102 H Respiratory Rate 26 H 38 H 27 H Blood Pressure 148/78 H 129/75 Pulse Oximetry 97 94 L 04/12/18 17:01 04/12/18 18:00 04/12/18 18:01 Temperature Pulse Rate 102 H 102 H 100 H Respiratory Rate 26 H 28 H 24 Blood Pressure 137/75 124/76 Pulse Oximetry 93 L 96 96 04/12/18 19:01 04/12/18 19:26 04/12/18 19:27 Temperature Pulse Rate 100 H 103 H Respiratory Rate 37 H 18 Blood Pressure 113/67 Pulse Oximetry 96 97 04/12/18 20:00 04/12/18 20:06 04/12/18 20:48 Temperature 97.3 F L 97.3 F L Pulse Rate 108 H 100 H 94 H Respiratory Rate 21 34 H 24 Blood Pressure 123/81 123/81 117/64 Pulse Oximetry 97 97 100 04/12/18 21:00 04/12/18 21:01 04/12/18 22:00 Temperature Pulse Rate 86 86 90 Respiratory Rate 26 H 26 H Blood Pressure 114/62 Pulse Oximetry 98 99 04/12/18 22:01 04/12/18 22:32 04/12/18 23:01 Temperature 98.3 F Pulse Rate 88 94 H 100 H Respiratory Rate 24 24 24 Blood Pressure 115/66 118/74 Pulse Oximetry 97 97 04/12/18 23:02 04/12/18 23:28 04/13/18 00:00 Temperature 99 F Pulse Rate 100 H 98 H 96 H Respiratory Rate 25 H 26 H 25 H Blood Pressure 138/81 Pulse Oximetry 95 95 97 04/13/18 00:04 04/13/18 01:00 04/13/18 01:01 Temperature Pulse Rate 97 H 107 H 106 H Respiratory Rate 24 26 H 24 Blood Pressure 149/80 H 142/82 H Pulse Oximetry 98 93 L 94 L 04/13/18 02:00 04/13/18 02:01 04/13/18 03:00 Temperature Pulse Rate 93 H 90 95 H Respiratory Rate 24 25 H 26 H Blood Pressure 138/77 Pulse Oximetry 98 96 97 04/13/18 03:01 04/13/18 04:00 04/13/18 04:02 Temperature 98 F Pulse Rate 95 H 91 H 92 H Respiratory Rate 26 H 24 23 Blood Pressure 138/78 124/72 Pulse Oximetry 97 96 96 04/13/18 05:00 04/13/18 05:01 04/13/18 06:00 Temperature Pulse Rate 90 90 94 H Respiratory Rate 22 21 24 Blood Pressure 127/73 Pulse Oximetry 97 97 95 04/13/18 06:01 Temperature Pulse Rate 93 H Respiratory Rate 24 Blood Pressure Pulse Oximetry 96 Intake & Output 04/12/18 04/13/18 04/13/18 18:59 06:59 18:59 Intake Total 530 / 530 100 / 100 Output Total 1600 / 1600 500 / 500 Balance -1070 / -1070 -400 / -400 Weight 56.1 kg Intake: IV 300 / 300 100 / 100 KCl 20 mEq Premix Inj 20 meq In 200 / 200 100 ml @ 50 mls/hr IV.SIG Q2H PRN Rx#:[id number] Rocephin Inj 2,000 MG In NS Inj 100 / 100 100 / 100 100 ML @ 200 mls/hr IV.SIG Q12H MAIRE Rx#:[id number] Oral 130 / 130 0 / 0 Tube Irrigant 100 / 100 Output: Urine 800 / 800 100 / 100 Stool 250 / 250 Urine Amount (Catheter) 700 / 700 100 / 100 Female External 700 / 700 100 / 100 Gastric Drainage 100 / 100 50 / 50 Left Nare 100 / 100 50 / 50 Other: # Voids 1 Date of Last Bowel Movement 04/12/18 # Bowel Movements 1 - Constitutional no acute distress - Routine Respiratory Exam Absent: accessory muscle use - Routine Cardiovascular Exam Present: RRR - Routine Abdominal Exam Present: soft, distended. Absent: tenderness Comments: decrease distension - Urinary Catheter Management Indwelling Urethral Catheter Cath placed during this visit: yes, but has since been removed by the nurse Reason for continuing: Hourly intake/output Insertion date: 04/06/18 Removal date: 04/08/18 Female External Cath placed during this visit: no Results - Labs 04/13/18 04:48 04/13/18 04:48 Laboratory Results - last 24 hr 04/12/18 04/12/18 04/12/18 05:45 11:32 16:45 WBC RBC Hgb Hct MCV MCH MCHC RDW Plt Count MPV Neut % (Auto) Lymph % (Auto) [place] % (Auto) Eos % (Auto) Baso % (Auto) Neut # (Auto) Lymph # (Auto) [place] # (Auto) Eos # (Auto) Baso # (Auto) WBC Differential Differential Comment Sodium 139 Potassium 3.5 Chloride 104 Carbon Dioxide 22.2 Anion Gap 13 BUN 7 Creatinine 0.53 Estimated GFR Greater than 89 POC Glucose 80 78 Random Glucose 79 Calcium 8.1 L Phosphorus Magnesium Total Bilirubin 0.9 AST 67 H ALT 34 Alkaline Phosphatase 73 Total Protein 6.1 L D Albumin 2.5 L 04/12/18 04/13/18 04/13/18 23:55 00:30 04:48 WBC RBC Hgb Hct MCV MCH MCHC RDW Plt Count MPV Neut % (Auto) Lymph % (Auto) [place] % (Auto) Eos % (Auto) Baso % (Auto) Neut # (Auto) Lymph # (Auto) [place] # (Auto) Eos # (Auto) Baso # (Auto) WBC Differential Differential Comment Sodium 141 Potassium 3.1 L Chloride 105 Carbon Dioxide 25.7 Anion Gap 10 BUN 6 L Creatinine 0.54 Estimated GFR Greater than 89 POC Glucose 66 L 165 H Random Glucose 78 Calcium 8.0 L Phosphorus 2.9 Magnesium 1.5 Total Bilirubin 0.7 AST 60 H ALT 35 Alkaline Phosphatase 71 Total Protein 6.1 L Albumin 2.5 L 04/13/18 04:48 WBC 7.7 RBC 2.95 L Hgb 10.4 L Hct 30.3 L MCV 102.9 H MCH 35.2 H MCHC 34.2 RDW 13.6 Plt Count 419 MPV 8.7 Neut % (Auto) 79.4 H Lymph % (Auto) 12.9 [place] % (Auto) 5.9 Eos % (Auto) 1.5 Baso % (Auto) 0.3 Neut # (Auto) 6.1 Lymph # (Auto) 1.0 [place] # (Auto) 0.5 Eos # (Auto) 0.1 Baso # (Auto) 0.0 WBC Differential . Differential Comment Auto diff final Sodium Potassium Chloride Carbon Dioxide Anion Gap BUN Creatinine Estimated GFR POC Glucose Random Glucose Calcium Phosphorus Magnesium Total Bilirubin AST ALT Alkaline Phosphatase Total Protein Albumin - Imaging Imaging: ITS Impressions Abdomen X-Ray 04/08/18 00:00 CONCLUSION: Mild ileus Chest X-Ray 04/08/18 06:00 CONCLUSION: No significant interval change with persistent right greater than left lung base opacity and likely small bilateral pleural effusions. Abdomen/Pelvis CT 04/11/18 00:00 CONCLUSION: 1. Small bowel ileus with air and fecal debris identified in the distal small bowel. A discrete transition to indicate the presence of an obstructing process is not clearly evident. 2. Peritoneal bands characteristic of adhesions. 3. Collapsed colon 4. Bilateral pleural effusions and bibasilar airspace disease. Small Bowel X-Ray 04/12/18 00:00 CONCLUSION: High-grade distal small bowel obstruction. Assessment and Plan - Plan Pt with multiple BM pt high risk for OR will hold on OR for now Cardiology w/u in progress
[2018-04-13] MEDS: Heparin - SQ 10,000 UNITS/ML Vial SQ SCH ×2 (09:49→21:18)
--- NOTE | 2018-04-13 09:52 | P.PNCA ---
Subjective Interval history: Patient seen and examined. Interim period from prior evaluation pt has developed ileus versus distal SBO per Abd CT and general surgery evaluation. However, she had multiple BMs this AM suggesting ileus more likely. Abdominal pain has improved to only mild currently. Still with NGT to suction and NPO. No chest pain, palpitations, LE edema, PND, orthopnea. She has some dyspnea and is utilizing a nebulized breathing treatment currently. No events on limited telemetry since transfer from [facility]. Medications and Allergies Active Medications: Active Medications Acetaminophen (Tylenol Liq) 650 mg PO Q6H PRN PRN Reason: FEVER Last Admin: 04/07/18 08:54 Dose: 650 mg Albuterol (Albuterol Neb (Prn)) 2.5 mg NEB Q2HR NEB PRN PRN Reason: DYSPNEA Albuterol (Duoneb Neb (Onelia)) 1 ampul INH Q4HR NEB [facility] Last Admin: 04/13/18 09:20 Dose: 1 ampul Artificial Tears (Tears Naturale Opth Drops) 1 drop EACH EYE Q8HR [facility] Last Admin: 04/13/18 06:34 Dose: 1 drop Aspirin (Aspirin Chew) 81 mg PO DAILY [facility] Last Admin: 04/12/18 16:04 Dose: 81 mg Atorvastatin Calcium (Lipitor) 40 mg PO HS [facility] Last Admin: 04/11/18 21:42 Dose: 40 mg Carvedilol (Coreg) 3.125 mg PO BID [facility] Last Admin: 04/12/18 16:04 Dose: 3.125 mg Chlordiazepoxide (Librium) 10 mg PO Q8HR [facility] Last Admin: 04/12/18 16:04 Dose: 10 mg Dextrose (D50w Vial) 50 ml IV.PUSH UNSCH PRN PRN Reason: PER HYPOGLYCEMIA PROTOCOL Last Admin: 04/13/18 00:02 Dose: 50 ml Folic Acid (Folic Acid) 1 mg PO DAILY [facility] Last Admin: 04/12/18 16:04 Dose: 1 mg Glucagon (Glucagon Inj) 1 mg OTHER PRN PRN PRN Reason: for Hypoglycemia Protocol Haloperidol Lactate (Haldol Inj) 2 mg IV.PUSH Q6H PRN PRN Reason: AGITAION Last Admin: 04/12/18 06:00 Dose: 2 mg Heparin Sodium (Porcine) (Heparin Inj) 5,000 units SQ Q12HR [facility] Last Admin: 04/12/18 20:45 Dose: 5,000 units Potassium Chloride (Kcl 40 Meq Premix Inj) 40 meq in 100 mls @ 25 mls/hr IV.SIG Q2H PRN PRN Reason: For Potassium 2.8 - 3.2 mEq/L Last Infusion: 04/06/18 16:00 Dose: Infused Potassium Chloride (Kcl 20 Meq Premix Inj) 20 meq in 100 mls @ 50 mls/hr IV.SIG Q2H PRN PRN Reason: For Potassium 3.3 - 3.5 mEq/L Last Infusion: 04/12/18 18:25 Dose: Infused Potassium Chloride (Kcl 40 Meq Premix Inj) 40 meq in 100 mls @ 25 mls/hr IV.SIG UNSCH PRN PRN Reason: For Potassium 3.3 - 3.5 mEq/L Potassium Phosphate 30 mmol/ (Sodium Chloride) 260 mls @ 42 mls/hr IV.SIG UNSCH PRN PRN Reason: SEE LABEL COMMENTS Last Infusion: 04/11/18 19:00 Dose: Infused Sodium Phosphate 30 mmol/ (Sodium Chloride) 260 mls @ 42 mls/hr IV.SIG UNSCH PRN PRN Reason: For Phosphorus < 2.5 mg/dL Potassium Chloride (Kcl 20 Meq Premix Inj) 20 meq in 100 mls @ 50 mls/hr IV.SIG Q2H PRN PRN Reason: For Potassium 2.8 - 3.2 mEq/L Last Admin: 04/13/18 06:44 Dose: 50 mls/hr Magnesium Sulfate 4 gm/ Sodium (Chloride) 100 mls @ 50 mls/hr IV.SIG UNSCH PRN PRN Reason: For Magnesium 0.9 - 1.1 mg/dL Magnesium Sulfate 2 gm/ Sodium (Chloride) 100 mls @ 50 mls/hr IV.SIG UNSCH PRN PRN Reason: For Magnesium 1.2 - 1.6 mg/dL Last Infusion: 04/10/18 11:22 Dose: Infused Thiamine HCl 100 mg/ Sodium (Chloride) 101 mls @ 100 mls/hr IV.SIG DAILY [facility] Potassium Chloride/Dextrose/Sod Cl (D5w/1/2ns + Kcl 20 Meq Inj) 1,000 mls @ 75 mls/hr IV.SIG .[id number] [facility] Insulin Aspart (Novolog Insulin Correctional Sugar Inj) 0 unit SQ Q6HR [facility]; Protocol Last Admin: 04/13/18 06:34 Dose: Not Given Lactulose (Lactulose Liq) 30 ml PO BID [facility] Last Admin: 04/12/18 16:04 Dose: 30 ml Lorazepam (Ativan) 0.5 mg PO Q4H PRN PRN Reason: WITHDRAWAL Last Admin: 04/12/18 00:11 Dose: 0.5 mg Lorazepam (Ativan Inj) 0.5 mg IV.PUSH Q4H PRN PRN Reason: AGITATION Last Admin: 04/12/18 04:03 Dose: 0.5 mg Magnesium Oxide (Mag-Ox) 800 mg PO UNSCH PRN PRN Reason: For Magnesium 1.2 - 1.6 mg/dL Metoprolol Tartrate (Lopressor Inj) 5 mg IV.PUSH Q6H [facility] Last Admin: 04/13/18 01:30 Dose: 5 mg Multivitamins/Minerals (Theragran-M) 1 tab PO DAILY [facility] Last Admin: 04/12/18 16:07 Dose: 1 tab Ondansetron HCl (Zofran Inj) 4 mg IV.PUSH Q6H PRN PRN Reason: NAUSEA OR VOMITING Last Admin: 04/10/18 11:55 Dose: 4 mg Potassium Bicarb/Potassium Chloride (K-Lyte Cl Eff) 50 meq PO UNSCH PRN PRN Reason: For Potassium 3.3 - 3.5 mEq/L Potassium Phosphate (K-Phos Original) 2,000 mg PO Q4H PRN PRN Reason: Phosphorus Less Than 2.5 mg/dL Potassium Phosphate (K-Phos Original) 2,000 mg PO UNSCH PRN PRN Reason: SEE LABEL COMMENTS Senna/Docusate Sodium (Romana-Colace) 1 tab PO BID [facility] Last Admin: 04/12/18 22:25 Dose: Not Given Sodium Chloride (Ns Flush) 2 ml IV.FLUSH PRN PRN PRN Reason: FLUSH AFTER USING IV ACCESS Sodium Chloride (Ns Flush) 2 ml IV.FLUSH BID [facility] Last Admin: 04/12/18 20:45 Dose: 2 ml Sodium Chloride (Ns Flush) 0 ml IV.FLUSH DAILY [facility] Last Admin: 04/12/18 15:44 Dose: Not Given Thiamine HCl (Vitamin B1) 100 mg PO BID [facility] Last Admin: 04/12/18 16:04 Dose: 100 mg Allergies Allergy/AdvReac Type Severity Reaction Status Date / Time No Known Allergies Allergy Verified 04/03/18 10:22 Physical Exam Vital signs: Vital Signs 04/12/18 10:00 04/12/18 10:01 04/12/18 11:00 Temperature Pulse Rate 100 H 98 H 98 H Respiratory Rate 25 H 30 H 27 H Blood Pressure 137/71 Pulse Oximetry 96 93 L 97 04/12/18 11:01 04/12/18 11:36 04/12/18 12:00 Temperature 99.2 F Pulse Rate 100 H 95 H 104 H Respiratory Rate 31 H 20 26 H Blood Pressure 131/72 Pulse Oximetry 97 04/12/18 12:01 04/12/18 13:01 04/12/18 14:00 Temperature Pulse Rate 104 H 96 H 102 H Respiratory Rate 35 H 26 H Blood Pressure 128/67 116/63 Pulse Oximetry 92 L 97 04/12/18 14:01 04/12/18 15:01 04/12/18 16:00 Temperature 97.7 F Pulse Rate 98 H 98 H 98 H Respiratory Rate 28 H 24 Blood Pressure 135/71 140/84 Pulse Oximetry 96 98 04/12/18 16:01 04/12/18 16:55 04/12/18 17:00 Temperature Pulse Rate 96 H 114 H 102 H Respiratory Rate 26 H 38 H 27 H Blood Pressure 148/78 H 129/75 Pulse Oximetry 97 94 L 04/12/18 17:01 04/12/18 18:00 04/12/18 18:01 Temperature Pulse Rate 102 H 102 H 100 H Respiratory Rate 26 H 28 H 24 Blood Pressure 137/75 124/76 Pulse Oximetry 93 L 96 96 04/12/18 19:01 04/12/18 19:26 04/12/18 19:27 Temperature Pulse Rate 100 H 103 H Respiratory Rate 37 H 18 Blood Pressure 113/67 Pulse Oximetry 96 97 04/12/18 20:00 04/12/18 20:06 04/12/18 20:48 Temperature 97.3 F L 97.3 F L Pulse Rate 108 H 100 H 94 H Respiratory Rate 21 34 H 24 Blood Pressure 123/81 123/81 117/64 Pulse Oximetry 97 97 100 04/12/18 21:00 04/12/18 21:01 04/12/18 22:00 Temperature Pulse Rate 86 86 90 Respiratory Rate 26 H 26 H Blood Pressure 114/62 Pulse Oximetry 98 99 04/12/18 22:01 04/12/18 22:32 04/12/18 23:01 Temperature 98.3 F Pulse Rate 88 94 H 100 H Respiratory Rate 24 24 24 Blood Pressure 115/66 118/74 Pulse Oximetry 97 97 04/12/18 23:02 04/12/18 23:28 04/13/18 00:00 Temperature 99 F Pulse Rate 100 H 98 H 96 H Respiratory Rate 25 H 26 H 25 H Blood Pressure 138/81 Pulse Oximetry 95 95 97 04/13/18 00:04 04/13/18 01:00 04/13/18 01:01 Temperature Pulse Rate 97 H 107 H 106 H Respiratory Rate 24 26 H 24 Blood Pressure 149/80 H 142/82 H Pulse Oximetry 98 93 L 94 L 04/13/18 02:00 04/13/18 02:01 04/13/18 03:00 Temperature Pulse Rate 93 H 90 95 H Respiratory Rate 24 25 H 26 H Blood Pressure 138/77 Pulse Oximetry 98 96 97 04/13/18 03:01 04/13/18 04:00 04/13/18 04:02 Temperature 98 F Pulse Rate 95 H 91 H 92 H Respiratory Rate 26 H 24 23 Blood Pressure 138/78 124/72 Pulse Oximetry 97 96 96 04/13/18 05:00 04/13/18 05:01 04/13/18 06:00 Temperature Pulse Rate 90 90 94 H Respiratory Rate 22 21 24 Blood Pressure 127/73 Pulse Oximetry 97 97 95 04/13/18 06:01 04/13/18 09:26 Temperature Pulse Rate 93 H 91 H Respiratory Rate 24 23 Blood Pressure Pulse Oximetry 96 100 Intake & Output 04/12/18 04/13/18 04/13/18 18:59 06:59 18:59 Intake Total 530 / 530 100 / 100 Output Total 1600 / 1600 500 / 500 Balance -1070 / -1070 -400 / -400 Weight 56.1 kg Intake: IV 300 / 300 100 / 100 KCl 20 mEq Premix Inj 20 meq In 200 / 200 100 ml @ 50 mls/hr IV.SIG Q2H PRN Rx#:[id number] Rocephin Inj 2,000 MG In NS Inj 100 / 100 100 / 100 100 ML @ 200 mls/hr IV.SIG Q12H [facility] Rx#:[id number] Oral 130 / 130 0 / 0 Tube Irrigant 100 / 100 Output: Urine 800 / 800 100 / 100 Stool 250 / 250 Urine Amount (Catheter) 700 / 700 100 / 100 Female External 700 / 700 100 / 100 Gastric Drainage 100 / 100 50 / 50 Left Nare 100 / 100 50 / 50 Other: # Voids 1 Date of Last Bowel Movement 04/12/18 # Bowel Movements 1 Narrative: GENERAL: Well-developed well-nourished. Currently stable. Using neb treatment. NGT to suction. NECK: No carotid bruits. No JVD. CARDIOVASCULAR: Regular rate and rhythm. No murmur appreciated. RESPIRATORY: CTA bl, no wheeze, rales or rhonchi MUSCULOSKELETAL: No clubbing or cyanosis. No edema. NEUROLOGICAL: Awake and alert. Normal speech. - Urinary Catheter Management Indwelling Urethral Catheter Cath placed during this visit: yes, but has since been removed by the nurse Reason for continuing: Hourly intake/output Insertion date: 04/06/18 Removal date: 04/08/18 Female External Cath placed during this visit: no Results 04/13/18 04:48 04/13/18 04:48 Cardiac Enzymes 04/11/18 04/12/18 04/13/18 Range/Units 23:05 05:45 04:48 AST 60 H 67 H 60 H (15-37) U/L CBC 04/12/18 04/13/18 Range/Units 05:45 04:48 WBC 9.2 7.7 (4.0-11.0) th/mm3 RBC 3.07 L 2.95 L (4.00-5.30) mil/mm3 Hgb 10.2 L 10.4 L (11.6-15.3) gm/dL Hct 30.5 L 30.3 L (35.0-46.0) % Plt Count 463 H 419 (150-450) th/mm3 Neut # (Auto) 7.7 6.1 (1.8-7.7) th/mm3 Lymph # (Auto) 1.0 1.0 (1.0-4.8) th/mm3 [place] # (Auto) 0.4 0.5 (0.0-0.9) th/mm3 Eos # (Auto) 0.1 0.1 (0.0-0.4) th/mm3 Baso # (Auto) 0.0 0.0 (0.0-0.2) th/mm3 Comprehensive Metabolic Panel 04/11/18 04/12/18 04/13/18 Range/Units 23:05 05:45 04:48 Sodium 139 139 141 (136-145) meq/L Potassium 3.3 L 3.5 3.1 L (3.5-5.1) meq/L Chloride 102 104 105 (98-107) meq/L Carbon Dioxide 25.7 22.2 25.7 (21.0-32.0) meq/L BUN 7 7 6 L (7-18) mg/dL Creatinine 0.63 0.53 0.54 (0.50-1.00) mg/dL Calcium 8.4 L 8.1 L 8.0 L (8.5-10.1) mg/dL AST 60 H 67 H 60 H (15-37) U/L ALT 35 34 35 (10-53) U/L Alkaline Phosphatase 84 73 71 (45-117) U/L Total Protein 6.7 D 6.1 L D 6.1 L (6.4-8.2) g/dL Albumin 2.7 L 2.5 L 2.5 L (3.4-5.0) g/dL Intake and Output 04/12/18 04/13/18 04/13/18 22:59 06:59 14:59 Intake Total 500 / 500 0 / 0 Output Total 1750 / 1750 100 / 100 Balance -1250 / -1250 -100 / -100 Intake: IV 300 / 300 KCl 20 mEq Premix Inj 20 meq In 200 / 200 100 ml @ 50 mls/hr IV.SIG Q2H PRN Rx#:[id number] Rocephin Inj 2,000 MG In NS Inj 100 / 100 100 ML @ 200 mls/hr IV.SIG Q12H [facility] Rx#:[id number] Oral 100 / 100 0 / 0 Tube Irrigant 100 / 100 Output: Urine 700 / 700 Stool 150 / 150 100 / 100 Urine Amount (Catheter) 800 / 800 Female External 800 / 800 Gastric Drainage 100 / 100 Left Nare 100 / 100 Other: # Voids 1 Date of Last Bowel Movement 04/12/18 04/12/18 # Bowel Movements 1 1 Weight 56.1 kg - Imaging and Cardiology Imaging: Impressions Abdomen/Pelvis CT 04/11/18 00:00 CONCLUSION: 1. Small bowel ileus with air and fecal debris identified in the distal small bowel. A discrete transition to indicate the presence of an obstructing process is not clearly evident. 2. Peritoneal bands characteristic of adhesions. 3. Collapsed colon 4. Bilateral pleural effusions and bibasilar airspace disease. Small Bowel X-Ray 04/12/18 00:00 CONCLUSION: High-grade distal small bowel obstruction. Assessment and Plan - Plan 53-year-old female with a past medical history of anxiety and daily alcohol use who presented with pyelonephritis, found to have gram-negative bacteremia, subsequent septic shock on 04/06. Found to have elevated troponin consistent with NSTEMI type II vs type I less likely, new cardiomyopathy with LVEF 25-30%, pulmonary edema, and respiratory failure requiring intubation and mechanical ventilation. Course further complicated by alcohol withdrawal and abdominal pain /distention consistent with ileus versus distal SBO less likely. I was asked to reconsult on patient for preoperative cardiovascular risk assessment prior to possible noncardiac surgery for possible SBO, though at this juncture this appears to be less likely needed. Assessment: Preoperative cardiovascular risk assessment for noncardiac surgery - patient is a high risk patient for an intermediate risk surgical procedure and if emergent (seems to not be the case) she may proceed with the procedure with continuation of ASA and perioperative beta abbi therapy if benefits are deemed to exceed risks. Otherwise, further cardiovascular evaluation for risk stratification with a Lexiscan would be appropriate at this time. She appears to be compensated from a heart failure perspective. No need for further diuresis at this time. Try to maintain euvolemic state. Non-STEMI, type I versus type II - demand mediated due to gram-negative bacteremia and septic shock-troponin downtrended Septic shock Gram-negative bacteremia - This is typically associated with lower risk of endocarditis. Admission Abnormal EKG - in the setting of hypokalemia Cardiomyopathy-EF 25-30%, ischemia evaluation needed Plan: Will need to evaluate for obstructive coronary artery disease, would benefit from undergoing nuclear stress which is scheduled for later today. continue aspirin 81 mg daily, atorvastatin 40 mg nightly lopressor 5mg q 6 hours while NPO and NGT to suction and d/c when ok with po medications, at which point start Carvedilol 6.25mg bid and Lisinopril 5mg daily
[2018-04-13] MEDS ORDERED: Potassium Chlor 20 mEq Premix 20 MEQ/100 ML PIGGYBACK IV.SIG ONE (10:00)
[2018-04-13] MEDS: Senna/Docusate Sodium 8.6/50 MG Tablet PO SCH ×2 (10:09→21:19)
[2018-04-13] MEDS: Multivitamin/Minerals Therapeutic Tablet PO SCH (10:09)
[2018-04-13] MEDS ORDERED: Regadenoson Inj 0.4 MG/5 ML Syringe IV.PUSH ONE (10:24)
[2018-04-13] MEDS: KCL 20 mEq/D5W/NaCl 0.45% Inj 1,000 ML IV.SIG SCH (12:05)
--- NOTE | 2018-04-13 12:10 | NM ---
EXAM DATE: 04/13/2018 11:47 AM EST AGE/SEX: 53 years / Female INDICATIONS:Angina. . Acute myocardial infarction. CLINICAL DATA: This is the patient's initial encounter. Patient reports that signs and symptoms have been present for 1 day and indicates a pain score of 0/10. MEDICAL/SURGICAL HISTORY: None. Tonsillectomy. COMPARISON: . DOSE: 8.5 mCi Tc 99m Myoview at rest 25.4 mCi [id number] at stress 0.4 mg Lexiscan STRESS SYMPTOMS: Asymptomatic. EJECTION FRACTION: >70 % TECHNIQUE: The patient underwent pharmacologic stress with infusion of prescribed dose. Continuous ECG tracing was monitored during stress. Gated SPECT imaging was performed after stress and conventi onal SPECT imaging was performed at rest. The examination was performed on a SPECT/CT scanner, both attenuation and non-corrected datasets were reviewed. FINDINGS: Distribution: The maximum perfused segment at stress is in the inferior wall. Perfusion Study: There is mild decreased activity on the stress images at the mid and basal portion s of the septum. There is also some decreased activity at the basal portion of the anterior wall on t he rest images. Gated Study: There are intact wall motion and wall thickening without hypokinetic or dyskinetic segm ents. The ejection fraction is calculated at >70%. RISK CATEGORY: Low (<1% Annual Motality Rate) CONCLUSION: Mild areas of decreased activity in the mid and basal portions of the septum and the basal portion of the anterior wall. These areas are borderline for ischemia. Electronically signed by: Kennedy Weinberg MD 04/13/2018 12:08 PM EST
--- NOTE | 2018-04-13 14:22 | P.PNIM ---
Subjective Interval history: pt having bm's. eager for oob activity Physical Exam Vital signs: Last Vital Signs Temp 97.0 F L 04/13/18 08:02 Pulse 100 H 04/13/18 13:00 Resp 29 H 04/13/18 13:00 BP 142/81 H 04/13/18 13:00 Pulse Ox 99 04/13/18 13:00 Narrative: heart reg lung cta abd s/nt ext no edema Results Labs CBC & Chem 7: 04/13/18 04:48 04/13/18 04:48 Assessment and Plan Assessment (1) Respiratory failure: Code(s): J96.90 - Respiratory failure, unspecified, unspecified whether with hypoxia or hypercapnia Status: Resolved (2) Sepsis: Code(s): A41.9 - Sepsis, unspecified organism Status: Acute (3) Pyelonephritis: Code(s): N12 - Tubulo-interstitial nephritis, not specified as acute or chronic Status: Acute (4) Hyponatremia: Code(s): E87.1 - Hypo-osmolality and hyponatremia Status: Resolved (5) Dehydration: Code(s): E86.0 - Dehydration Status: Resolved (6) LFT elevation: Code(s): R94.5 - Abnormal results of liver function studies Status: Resolved (7) Alcohol use: Code(s): Z78.9 - Other specified health status Status: Chronic (8) NSTEMI (non-ST elevated myocardial infarction): Code(s): I21.4 - Non-ST elevation (NSTEMI) myocardial infarction Status: Acute (9) Ileus: Code(s): K56.7 - Ileus, unspecified Status: Acute Plan 1. ecoli pylonephritis/sepsis 2. cardiomyopathy/ ef 25-30%. acute pulmonary edema. s/p intubation 3. etoh abuse. etoh w/d 4. ileus. seems to be resolving 5. hypokalemia ngt/ivf/diet per gen surg cont nebs lexiscan today. discuss result with cardiology replace kcl. recheck. librium taper. Pt/oob dvt prophylaxis transfer out of ICU. Progress Note: Quality VTE Deep Vein Thrombosis/Pulmonary Embolism Present on Admission: No _ (1) Respiratory failure Qualifiers: Chronicity: acute Respiratory failure complication: hypoxia Qualified Code(s ): J96.01 - Acute respiratory failure with hypoxia (2) Sepsis Qualifiers: Sepsis type: Escherichia coli Qualified Code(s): A41.51 - Sepsis due to Escherichia coli [E. coli]
[2018-04-13] MEDS: Thiamine Inj 100 MG in Sodium Chlor 0.9% Inj 100 ML IV.SIG SCH (21:23)
[2018-04-13] MEDS ORDERED: Metoprolol Tartrate 50 MG Tablet PO ONE (23:15)
[2018-04-14] MEDS: Insulin NovoLOG Aspart Correctional Sugar Inj SQ SCH ×3 (04:26→12:30)
[2018-04-14 06:53] LABS: Anion Gap 7 meq/L (5-15); Blood Urea Nitrogen 3 mg/dL (7-18); Calcium 8.6 mg/dL (8.5-10.1); Carbon Dioxide 28.7 meq/L (21.0-32.0); Chloride 99 meq/L (98-107); Glomerular Filtration Rate Greater Than 89 mL/min (>89); Glucose,Random 101 mg/dL (74-106); Potassium 3.8 meq/L (3.5-5.1); Sodium 135 meq/L (136-145)
[2018-04-14] MEDS: Artificial Tears Opth Drops 15 ML Bottle EACH EYE SCH ×4 (07:43→23:34)
[2018-04-14] MEDS: KCL 20 mEq/D5W/NaCl 0.45% Inj 1,000 ML IV.SIG SCH ×3 (07:44→12:30)
--- NOTE | 2018-04-14 08:10 | P.PNCA ---
Subjective Interval history: No chest pain, shortness of breath, palpitations, leg swelling. Some mild off- and-on abdominal discomfort. She reports she is having bowel movements. NG tube still in place and still n.p.o. Medications and Allergies Allergies Allergy/AdvReac Type Severity Reaction Status Date / Time No Known Allergies Allergy Verified 04/03/18 10:22 Active Medications: Active Medications Acetaminophen (Tylenol Liq) 650 mg PO Q6H PRN PRN Reason: FEVER Last Admin: 04/07/18 08:54 Dose: 650 mg Albuterol (Albuterol Neb (Prn)) 2.5 mg NEB Q2HR NEB PRN PRN Reason: DYSPNEA Albuterol (Duoneb Neb (Onelia)) 1 ampul INH Q4HR NEB [facility] Last Admin: 04/14/18 07:23 Dose: 1 ampul Artificial Tears (Tears Naturale Opth Drops) 1 drop EACH EYE Q8HR [facility] Last Admin: 04/14/18 07:43 Dose: 1 drop Aspirin (Aspirin Chew) 81 mg PO DAILY [facility] Last Admin: 04/13/18 12:04 Dose: Not Given Atorvastatin Calcium (Lipitor) 40 mg PO HS [facility] Last Admin: 04/11/18 21:42 Dose: 40 mg Carvedilol (Coreg) 3.125 mg PO BID [facility] Last Admin: 04/12/18 16:04 Dose: 3.125 mg Chlordiazepoxide (Librium) 10 mg PO Q8HR [facility] Last Admin: 04/12/18 16:04 Dose: 10 mg Dextrose (D50w Vial) 50 ml IV.PUSH UNSCH PRN PRN Reason: PER HYPOGLYCEMIA PROTOCOL Last Admin: 04/13/18 00:02 Dose: 50 ml Folic Acid (Folic Acid) 1 mg PO DAILY [facility] Last Admin: 04/12/18 16:04 Dose: 1 mg Glucagon (Glucagon Inj) 1 mg OTHER PRN PRN PRN Reason: for Hypoglycemia Protocol Haloperidol Lactate (Haldol Inj) 2 mg IV.PUSH Q6H PRN PRN Reason: AGITAION Last Admin: 04/12/18 06:00 Dose: 2 mg Heparin Sodium (Porcine) (Heparin Inj) 5,000 units SQ Q12HR [facility] Last Admin: 04/13/18 21:18 Dose: 5,000 units Potassium Chloride (Kcl 40 Meq Premix Inj) 40 meq in 100 mls @ 25 mls/hr IV.SIG Q2H PRN PRN Reason: For Potassium 2.8 - 3.2 mEq/L Last Infusion: 04/06/18 16:00 Dose: Infused Potassium Chloride (Kcl 20 Meq Premix Inj) 20 meq in 100 mls @ 50 mls/hr IV.SIG Q2H PRN PRN Reason: For Potassium 3.3 - 3.5 mEq/L Last Infusion: 04/12/18 18:25 Dose: Infused Potassium Chloride (Kcl 40 Meq Premix Inj) 40 meq in 100 mls @ 25 mls/hr IV.SIG UNSCH PRN PRN Reason: For Potassium 3.3 - 3.5 mEq/L Potassium Phosphate 30 mmol/ (Sodium Chloride) 260 mls @ 42 mls/hr IV.SIG UNSCH PRN PRN Reason: SEE LABEL COMMENTS Last Infusion: 04/11/18 19:00 Dose: Infused Sodium Phosphate 30 mmol/ (Sodium Chloride) 260 mls @ 42 mls/hr IV.SIG UNSCH PRN PRN Reason: For Phosphorus < 2.5 mg/dL Potassium Chloride (Kcl 20 Meq Premix Inj) 20 meq in 100 mls @ 50 mls/hr IV.SIG Q2H PRN PRN Reason: For Potassium 2.8 - 3.2 mEq/L Last Infusion: 04/13/18 23:04 Dose: Infused Magnesium Sulfate 4 gm/ Sodium (Chloride) 100 mls @ 50 mls/hr IV.SIG UNSCH PRN PRN Reason: For Magnesium 0.9 - 1.1 mg/dL Magnesium Sulfate 2 gm/ Sodium (Chloride) 100 mls @ 50 mls/hr IV.SIG UNSCH PRN PRN Reason: For Magnesium 1.2 - 1.6 mg/dL Last Infusion: 04/10/18 11:22 Dose: Infused Potassium Chloride/Dextrose/Sod Cl (D5w/1/2ns + Kcl 20 Meq Inj) 1,000 mls @ 75 mls/hr IV.SIG .[id number] [facility] Last Admin: 04/14/18 07:44 Dose: Not Given Thiamine HCl 100 mg/ Sodium (Chloride) 101 mls @ 100 mls/hr IV.SIG Q24H [facility] Last Infusion: 04/13/18 23:04 Dose: Infused Insulin Aspart (Novolog Insulin Correctional Sugar Inj) 0 unit SQ Q6HR [facility]; Protocol Last Admin: 04/14/18 07:41 Dose: Not Given Lactulose (Lactulose Liq) 30 ml PO BID [facility] Last Admin: 04/12/18 16:04 Dose: 30 ml Lorazepam (Ativan) 0.5 mg PO Q4H PRN PRN Reason: WITHDRAWAL Last Admin: 04/12/18 00:11 Dose: 0.5 mg Lorazepam (Ativan Inj) 0.5 mg IV.PUSH Q4H PRN PRN Reason: AGITATION Last Admin: 04/12/18 04:03 Dose: 0.5 mg Magnesium Oxide (Mag-Ox) 800 mg PO UNSCH PRN PRN Reason: For Magnesium 1.2 - 1.6 mg/dL Metoprolol Tartrate (Lopressor) 50 mg PO BID [facility] Multivitamins/Minerals (Theragran-M) 1 tab PO DAILY [facility] Last Admin: 04/13/18 10:09 Dose: Not Given Ondansetron HCl (Zofran Inj) 4 mg IV.PUSH Q6H PRN PRN Reason: NAUSEA OR VOMITING Last Admin: 04/10/18 11:55 Dose: 4 mg Potassium Bicarb/Potassium Chloride (K-Lyte Cl Eff) 50 meq PO UNSCH PRN PRN Reason: For Potassium 3.3 - 3.5 mEq/L Potassium Phosphate (K-Phos Original) 2,000 mg PO Q4H PRN PRN Reason: Phosphorus Less Than 2.5 mg/dL Potassium Phosphate (K-Phos Original) 2,000 mg PO UNSCH PRN PRN Reason: SEE LABEL COMMENTS Senna/Docusate Sodium (Romana-Colace) 1 tab PO BID [facility] Last Admin: 04/13/18 21:19 Dose: Not Given Sodium Chloride (Ns Flush) 2 ml IV.FLUSH PRN PRN PRN Reason: FLUSH AFTER USING IV ACCESS Sodium Chloride (Ns Flush) 2 ml IV.FLUSH BID [facility] Last Admin: 04/13/18 21:18 Dose: 2 ml Sodium Chloride (Ns Flush) 0 ml IV.FLUSH DAILY [facility] Last Admin: 04/13/18 10:09 Dose: Not Given Thiamine HCl (Vitamin B1) 100 mg PO BID [facility] Last Admin: 04/12/18 16:04 Dose: 100 mg Physical Exam Vital signs: Vital Signs 04/13/18 09:00 04/13/18 09:02 11/25/18 09:26 Temperature Pulse Rate 99 H 97 H 91 H Respiratory Rate 30 H 26 H 23 Blood Pressure 142/85 H Pulse Oximetry 95 96 100 04/13/18 09:58 04/13/18 12:06 04/13/18 12:07 Temperature Pulse Rate 85 99 H Respiratory Rate Blood Pressure 143/80 H Pulse Oximetry 96 04/13/18 12:20 04/13/18 13:00 04/13/18 14:00 Temperature Pulse Rate 98 H 100 H 98 H Respiratory Rate 26 H 29 H 26 H Blood Pressure 142/81 H 140/85 Pulse Oximetry 99 100 04/13/18 15:00 04/13/18 16:00 04/13/18 17:00 Temperature 98.9 F Pulse Rate 91 H 96 H 98 H Respiratory Rate 26 H 30 H 34 H Blood Pressure 145/82 H 145/78 H 133/78 Pulse Oximetry 100 93 L 98 04/13/18 17:41 04/13/18 18:00 04/13/18 19:00 Temperature Pulse Rate 94 H 101 H 97 H Respiratory Rate 17 29 H 24 Blood Pressure 140/77 152/79 H Pulse Oximetry 99 99 04/13/18 20:00 04/13/18 20:07 04/13/18 21:00 Temperature 98.7 F Pulse Rate 105 H 104 H 99 H Respiratory Rate 30 H 18 23 Blood Pressure 161/71 H 139/75 Pulse Oximetry 96 95 96 04/13/18 22:00 04/13/18 23:10 04/14/18 00:00 Temperature 97.7 F Pulse Rate 93 H 98 H 98 H Respiratory Rate 25 H 18 20 Blood Pressure 156/89 H 151/85 H Pulse Oximetry 96 95 04/14/18 03:40 04/14/18 04:00 04/14/18 04:56 Temperature 97.3 F L Pulse Rate 92 H 95 H Respiratory Rate 15 16 16 Blood Pressure 142/80 H Pulse Oximetry 97 95 04/14/18 07:24 Temperature Pulse Rate 92 H Respiratory Rate 20 Blood Pressure Pulse Oximetry Intake & Output 04/13/18 04/14/18 04/14/18 18:59 06:59 18:59 Intake Total 100 / 100 401 / 401 644 / 644 Output Total 1000 / 1000 450 / 450 Balance -900 / -900 -49 / -49 644 / 644 Weight 116 lb 6.465 oz Intake: IV 100 / 100 401 / 401 644 / 644 D5W/1/2NS + KCL 20 mEq Inj 1, 644 / 644 000 ML @ 75 mls/hr IV.SIG . [id number] [facility] Rx#:[id number] KCl 20 mEq Premix Inj 20 meq In 100 / 100 200 / 200 100 ml @ 50 mls/hr IV.SIG Q2H PRN Rx#:[id number] Thiamine Inj 100 MG In NS Inj 101 / 101 100 ML @ 100 mls/hr IV.SIG Q24H [facility] Rx#:[id number] Oral 0 / 0 Output: Urine 450 / 450 Urine Amount (Catheter) 1000 / 1000 Female External 1000 / 1000 Gastric Drainage 0 / 0 Left Nare 0 / 0 Other: # Incontinent Voids 2 # Bowel Movements 5 1 Narrative: GENERAL: Well-developed well-nourished. In no acute distress. NECK: No carotid bruits. No JVD. CARDIOVASCULAR: Regular rate and rhythm. No murmur appreciated. RESPIRATORY: No accessory muscle use. Clear to auscultation. Breath sounds equal bilaterally. MUSCULOSKELETAL: No clubbing or cyanosis. No edema. NEUROLOGICAL: Awake and alert. Normal speech. - Urinary Catheter Management Indwelling Urethral Catheter Cath placed during this visit: yes, but has since been removed by the nurse Reason for continuing: Hourly intake/output Insertion date: 04/06/18 Removal date: 04/08/18 Female External Cath placed during this visit: no Results 04/13/18 04:48 04/14/18 06:00 Cardiac Enzymes 04/12/18 04/13/18 Range/Units 05:45 04:48 AST 67 H 60 H (15-37) U/L CBC 04/13/18 Range/Units 04:48 WBC 7.7 (4.0-11.0) th/mm3 RBC 2.95 L (4.00-5.30) mil/mm3 Hgb 10.4 L (11.6-15.3) gm/dL Hct 30.3 L (35.0-46.0) % Plt Count 419 (150-450) th/mm3 Neut # (Auto) 6.1 (1.8-7.7) th/mm3 Lymph # (Auto) 1.0 (1.0-4.8) th/mm3 Crisp # (Auto) 0.5 (0.0-0.9) th/mm3 Eos # (Auto) 0.1 (0.0-0.4) th/mm3 Baso # (Auto) 0.0 (0.0-0.2) th/mm3 Comprehensive Metabolic Panel 04/12/18 04/13/18 04/14/18 Range/Units 05:45 04:48 06:00 Sodium 139 141 135 L (136-145) meq/L Potassium 3.5 3.1 L 3.8 (3.5-5.1) meq/L Chloride 104 105 99 (98-107) meq/L Carbon Dioxide 22.2 25.7 28.7 (21.0-32.0) meq/L BUN 7 6 L 3 L (7-18) mg/dL Creatinine 0.53 0.54 0.56 (0.50-1.00) mg/dL Calcium 8.1 L 8.0 L 8.6 (8.5-10.1) mg/dL AST 67 H 60 H (15-37) U/L ALT 34 35 (10-53) U/L Alkaline Phosphatase 73 71 (45-117) U/L Total Protein 6.1 L D 6.1 L (6.4-8.2) g/dL Albumin 2.5 L 2.5 L (3.4-5.0) g/dL Intake and Output 04/13/18 04/14/18 04/14/18 22:59 06:59 14:59 Intake Total 300 / 300 201 / 201 644 / 644 Output Total 1000 / 1000 450 / 450 Balance -700 / -700 -249 / -249 644 / 644 Intake: IV 300 / 300 201 / 201 644 / 644 D5W/1/2NS + KCL 20 mEq Inj 1, 644 / 644 000 ML @ 75 mls/hr IV.SIG . [id number] [facility] Rx#:[id number] KCl 20 mEq Premix Inj 20 meq In 200 / 200 100 / 100 100 ml @ 50 mls/hr IV.SIG Q2H PRN Rx#:[id number] Thiamine Inj 100 MG In NS Inj 101 / 101 100 ML @ 100 mls/hr IV.SIG Q24H [facility] Rx#:[id number] Oral 0 / 0 Output: Urine 450 / 450 Urine Amount (Catheter) 1000 / 1000 Female External 1000 / 1000 Gastric Drainage 0 / 0 Left Nare 0 / 0 Other: # Incontinent Voids 2 # Bowel Movements 5 1 Weight 116 lb 6.465 oz - Imaging and Cardiology Imaging: Impressions Small Bowel X-Ray 04/12/18 00:00 CONCLUSION: High-grade distal small bowel obstruction. Myocardial Perfusion Scan Nuc Med 04/13/18 00:00 CONCLUSION: Mild areas of decreased activity in the mid and basal portions of the septum and the basal portion of the anterior wall. These areas are borderline for ischemia. Assessment and Plan - Plan 53-year-old female with a past medical history of anxiety and daily alcohol use who presented with pyelonephritis, found to have gram-negative bacteremia, subsequent septic shock on 04/06. Found to have elevated troponin consistent with NSTEMI type II vs type I less likely, new cardiomyopathy with LVEF 25-30%, pulmonary edema, and respiratory failure requiring intubation and mechanical ventilation. Course further complicated by alcohol withdrawal and abdominal pain /distention consistent with ileus vs distal SBO less likely. Reconsulted 04/13 for preoperative cardiovascular risk assessment prior to possible noncardiac surgery for possible SBO, though at this juncture this appears to be less likely needed. Assessment: Preoperative cardiovascular risk assessment for noncardiac surgery - patient is a high risk patient for an intermediate risk surgical procedure and she may proceed with the procedure with continuation of ASA and perioperative beta abbi therapy if benefits are deemed to exceed risks. She appears to be compensated from a heart failure perspective. No need for further diuresis at this time. Try to maintain euvolemic state. Non-STEMI, type I versus type II - demand mediated due to gram-negative bacteremia and septic shock-troponin downtrended Septic shock - Improved Gram-negative bacteremia - This is typically associated with lower risk of endocarditis. Admission Abnormal EKG - in the setting of hypokalemia Cardiomyopathy-EF 25-30% Borderline abnormal stress test - Lexiscan 04/13 showed a small area of borderline ischemia in the mid and basal portions of the septum and the basal portion of the anterior wall, low/moderate risk findings. Plan: May consider LHC after clinical improvement in multiple current noncardiac issues to evaluate for obstructive coronary artery disease. May be completed inpatient or as outpatient following discharge. Continue aspirin 81 mg daily, atorvastatin 40 mg nightly Recommend Lopressor 5mg q 6 hours while NPO and NGT to suction and d/c when ok with po medications, at which point start Carvedilol 6.25mg bid and Lisinopril 5mg daily Discussed Condition With: Patient, Dr. Marie - Attending Attestation patient seen and examined. agree with above
[2018-04-14] MEDS: Senna/Docusate Sodium 8.6/50 MG Tablet PO SCH ×2 (08:29→20:43)
[2018-04-14] MEDS: Metoprolol Tartrate 50 MG Tablet PO SCH ×2 (08:29→20:38)
[2018-04-14] MEDS: Heparin - SQ 10,000 UNITS/ML Vial SQ SCH ×2 (08:29→20:42)
[2018-04-14] MEDS: Multivitamin/Minerals Therapeutic Tablet PO SCH (08:30)
--- NOTE | 2018-04-14 10:27 | P.PNIM ---
Subjective Interval history: eager for food and ngt removal. moved bowel multiple times yesterday. Physical Exam Vital signs: Last Vital Signs Temp 97.5 F L 04/14/18 08:00 Pulse 98 H 04/14/18 08:00 Resp 17 04/14/18 08:00 BP 139/74 04/14/18 08:00 Pulse Ox 96 04/14/18 08:00 Narrative: heart reg lung cta abd s/nt/bs ext no edema Results Labs CBC & Chem 7: 04/13/18 04:48 04/14/18 06:00 Assessment and Plan Plan 1. ecoli pylonephritis/sepsis 2. cardiomyopathy/ ef 25-30%. nstemi acute pulmonary edema. s/p intubation lexiscan some areas of possible ischemia/ef 70percent 3. etoh abuse. etoh w/d 4. ileus. seems to be resolving 5. hypokalemia clamp ngt. try clears and if tolerated advance and dc ngt if ok with g.surg. cont nebs await cardiology decisions on rachael. cathy/bb planned once po resumed replace kcl. recheck. stop librium orders. Pt/oob today. dvt prophylaxis updated at bedside.. Progress Note: Quality VTE Deep Vein Thrombosis/Pulmonary Embolism Present on Admission: No
--- NOTE | 2018-04-14 13:05 | P.PNID ---
Subjective Remarks: Patient is a 53-year-old female, presented to the hospital after she was seen by her primary care physician for further evaluation. She apparently has been having problem with dysuria, flank pain, and abdominal pain for the last 5 days. She has had some chills, but has not really documented her temperature. She complains of bilateral flank pain. She also has had some dysuria. She denies any hematuria, or any history of kidney stone. She has had prior history of UTI but this was 2 years ago. Currently patient is so weak and she is having hard time going to the bathroom so she has been urinating in her bed. She denies any respiratory complaint. Patient when I saw her is very tremulous, and according to her she gets like this when she gets sick. Her WBC on admission is normal. Her urinalysis showed evidence of UTI. Her LFTs are mildly elevated. There is history of drinking wine on a daily basis. CT of the abdomen and pelvis did not show any hydronephrosis or any abnormality in the gallbladder. She denies any diarrhea. She has had some nausea but no vomiting. Patient currently still having fevers. Her blood cultures are now reported as growing gram-negative jax. Verigene testing is showing E. coli, and no resistant markers noted. Urine culture is still pending. Infectious disease consultation has been requested to assist with evaluation and treatment. Notes reviewed Patient was on the vent when I saw her last in PO She has been extubated 04/08 Has had problem with abdominal pain and distension Radiology studies C/W high grade distal SBO per surgery Has NGT - currently clamped On clear liquid Adominal pain better (+) BM No foleu - voiding ok Last Uc with Enterococcus She has been off Abx wsince 05/12 WBC normal Antibiotics: None Past Medical History: Breast augmentation Tonsillectomy Drinks ETOH regularly Allergies/Adverse Reactions: Allergies No Known Allergies Allergy (Verified 04/03/18 10:22) Objective Vital Signs 04/13/18 14:00 04/13/18 15:00 04/13/18 16:00 Temperature 98.9 F Pulse Rate 98 H 91 H 96 H Respiratory Rate 26 H 26 H 30 H Blood Pressure 140/85 145/82 H 145/78 H Pulse Oximetry 100 100 93 L 04/13/18 17:00 04/13/18 17:41 04/13/18 18:00 Temperature Pulse Rate 98 H 94 H 101 H Respiratory Rate 34 H 17 29 H Blood Pressure 133/78 140/77 Pulse Oximetry 98 99 04/13/18 19:00 04/13/18 20:00 04/13/18 20:07 Temperature 98.7 F Pulse Rate 97 H 105 H 104 H Respiratory Rate 24 30 H 18 Blood Pressure 152/79 H 161/71 H Pulse Oximetry 99 96 95 04/13/18 21:00 04/13/18 22:00 04/13/18 23:10 Temperature Pulse Rate 99 H 93 H 98 H Respiratory Rate 23 25 H 18 Blood Pressure 139/75 156/89 H Pulse Oximetry 96 96 04/14/18 00:00 04/14/18 03:40 04/14/18 04:00 Temperature 97.7 F 97.3 F L Pulse Rate 98 H 92 H 95 H Respiratory Rate 20 15 16 Blood Pressure 151/85 H 142/80 H Pulse Oximetry 95 97 95 04/14/18 04:56 04/14/18 07:24 04/14/18 08:00 Temperature 97.5 F L Pulse Rate 92 H 98 H Respiratory Rate 16 20 17 Blood Pressure 139/74 Pulse Oximetry 96 Intake & Output 04/13/18 04/14/18 04/14/18 18:59 06:59 18:59 Intake Total 100 / 100 401 / 401 1000 / 1000 Output Total 1000 / 1000 450 / 450 Balance -900 / -900 -49 / -49 1000 / 1000 Weight 52.8 kg Intake: IV 100 / 100 401 / 401 1000 / 1000 D5W/1/2NS + KCL 20 mEq Inj 1, 1000 / 1000 000 ML @ 75 mls/hr IV.SIG . [id number] [facility] Rx#:[id number] KCl 20 mEq Premix Inj 20 meq In 100 / 100 200 / 200 100 ml @ 50 mls/hr IV.SIG Q2H PRN Rx#:[id number] Thiamine Inj 100 MG In NS Inj 101 / 101 100 ML @ 100 mls/hr IV.SIG Q24H [facility] Rx#:[id number] Oral 0 / 0 Output: Urine 450 / 450 Urine Amount (Catheter) 1000 / 1000 Female External 1000 / 1000 Gastric Drainage 0 / 0 Left Nare 0 / 0 Other: # Incontinent Voids 2 # Bowel Movements 5 1 04/07/18 16:40 Blood - Peripheral Aerobic Blood Culture - Final No growth in 5 days 04/07/18 16:40 Blood - Peripheral Anaerobic Blood Culture - Final No growth in 5 days 04/07/18 16:35 Blood - Peripheral Aerobic Blood Culture - Final No growth in 5 days 04/07/18 16:35 Blood - Peripheral Anaerobic Blood Culture - Final No growth in 5 days Lab - Hematology Results 04/13/18 04:48 WBC 7.7 RBC 2.95 L Hgb 10.4 L Hct 30.3 L MCV 102.9 H MCH 35.2 H MCHC 34.2 RDW 13.6 Plt Count 419 MPV 8.7 Neut % (Auto) 79.4 H Lymph % (Auto) 12.9 [place]yer % (Auto) 5.9 Eos % (Auto) 1.5 Baso % (Auto) 0.3 Neut # (Auto) 6.1 Lymph # (Auto) 1.0 [place] # (Auto) 0.5 Eos # (Auto) 0.1 Baso # (Auto) 0.0 WBC Differential . Differential Comment Auto diff final Lab - Chemistry Results 04/12/18 04/12/18 04/13/18 16:45 23:55 00:30 Sodium Potassium Chloride Carbon Dioxide Anion Gap BUN Creatinine Estimated GFR POC Glucose 78 66 L 165 H Random Glucose Calcium Phosphorus Magnesium Total Bilirubin AST ALT Alkaline Phosphatase Total Protein Albumin 04/13/18 04/13/18 04/13/18 04:48 14:00 17:01 Sodium 141 Potassium 3.1 L Chloride 105 Carbon Dioxide 25.7 Anion Gap 10 BUN 6 L Creatinine 0.54 Estimated GFR Greater than 89 POC Glucose 91 94 Random Glucose 78 Calcium 8.0 L Phosphorus 2.9 Magnesium 1.5 Total Bilirubin 0.7 AST 60 H ALT 35 Alkaline Phosphatase 71 Total Protein 6.1 L Albumin 2.5 L 04/14/18 04/14/18 04/14/18 00:55 06:00 06:11 Sodium 135 L Potassium 3.8 Chloride 99 Carbon Dioxide 28.7 Anion Gap 7 BUN 3 L Creatinine 0.56 Estimated GFR Greater than 89 POC Glucose 92 98 Random Glucose 101 Calcium 8.6 Phosphorus Magnesium Total Bilirubin AST ALT Alkaline Phosphatase Total Protein Albumin 04/14/18 11:36 Sodium Potassium Chloride Carbon Dioxide Anion Gap BUN Creatinine Estimated GFR POC Glucose 116 H Random Glucose Calcium Phosphorus Magnesium Total Bilirubin AST ALT Alkaline Phosphatase Total Protein Albumin Imaging: ITS Impressions Abdomen X-Ray 04/08/18 00:00 CONCLUSION: Mild ileus Chest X-Ray 04/08/18 06:00 CONCLUSION: No significant interval change with persistent right greater than left lung base opacity and likely small bilateral pleural effusions. Abdomen/Pelvis CT 04/11/18 00:00 CONCLUSION: 1. Small bowel ileus with air and fecal debris identified in the distal small bowel. A discrete transition to indicate the presence of an obstructing process is not clearly evident. 2. Peritoneal bands characteristic of adhesions. 3. Collapsed colon 4. Bilateral pleural effusions and bibasilar airspace disease. Small Bowel X-Ray 04/12/18 00:00 CONCLUSION: High-grade distal small bowel obstruction. Myocardial Perfusion Scan Nuc Med 04/13/18 00:00 CONCLUSION: Mild areas of decreased activity in the mid and basal portions of the septum and the basal portion of the anterior wall. These areas are borderline for ischemia. Physical Exam: GENERAL: awake and alert, oriented x 3 SKIN: Warm and dry. No generalized rash HEAD: Atraumatic. Normocephalic. No temporal wasting, or tenderness. EYES: [place] conjunctiva. No petechia or hemorrhage. Pupils equal, round and reactive to light. Extraocular movements full and intact. No scleral icterus. No injection or drainage. EARS, NOSE AND THROAT: Has a NG tube. Moist mucosa NECK: Trachea midline. Supple and not tender, no meningeal signs CARDIOVASCULAR: Regular rate and rhythm. No murmurs, rubs or gallops heard RESPIRATORY: breath sounds bilaterally decreases ABDOMEN: MIldly distended, not tender, bowel sounds hypoactive No organomegaly. EXTREMITIES: No clubbing, cyanosis, or edema. No calf tenderness. Well perfused and warm. NEUROLOGICAL: Awake, No focal deficit Assessment and Plan (1) E. coli septicemia Status: Acute Code(s): A41.51 - Sepsis due to Escherichia coli [E. coli] (2) Ileus Status: Acute Code(s): K56.7 - Ileus, unspecified (3) Pyelonephritis Status: Acute Code(s): N12 - Tubulo-interstitial nephritis, not specified as acute or chronic (4) Sepsis Status: Acute Code(s): A41.9 - Sepsis, unspecified organism - Plan Impression E coli sepsis, due to UTI - CT no hydro - repeat UC with Enterococcus - off Abx now Ileus, SBP Cardiomyopathy Shock, resolved UTI Acute respiratory failure, resolved ETOH intake on daily basis Recommendation Repeat UA and C/S Surgery following for his SBO Monitor progress Will follow if any further Abx needed (4) Sepsis Qualifiers: Sepsis type: Escherichia coli Qualified Code(s): A41.51 - Sepsis due to Escherichia coli [E. coli]
--- NOTE | 2018-04-14 13:53 | P.DIET ---
Nutritional Evaluation Type of nutrition evaluation: follow-up Nutrition consult regarding: Tube Feeding (TFing d/c'ed 04/08) Subjective Subjective Comments: Had abdominal pain and distention. Objective - Diagnosis pyelonephritis, dehydration, hyponatremia - Objective % IBW: 106 (IBW = 110lb) Body Weight Used for Calculations: Actual Energy Needs - Lower Range (kCal/kg): 25 Energy Needs - Upper Range (kCal/kg): 30 Lower Limit kCal/kg (kCals): 1,328 Upper Limit kCal/kg (kCals): 1,593 Lower Limit Protein Factor (Grams per Kg): 1.2 Upper Limit Protein Factor (Grams per Kg): 1.5 Lower Protein Needs (Protein): 64 Upper Protein Needs (Protein): 80 Dietitian Reviewed in Medical Record: Current diet, Curent medications, Intake & Output, Labs, Medical history Diet Order: Full Liquid Assessment Assessment: Pt extubated and TF stopped on 04/08. Diet to advance to full liquids today and plan is to have NG-T removed if ok with general surgery. RD will follow diet advance , po intake and assess for the need of supplements. Recommendations: Advance diet per Surgery RD following Dietitian to Monitor: Lab values, Intake & Output, Weight change, PO Intake, Diet advancement, Medical course
--- NOTE | 2018-04-14 14:23 | P.PNGS ---
Subjective Patient reports: feels better, tolerating liquids well (Denies SOB, palpitations or chest pain. ), flatus, bowel movement Physical Exam Vital signs: Vital Signs 04/13/18 15:00 04/13/18 16:00 04/13/18 17:00 Temperature 98.9 F Pulse Rate 91 H 96 H 98 H Respiratory Rate 26 H 30 H 34 H Blood Pressure 145/82 H 145/78 H 133/78 Pulse Oximetry 100 93 L 98 04/13/18 17:41 04/13/18 18:00 04/13/18 19:00 Temperature Pulse Rate 94 H 101 H 97 H Respiratory Rate 17 29 H 24 Blood Pressure 140/77 152/79 H Pulse Oximetry 99 99 04/13/18 20:00 04/13/18 20:07 04/13/18 21:00 Temperature 98.7 F Pulse Rate 105 H 104 H 99 H Respiratory Rate 30 H 18 23 Blood Pressure 161/71 H 139/75 Pulse Oximetry 96 95 96 04/13/18 22:00 04/13/18 23:10 04/14/18 00:00 Temperature 97.7 F Pulse Rate 93 H 98 H 98 H Respiratory Rate 25 H 18 20 Blood Pressure 156/89 H 151/85 H Pulse Oximetry 96 95 04/14/18 03:40 04/14/18 04:00 04/14/18 04:56 Temperature 97.3 F L Pulse Rate 92 H 95 H Respiratory Rate 15 16 16 Blood Pressure 142/80 H Pulse Oximetry 97 95 04/14/18 07:24 04/14/18 08:00 04/14/18 12:00 Temperature 97.5 F L 97.5 F L Pulse Rate 92 H 98 H 89 Respiratory Rate 20 17 18 Blood Pressure 139/74 129/79 Pulse Oximetry 96 94 L Intake & Output 04/13/18 04/14/18 04/14/18 18:59 06:59 18:59 Intake Total 100 / 100 401 / 401 1000 / 1000 Output Total 1000 / 1000 450 / 450 Balance -900 / -900 -49 / -49 1000 / 1000 Weight 52.8 kg Intake: IV 100 / 100 401 / 401 1000 / 1000 D5W/1/2NS + KCL 20 mEq Inj 1, 1000 / 1000 000 ML @ 75 mls/hr IV.SIG . [id number] [facility] Rx#:[id number] KCl 20 mEq Premix Inj 20 meq In 100 / 100 200 / 200 100 ml @ 50 mls/hr IV.SIG Q2H PRN Rx#:[id number] Thiamine Inj 100 MG In NS Inj 101 / 101 100 ML @ 100 mls/hr IV.SIG Q24H [facility] Rx#:[id number] Oral 0 / 0 Output: Urine 450 / 450 Urine Amount (Catheter) 1000 / 1000 Female External 1000 / 1000 Gastric Drainage 0 / 0 Left Nare 0 / 0 Other: # Incontinent Voids 2 # Bowel Movements 5 1 - Constitutional no acute distress - Routine Neck Exam Present: supple - Routine Respiratory Exam Present: CTA bilaterally - Routine Cardiovascular Exam Present: RRR, S1, S2 - Routine Abdominal Exam Present: soft, distended - Urinary Catheter Management Indwelling Urethral Catheter Cath placed during this visit: yes, but has since been removed by the nurse Reason for continuing: Hourly intake/output Insertion date: 04/06/18 Removal date: 04/08/18 Female External Cath placed during this visit: no Results - Labs 04/13/18 04:48 04/14/18 06:00 Laboratory Results - last 24 hr 04/13/18 04/14/18 04/14/18 17:01 00:55 06:00 Sodium 135 L Potassium 3.8 Chloride 99 Carbon Dioxide 28.7 Anion Gap 7 BUN 3 L Creatinine 0.56 Estimated GFR Greater than 89 POC Glucose 94 92 Random Glucose 101 Calcium 8.6 04/14/18 04/14/18 06:11 11:36 Sodium Potassium Chloride Carbon Dioxide Anion Gap BUN Creatinine Estimated GFR POC Glucose 98 116 H Random Glucose Calcium - Imaging Imaging: ITS Impressions Abdomen X-Ray 04/08/18 00:00 CONCLUSION: Mild ileus Chest X-Ray 04/08/18 06:00 CONCLUSION: No significant interval change with persistent right greater than left lung base opacity and likely small bilateral pleural effusions. Abdomen/Pelvis CT 04/11/18 00:00 CONCLUSION: 1. Small bowel ileus with air and fecal debris identified in the distal small bowel. A discrete transition to indicate the presence of an obstructing process is not clearly evident. 2. Peritoneal bands characteristic of adhesions. 3. Collapsed colon 4. Bilateral pleural effusions and bibasilar airspace disease. Small Bowel X-Ray 04/12/18 00:00 CONCLUSION: High-grade distal small bowel obstruction. Myocardial Perfusion Scan Nuc Med 04/13/18 00:00 CONCLUSION: Mild areas of decreased activity in the mid and basal portions of the septum and the basal portion of the anterior wall. These areas are borderline for ischemia. Assessment and Plan - Plan Pt with multiple BM, passing flatus Tolerating clears well, advance to full liquid at dinner time D/C NGT Ambulate in [place] with assistance Ileus resolving Code Status: full Discussed Condition With: patient
[2018-04-14] MEDS: Thiamine Inj 100 MG in Sodium Chlor 0.9% Inj 100 ML IV.SIG SCH (20:38)
[2018-04-15] MEDS: KCL 20 mEq/D5W/NaCl 0.45% Inj 1,000 ML IV.SIG SCH (06:00)
[2018-04-15 06:04] LABS: Calcium 8.6 mg/dL (8.5-10.1); Carbon Dioxide 28.4 meq/L (21.0-32.0); Potassium 3.5 meq/L (3.5-5.1)
--- NOTE | 2018-04-15 07:52 | P.PNCA ---
Subjective Interval history: Assessment at bedside. NG tube removed yesterday and tolerating p.o. medications. No chest pain, shortness of breath, palpitations. Telemetry with narrow complex regular tachycardia overnight, no other significant arrhythmias noted. Medications and Allergies Active Medications: Active Medications Acetaminophen (Tylenol Liq) 650 mg PO Q6H PRN PRN Reason: FEVER Last Admin: 04/07/18 08:54 Dose: 650 mg Albuterol (Albuterol Neb (Prn)) 2.5 mg NEB Q2HR NEB PRN PRN Reason: DYSPNEA Albuterol (Duoneb Neb (Onelia)) 1 ampul INH Q4HR NEB [facility] Last Admin: 04/15/18 04:19 Dose: Not Given Artificial Tears (Tears Naturale Opth Drops) 1 drop EACH EYE Q8HR [facility] Last Admin: 04/14/18 23:34 Dose: Not Given Aspirin (Aspirin Chew) 81 mg PO DAILY [facility] Last Admin: 04/14/18 08:28 Dose: 81 mg Atorvastatin Calcium (Lipitor) 40 mg PO HS [facility] Last Admin: 04/11/18 21:42 Dose: 40 mg Carvedilol (Coreg) 6.25 mg PO BID [facility] Dextrose (D50w Vial) 50 ml IV.PUSH UNSCH PRN PRN Reason: PER HYPOGLYCEMIA PROTOCOL Last Admin: 04/13/18 00:02 Dose: 50 ml Folic Acid (Folic Acid) 1 mg PO DAILY [facility] Last Admin: 04/12/18 16:04 Dose: 1 mg Glucagon (Glucagon Inj) 1 mg OTHER PRN PRN PRN Reason: for Hypoglycemia Protocol Haloperidol Lactate (Haldol Inj) 2 mg IV.PUSH Q6H PRN PRN Reason: AGITAION Last Admin: 04/12/18 06:00 Dose: 2 mg Heparin Sodium (Porcine) (Heparin Inj) 5,000 units SQ Q12HR [facility] Last Admin: 04/14/18 20:42 Dose: 5,000 units Potassium Chloride/Dextrose/Sod Cl (D5w/1/2ns + Kcl 20 Meq Inj) 1,000 mls @ 75 mls/hr IV.SIG .[id number] [facility] Last Infusion: 04/15/18 06:45 Dose: Infused Thiamine HCl 100 mg/ Sodium (Chloride) 101 mls @ 100 mls/hr IV.SIG Q24H [facility] Last Infusion: 04/14/18 23:35 Dose: Infused Lisinopril (Prinivil) 5 mg PO DAILY [facility] Lorazepam (Ativan Inj) 0.5 mg IV.PUSH Q4H PRN PRN Reason: AGITATION Last Admin: 04/12/18 04:03 Dose: 0.5 mg Multivitamins/Minerals (Theragran-M) 1 tab PO DAILY [facility] Last Admin: 04/14/18 08:30 Dose: 1 tab Ondansetron HCl (Zofran Inj) 4 mg IV.PUSH Q6H PRN PRN Reason: NAUSEA OR VOMITING Last Admin: 04/10/18 11:55 Dose: 4 mg Senna/Docusate Sodium (Romana-Colace) 1 tab PO BID [facility] Last Admin: 04/14/18 20:43 Dose: Not Given Sodium Chloride (Ns Flush) 2 ml IV.FLUSH PRN PRN PRN Reason: FLUSH AFTER USING IV ACCESS Sodium Chloride (Ns Flush) 2 ml IV.FLUSH BID [facility] Last Admin: 04/14/18 20:42 Dose: 2 ml Sodium Chloride (Ns Flush) 0 ml IV.FLUSH DAILY [facility] Last Admin: 04/14/18 08:30 Dose: Not Given Allergies Allergy/AdvReac Type Severity Reaction Status Date / Time No Known Allergies Allergy Verified 04/03/18 10:22 Physical Exam Vital signs: Vital Signs 04/14/18 08:00 04/14/18 12:00 04/14/18 16:00 Temperature 97.5 F L 97.5 F L 98.3 F Pulse Rate 98 H 89 94 H Respiratory Rate 17 18 17 Blood Pressure 139/74 129/79 136/72 Pulse Oximetry 96 94 L 93 L 04/14/18 16:04 04/14/18 20:00 04/14/18 21:02 Temperature 98.1 F Pulse Rate 93 H 113 H 100 H Respiratory Rate 20 20 20 Blood Pressure 123/65 Pulse Oximetry 94 L 96 04/15/18 00:00 04/15/18 00:24 04/15/18 04:00 Temperature 98.3 F 98.1 F Pulse Rate 96 H 99 H 101 H Respiratory Rate 20 16 20 Blood Pressure 139/78 130/68 Pulse Oximetry 94 L 95 Intake & Output 04/14/18 04/15/18 04/15/18 18:59 06:59 18:59 Intake Total 1000 / 1000 222 / 222 Balance 999 / Weight 114 lb 3.191 oz Intake: IV 999 / D5W/1/2NS + KCL 20 mEq Inj , 999 / 999 122 / 122 000 ML @ 75 mls/hr IV.SIG . [id number] [facility] Rx#:[id number] Thiamine Inj 100 MG In NS Inj 100 / 100 100 ML @ 100 mls/hr IV.SIG Q24H [facility] Rx#:[id number] Other: # Voids 1 2 Date of Last Bowel Movement 04/14/18 # Bowel Movements 1 Narrative: GENERAL: Well-developed well-nourished. In no acute distress. NECK: No carotid bruits. No JVD. CARDIOVASCULAR: Regular rate and rhythm. No murmur appreciated. RESPIRATORY: No accessory muscle use. Clear to auscultation. Breath sounds equal bilaterally. MUSCULOSKELETAL: No clubbing or cyanosis. No edema. NEUROLOGICAL: Awake and alert. Normal speech. - Urinary Catheter Management Indwelling Urethral Catheter Cath placed during this visit: yes, but has since been removed by the nurse Reason for continuing: Hourly intake/output Insertion date: 04/06/18 Removal date: 04/08/18 Female External Cath placed during this visit: no Results 04/13/18 04:48 04/15/18 04:07 Comprehensive Metabolic Panel 04/14/18 04/15/18 Range/Units 06:00 04:07 Sodium 135 L 136 (136-145) meq/L Potassium 3.8 3.5 (3.5-5.1) meq/L Chloride 99 99 (98-107) meq/L Carbon Dioxide 28.7 28.4 (21.0-32.0) meq/L BUN 3 L 5 L (7-18) mg/dL Creatinine 0.56 0.80 (0.50-1.00) mg/dL Calcium 8.6 8.6 (8.5-10.1) mg/dL Intake and Output 04/14/18 04/15/18 04/15/18 22:59 06:59 14:59 Intake Total / Balance Intake: IV / D5W/1/2NS + KCL 20 mEq Inj , 122 / 122 000 ML @ 75 mls/hr IV.SIG . [id number] [facility] Rx#:[id number] Thiamine Inj 100 MG In NS Inj 100 / 100 100 ML @ 100 mls/hr IV.SIG Q24H [facility] Rx#:[id number] Other: # Voids 1 2 Weight 114 lb 3.191 oz - Imaging and Cardiology Imaging: Impressions Myocardial Perfusion Scan Nuc Med 04/13/18 00:00 CONCLUSION: Mild areas of decreased activity in the mid and basal portions of the septum and the basal portion of the anterior wall. These areas are borderline for ischemia. Assessment and Plan - Plan 53-year-old female with a past medical history of anxiety and daily alcohol use who presented with pyelonephritis, found to have gram-negative bacteremia, subsequent septic shock on 04/06. Found to have elevated troponin consistent with NSTEMI type II vs type I less likely, new cardiomyopathy with LVEF 25-30%, pulmonary edema, and respiratory failure requiring intubation and mechanical ventilation. Course further complicated by alcohol withdrawal and abdominal pain /distention consistent with ileus vs distal SBO less likely. Reconsulted 04/13 for preoperative cardiovascular risk assessment prior to possible noncardiac surgery for possible SBO, though at this juncture this appears to be less likely needed. Assessment: Preoperative cardiovascular risk assessment for noncardiac surgery - patient is a high risk patient for an intermediate risk surgical procedure and she may proceed with the procedure with continuation of ASA and perioperative beta abbi therapy if benefits are deemed to exceed risks. She appears to be compensated from a heart failure perspective. No need for further diuresis at this time. Try to maintain euvolemic state. Non-STEMI, type I versus type II - demand mediated due to gram-negative bacteremia and septic shock-troponin downtrended Septic shock - Improved Gram-negative bacteremia - This is typically associated with lower risk of endocarditis. Admission Abnormal EKG - in the setting of hypokalemia Cardiomyopathy-EF 25-30% Borderline abnormal stress test - Lexiscan 04/13 showed a small area of borderline ischemia in the mid and basal portions of the septum and the basal portion of the anterior wall, low/moderate risk findings. Plan: May consider LHC after clinical improvement in multiple current noncardiac issues to evaluate for obstructive coronary artery disease. May be completed inpatient or as outpatient following discharge. Continue aspirin 81 mg daily, atorvastatin 40 mg nightly Change metoprolol to carvedilol 6.25mg bid. Start Lisinopril 5mg daily. Discussed Condition With: Patient and , Dr. Marie
--- NOTE | 2018-04-15 08:57 | P.DCO ---
Physical Therapy Order: Evaluate and treat and Improve ambulation Home Health Nursing Order: Medical education, Signs/symptoms of disease process, Medication education-adverse effect and Nursing assessment with vital signs Case Management Consult Case Management Consult-Home Health: Yes I have seen patient Alexia Sarabia on 04/15/18. My clinical findings support the need for the requested home health care services because: I certify that my clinical findings support that this patient is homebound because:
--- NOTE | 2018-04-15 08:59 | P.PNIM ---
Subjective Interval history: martinez fulls. ambulating flatus/bm's Physical Exam Vital signs: Last Vital Signs Temp 98.1 F 04/15/18 04:00 Pulse 101 H 04/15/18 04:00 Resp 20 04/15/18 04:00 BP 130/68 04/15/18 04:00 Pulse Ox 95 04/15/18 04:00 Narrative: heart reg lung cta abd s/nt/bs ext no edema Results Labs CBC & Chem 7: 04/13/18 04:48 04/15/18 04:07 Assessment and Plan Plan 1. ecoli pylonephritis/sepsis 2. cardiomyopathy/ ef 25-30%. nstemi acute pulmonary edema. s/p intubation lexiscan some areas of possible ischemia/ef 70percent 3. etoh abuse. etoh w/d 4. ileus. seems to be resolving 5. hypokalemia advance diet ambulate if tolerating food could probably dc her home today with hhc/pt cont cathy/bb. f/u cardiology for repeat echo kcl Progress Note: Quality VTE Deep Vein Thrombosis/Pulmonary Embolism Present on Admission: No
[2018-04-15] MEDS: Senna/Docusate Sodium 8.6/50 MG Tablet PO SCH ×2 (09:58→22:17)
[2018-04-15] MEDS: Multivitamin/Minerals Therapeutic Tablet PO SCH (09:58)
[2018-04-15] MEDS: Heparin - SQ 10,000 UNITS/ML Vial SQ SCH ×2 (09:59→22:17)
[2018-04-15] MEDS: Lisinopril 5 MG Tablet PO SCH (09:59)
[2018-04-15] MEDS: Artificial Tears Opth Drops 15 ML Bottle EACH EYE SCH ×3 (10:01→22:18)
[2018-04-15] MEDS ORDERED: Potassium Chloride 10 MEQ ER Capsule PO ONE (10:30)
[2018-04-16] MEDS: Artificial Tears Opth Drops 15 ML Bottle EACH EYE SCH (06:51)
--- NOTE | 2018-04-16 08:10 | P.PNGS ---
Subjective Patient reports: no new complaints (Pt denies SOB, palpitations or chest pain. Ambulating with assist. ), tolerating liquids well, flatus, bowel movement Physical Exam Vital signs: Vital Signs 04/15/18 09:27 04/15/18 12:00 04/15/18 12:39 Temperature 97.3 F L Pulse Rate 108 H 93 H 94 H Respiratory Rate 18 16 18 Blood Pressure 106/68 Pulse Oximetry 95 04/15/18 15:54 04/15/18 16:00 04/15/18 19:44 Temperature 94.3 F L Pulse Rate 91 H 90 90 Respiratory Rate 18 13 16 Blood Pressure 128/83 Pulse Oximetry 95 04/15/18 20:00 04/15/18 23:59 04/16/18 00:00 Temperature 97.4 F L 98.5 F Pulse Rate 100 H 84 89 Respiratory Rate 18 17 18 Blood Pressure 124/65 149/81 H Pulse Oximetry 97 96 97 04/16/18 03:11 04/16/18 04:00 04/16/18 08:03 Temperature 98.8 F Pulse Rate 89 94 H 94 H Respiratory Rate 19 18 19 Blood Pressure 117/59 L Pulse Oximetry 97 92 L 96 Intake & Output 04/15/18 04/16/18 04/16/18 18:59 06:59 18:59 Output Total 100 / 100 Balance -100 / -100 Weight 51.3 kg Output: Urine 100 / 100 Other: # Voids 4 2 - Constitutional no acute distress - Routine Neck Exam Present: supple - Routine Respiratory Exam Present: CTA bilaterally - Routine Cardiovascular Exam Present: RRR, S1, S2 - Routine Abdominal Exam Present: soft Comments: mildly distended, mild tenderness, improved. - Urinary Catheter Management Indwelling Urethral Catheter Cath placed during this visit: yes, but has since been removed by the nurse Reason for continuing: Hourly intake/output Insertion date: 04/06/18 Removal date: 04/08/18 Female External Cath placed during this visit: no Results - Labs 04/13/18 04:48 04/15/18 04:07 - Imaging Imaging: ITS Impressions Abdomen X-Ray 04/08/18 00:00 CONCLUSION: Mild ileus Chest X-Ray 04/08/18 06:00 CONCLUSION: No significant interval change with persistent right greater than left lung base opacity and likely small bilateral pleural effusions. Abdomen/Pelvis CT 04/11/18 00:00 CONCLUSION: 1. Small bowel ileus with air and fecal debris identified in the distal small bowel. A discrete transition to indicate the presence of an obstructing process is not clearly evident. 2. Peritoneal bands characteristic of adhesions. 3. Collapsed colon 4. Bilateral pleural effusions and bibasilar airspace disease. Small Bowel X-Ray 04/12/18 00:00 CONCLUSION: High-grade distal small bowel obstruction. Myocardial Perfusion Scan Nuc Med 04/13/18 00:00 CONCLUSION: Mild areas of decreased activity in the mid and basal portions of the septum and the basal portion of the anterior wall. These areas are borderline for ischemia. Assessment and Plan - Plan Pt with multiple BM, passing flatus Advance to regular diet today Ambulate [place] with assistance ad miguelina Ileus resolving If tolerating regular diet, consider D/C home tomorrow. Code Status: full Discussed Condition With: patient
--- NOTE | 2018-04-16 08:32 | P.CONOB ---
History of Present Illness Service: gynecology Consult date: 04/15/18 Reason for Consult: vaginal bleeding on pad Primary Care Physician: Bertha Justin MD Chief Complaint: Sent via primary care physician for fever chills abdominal pain dysuria History of Present Illness: 53 yo mwf in menopause and known to me socially and requested me for the ordered r d engineer consult. She presented from her PCP with symptoms of severe UTI which progressed to urosepsis, ARDS requiring intubation. She is near discharge home now after prolonged and complicated recovery that included a resolving bowel obstruction. She has had some bright red spotting on her pad. She believes it was due to the external device to measure urine output. Denies cramping, previous post menopausal bleeding. Has been in menopause over two years. Has never been on HRT. 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 Reports no history of fibroids, abnormal pap smears, endometriosis or abnormal bleeding patterns. Review of Systems ROS and Medical history as per extended records and reviewed [facility] - History History Provided By: Patient, Medical Record - Medical History Medical History: Medical History (Last Reviewed 04/07/18 @ 09:30 by Mauricio Jaeger) No significant past medical history - Surgical History Surgical History: Surgical History (Last Reviewed 04/07/18 @ 09:30 by Mauricio Jaeger) History of breast augmentation Hx of tonsillectomy - Family History Family History: Family History (Last Updated 04/06/18 @ 07:51 by Robbin Reddy MD) Other No pertinent family history - Tobacco History Second Hand Smoke Exposure: No Smoking Status: Never smoker - Alcohol History How Often Do You Have a Drink Containing Alcohol: 4 or more times a week - Substance Use History Substance History: No History of Abuse - Travel History Recent Travel in the [place] Within the Last 8 Weeks: No Recent Travel Out of the Country Within the Last 8 Weeks: No - Immunization History Tetanus Immunization: Unsure Hx Influenza Vaccine This Season: No Medications and Allergies Active Medications: Active Medications Acetaminophen (Tylenol Liq) 650 mg PO Q6H PRN PRN Reason: FEVER Last Admin: 04/07/18 08:54 Dose: 650 mg Albuterol (Albuterol Neb (Prn)) 2.5 mg NEB Q2HR NEB PRN PRN Reason: DYSPNEA Albuterol (Duoneb Neb (Onelia)) 1 ampul INH Q4HR NEB [facility] Last Admin: 04/16/18 08:02 Dose: 1 ampul Artificial Tears (Tears Naturale Opth Drops) 1 drop EACH EYE Q8HR [facility] Last Admin: 04/16/18 06:51 Dose: Not Given Aspirin (Aspirin Chew) 81 mg PO DAILY [facility] Last Admin: 04/15/18 09:59 Dose: 81 mg Atorvastatin Calcium (Lipitor) 40 mg PO HS [facility] Last Admin: 04/11/18 21:42 Dose: 40 mg Carvedilol (Coreg) 6.25 mg PO BID [facility] Last Admin: 04/15/18 22:17 Dose: 6.25 mg Dextrose (D50w Vial) 50 ml IV.PUSH UNSCH PRN PRN Reason: PER HYPOGLYCEMIA PROTOCOL Last Admin: 04/13/18 00:02 Dose: 50 ml Glucagon (Glucagon Inj) 1 mg OTHER PRN PRN PRN Reason: for Hypoglycemia Protocol Heparin Sodium (Porcine) (Heparin Inj) 5,000 units SQ Q12HR [facility] Last Admin: 04/15/18 22:17 Dose: 5,000 units Lisinopril (Prinivil) 5 mg PO DAILY [facility] Last Admin: 04/15/18 09:59 Dose: 5 mg Multivitamins/Minerals (Theragran-M) 1 tab PO DAILY [facility] Last Admin: 04/15/18 09:58 Dose: 1 tab Ondansetron HCl (Zofran Inj) 4 mg IV.PUSH Q6H PRN PRN Reason: NAUSEA OR VOMITING Last Admin: 04/10/18 11:55 Dose: 4 mg Senna/Docusate Sodium (Romana-Colace) 1 tab PO BID [facility] Last Admin: 04/15/18 22:17 Dose: 1 tab Sodium Chloride (Ns Flush) 2 ml IV.FLUSH PRN PRN PRN Reason: FLUSH AFTER USING IV ACCESS Sodium Chloride (Ns Flush) 2 ml IV.FLUSH BID [facility] Last Admin: 04/15/18 22:17 Dose: 2 ml Sodium Chloride (Ns Flush) 0 ml IV.FLUSH DAILY [facility] Last Admin: 04/15/18 10:00 Dose: Not Given Allergies Allergy/AdvReac Type Severity Reaction Status Date / Time No Known Allergies Allergy Verified 04/03/18 10:22 Exam Vital signs: Vital Signs 04/15/18 09:27 04/15/18 12:00 04/15/18 12:39 Temperature 97.3 F L Pulse Rate 108 H 93 H 94 H Respiratory Rate 18 16 18 Blood Pressure 106/68 Pulse Oximetry 95 04/15/18 15:54 04/15/18 16:00 04/15/18 19:44 Temperature 94.3 F L Pulse Rate 91 H 90 90 Respiratory Rate 18 13 16 Blood Pressure 128/83 Pulse Oximetry 95 04/15/18 20:00 04/15/18 23:59 04/16/18 00:00 Temperature 97.4 F L 98.5 F Pulse Rate 100 H 84 89 Respiratory Rate 18 17 18 Blood Pressure 124/65 149/81 H Pulse Oximetry 97 96 97 04/16/18 03:11 04/16/18 04:00 04/16/18 08:03 Temperature 98.8 F Pulse Rate 89 94 H 94 H Respiratory Rate 19 18 19 Blood Pressure 117/59 L Pulse Oximetry 97 92 L 96 Intake & Output 04/15/18 04/16/18 04/16/18 18:59 06:59 18:59 Output Total 100 / 100 Balance -100 / -100 Weight 51.3 kg Output: Urine 100 / 100 Other: # Voids 4 2 Narrative: appears fatigue and tremulous. Ambulating and voiding on her own. A and O x 3. further exam declined. Results - Labs CBC & Chem 7: 04/13/18 04:48 04/15/18 04:07 Assessment and Plan - Diagnosis (1) Vulvar irritation Code(s): N90.89 - Other specified noninflammatory disorders of vulva and perineum Status: Acute Plan: I will see Brittny as an outpatient to establish as a r d engineer patient in the next few weeks. We will proactively call her
[2018-04-16] MEDS: Senna/Docusate Sodium 8.6/50 MG Tablet PO SCH (08:56)
[2018-04-16] MEDS: Heparin - SQ 10,000 UNITS/ML Vial SQ SCH (08:56)
[2018-04-16] MEDS: Lisinopril 5 MG Tablet PO SCH (08:56)
[2018-04-16] MEDS: Multivitamin/Minerals Therapeutic Tablet PO SCH (08:57)
--- NOTE | 2018-04-16 09:55 | P.DCO ---
Diagnosis (1) Pyelonephritis: Status: Acute (2) Sepsis: Status: Acute (3) Respiratory failure: Status: Resolved (4) Ileus: Status: Acute Physical Therapy Order: Evaluate and treat and Improve ambulation Home Health Nursing Order: Medical education, Signs/symptoms of disease process and Nursing assessment with vital signs Case Management Consult Case Management Consult-Home Health: Yes I have seen patient Alexia Sarabia on 04/16/18. My clinical findings support the need for the requested home health care services because: I certify that my clinical findings support that this patient is homebound because: _ (1) Sepsis Qualifiers: Sepsis type: Escherichia coli Qualified Code(s): A41.51 - Sepsis due to Escherichia coli [E. coli] (2) Respiratory failure Qualifiers: Chronicity: acute Respiratory failure complication: hypoxia Qualified Code(s ): J96.01 - Acute respiratory failure with hypoxia
--- NOTE | 2018-04-16 11:37 | P.DS ---
DS: Providers Date of admission: 04/03/18 12:12 Primary care physician: Bertha Justin MD Consults: 04/04/18 11:39 Consult to Infectious Diseases Routine Consulting Provider: Orly Cruz Preferred Slide Fastener Repairer:: Orly Cruz Reason for Consultation: gram negative blood cultures Notified:: Service Spoke with:: Mary Date Notified:: 04/04/18 Time Notified:: 11:44 Ordering Provider: CANDACE 04/06/18 05:25 Consult to Manager Competitive Intelligence Stat Consulting Provider: Martin Petersen For STAT consult, spoke directly to:: Dr Petersen Reason for Consultation: resp failure/ resp alkalosis/ withdrawal Notified:: Physician Spoke with:: dr lyn Date Notified:: 04/06/18 Time Notified:: 06:25 Ordering Provider: MARIS 04/06/18 15:08 Consult to Cardiology Routine Consulting Provider: Farshad Murillo Does the patient have a Hiv Prevention Specialist who follows them?: No Preferred Grinder Outside Diameter:: Ship Design Teacher Physician Reason for Consultation: Patient admitted with E. coli sepsis/UTI. Elevated troponin I 0.46. Abnormal echocardiogram ejection fraction low with global hypokinesis per preliminary report. Troponin elevated 1.46. Assistance with management. Notified:: Service Spoke with:: amador Date Notified:: 04/06/18 Time Notified:: 15:20 Ordering Provider: THEA 04/11/18 18:54 Consult to General Surgery Routine Consulting Provider: Mitch Gilman Preferred Slide Fastener Repairer:: Mitch Gilman Reason for Consultation: possible sbo Notified:: Service Spoke with:: YUNIER Date Notified:: 04/11/18 Time Notified:: 19:39 Comments:: [facility] Ordering Provider: CHANDA 04/15/18 09:39 HUB Only Consult Order Routine Consulting Provider: Smita Stinson,Aguilar 04/15/18 13:23 Consult to Gynecology Routine Consulting Provider: Sarah Pierre Preferred Slide Fastener Repairer:: Sarah Pierre Reason for Consultation: vaginal bleeding. known to Dr Pierre. Notified:: Office Spoke with:: NATHANAEL Date Notified:: 04/15/18 Time Notified:: 13:53 Comments:: Ordering Provider: [place] Brief History from admission: 53 yo mwf in menopause and known to me socially and requested me for the ordered ob gyn consult. She presented from her PCP with symptoms of severe UTI which progressed to urosepsis, ARDS requiring intubation. She is near discharge home now after prolonged and complicated recovery that included a resolving bowel obstruction. She has had some bright red spotting on her pad. She believes it was due to the external device to measure urine output. Denies cramping, previous post menopausal bleeding. Has been in menopause over two years. Has never been on HRT. Has not been to a fish filleter in over 10 years. Reports no history of fibroids, abnormal pap smears, endometriosis or abnormal bleeding patterns. DS: Diagnosis Discharge Diagnosis (1) Pyelonephritis: Status: Acute (2) Sepsis: Status: Acute (3) Respiratory failure: Status: Resolved (4) Ileus: Status: Acute DS: Summary Pt presented to [facility] ED and admitted for Pylonephritis and sepsis. The Patient was found to have e coli uti/sepsis and ID managed her antibiotics. Pt developed pulmonary edema and intubated. She Had Echo with EF around 25 or 30 % and seen by cardiology. She was having etoh w/d and it was clear she was using more etoh at home than initially reported. CIWA protocol given and pt off any benzo at time of dc. She developed an ileus and then sbft suggested high grade obstruction and pt brought to [facility] for [facility] surgery. Her bowels began to move and surgery cancelled. cardiology perfored lexiscan for concern of nstemi. Areas of possibe ischemia noted but will f/u in office and no lhc now. coreg and lisinipril plus statin/asa given. Pt had some vaginal bleeding/irritation and seen by gynecology who will f/u. tolerated regular food on dc f/u with cardiology, pcp, ob gyn. 1. ecoli pylonephritis/sepsis 2. cardiomyopathy/ ef 25-30%. nstemi acute pulmonary edema. s/p intubation lexiscan some areas of possible ischemia/ef 70percent 3. etoh abuse. etoh w/d 4. ileus. seems to be resolving 5. hypokalemia dc home today. Progress Note: Quality VTE Time Spent with Patient Total time spent providing and/or coordinating discharge services: Quality: VTE Deep Vein Thrombosis/Pulmonary Embolism Present on Admission: No Results Procedures completed during hospitalization: Intubation, Rt IJ, femoral artline by gum remover subsequently all removed Impressions ITS Impressions Abdomen X-Ray 04/08/18 00:00 CONCLUSION: Mild ileus Chest X-Ray 04/08/18 06:00 CONCLUSION: No significant interval change with persistent right greater than left lung base opacity and likely small bilateral pleural effusions. Abdomen/Pelvis CT 04/11/18 00:00 CONCLUSION: 1. Small bowel ileus with air and fecal debris identified in the distal small bowel. A discrete transition to indicate the presence of an obstructing process is not clearly evident. 2. Peritoneal bands characteristic of adhesions. 3. Collapsed colon 4. Bilateral pleural effusions and bibasilar airspace disease. Small Bowel X-Ray 04/12/18 00:00 CONCLUSION: High-grade distal small bowel obstruction. Myocardial Perfusion Scan Nuc Med 04/13/18 00:00 CONCLUSION: Mild areas of decreased activity in the mid and basal portions of the septum and the basal portion of the anterior wall. These areas are borderline for ischemia. Discharge Plan Discharge Disposition Patient Disposition: /Home Health Service Discharge Condition Condition: Stable Discharge Order Discharge Orders: Discharge Order (Routine); Ordered 04/16/18 Ordered By: Daniele Kilgore Discharge Details Anticipated Discharge Date: 04/16/18 Physicians Team Primary Care Provider: Bertha Justin Attending Provider: Daniele Kilgore Other Providers: Orly Cruz ; Manish Lima ; Martin Petersen ; Farshad Murillo ; Mitch Gilman ; [facility] ; Sarah Pierre Rxs /Orders / Referrals /Forms Prescriptions: New acetaminophen 325 mg Tablet 650 mg PO Q4H PRN (Reason: Temp > 100.4) RF: 0 atorvastatin 40 mg Tablet 40 mg PO HS Qty: 30 RF: 0 aspirin 81 mg Tablet,Chewable 81 mg PO DAILY 30 Days Qty: 30 RF: 0 lisinopril 5 mg Tablet 5 mg PO DAILY Qty: 30 RF: 0 carvedilol [Coreg] 3.125 mg Tablet 6.25 mg PO BID 30 Days Qty: 120 RF: 0 Ambulatory Orders / Order Sets / DME: Ludin Estrada (Routine) Location: Determined by Patient Ordered By: Dereck Blunt Referrals: Bertha Justin MD [Primary Care Provider] - 04/28/18 2:00 pm ( f/u 1 week) [facility] [Agency] - See Instructions (Home Health Agency will call with visit time) Sarah Pierre MD [OBSTETRICS & GYNECOLOGY] - 04/23/18 2:15 pm (1-2 week f/u) Alfa Marie DO [Physician] - 04/30/18 2:15 pm (f/u 2 weeks. will need f/u echo arranged by your support team assoc.) Status ED Status: Left Department
== END 2018-04-16 12:23 | disposition home health service (06) ==
LOC: PHED 10:16 → PHEDA 12:12 → PH3 13:31 → PHICU 04-06 04:45 → N03 04-12 22:59 → N05 04-13 23:37
PROVIDERS: ADMIT Hospitalist; ATTEND Hospitalist
DX: D64.9 Anemia, unspecified; Z53.8 Procedure and treatment not carried out for other reasons; K56.7 Ileus, unspecified; E88.09 Other disorders of plasma-protein metabolism, not elsewhere classified; F10.239 Alcohol dependence with withdrawal, unspecified; E87.6 Hypokalemia; I49.3 Ventricular premature depolarization; N12 Tubulo-interstitial nephritis, not specified as acute or chronic; I08.1 Rheumatic disorders of both mitral and tricuspid valves; E87.3 Alkalosis; R00.0 Tachycardia, unspecified; G93.41 Metabolic encephalopathy; N90.89 Other specified noninflammatory disorders of vulva and perineum; E86.0 Dehydration; J96.02 Acute respiratory failure with hypercapnia; J96.01 Acute respiratory failure with hypoxia; Z87.440 Personal history of urinary (tract) infections; E78.1 Pure hyperglyceridemia; A41.51 Sepsis due to Escherichia coli [E. coli]; I31.3 Pericardial effusion (noninflammatory); N39.0 Urinary tract infection, site not specified; F41.9 Anxiety disorder, unspecified; E87.1 Hypo-osmolality and hyponatremia; I42.9 Cardiomyopathy, unspecified; I50.21 Acute systolic (congestive) heart failure; I21.4 Non-ST elevation (NSTEMI) myocardial infarction; D69.59 Other secondary thrombocytopenia; R65.21 Severe sepsis with septic shock